=== PATIENT | male | born 1945 | race Caucasian/White ===

== ENCOUNTER → 2017-08-15 | Outpatient (CLI) | payer MEDICARE ==
[~2017-08-15] MED LIST: ASPIR 8181 MG PO; ASPIRIN EC81 MG PO; ATORVASTATIN CA80 MG PO; BACTROBAN15 G1 TOP; CO Q-10100 MG PO; COUMADIN5 MG PO; CRESTOR20 MG PO; DIGOXIN125 MCG PO; FERROUS SULFAT325 MG PO; FUROSEMIDE20 MG PO; GEMFIBROZIL600 MG PO; GLYBURIDE-METF1 EAC1 PO; KEFLEX500 MG PO; LASIX40 MG PO; LEVEMIR100 UNIT/1 SC; LEXAPRO10 MG PO; LISINOPRIL40 MG PO; METFORMIN HCL500 M2 PO; METFORMIN HCL500 MG PO; METOPROLOL SUCC50 MG PO; METOPROLOL TAR100 MG PO; METOPROLOL TART25 MG PO; MIDODRINE HCL2.5 MG PO; ONGLYZA5 MG PO; POTASSIUM CHLO10 ME1 PO; TRILIPIX135 MG PO; VICODIN 5-5001 EACH PO; VITAMIN D1000 UNI1 PO; WARFARIN SODIU2.5 MG PO; WARFARIN SODIU7.5 MG PO; XARELTO20 MG PO
--- NOTE | 2017-08-15 15:26 | Diagnostic Imaging Report ---
ELBOW LEFT COMPLETE - 3 views HISTORY: Pain COMPARISON: None available. FINDINGS: See impression. IMPRESSION: Minimally displaced intra-articular fracture of the base of the olecranon with associated soft tissue swelling. Signed by: Dr. Westley Chapman MD on 08/15/2017 3:23 PM
--- NOTE | 2017-08-15 15:36 | Diagnostic Imaging Report ---
EXAMINATION: [facility]BS UNILAT W/CXR INDICATION: \[id number] \S\[id number] \S\LEFT RIB PAIN COMPARISON: Chest x-ray dated 10/11/2016 FINDINGS: Very limited study due to generalized demineralization and body habitus. Left chest wall cardiac device is again seen. Median sternotomy wires. Enlarged cardiac silhouette. Calcified and tortuous aorta. Small left pleural effusion. IMPRESSION: No definite evidence of displaced left-sided rib fracture, considering limitations of the study. Signed by: Dr. Westley Chapman MD on 08/15/2017 3:32 PM
== END ==
LOC: RAD 14:41
PROVIDERS: ATTEND Family Medicine
DX: M25.522 Pain in left elbow (principal); R07.81 Pleurodynia
CPT/HCPCS: 71101

== ENCOUNTER → 2017-08-29 | Outpatient (CLI) | payer MEDICARE ==
[~2017-08-29] MED LIST changes: -ASPIR 8181 MG PO; -FUROSEMIDE20 MG PO; -KEFLEX500 MG PO; -METFORMIN HCL500 M2 PO; -WARFARIN SODIU7.5 MG PO
--- NOTE | 2017-09-01 13:39 | Diagnostic Imaging Report ---
Examination: CT head without contrast Clinical Indication: Syncope. Dizziness. Technique: Transaxial noncontrast images from the skull base through the vertex were obtained. Sagittal and coronal reformatted images were done. Comparison: None. CTA of the neck performed June 13, 2015. Findings: Scalp: No abnormalities. Bones: Intact. No fractures. No blastic or lytic lesions. Brain sulci: Mild volume loss for patient's age. Ventricles: No hydrocephalus. . Extra-axial space: No abnormalities. Parenchyma: There are scattered subtle areas of low-attenuation within subcortical and periventricular white matter, nonspecific, but could represent microvascular ischemic disease. There is a cortical-based area of encephalomalacia involving the right paracentral lobule and pre and post central gyri. No masses, hemorrhage, or acute cortical based vascular insults. Suprasellar region: No abnormalities. Craniocervical junction: The foramen magnum is patent. No Chiari one malformation. Incidental findings: Atherosclerotic calcification of the cavernous and supraclinoid internal carotid arteries. Impression: 1. No acute intracranial abnormalities. 2. 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 Signed by: Dr. Peggy Briggs M.D. on 09/01/2017 1:36 PM
--- NOTE | 2017-09-02 17:11 | Diagnostic Imaging Report ---
Exam: Thoracic spine CT without IV contrast History: Back pain, Evaluate wedge compression fracture Comparison studies: Included spine from chest CT of 08/28/2016. Technique: Axial were obtained without IV contrast through the thoracic region. Coronal and sagittal images reconstructed from the axial data. Intravenous contrast: None Findings: Alignment: Mild thoracic curvature convex to the right. Soft tissues: No abnormalities.. Paraspinal muscles: Unremarkable Spinal cord: Can not be evaluated. Vertebrae: No fractures, infection or neoplasm. Degenerative changes: Mildly degenerated thoracic discs. Multilevel anterior marginal osteophytosis. No significant canal stenosis. Mild foraminal stenosis bilaterally at C6-C7, T7-T8 and on the left at T8-T9. Incidental findings: Cholelithiasis with partially imaged median sternotomy wires, moderate scattered calcified atherosclerosis (within the included coronary arteries, aorta and its branching vessels), cardiac valvular calcifications, small left pleural effusion with overlying atelectasis or consolidation and leads from a left-sided in place at intracardiac device. Mildly prominent mediastinal lymph nodes recommend identified and are nonspecific. IMPRESSION: 1. No thoracic spine fracture. 2. Mild degenerative changes as described. 3. Incidental findings as described. 4. Cannot adequately evaluate ligament, spinal cord or vascular abnormalities on the basis of this examination. Signed by: Dr. Zion Davis M.D. on 09/02/2017 5:07 PM
--- NOTE | 2017-09-05 18:00 | Operative Report ---
DATE OF PROCEDURE: September 04, 2017 PREOPERATIVE DIAGNOSIS: Displaced left olecranon fracture. POSTOPERATIVE DIAGNOSIS: Displaced left olecranon fracture. PROCEDURES PERFORMED: 1. Open reduction and internal fixation of a left olecranon fracture. 2. Allograft bone grafting of the left olecranon fracture. 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 ANESTHESIA: General endotracheal intubation anesthesia. IV FLUIDS: Per the anesthesia record. BRIEF DESCRIPTION OF THE PATIENT'S OPERATIVE PROCEDURE: Mr. Moore was taken to the operating room and placed in supine position on the operating table. Following induction of general anesthesia as well as endotracheal intubation, patient's left upper extremity was examined under anesthesia. He was found to have some mild swelling and bruising about his left elbow joint. Fluoroscopic evaluation of the elbow demonstrated a displaced olecranon fracture. The patient's upper extremity was prepped and draped in standard surgical fashion. Case was begun by creating a curvilinear incision around the olecranon process and along the shaft of the proximal ulna. This incision was carried through skin only. Blunt dissection was used to deepen the incision to the level of the ulna and the soft tissues from the proximal ulna were elevated both medially and laterally using a [place]. The patient's fracture site was easily identified. The fracture was cleaned and reduced and a proximal ulnar locking plate was contoured to the proximal aspect of the ulna. The patient was found to have a large area of calcification at the insertion of the triceps. This was somewhat debrided at the time of surgery. The plate was affixed to the ulna with combinations of both cortical and locking screws providing compression across the patient's fracture site. X-rays were obtained that demonstrated the span of the fracture site with reduction of the patient's articular surface. This wound was copiously irrigated. There was some comminution at the level of the fracture site and allograft bone graft was placed along the fractured ulna both medially and laterally. The soft tissues were then closed in a multilayer fashion. Dressings were applied. The patient was placed in a well-padded splint, awakened and taken to post anesthesia care unit in stable condition. Job#: [id number]
== END ==
LOC: CARD 11:20
PROVIDERS: ATTEND Specialist
DX: R55 Syncope and collapse (principal); S22.000A Wedge compression fracture of unspecified thoracic vertebra, initial encounter for closed fracture
CPT/HCPCS: 70450; 72128; 93880

== ENCOUNTER → 2017-09-04 | Day surgery (SDC) | payer MEDICARE ==
[2017-09-01 11:47] LABS: BASOPHILS % 0.7 % (0.0-1.0); EOSINOPHILS # (AUTO) 0.2 (0.0-0.4); EOSINOPHILS % 3.5 % (0.0-6.0); HEMATOCRIT 39.4 % (38.2-49.6); HEMOGLOBIN 12.4 g/dL (14.0-18.0); LYMPHOCYTES # (AUTO) 1.4 (1.0-3.2); LYMPHOCYTES % 22.7 % (18.0-39.1); MEAN CORPUSCULAR HEMOGLOBIN 28.3 pg (28-32); MEAN CORPUSCULAR HGB CONC 31.5 g/dL (31-35); MONOCYTES # (AUTO) 0.8 (0.2-0.8); MONOCYTES % 12.8 % (4.4-11.3); NEUTROPHILS # (AUTO) 3.6 (2.1-6.9); NEUTROPHILS % 60.1 % (38.7-80.0); PLATELET COUNT 204 x10e3/uL (140-360); RED BLOOD COUNT 4.38 x10e6/uL (4.3-5.7); RED CELL DISTRIBUTION WIDTH 15.8 % (11.7-14.4)
[2017-09-01 11:59] LABS: INR 2.06; PROTHROMBIN TIME 21.8 seconds (11.9-14.5)
[2017-09-01 12:00] LABS: PARTIAL THROMBOPLASTIN TIME 46.8 seconds (23.8-35.5)
[2017-09-01 12:05] LABS: ANION GAP 13.7 mmol/L (8-16); BLOOD UREA NITROGEN 17 mg/dL (7-26); BUN/CREATININE RATIO 18 (6-25); CALCIUM 9.4 mg/dL (8.4-10.2); CARBON DIOXIDE 23 mmol/L (22-29); CHLORIDE 109 mmol/L (98-107); CREATININE, SERUM 0.97 mg/dL (0.72-1.25); EST GLOMERULAR FILTRATION RATE > 60 ML/MIN (60-); GLUCOSE 94 mg/dL (74-118); POTASSIUM 4.7 mmol/L (3.5-5.1); SODIUM 141 mmol/L (136-145)
[2017-09-03 15:08] LABS: INR 1.52; PROTHROMBIN TIME 17.2 seconds (11.9-14.5)
[2017-09-03 15:09] LABS: PARTIAL THROMBOPLASTIN TIME 45.6 seconds (23.8-35.5)
[~2017-09-04] MED LIST changes: +BACITRACIN 50,000 UNIT VIAL ONE; +BUPIVACAINE HCL 0.5% INJ 30 ML VIAL INJ ONE; +CEFAZOLIN SOD 2 GM/D5W 50ML 50 ML IV ONE; +DEXAMETHASONE SOD PHOS INJ 4 MG/ML VIAL ONE; +FENTANYL CITRATE/PF 100MCG/2 ML INJ ONE; +KEFLEX500 MG PO; +LIDOCAINE HCL 2% LOCAL INJ 5 ML SDV VIAL INJ ONE; +MIDAZOLAM HCL 2 MG/2 ML VIAL ONE; +ONDANSETRON HCL INJ 2 MG/ML VIAL ONE; +PHENYLEPHRINE HCL 1% 10 MG/ML VIAL ONE; +PROPOFOL IV EMULSION 10 MG/ML 20 ML VIAL ONE; +ROCURONIUM BROMIDE 10 MG/ML 5ML VIAL ONE; +ROPIVACAINE 0.5% 5 MG/ML 30 ML SDV ONE; +SEVOFLURANE INHAL SOLN 250 ML PEN BTL ONE; +VASOPRESSIN INJ 20 UNIT/ML VIAL ONE
[2017-09-04 10:17] LABS: INR 1.31; PROTHROMBIN TIME 15.3 seconds (11.9-14.5)
[2017-09-04 10:18] LABS: PARTIAL THROMBOPLASTIN TIME 36.8 seconds (23.8-35.5)
--- OUTSIDE RECORDS SUMMARY | 2017-09-04 11:30 | XMS REPORT | Clinical Summary ---
Author Author [facility] Organization [facility] Address Unknown Phone Unavailable Care Team Providers Care Heading Matcher And Assembler Name Role Phone Ronda Sofia MD PCP Allergies No Known Allergies Current Medications Prescription Sig. Disp. Refills Start End Date Status Date aspirin (ECOTRIN) 81 MG Take 81 mg by mouth Active enteric coated tablet daily. cholecalciferol, vitamin Take 50,000 Units by Active D3, 50,000 unit capsule mouth once a week. furosemide (LASIX) 40 mg Take 40 mg by mouth Active tablet daily. metFORMIN (GLUCOPHAGE) Take 1,000 mg by mouth 2 Active 1,000 mg tablet (two) times a day with meals. rosuvastatin (CRESTOR) 20 Take 20 mg by mouth Active MG tablet daily. digOXIN (LANOXIN) 125 mcg Take 125 mcg by mouth 10/05/19 Discontin tablet daily. 17 ued gemfibrozil (LOPID) 600 Take 600 mg by mouth 10/05/19 Discontin MG tablet daily. 17 ued insulin detemir (LEVEMIR) Inject 34 Units under the 10/05/19 Discontin 100 unit/mL injection skin every morning. 17 ued lisinopril Take 20 mg by mouth 10/05/19 Discontin (PRINIVIL,ZESTRIL) 20 mg daily. 17 ued tablet potassium chloride Take 10 mEq by mouth 10/05/19 Discontin (K-DUR,KLOR-CON) 10 MEQ daily. 17 ued CR tablet rivaroxaban (XARELTO) 20 Take 20 mg by mouth 10/05/19 Discontin mg tablet daily. 17 ued metoprolol tartrate Take 100 mg by mouth 2 10/05/19 Discontin (LOPRESSOR) 100 mg tablet (two) times a day. 17 ued metoprolol tartrate Take 25 mg by mouth 2 10/05/19 Discontin (LOPRESSOR) 25 mg tablet (two) times a day. 17 ued ondansetron ODT Take 1 tablet (4 mg 10/04/19 11/03/19 (ZOFRAN-ODT) 4 MG total) by mouth every 8 17 17 disintegrating tablet (eight) hours as needed for nausea or vomiting for up to 30 days. losartan (COZAAR) 25 MG Take 1 tablet (25 mg 30 tablet 0 10/04/19 tablet total) by mouth daily for 17 17 30 days. metoprolol tartrate Take 1 tablet (25 mg 60 tablet 0 10/04/19 (LOPRESSOR) 25 mg tablet total) by mouth 2 (two) 17 17 times a day for 30 days. digOXIN (LANOXIN) 125 mcg Take 1 tablet (125 mcg 30 tablet 0 10/04/19 11/03/19 tablet total) by mouth daily for 17 17 30 days. insulin GLARGINE (LANTUS) Inject 16 Units under the 10 mL 10/04/19 100 unit/mL injection skin nightly for 30 days. 17 17 (vial) insulin lispro (HumaLOG) Inject 0-7 Units under 10 mL 12 10/04/19 100 unit/mL injection the skin every 4 (four) 17 17 hours for 30 days. docusate sodium (COLACE) Take 1 capsule (100 mg 60 capsule 0 10/04/19 11/03/19 100 MG capsule total) by mouth 2 (two) 17 17 times a day for 30 days. polyethylene glycol Take 17 g by mouth daily 30 packet 0 10/04/19 (MIRALAX) 17 gram packet for 30 days. 17 17 bisacodyl (DULCOLAX) 10 Insert 1 suppository (10 10/04/19 11/03/19 mg suppository mg total) into the rectum 17 17 daily as needed for constipation for up to 30 days. gemfibrozil (LOPID) 600 Take 1 tablet (600 mg 60 tablet 0 10/04/19 11/03/19 MG tablet total) by mouth 2 (two) 17 17 times a day before meals for 30 days. potassium chloride Take 2 capsules (20 mEq 120 capsule 0 10/04/19 (MICRO-K) 10 MEQ CR total) by mouth 2 (two) 17 17 capsule times a day for 30 days. doxycycline (VIBRAMYCIN) Take 1 capsule (100 mg 10/04/19 10/13/19 100 MG capsule total) by mouth 2 (two) 17 17 times a day with meals for 9 days. Active Problems Problem Noted Date Cardiac insufficiency 09/26/2016 Respiratory insufficiency 09/26/2016 Aortic stenosis 09/24/2016 CAD (coronary artery disease) 09/24/2016 DM type 2 (diabetes mellitus, type 2) 09/24/2016 Essential hypertension 09/24/2016 Carotid artery disease 09/24/2016 Thrombus of left atrial appendage 09/24/2016 Encounters Date Type Specialty Care Team Description 09/26/2016 Procedure Pass Cardiothoracic Surgery 09/26/2016 Surgery Cardiothoracic Surgery Olga Silver MD AORTIC VALVE REPLACEMENT 09/25/2016 Anesthesia Cardiothoracic Surgery Madan Ag MD 09/24/2016 [facility] Cardiology Rick Haro MD Aortic valve stenosis, - Encounter David Grey MD unspecified etiology 10/04/2016 (Primary Dx); Nonrheumatic aortic valve stenosis; Coronary artery disease involving ak chin coronary artery of ak chin heart without angina pectoris after 09/03/2016 Social History Tobacco Use Types Packs/Day Years Used Date Never Assessed Sex Assigned at Date Recorded Not on file Last Filed Vital Signs Vital Sign Reading Time Taken Blood Pressure 144/60 10/04/2016 4:21 PM CDT Pulse 74 10/04/2016 4:21 PM CDT Temperature 36.6 C (97.9 F) 10/04/2016 4:21 PM CDT Respiratory Rate 18 10/04/2016 4:21 PM CDT Oxygen Saturation 96% 10/04/2016 4:21 PM CDT Inhaled Oxygen - - Concentration Weight 88 kg (194 lb 1.6 oz) 10/04/2016 6:35 AM CDT Height 177.8 cm (5' 10") 09/26/2016 7:30 AM CDT Body Mass Index 27.85 10/04/2016 6:35 AM CDT Plan of Treatment Health Maintenance Due Date Last Done Comments FOOT EXAM 1956 OPHTHALMOLOGY EXAM 1956 URINE MICROALBUMIN 1956 COLONOSCOPY 1996 ZOSTER VACCINE 2006 PNEUMOCOCCAL 2011 POLYSACCHARIDE VACCINE AGE 65 AND OVER PNEUMOCOCCAL-13 2011 INFLUENZA VACCINE 01/21/2017 Implants Implanted Type Area Nnp Device Expiration Model / Identifier Date Serial / Lot Valve Aortc Stntd Tiss Annls W/ Cardiovasc N/A: N/A ST ASTRID 2018 E100 25A Linx Ac Tech 25mm Epic - ular STRUCTURAL 00 / [id number] - [id number] Implants HEART [id number]^ Implanted: Qty: 1 on 09/26/2016 by [id number] Olga Silver MD 9 / [id number] Lead Pace Jono Mycrdl Unipol Tmpry Cardiovasc [facility] - [id number] / Streamline - [id number] ular CARDIAC SRGRY / Implanted: Qty: 2 on 09/26/2016 by Implants Olga Silver MD Chamber Sgl Thais Dry Suct 1wy Vlv Surgical N/A: N/A TELEFLEX S 1100 Adlt Pedi - [id number] Implants; MEDICAL [id number] / Implanted: 09/26/2016 (Quantity not Expanders; / on file) Extenders; Surgical Wires Chamber Sgl Thais Dry Suct 1wy Vlv Surgical N/A: N/A TELEFLEX S 1100 Adlt Pedi - [id number] Implants; MEDICAL [id number] / Implanted: 09/26/2016 (Quantity not Expanders; / on file) Extenders; Surgical Wires Chamber Sgl Thais Dry Suct 1wy Vlv Surgical N/A: N/A TELEFLEX S 1100 Adlt Pedi - [id number] Implants; MEDICAL [id number] / Implanted: 09/26/2016 (Quantity not Expanders; / on file) Extenders; Surgical Wires Marion Perph Vasclr Ptfe 1.2x10cm Vascular N/A: N/A BARD PERIPHERAL [id number] / 1.65mm - [id number] Graft VASCULAR / Implanted: Qty: 1 on 09/26/2016 by [id number] Olga Silver MD Marion Perph Vasclr Ptfe 1.2x10cm Vascular N/A: N/A BARD PERIPHERAL [id number] / 1.65mm - [id number] Graft VASCULAR / Implanted: Qty: 1 on 09/26/2016 by [id number] Olga Silver MD Marion Perph Vasclr Ptfe [id number] Vascular BARD PERIPHERAL [id number] / 1.65mm - [id number] Graft VASCULAR / Implanted: Qty: 1 on 09/26/2016 by Olga Silver MD Procedures Procedure Name Priority Date/Time Associated Diagnosis Comments CONSULT CARDIAC REHAB Routine 09/30/2016 PHASE 1 3:30 PM CDT ECHOCARDIOGRAM 2D Routine 09/30/2016 Results for this COMPLETE W MMODE SPECTRAL 2:43 PM CDT procedure are in the COLOR DOPPLER (52243) results section. LINE/DRAIN REMOVAL Routine 09/28/2016 Nonrheumatic aortic valve Results for this 5:06 PM CDT stenosis procedure are in the Coronary artery disease results section. involving ak chin coronary artery of ak chin heart without angina pectoris ANESTHESIA MIGDALIA Routine 09/26/2016 Results for this 3:29 PM CDT procedure are in the results section. PA CATHETER Routine 09/26/2016 Results for this 10:38 AM CDT procedure are in the results section. CENTRAL LINE Routine 09/26/2016 Results for this 10:38 AM CDT procedure are in the results section. CENTRAL LINE Routine 09/26/2016 Results for this 10:38 AM CDT procedure are in the results section. ARTERIAL LINE Routine 09/26/2016 Results for this 10:38 AM CDT procedure are in the results section. ANESTHESIA INTUBATION Routine 09/26/2016 Results for this 10:38 AM CDT procedure are in the results section. ECHOCARDIOGRAM 2D Routine 09/25/2016 Results for this COMPLETE W MMODE SPECTRAL 8:39 AM CDT procedure are in the COLOR DOPPLER (41765) results section. after 09/03/2016 Results * POC glucose (10/04/2016 5:07 PM) Only the most recent of 72 results within the time period is included. Component Value Ref Range POC glucose 140 (H) 65 - 99 mg/dL Comment: [facility] Notified RN Meter ID: [id number] Hydraulic Elevator Constructor: Javier Damon Specimen Performing Laboratory [facility] DEPARTMENT OF PATHOLOGY AND GENOMIC MEDICINE [address] [place] [address] * CBC with platelet and differential (10/04/2016 6:15 AM) Only the most recent of 6 results within the time period is included. Component Value Ref Range WBC 9.22 4.50 - 11.00 k/uL RBC 3.34 (L) 4.40 - 6.00 m/uL HGB 9.9 (L) 14.0 - 18.0 g/dL HCT 31.0 (L) 41.0 - 51.0 % MCV 92.8 82.0 - 100.0 fL MCH 29.6 27.0 - 34.0 pg MCHC 31.9 31.0 - 37.0 g/dL RDW - SD 52.9 37.0 - 55.0 fL MPV 11.3 8.8 - 13.2 fL Platelet count 191 150 - 400 k/uL Nucleated RBC 0.00 /100 WBC Neutrophils 59.1 39.0 - 69.0 % Lymphocytes 21.7 (L) 25.0 - 45.0 % Monocytes 11.7 (H) 0.0 - 10.0 % Eosinophils 6.0 (H) 0.0 - 5.0 % Basophils 0.5 0.0 - 1.0 % Immature granulocytes 1.0Comment: "Immature granulocytes" 0.0 - 1.0 % (promyelocytes, myelocytes, metamyelocytes) Specimen Performing Laboratory Blood [facility] DEPARTMENT OF PATHOLOGY AND [facility]OMIC [facility]ICINE [address] [place] [address] * Estimated GFR (10/04/2016 4:00 AM) Only the most recent of 10 results within the time period is included. Component Value Ref Range GFR Non Af Amer 83 mL/min/1.73 m2 GFR Af Amer >90 mL/min/1.73 m2 Comment: Chronic kidney disease: <60 mL/min/1.73m2 Kidney failure: <15 mL/min/1.73m2 The estimated GFR is calculated from the IDMS-traceable Modification of Diet in Renal Disease Equation. The accuracy of the calculation is poor when the creatinine is normal. Calculated values >90 mL/min/1.73m2 are not reported. This equation has not been validated in children (<18 years), women, the elderly (>70 years), or ethnic groups other than Caucasians and Americans. Specimen Performing Laboratory Plasma specimen [facility] DEPARTMENT OF PATHOLOGY AND GENOMIC MEDICINE [address] [place] [address] * Magnesium level (10/04/2016 4:00 AM) Only the most recent of 12 results within the time period is included. Component Value Ref Range Magnesium 1.8 1.6 - 2.4 mg/dL Specimen Performing Laboratory Plasma specimen [facility] DEPARTMENT OF PATHOLOGY AND [place] [id number] * Basic metabolic panel (10/04/2016 4:00 AM) Only the most recent of 8 results within the time period is included. Component Value Ref Range Sodium 134 (L) 135 - 148 mEq/L Potassium 4.7 3.5 - 5.0 mEq/L Chloride 100 98 - 112 mEq/L CO2 22 (L) 24 - 31 mEq/L Anion gap 12 7 - 15 mEq/L Comment: Starting from September , anion gap calculation no longer incorporates potassium. Please note the change. BUN 22 8 - 23 mg/dL Creatinine 0.9 0.7 - 1.2 mg/dL Glucose 129 (H) 65 - 99 mg/dL Calcium 9.3 8.8 - 10.2 mg/dL Specimen Performing Laboratory Plasma specimen [facility] DEPARTMENT OF PATHOLOGY AND [address] [address] * Comprehensive metabolic panel (10/02/2016 4:00 AM) Only the most recent of 2 results within the time period is included. Component Value Ref Range Sodium 137 135 - 148 mEq/L Potassium 3.4 (L) 3.5 - 5.0 mEq/L Chloride 101 98 - 112 mEq/L CO2 23 (L) 24 - 31 mEq/L Anion gap 13 7 - 15 mEq/L Comment: Starting from September , anion gap calculation no longer incorporates potassium. Please note the change. BUN 22 8 - 23 mg/dL Creatinine 0.8 0.7 - 1.2 mg/dL Glucose 146 (H) 65 - 99 mg/dL Calcium 9.0 8.8 - 10.2 mg/dL Protein 6.5 6.3 - 8.3 g/dL Comment: [place] 4.6-7.0 g/dL 1 week 4.4-7.6 g/dL 7 months-1year 5.1-7.3 g/dL 1-2 years 5.6-7.5 g/dL >3 years 6.0-8.0 g/dL 18-150 6.3-8.3 g/dL Albumin 2.6 (L) 3.5 - 5.0 g/dL A/G ratio 0.7 0.7 - 3.8 Alkaline phosphatase 135 (H) 40 - 129 U/L AST 54 (H) 10 - 50 U/L ALT 35 5 - 50 U/L Total bilirubin 1.3 (H) 0.0 - 1.2 mg/dL Specimen Performing Laboratory Plasma specimen [facility] DEPARTMENT OF PATHOLOGY AND GENOMIC MEDICINE [address] [place] [address] * Phosphorus level (10/01/2016 6:16 AM) Only the most recent of 10 results within the time period is included. Component Value Ref Range Phosphorus 2.2 (L) 2.4 - 4.5 mg/dL Specimen Performing Laboratory Plasma specimen [facility] [place] [address] * B natriuretic peptide (10/01/2016 6:16 AM) Component Value Ref Range BNP 743 (H) 0 - 100 pg/mL Specimen Performing Laboratory Blood [facility] [place] [address] * Ionized calcium (10/01/2016 6:16 AM) Only the most recent of 8 results within the time period is included. Component Value Ref Range pH 7.72 Ionized calcium 0.99 (L) 1.11 - 1.32 mmol/L Specimen Performing Laboratory Plasma specimen [facility] DEPARTMENT OF PATHOLOGY AND [facility] [address] [place] [address] * XR Chest 1 Vw Portable (09/30/2016 10:43 PM) Only the most recent of 7 results within the time period is included. Specimen Performing Laboratory [facility] [address] [place] [address] Narrative Examination: XR CHEST 1 VW PORTABLE Clinical history: SHORTNESS OF BREATH Comparison: 449 Impression: 1. IJ line has been removed. There is no visible pneumothorax. 2. Pulmonary volumes mildly improved. Appearance of the chest is otherwise stable. [facility]-[id number] Procedure Note Interface, Radiology Results Incoming - 09/30/2016 10:49 PM CDT Examination: XR CHEST 1 VW PORTABLE Clinical history: SHORTNESS OF BREATH Comparison: 449 Impression: 1. IJ line has been removed. There is no visible pneumothorax. 2. Pulmonary volumes mildly improved. Appearance of the chest is otherwise stable. [facility]-[id number] * Echocardiogram complete w contrast and 3D if needed (09/30/2016 2:43 PM) Specimen Performing Laboratory [facility] [address] [place] [address] Narrative Echocardiography Report [address] [place] [address] Pat.Name:Son MOORE.ID:[id number] .Date: 09/30/2016 Refer.MD:KIT ROWELL MD Exam Time: 1:46:00 PMStudy Type:Routine Echo Height:70inWeight:177lb BSA: 1.98 m2 DOBAge:1944,71Y Sex: MALEBP: 120/61 HR:69 bpm Sonogrphr: Alba Torres RDCS, RVT Pat. Stat.:Inpatient Room:[facility] Study Status:Final Echo Event ID:[id number] Order ID:[id number] Reason for Study:AVR History / Clinical:Coronary Artery Disease, Diabetes, Hypertension, Valvular Heart Disease; Aortic Stenosis Procedures:2D Echo, Colorflow Doppler, Portable, Intravenous Optison Contrast Race:C SUMMARY: Bioprosthetic aortic valve. Suboptimal Doppler evaluation of prosthetic valve precludes hemodynamic assessment of valvular function. FINDINGS: LV: LV size is upper limits of normal. There is mild concentric LVhypertrophy. LV function is moderately depressed. EstimatedEF is 35-39%. RV: RV size is normal. RV function is normal. RV wall motion is normal. LA: LA volume is difficult to assess. RA: RA volume is difficult to assess. AO: Aortic root diameter is normal. KOREY: No pericardial effusion. AV: Bioprosthetic aortic valve. Suboptimal Doppler evaluation of prostheticvalve precludes hemodynamic assessment of valvularfunction. MV: Mild mitral annular calcification. Thickened and/or calcifiedchordae. PV: No structural PV abnormalities noted. TV: No structural TV abnormalities noted. A trace of tricuspid regurgitation James: LV relaxation is impaired. LV filling pressure is elevated. Other:Insufficient TR jet to estimate PA systolic pressure. MEASUREMENTS: 2D Parasternal [place] Ao An2.3 cmIVSd 1.1 cm LVOT 2.2 cmLVPWd 1.5 cm LVIDd5.2 cmIndex 2.6 cm/m LA Ds5.1 cm LVIDs4.7 cmAo Rtd 3.3 cm Index1.7 cm/m LV%fs9.7 % WALL MOTION: RESTING WALL MOTION: Mid Anterolateral, Apical Anterior, Apical Septal, Apical Inferior, Apical Lateral, Apical carrington are akinetic.Basal Anterior, Basal Inferolateral, Basal Anterolateral, Mid Anterior, Mid Inferolateral carrington are hypokinetic. Normal in all other carrington. Wall Index=2 Signed 09/30/2016 06:51 PM Qi Howell M.D. Procedure Note Interface, Radiology Results In - 09/30/2016 6:51 PM CDT Echocardiography Report [address]Name: IMER MOORE.ID: [id number] .Date: 09/30/2016 Refer.MD: KIT ROWELL MD Exam Time: 1:46:00 PM Study Type:Routine Echo Height: 70in Weight: 177lb BSA: 1.98 m2 Age: 10 1945,71Y Sex: MALE BP: 120/61 HR: 69 bpm Sonogrphr: Alba Pettifor, RDCS, RVT Pat. Stat.:Inpatient Room: [facility] Study Status:Final Echo Event ID:[id number] Order ID: [id number] Reason for Study:AVR History / Clinical:Coronary Artery Disease, Diabetes, Hypertension, Valvular Heart Disease; Aortic Stenosis Procedures:2D Echo, Colorflow Doppler, Portable, Intravenous Optison Contrast Race: C SUMMARY: Bioprosthetic aortic valve. Suboptimal Doppler evaluation of prosthetic valve precludes hemodynamic assessment of valvular function. FINDINGS: LV: LV size is upper limits of normal. There is mild concentric LV hypertrophy. LV function is moderately depressed. Estimated EF is 35-39%. RV: RV size is normal. RV function is normal. RV wall motion is normal. LA: LA volume is difficult to assess. RA: RA volume is difficult to assess. AO: Aortic root diameter is normal. KOREY: No pericardial effusion. AV: Bioprosthetic aortic valve. Suboptimal Doppler evaluation of prosthetic valve precludes hemodynamic assessment of valvular function. MV: Mild mitral annular calcification. Thickened and/or calcified chordae. PV: No structural PV abnormalities noted. TV: No structural TV abnormalities noted. A trace of tricuspid regurgitation James: LV relaxation is impaired. LV filling pressure is elevated. Other: Insufficient TR jet to estimate PA systolic pressure. MEASUREMENTS: 2D Parasternal Long [place] Ao An 2.3 cm IVSd 1.1 cm LVOT 2.2 cm LVPWd 1.5 cm LVIDd 5.2 cm Index 2.6 cm/m LA Ds 5.1 cm LVIDs 4.7 cm Ao Rtd 3.3 cm Index 1.7 cm/m LV%fs 9.7 % WALL MOTION: RESTING WALL MOTION: Mid Anterolateral, Apical Anterior, Apical Septal, Apical Inferior, Apical Lateral, Apical carrington are akinetic. Basal Anterior, Basal Inferolateral, Basal Anterolateral, Mid Anterior, Mid Inferolateral carrington are hypokinetic. Normal in all other carrington. Wall Index=2 Signed 09/30/2016 06:51 PM Qi Howell M.D. * CBC hemogram (09/30/2016 4:30 AM) Only the most recent of 4 results within the time period is included. Component Value Ref Range WBC 13.64 (H) 4.50 - 11.00 k/uL RBC 3.55 (L) 4.40 - 6.00 m/uL HGB 10.4 (L) 14.0 - 18.0 g/dL HCT 32.4 (L) 41.0 - 51.0 % MCV 91.3 82.0 - 100.0 fL MCH 29.3 27.0 - 34.0 pg MCHC 32.1 31.0 - 37.0 g/dL RDW - SD 50.6 37.0 - 55.0 fL MPV 12.2 8.8 - 13.2 fL Platelet count 95 (L) 150 - 400 k/uL Nucleated RBC 0.00 /100 WBC Specimen Performing Laboratory Blood [facility] DEPARTMENT OF PATHOLOGY AND [facility] [address] [place] [address] * Potassium level (09/29/2016 11:10 PM) Only the most recent of 5 results within the time period is included. Component Value Ref Range Potassium 4.2 3.5 - 5.0 mEq/L Specimen Performing Laboratory Plasma specimen [facility] DEPARTMENT OF PATHOLOGY AND GENOMIC MEDICINE [address] [place] [address] * ECG 12 lead (09/29/2016 8:21 AM) Only the most recent of 4 results within the time period is included. Component Value Ref Range Ventricular rate 70 Atrial rate 68 QRSD interval 140 QT interval 456 QTC interval 492 QRS axis 1 -68 T wave axis 62 EKG impression Ventricular-paced rhythm-Abnormal ECG-In automated comparison with ECG of 28-SEP-2016 12:19,-No significant change was found- Specimen Performing Laboratory [facility] [address] [place] [address] * Type and screen (09/29/2016 2:00 AM) Only the most recent of 2 results within the time period is included. Component Value Ref Range ABO grouping A Rh type POS Antibody screen (gel) NEG Specimen Performing Laboratory Blood [facility] DEPARTMENT OF PATHOLOGY AND GENOMIC MEDICINE [address] [place] [address] * Line/Drain Removal (09/28/2016 5:06 PM) Ana Cronin Jr., PA-C 09/28/20165:06 PM Line/Drain Removal Date/Time: 09/28/2016 5:05 PM Performed by: KIT CRONIN JR Authorized by: KIT CRONIN JR Pre-procedure details: Line or drain removed:Chest tube Chest Tube Removal: Chest tube removed from suction: Yes Sutures retied: Yes Removal procedure: Number of people performing procedure:1 Breath held: Yes Dressing applied::4x4 sterile gauze and occlusive * Partial thromboplastin time, activated (09/28/2016 1:15 AM) Only the most recent of 10 results within the time period is included. Component Value Ref Range PTT 31.1 23.0 - 36.0 sec Comment: PTT therapeutic range for unfractionated heparin is 61.0-112.0 seconds which corresponds to Anti-Xa 0.3-0.7 U/ml. Specimen Performing Laboratory Blood [facility] DEPARTMENT OF PATHOLOGY AND [facility] [address] [place] [address] * Prothrombin time with INR (09/28/2016 1:15 AM) Only the most recent of 11 results within the time period is included. Component Value Ref Range Prothrombin time 17.1 (H) 12.0 - 15.0 sec INR 1.4 Comment: The International Normalized Ratio (INR) is a therapeutic monitoring tool for patients who are stable on oral anticoagulant therapy. An INR of 2.0-3.0 is suggested for deep vein thrombosis/pulmonary embolism. Specimen Performing Laboratory Blood [facility] DEPARTMENT OF PATHOLOGY [facility] [address] [place] [address] * O2 saturation, venous (09/26/2016 9:00 PM) Component Value Ref Range Hemoglobin, venous, 11.7 (L) 14.0 - 18.0 g/dL syringe O2 saturation, venous 74 (H) 40 - 70 % Specimen Performing Laboratory [facility] DEPARTMENT OF PATHOLOGY AND [facility] [address] [place] [address] * Ionized calcium, arterial (09/26/2016 3:50 PM) Only the most recent of 12 results within the time period is included. Component Value Ref Range Ionized calcium, arterial 1.23 1.11 - 1.32 mmol/L Specimen Performing Laboratory Blood [facility] [place] [address] * Fibrinogen (09/26/2016 3:50 PM) Only the most recent of 4 results within the time period is included. Component Value Ref Range Fibrinogen 227 200 - 450 mg/dL Specimen Performing Laboratory Blood [facility] DEPARTMENT OF PATHOLOGY [facility] [address] [place] [address] * Arterial blood gas (09/26/2016 3:50 PM) Only the most recent of 7 results within the time period is included. Component Value Ref Range pH, arterial 7.41 7.35 - 7.45 pCO2, arterial 35 35 - 45 mmHg pO2, arterial 245 (H) 80 - 90 mmHg Bicarbonate, arterial 21.6 21.0 - 28.0 mmol/L Base excess, arterial -2 -2 - 2 mEq/L O2 saturation, arterial 99 95 - 100 % Specimen Performing Laboratory Blood [facility] DEPARTMENT OF PATHOLOGY AND [facility] [address] [place] [address] * Surgical pathology request (09/26/2016 3:40 PM) Component Value Ref Range Surgical pathology report See link below for PDF Lab Report Specimen Performing Laboratory [facility] DEPARTMENT OF PATHOLOGY [facility] [address] [place] [address] * ANESTHESIA MIGDALIA (09/26/2016 3:29 PM) Ana Porras MD 09/26/20163:29 PM Procedure Performed: MIGDALIA Start Time: End Time: Preanesthesia Checklist: Patient identified, IV assessed, risks and benefits discussed, monitors and equipment assessed, procedure being performed at surgeon's request, anesthesia consent obtained. General Procedure Information Diagnostic Indications for Echo:assessment of ascending aorta, assessment of surgical repair, defect repair evaluation and hemodynamic monitoring Physician Requesting Echo: OLGA SILVER Location performed:OR Intubated Bite block placed Heart visualized Probe Insertion:Easy Probe Type:Multiplane Modalities:2D only, color flow mapping, continuous wave Doppler, contrast and pulse wave Doppler Echocardiographic and Doppler Measurements Ventricles Right Ventricle: Cavity size normal.Hypertrophy not present.Thrombus not present. Global function moderately impaired. Left Ventricle: Cavity size dilated.Hypertrophy not present.Thrombus not present. Global Function severely impaired. Valves Aortic Valve: Annulus calcified.Stenosis severe.Regurgitation +1.Leaflets calcified.Leaflet motions restricted. Mitral Valve: Annulus normal.Stenosis not present.Regurgitation absent.Leaflets normal.Leaflet motions normal. Tricuspid Valve: Annulus dilated.Stenosis not present.Regurgitation +2.Leaflets normal.Leaflet motions normal. Pulmonic Valve: Annulus normal.Stenosis not present.Regurgitation absent. Aorta Ascending Aorta: Size normal.Dissection not present.Plaque thickness less than 3 mm. Mobile plaque not present. Aortic Arch: Size normal.Dissection not present.Plaque thickness less than 3 mm. Mobile plaque not present. Descending Aorta: Size normal.Dissection not present.Plaque thickness less than 3 mm. Mobile plaque not present. Atria Right Atrium: Size normal.Spontaneous echo contrast not present.Thrombus not present.Tumor not present.Device not present. Left Atrium: Size dilated.Spontaneous echo contrast present.Thrombus not present. Tumor not present.Device not present. Left atrial appendage thrombus. Septa Atrial Septum: Intra-atrial septal morphology normal. Ventricular Septum: Intra-ventricular septum morphology normal. Other Findings Pericardium:normal Pleural Effusion:none Pulmonary Arteries:normal Pulmonary Venous Flow:normal Anesthesia Information Performed with residents and CRNAs Anesthesiologist:TONY PORRAS Residents/CRNAs:KIRK GASCA Echocardiogram Comments: S/p cab and avreplacement MIGDALIA: IMPROVED LV anterior, Anteriolateral and inferiolateral wall motion. No new rwma. LVEF: 40% RV: Moderately decreased fxn. Good sitting of new AV, NO PVL/MP-10 mmHg Other valves: no change Procedure Note Athanassiou, Tony, MD - 09/26/2016 8:59 AM CDT Procedure Performed: MIGDALIA Start Time: End Time: Preanesthesia Checklist: Patient identified, IV assessed, risks and benefits discussed, monitors and equipment assessed, procedure being performed at surgeon's request, anesthesia consent obtained. General Procedure Information Diagnostic Indications for Echo: assessment of ascending aorta, assessment of surgical repair, defect repair evaluation and hemodynamic monitoring Physician Requesting Echo: OLGA SILVER Location performed: OR Intubated Bite block placed Heart visualized Probe Insertion: Easy Probe Type: Multiplane Modalities: 2D only, color flow mapping, continuous wave Doppler, contrast and pulse wave Doppler Echocardiographic and Doppler Measurements Ventricles Right Ventricle: Cavity size normal. Hypertrophy not present. Thrombus not present. Global function moderately impaired. Left Ventricle: Cavity size dilated. Hypertrophy not present. Thrombus not present. Global Function severely impaired. Valves Aortic Valve: Annulus calcified. Stenosis severe. Regurgitation +1. Leaflets calcified. Leaflet motions restricted. Mitral Valve: Annulus normal. Stenosis not present. Regurgitation absent. Leaflets normal. Leaflet motions normal. Tricuspid Valve: Annulus dilated. Stenosis not present. Regurgitation +2. Leaflets normal. Leaflet motions normal. Pulmonic Valve: Annulus normal. Stenosis not present. Regurgitation absent. Aorta Ascending Aorta: Size normal. Dissection not present. Plaque thickness less than 3 mm. Mobile plaque not present. Aortic Arch: Size normal. Dissection not present. Plaque thickness less than 3 mm. Mobile plaque not present. Descending Aorta: Size normal. Dissection not present. Plaque thickness less than 3 mm. Mobile plaque not present. Atria Right Atrium: Size normal. Spontaneous echo contrast not present. Thrombus not present. Tumor not present. Device not present. Left Atrium: Size dilated. Spontaneous echo contrast present. Thrombus not present. Tumor not present. Device not present. Left atrial appendage thrombus. Septa Atrial Septum: Intra-atrial septal morphology normal. Ventricular Septum: Intra-ventricular septum morphology normal. Other Findings Pericardium: normal Pleural Effusion: none Pulmonary Arteries: normal Pulmonary Venous Flow: normal Anesthesia Information Performed with residents and CRNAs Anesthesiologist: TONY PORRAS Residents/CRNAs: KIRK GASCA Echocardiogram Comments: S/p cab and avreplacement MIGDALIA: IMPROVED LV anterior, Anteriolateral and inferiolateral wall motion. No new rwma. LVEF: 40% RV: Moderately decreased fxn. Good sitting of new AV, NO PVL/MP-10 mmHg Other valves: no change * Sodium level, syringe (09/26/2016 3:25 PM) Only the most recent of 11 results within the time period is included. Component Value Ref Range Sodium, syringe 140 135 - 148 mEq/L Specimen Performing Laboratory Blood [facility] [place] [address] * Potassium, syringe (09/26/2016 3:25 PM) Only the most recent of 11 results within the time period is included. Component Value Ref Range Potassium, syringe 3.8 3.5 - 5.0 mEq/L Specimen Performing Laboratory Blood [facility] [place] [address] * Hemoglobin, syringe (09/26/2016 3:25 PM) Only the most recent of 13 results within the time period is included. Component Value Ref Range Hemoglobin, syringe 13.0 (L) 14.0 - 18.0 g/dL Specimen Performing Laboratory Blood [facility] [place] [address] * Glucose level, syringe (09/26/2016 3:25 PM) Only the most recent of 10 results within the time period is included. Component Value Ref Range Glucose, syringe 142 (H) 65 - 99 mg/dL Specimen Performing Laboratory Blood [facility] [place] [id number] * Arterial blood gas, corrected (09/26/2016 3:25 PM) Only the most recent of 6 results within the time period is included. Component Value Ref Range pH, arterial 7.37 7.35 - 7.45 pCO2, arterial 41 35 - 45 mmHg pO2, arterial 277 (H) 80 - 90 mmHg Temperature, Celsius 37.4 Degrees C O2 saturation, arterial 100 95 - 100 % pH, arterial corrected 7.36 pCO2, arterial corrected 42 mmHg pO2, arterial corrected 279 mmHg Base excess, arterial -2 -2 - 2 mEq/L Specimen Performing Laboratory Blood [facility] [place] [id number] * Rapid TEG (09/26/2016 2:40 PM) Component Value Ref Range TEG R time 1.3 (H) 0.0 - 1.0 min TEG K time 1.6 0.8 - 2.0 min TEG angle 70.6 64.0 - 80.0 deg TEG max amplitude 65.3 52.0 - 74.0 mm TEG G 9,391.7 5k-14k d/sc TEG fibrinolysis/30 0.0 0.0 - 6.0 % Specimen Performing Laboratory Plasma specimen [facility] [place] [place] [address] * Hemoglobin & hematocrit (09/26/2016 2:40 PM) Only the most recent of 2 results within the time period is included. Component Value Ref Range HGB 12.1 (L) 14.0 - 18.0 g/dL HCT 35.5 (L) 41.0 - 51.0 % Specimen Performing Laboratory [facility] [place] [address] * Platelet count (09/26/2016 2:40 PM) Only the most recent of 3 results within the time period is included. Component Value Ref Range Platelet count 156 150 - 400 k/uL Specimen Performing Laboratory [facility] [place] [address] * Venous blood gas (09/26/2016 1:50 PM) Component Value Ref Range pH, venous 7.28 (L) 7.32 - 7.42 pCO2, venous 51 45 - 51 mmHg pO2, venous 49 (H) 25 - 40 mmHg Base excess, venous -3 (L) -2 - 2 meq/L O2 saturation, venous 77 (H) 40 - 70 % Bicarbonate, venous 23.4 21.0 - 28.0 mmol/L Specimen Performing Laboratory [facility] [place] [id number] * Rotational thromboelastometry (09/26/2016 1:46 PM) Only the most recent of 5 results within the time period is included. Component Value Ref Range Test type HEPTEM Specimen description Post Pump Clot time 198 sec Clot formation time 80 sec Alpha angle 74 deg Amplitude, 20 min 61 mm Maximum clot firmness 62Comment: Test stopped early; this is an mm estimated value. Maximum lysis 0 % Lysis index, 30 min see belowComment: Test stopped early; unable to % report. Reference see below Comment: Test Type CT (sec) CFT (sec) a angle(deg) A20 (mm) MCF (mm) INTEM 122-208 45-110 70-81 51-72 51-72 EXTEM 43-82 48-127 65-80 50-70 52-70 FIBTEM n/a n/a n/a 7-24 7-24 HEPTEM HEPTEM should be compared to INTEM. INTEM-HEPTEM results allow assessment of hemostasis without the overlaying heparin effect. APTEM APTEM should be compared to EXTEM in order to obtain evidence of fibrinolytic activity. Specimen Performing Laboratory Plasma specimen [facility] [address] [place] [address] * Hemoglobin (09/26/2016 1:19 PM) Component Value Ref Range HGB 9.1 (L) 14.0 - 18.0 g/dL Specimen Performing Laboratory [facility] [address] [place] [address] * Hematocrit (09/26/2016 1:19 PM) Component Value Ref Range HCT 27.1 (L) 41.0 - 51.0 % Specimen Performing Laboratory [facility] [address] [place], [place] [id number] * PA catheter (09/26/2016 10:38 AM) Ana Franks MD 09/26/20168:10 AM PA catheter Performed by: AMANDA FRANKS Authorized by: TONY PORRAS Patient Location:OR Staff: Performed by:Resident/TAPPER BIT Preprocedure: patient identified, IV checked, site and side verified, risks and benefits discussed, procedure verified, surgical consent complete, patient position confirmed, monitors and equipment checked and pre-op evaluation complete MSBT: antiseptic used, all elements of maximal sterile barrier technique followed, hand hygiene performed, cap/gown used by other personnel and solutions labeled Procedure details: PA Catheter Type:CASTING MACHINE SET UP OPERATOR PA Catheter Size:9 PA Catheter Side:Right PA Catheter Site:Internal jugular PA Catheter secured at:49 cm PA Catheter placed: PA Catheter placed without difficulty Waveform: PA Catheter wave confirmed Ports flushed: All ports flushed pre-procedure Balloon checked: Balloon checked prior to insertion Post-procedure: No arrhythmia: No arrhythmias noted Patient tolerance:Patient tolerated the procedure well with no immediate complications * Central line (09/26/2016 10:38 AM) Ana Franks MD 09/26/20168:06 AM Central line Performed by: AMANDA FRANKS Authorized by: TONY PORRAS Patient Location:OR Staff: Performed by:Anesthesiologist and resident/TAPPER BIT Preprocedure:patient identified, IV checked, site and side verified, risks and benefits discussed, procedure verified, surgical consent complete, patient position confirmed, monitors and equipment checked and pre-op evaluation complete MSBT: antiseptic used during central venous catheter insertion, all elements of maximal sterile barrier technique followed, hand hygiene performed prior to central venous catheter insertion, cap/gown used by other personnel during central venous catheter insertion, solutions labeled and all ports not used during insertion clamped Indications: Indications:Central pressure monitoring and vascular access Anesthesia: Anesthesia:General Procedure details: Patient position:Trendelenburg Catheter Type:Double lumen Catheter Size:8 Fr Catheter Site: internal jugular vein Catheter site laterality:Right Ultrasound guidance used: Yes Ultrasound image saved: Yes Number of attempts:1 Successful placement: Yes Guidewire removal: Guidewire removal is confirmed Guidewire removal witnessed by:AMANDA FRANKS Post-procedure: Post-procedure: line sutured and ports flushed with saline Assessment:Blood return through all ports and free fluid flow Patient tolerance:Patient tolerated the procedure well with no immediate complications * Central line (09/26/2016 10:38 AM) Narrative Amanda Franks MD 09/26/20168:07 AM Central line Performed by: AMANDA FRANKS Authorized by: TONY PORRAS Patient Location:OR Staff: Performed by:Resident/TAPPER BIT and anesthesiologist Preprocedure:patient identified, IV checked, site and side verified, risks and benefits discussed, procedure verified, surgical consent complete, patient position confirmed, monitors and equipment checked and pre-op evaluation complete MSBT: antiseptic used during central venous catheter insertion, all elements of maximal sterile barrier technique followed, hand hygiene performed prior to central venous catheter insertion, cap/gown used by other personnel during central venous catheter insertion, solutions labeled and all ports not used during insertion clamped Indications: Indications:Central pressure monitoring and vascular access Anesthesia: Anesthesia:General Procedure details: Patient position:Trendelenburg Catheter Type:Single lumen Catheter Size:9 Fr Catheter Site: internal jugular vein Catheter site laterality:Right Ultrasound guidance used: Yes Ultrasound image saved: Yes Number of attempts:1 Successful placement: Yes Guidewire removal: Guidewire removal is confirmed Guidewire removal witnessed by:AMANDA FRANKS Post-procedure: Post-procedure: line sutured and ports flushed with saline Post-procedure:Sterile caps on all hubs Assessment:Blood return through all ports and free fluid flow Patient tolerance:Patient tolerated the procedure well with no immediate complications * Arterial line (09/26/2016 10:38 AM) Narrative Amanda Franks MD 09/26/20167:57 AM Arterial line Performed by: AMANDA FRANKS Authorized by: TONY PORRAS Patient Location:Pre-op Start Time:09/26/2016 7:00 AM End Time:09/26/2016 7:10 AM Staff: Performed by:Anesthesiologist Pre-procedure: patient identified, IV checked, site and side verified, risks and benefits discussed, procedure verified, surgical consent complete, patient position confirmed, monitors and equipment checked and pre-op evaluation complete MSBT: antiseptic used, all elements of maximal sterile barrier technique followed, hand hygiene performed, cap/gown used by other personnel and solutions labeled Indications: Indications: multiple ABGs and hemodynamic monitoring Anesthesia: Anesthesia:Local infiltration Procedure Details: Arterial Line placement:Placed pre-induction Line placement site:Radial Line placement side:Right Arterial line gauge:20 G Number of attempts:2 Ultrasound guidance used: No Post-procedure: Post-procedure:Sterile dressing applied Post procedure circulation, sensation, movement:Normal Patient tolerance:Patient tolerated the procedure well with no immediate complications * ANESTHESIA INTUBATION (09/26/2016 10:38 AM) Narrative Amanda Franks MD 09/26/20167:53 AM Airway Date/Time: 09/26/2016 7:52 AM Performed by: AMANDA FRANKS Authorized by: TONY PORRAS Location:OR Difficult Airway: No Anesthesiologist:TONY PORRAS Resident/TAPPER BIT:AMANDA FRANKS Performed by: resident/TAPPER BIT Preoxygenated with 100% O2: Yes C-spine Precautions Maintained Throughout: Yes Mask Ventilation:Assisted mask Final Airway Type:Endotracheal airway Final Endotracheal Airway:ETT Technique Used:Direct laryngoscopy Devices/Methods Used in Placement:Intubating stylet Insertion Site:Oral Blade Type:Hogan Laryngoscope Blade/Videolaryngoscope Blade Size:2 ETT Size (mm):8.0 Measured from:Lips ETT to Lips (cm):24 Placement Verified by: CO2 detection, direct visualization and equal breath sounds Laryngoscopic view:Grade I - full view of glottis Rapid Sequence Induction (RSI): No Modified RSI: No Number of Attempts at Approach:1 * Antithrombin III level (09/26/2016 7:20 AM) Component Value Ref Range Antithrombin III 70 (L) 80 - 130 % Specimen Performing Laboratory Blood [facility] [address] [place] [address] * XR Chest 2 Vw (09/25/2016 6:17 PM) Specimen Performing Laboratory [facility] [address] [place] [address] Narrative EXAMINATION:XR CHEST 2 VW CLINICAL HISTORY:pre-op IMPRESSION: There is a transvenous pacemaker in good position. Heart and mediastinum are normal. Lungs are clear. Regional skeleton is intact. [facility]-[id number] Procedure Note Interface, Radiology Results Incoming - 09/25/2016 6:35 PM CDT EXAMINATION: XR CHEST 2 VW CLINICAL HISTORY: pre-op IMPRESSION: There is a transvenous pacemaker in good position. Heart and mediastinum are normal. Lungs are clear. Regional skeleton is intact. [facility]-[id number] * Prepare platelet pheresis, 6 Units (09/25/2016 5:25 PM) Component Value Ref Range Product name Apheresis Platelet ACDA LRIRR #1 Unit number [id number] Product code [id number] Dispense status Transfused Blood expiration date 20160926 Blood type code 6200 Blood type A POSITIVE Product name Apheresis PLT, Leukored IRR #2 Unit number [id number] Product code [id number] Dispense status Transfused Blood expiration date 20160926 Blood type code 5100 Blood type O POSITIVE Product name Apheresis Platelet ACDA LRIRR #1 Unit number [id number] Product code [id number] Dispense status Transfused Blood expiration date 20160926 Blood type code 0600 Blood type A NEGATIVE Product name Apheresis PLT Leukored IRR #3 Unit number [id number] Product code [id number] Dispense status Returned to BB not transfused Blood expiration date 20160926 Blood type code 9500 Blood type O NEGATIVE Specimen Performing Laboratory [facility] [address] [place] [address] * Prepare fresh frozen plasma, 4 Units (09/25/2016 5:25 PM) Component Value Ref Range Product name Thawed Plasma Unit number [id number] Product code H8592N40 Dispense status Returned to BB not transfused Blood expiration date 20160928 Blood type code 6200 Blood type A POSITIVE Product name Thawed Plasma CP2D Unit number [id number] Product code G2212C56 Dispense status Returned to BB not transfused Blood expiration date 20160928 Blood type code 0600 Blood type A NEGATIVE Specimen Performing Laboratory Blood [facility] [address] [place] [address] * Prepare RBC, 6 Units (09/25/2016 5:25 PM) Component Value Ref Range Product name Red Blood Cells -1, Leukored Unit number [id number] Product code L6783X56 Dispense status Returned to BB not transfused Blood expiration date 20161009 Blood type code 6200 Blood type A POSITIVE Product name Red Blood Cells -1, Leukored Unit number [id number] Product code X3982F36 Dispense status Returned to BB not transfused Blood expiration date 20161009 Blood type code 6200 Blood type A POSITIVE Specimen Performing Laboratory [facility] [address] [place] [address] * Anti Xa, unfractionated (09/25/2016 12:30 PM) Component Value Ref Range Anti Xa, unfractionated <0.10 (L)Comment: Therapeutic Range: 0.30 - 0.70 0.30 - 0.70 U/mL U/mL Specimen Performing Laboratory Blood [facility] [address] [place] [address] * Echocardiogram complete w contrast and 3D if needed (09/25/2016 8:39 AM) Specimen Performing Laboratory [facility] [id number] [place] [address] Narrative Echocardiography Report [id number], [place] [address] Pat.Name:Son MOORE.ID:[id number] .Date: 09/25/2016Refer.MD:RICK HARO MD Exam Time: 7:45:00 AMStudy Type:Routine Echo Height:70inWeight:179lb BSA: 1.99 m2 DOBAge:1944,71Y Sex: MALEBP: 124/74 HR:71 bpmSonogrphr: ILIA Butler Pat. Stat.:Inpatient Room:A745B Study Status:Final Echo Event ID:[id number] Order ID:[id number] Reason for Study:Aortic Stenosis Procedures:2D Echo, Colorflow Doppler, Intravenous Definity Contrast Race:C SUMMARY: LV function is moderately to severely depressed. Low flow, low gradient, severe aortic valve stenosis. FINDINGS: LV: LV size is upper limits of normal. There is mild concentric LVhypertrophy. LV function is moderately to severely depressed.Estimated EF is 30-34%. RV: RV size is normal. A catheter or pacemaker wire is seen in theRV. RV function is normal. LA: LA volume is severely enlarged. RA: RA volume is enlarged. A catheter or pacemaker wire is seen. AO: Aortic root diameter is normal. KOREY: No pericardial effusion. AV: Moderate thickening and calcification of AV leaflets. A traceof aortic regurgitation. Low flow, low gradient, severeaortic valve stenosis. Estimated mean aortic valve htvilyjk19.7 mmHg with a valve area of 0.7 cm2. TranscatheterAV Doppler velocity index is 0.2 (normal >0.50). MV: Mild thickening of mitral leaflets. PV: No structural PV abnormalities noted. TV: No structural TV abnormalities noted. Mild tricuspid regurgitation James: LV relaxation is impaired. LV filling pressure is elevated. Other:Insufficient TR jet to estimate PA systolic pressure. MEASUREMENTS: 2D Parasternal Long [place] LVOT 2.2 cmLVPWd 1.3 cm LVIDd5.4 cmIndex 2.7 cm/m LA Ds5.4 cm LVIDs4.6 cmAo An 2.2 cm LV%fs 14.2 % Ao Rtd 2.9 cm Index1.5 cm/m IVSd 1.5 cm LA Sng Plane LA Area 32.7 cm2(8.8-23.4) LA Vol 126.6 ml Index63.6 ml/m LA LngAx 6.7 cm DOPPLER AV For Flow/PAUL AV pkVel 318.6 cm/s (100-170) AV AC/ET 0.4 AV mnVel 211.9 cm/Rubén TVI 58 cm AV pkPG 40.6 mmHgAVpkAcRt 95318 cm/s2 AV Mean G 21.7 mmHgAV DeRt 1164.1 cm/s2 AV AC 99 msec (83-118) AV Area0.7 cm2(3-5) AV ET274 msec LVOT For Flow LVOT Area3.8 cm2 LVOT TVI 10.3 cm LVOTpkVel 61.4 cm/sLVOT SV 39.3 ml LVOTpkPG 1.5 mmHgHR 69.4 bpm LVOTmnPG 0.7 mmHgLVOT CO 2.7 l/min WALL MOTION: RESTING WALL MOTION: Apical Anterior, Apical Inferior, Apical Lateral, Apical carrington are akinetic.Basal Anterior, Basal Inferoseptal, Basal Inferior, Basal Inferolateral, Basal Anterolateral, Mid Anterior, Mid Inferoseptal, Mid Inferior, Mid Inferolateral, Mid Anterolateral, Apical Septal carrington are hypokinetic. Normal in all other carrington. Wall Index=2.1 Signed 09/25/2016 09:24 AM Nathalia Majano M.D. Procedure Note Interface, Radiology Results In - 09/25/2016 9:32 AM CDT Echocardiography Report [address] [place] [address] Pat.Name: IMER MOORE Pat.ID: [id number] .Date: 09/25/2016 Refer.MD: RICK HARO MD Exam Time: 7:45:00 AM Study Type:Routine Echo Height: 70in Weight: 179lb BSA: 1.99 m2 Age: 10 1945,71Y Sex: MALE BP: 124/74 HR: 71 bpm Sonogrphr: ILIA Butler Pat. Stat.:Inpatient Room: A7[facility] Study Status:Final Echo Event ID:[id number] Order ID: [id number] Reason for Study:Aortic Stenosis Procedures:2D Echo, Colorflow Doppler, Intravenous Definity Contrast Race: C SUMMARY: LV function is moderately to severely depressed. Low flow, low gradient, severe aortic valve stenosis. FINDINGS: LV: LV size is upper limits of normal. There is mild concentric LV hypertrophy. LV function is moderately to severely depressed. Estimated EF is 30-34%. RV: RV size is normal. A catheter or pacemaker wire is seen in the RV. RV function is normal. LA: LA volume is severely enlarged. RA: RA volume is enlarged. A catheter or pacemaker wire is seen. AO: Aortic root diameter is normal. KOREY: No pericardial effusion. AV: Moderate thickening and calcification of AV leaflets. A trace of aortic regurgitation. Low flow, low gradient, severe aortic valve stenosis. Estimated mean aortic valve gradient 21.7 mmHg with a valve area of 0.7 cm2. Transcatheter AV Doppler velocity index is 0.2 (normal >0.50). MV: Mild thickening of mitral leaflets. PV: No structural PV abnormalities noted. TV: No structural TV abnormalities noted. Mild tricuspid regurgitation James: LV relaxation is impaired. LV filling pressure is elevated. Other: Insufficient TR jet to estimate PA systolic pressure. MEASUREMENTS: 2D Parasternal Long [place] LVOT 2.2 cm LVPWd 1.3 cm LVIDd 5.4 cm Index 2.7 cm/m LA Ds 5.4 cm LVIDs 4.6 cm Ao An 2.2 cm LV%fs 14.2 % Ao Rtd 2.9 cm Index 1.5 cm/m IVSd 1.5 cm LA Sng Plane LA Area 32.7 cm2 (8.8-23.4) LA Vol 126.6 ml Index 63.6 ml/m LA LngAx 6.7 cm DOPPLER AV For Flow/PAUL AV pkVel 318.6 cm/s (100-170) AV AC/ET 0.4 AV mnVel 211.9 cm/s AV TVI 58 cm AV pkPG 40.6 mmHg AVpkAcRt 55445 cm/s2 AV Mean G 21.7 mmHg AV DeRt 1164.1 cm/s2 AV AC 99 msec (83-118) AV Area 0.7 cm2 (3-5) AV ET 274 msec LVOT For Flow LVOT Area 3.8 cm2 LVOT TVI 10.3 cm LVOTpkVel 61.4 cm/s LVOT SV 39.3 ml LVOTpkPG 1.5 mmHg HR 69.4 bpm LVOTmnPG 0.7 mmHg LVOT CO 2.7 l/min WALL MOTION: RESTING WALL MOTION: Apical Anterior, Apical Inferior, Apical Lateral, Apical carrington are akinetic. Basal Anterior, Basal Inferoseptal, Basal Inferior, Basal Inferolateral, Basal Anterolateral, Mid Anterior, Mid Inferoseptal, Mid Inferior, Mid Inferolateral, Mid Anterolateral, Apical Septal carrington are hypokinetic. Normal in all other carrington. Wall Index=2.1 Signed 09/25/2016 09:24 AM Nathalia Majano M.D. * PV carotid duplex (09/24/2016 6:00 PM) Specimen Performing Laboratory [facility] [address] Vascular Ultrasound Laboratory Carotid Artery Duplex Report [id number] [place] [address] For vice president quality improvement purposes, the categorization of the degree of the stenosis of this exam is based on criteria described in the IAC carotid stenosis grading white paper( www.intersocietal.org/Vascular) and Modesto Adrian., Isaias Da Silva, et al. Carotid artery stenosis: fair-scale and Doppler US diagnosis--Society of Radiologists in Ultrasound Consensus Conference. Radiology. 2003 Nov; 229(2):340-6. Pat.Name:Son MOORE.ID:[id number] .Date: 09/24/2016Refer.MD:DAVID GREY MD Exam Time: 5:10:00 PMStudy Type:Carotid DOBAge:1945,71Y Sex: MALE Sonogrphr: Tomás Lentz RDMS, RVTPat. Stat.:Inpatient Room:S853-DUudkSlv: , [facility] - 4: 26558 Echo Event ID:[id number] Order ID:[id number] Reason for Study:History of carotid arterial disease s/p endarterectomy, diabetes, hypertension, hyperlipidemia, previous episodes of TIA, CABG. Race:C SUMMARY: PHYSICAL ASSESSMENT BloodPulsesCarotid Pressure Carotid TemporalBruit Right 156/101 ++0 Left 151/98 ++0 CAROTID ARTERY SCAN RIGHT:Intimal thickening noted in the common carotid artery and bulb. A carotid endarterectomy site is notedand appears to be small in diameter; colorflow and Doppler signals demonstrate focally elevated velocities with a ICA/CCA ratio of 3.79. Intimal thickening is present with mixed plaque noted at the proximal segment. The external carotid artery is suboptimally visualized; however, high resistant flow is noted.A slow upstroke and high resistant flow is noted within the right vertebral artery. Elevated velocities with disturbed Doppler waveforms noted in the right proximal subclavian artery. LEFT: Focal, concentric soft plaque is noted filling most of the left mid common carotid artery; the residual lumen demonstrates focally elevated velocities with a color bruit (velocities increase from 41 to 258 cm/s, which is a 6:1). Distal turbulence is noted within the distal common carotid artery. Mixed plaque is noted within the bulb and internal carotid artery; colorflow and Doppler signals demonstrate absence of flow. Suboptimal visualization of the ostium of the left external carotid artery due to shadowing; colorflow and Doppler signals demonstrate high resistant flow noted within the external carotid artery. Antegrade low resistant flow noted within the vertebral artery. Biphasic waveforms noted in the subclavian artery. 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 2.> 50% stenosis noted in the left common carotid artery; soft plaque is noted with a 6:1 increase in velocities. (41 to 258 cm/s) 3.50-69% stenosis noted in the right carotid endarterectomy site. 4.Suboptimal visualization of the right external carotid artery; high resistant flow is noted. 5.Antegrade flow noted in the vertebral arteries, bilaterally. Slow upstroke noted in the right vertebral artery with reduced end diastolic velocities. 6.Elevated velocities noted in the right subclavian artery with disturbed waveforms. 7.Higher volume flows noted in the right common carotid artery. PHYSICIAN INTERPRETATION 1.Right carotid artery examination demonstrates plaque in the carotid endarterectomy,bulb and internal carotid artery with moderate stenosis.(50 - 69%) 2.There is occlusion of the left internal carotid artery and stenosis of the common carotid.. Carotid Findings:RightLeft Verteb.Flw Antegrade Antegrade Subclavian DisturbedBiphasic MEASUREMENTS: DOPPLER CCA Mid CCA Mid PSV 44 cm/sCCA Mid EDV 17 cm/s CCA Prox CCA Prox PSV42 cm/sCCA Prox EDV15 cm/s Right ECA ECA PSV 44.4 cm/sECA EDV 0 cm/s ICA Dist ICA Dist PSV74 cm/Nader Dist EDV27 cm/s ICA Mid ICA Mid PSV 95 cm/Nader Mid EDV 32 cm/s Vertebral Vertebral PSV 34 cm/sVertebral PSV 31 cm/s Vertebral EDV7 cm/sVertebral EDV 13 cm/ s Left CCA Prox CCA Prox PSV29 cm/sCCA Prox EDV 0 cm/s Left ECA ECA [id number] cm/sECA EDV 5.11 cm/s Left ICA Mid ICA Mid PSV0 cm/Nader Mid EDV 0 cm/s Right CCA Dist CCA Dist PSV53 cm/sCCA Dist EDV19 cm/s Right Bulb Bulb PSV 167 cm/sBulb EDV 58 cm/s Right ICA Prox ICA Prox PSV 128 cm/Nader Prox EDV36 cm/ s Right ECA Prox ECA Prox PSV44 cm/sECA Prox EDV 0 cm/s Right SCA Prox SCA Prox PSV 225 cm/sSCA Prox EDV 0 cm/ s ICA/CCA Ratio ICA/CCA PSV 3.79 Left CCA Mid CCA Mid [id number] cm/sCCA Mid EDV 28 cm/s Left CCA Dist CCA Dist PSV 224 cm/sCCA Dist EDV 0 cm/ s Left Bulb Bulb PSV 0 cm/sBulb EDV 0 cm/s Left ICA Prox ICA Prox PSV 0 cm/Nader Prox EDV 0 cm/s Left ECA Prox ECA Prox PSV 121 cm/sECA Prox EDV 5 cm/ s Left SCA Prox SCA Prox PSV68 cm/sSCA Prox EDV 0 cm/s Signed 09/25/2016 09:11 AM Yemi Mike MD Procedure Note Interface, Radiology Results In - 09/25/2016 9:12 AM CDT Vascular Ultrasound Laboratory Carotid Artery Duplex Report [id number] [place] [address] For vice president quality improvement purposes, the categorization of the degree of the stenosis of this exam is based on criteria described in the IAC carotid stenosis grading white paper( www.intersocietal.org/Vascular) and Mercedes Adrian, Isaias Da Silva, et al. Carotid artery stenosis: fair-scale and Doppler US diagnosis--Society of Radiologists in Ultrasound Consensus Conference. Radiology. 2003 Apr; 229(2):340-6. Pat.Name: IMER MOORE Pat.ID: [id number] .Date: 09/24/2016 Refer.MD: DAVID GREY MD Exam Time: 5:10:00 PM Study Type:Carotid Age: 11 1945,71Y Sex: MALE Sonogrphr: Tomás Lentz RDMS, T Pat. Stat.:Inpatient Room: [facility] Tape Vol: , [facility] - 4: 25869 Echo Event ID:[id number] Order ID: [id number] Reason for Study:History of carotid arterial disease s/p endarterectomy, diabetes, hypertension, hyperlipidemia, previous episodes of TIA, CABG. Race: C SUMMARY: PHYSICAL ASSESSMENT Blood Pulses Carotid Pressure Carotid Temporal Bruit Right 156/101 + + 0 Left 151/98 + + 0 CAROTID ARTERY SCAN RIGHT: Intimal thickening noted in the common carotid artery and bulb. A carotid endarterectomy site is noted and appears to be small in diameter; colorflow and Doppler signals demonstrate focally elevated velocities with a ICA/CCA ratio of 3.79. Intimal thickening is present with mixed plaque noted at the proximal segment. The external carotid artery is suboptimally visualized; however, high resistant flow is noted. A slow upstroke and high resistant flow is noted within the right vertebral artery. Elevated velocities with disturbed Doppler waveforms noted in the right proximal subclavian artery. LEFT: Focal, concentric soft plaque is noted filling most of the left mid common carotid artery; the residual lumen demonstrates focally elevated velocities with a color bruit (velocities increase from 41 to 258 cm/s, which is a 6:1). Distal turbulence is noted within the distal common carotid artery. Mixed plaque is noted within the bulb and internal carotid artery; colorflow and Doppler signals demonstrate absence of flow. Suboptimal visualization of the ostium of the left external carotid artery due to shadowing; colorflow and Doppler signals demonstrate high resistant flow noted within the external carotid artery. Antegrade low resistant flow noted within the vertebral artery. Biphasic waveforms noted in the subclavian artery. PRELIMINARY FINDINGS 1. 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 2. > 50% stenosis noted in the left common carotid artery; soft plaque is noted with a 6:1 increase in velocities. (41 to 258 cm/s) 3. 50-69% stenosis noted in the right carotid endarterectomy site. 4. Suboptimal visualization of the right external carotid artery; high resistant flow is noted. 5. Antegrade flow noted in the vertebral arteries, bilaterally. Slow upstroke noted in the right vertebral artery with reduced end diastolic velocities. 6. Elevated velocities noted in the right subclavian artery with disturbed waveforms. 7. Higher volume flows noted in the right common carotid artery. PHYSICIAN INTERPRETATION 1. Right carotid artery examination demonstrates plaque in the carotid endarterectomy, bulb and internal carotid artery with moderate stenosis.(50 - 69%) 2. There is occlusion of the left internal carotid artery and stenosis of the common carotid.. Carotid Findings: Right Left Verteb.Flw Antegrade Antegrade Subclavian Disturbed Biphasic MEASUREMENTS: DOPPLER CCA Mid CCA Mid PSV 44 cm/s CCA Mid EDV 17 cm/s CCA Prox CCA Prox PSV 42 cm/s CCA Prox EDV 15 cm/s Right ECA ECA PSV 44.4 cm/s ECA EDV 0 cm/s ICA Dist ICA Dist PSV 74 cm/s ICA Dist EDV 27 cm/s ICA Mid ICA Mid PSV 95 cm/s ICA Mid EDV 32 cm/s Vertebral Vertebral PSV 34 cm/s Vertebral PSV 31 cm/s Vertebral EDV 7 cm/s Vertebral EDV 13 cm/s Left CCA Prox CCA Prox PSV 29 cm/s CCA Prox EDV 0 cm/s Left ECA ECA PSV 121 cm/s ECA EDV 5.11 cm/s Left ICA Mid ICA Mid PSV 0 cm/s ICA Mid EDV 0 cm/s Right CCA Dist CCA Dist PSV 53 cm/s CCA Dist EDV 19 cm/s Right Bulb Bulb PSV 167 cm/s Bulb EDV 58 cm/s Right ICA Prox ICA Prox PSV 128 cm/s ICA Prox EDV 36 cm/s Right ECA Prox ECA Prox PSV 44 cm/s ECA Prox EDV 0 cm/s Right SCA Prox SCA Prox PSV 225 cm/s SCA Prox EDV 0 cm/s ICA/CCA Ratio ICA/CCA PSV 3.79 Left CCA Mid CCA Mid PSV 258 cm/s CCA Mid EDV 28 cm/s Left CCA Dist CCA Dist PSV 224 cm/s CCA Dist EDV 0 cm/s Left Bulb Bulb PSV 0 cm/s Bulb EDV 0 cm/s Left ICA Prox ICA Prox PSV 0 cm/s ICA Prox EDV 0 cm/s Left ECA Prox ECA Prox PSV 121 cm/s ECA Prox EDV 5 cm/s Left SCA Prox SCA Prox PSV 68 cm/s SCA Prox EDV 0 cm/s Signed 09/25/2016 09:11 AM Yemi Mike MD after 09/03/2016 Insurance Payer Benefit Subscriber ID Type Phone Address Plan / Group MEDICARE MEDICARE xxxxxxxxxx Medicare [place], [place] PART A AND B AARP AARP xxxxxxxxxxx Commercial SUPPLEMENT
--- OUTSIDE RECORDS SUMMARY | 2017-09-04 11:30 | XMS REPORT ---
Author Author [facility] Address Unknown Phone Unavailable Care Team Providers Care Site Supervisor Name Role Phone RONAN CÁRDENAS Unavailable Unavailable VINES, MALCOLM Unavailable Unavailable CAYENNE, ORLY Unavailable Unavailable Problems This patient has no known problems. Allergies, Adverse Reactions, Alerts This patient has no known allergies or adverse reactions. Medications This patient has no known medications. Results Test Description Test Time Test Comments Text Results Atomic Results Result Comments CT BRAIN WO [place] [address] Patient Name: VERONIQUE ALANIZ MR #: [id number] : 1945 Age/Sex: 72/M Req #: [id number] Adm Physician: Ordered by: RONAN CÁRDENAS MD Report #: [id number] Location: CARD Room/Bed: Procedure: [id number] [id number] CT/CT BRAIN WO Exam Date: 08/29/17 Exam Time: 1230 REPORT STATUS: Signed Examination: CT head without contrast Clinical Indication: Syncope. Dizziness. Technique: Transaxial noncontrast images from the skull base through the vertex were obtained. Sagittal and coronal reformatted images were done. Comparison: None. CTA of the neck performed June 13, 2015. Findings: Scalp: No abnormalities. Bones: Intact. No fractures. No blastic or lytic lesions. Brain sulci: Mild volume loss for patient's age. Ventricles: No hydrocephalus. . Extra-axial space: No abnormalities. Parenchyma: There are scattered subtle areas of low-attenuation within subcortical and periventricular white matter, nonspecific, but could represent microvascular ischemic disease. There is a cortical-based area of encephalomalacia involving the right paracentral lobule and pre and post central gyri. No masses, hemorrhage, or acute cortical based vascular insults. Suprasellar region: No abnormalities. Craniocervical junction: The foramen magnum is patent. No Chiari one malformation. Incidental findings: Atherosclerotic calcification of the cavernous and supraclinoid internal carotid arteries. Impression: 1. No acute intracranial abnormalities. 2. 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 Signed by: Dr. Peggy Briggs M.D. on 09/01/2017 1:36 PM Dictated By: PEGGY BUCIO MD 1336 Transcribed By: DARION on 09/01/17 1336 COPY TO: RONAN CÁRDENAS MD CT THORACIC SPINE WO [place] [address] Patient Name: VERONIQUE ALANIZ MR #: [id number] : 1945 Age/Sex: 72/M Req # : [id number] Adm Physician: Ordered by: RONAN CÁRDENAS MD Report #: [id number] Location: CARD Room/Bed: Procedure: [id number] CT/CT THORACIC SPINE WO Exam Date: 08/29/17 Exam Time: 1230 REPORT STATUS: Signed Exam: Thoracic spine CT without IV contrast History: Back pain, Evaluate wedge compression fracture Comparison studies: Included spine from chest CT of 08/28/2016. Technique: Axial were obtained without IV contrast through the thoracic region. Coronal and sagittal images reconstructed from the axial data. Intravenous contrast: None Findings: Alignment: Mild thoracic curvature convex to the right. Soft tissues: No abnormalities.. Paraspinal muscles: Unremarkable Spinal cord: Can not be evaluated. Vertebrae: No fractures, infection or neoplasm. Degenerative changes: Mildly degenerated thoracic discs. Multilevel anterior marginal osteophytosis. No significant canal stenosis. Mild foraminal stenosis bilaterally at C6-C7, T7-T8 and on the left at T8-T9. Incidental findings: Cholelithiasis with partially imaged median sternotomy wires, moderate scattered calcified atherosclerosis (within the included coronary arteries, aorta and its branching vessels), cardiac valvular calcifications, small left pleural effusion with overlying atelectasis or consolidation and leads from a left-sided in place at intracardiac device. Mildly prominent mediastinal lymph nodes recommend identified and are nonspecific. IMPRESSION: 1. No thoracic spine fracture. 2. Mild degenerative changes as described. 3. Incidental findings as described. 4. Cannot adequately evaluate ligament, spinal cord or vascular abnormalities on the basis of this examination. Signed by : Dr. Kit Davis M.D. on 09/02/2017 5:07 PM Dictated By: KIT DAVIS MD 06 Transcribed By: DARION on 09/02/171706 COPY TO: RONAN CÁRDENAS MD [place] [address] Patient Name: VERONIQUE ALANIZ MR #: [id number] : 1945 Age/Sex: 72/M Req # : [id number] Adm Physician: Ordered by: JASMYN MCMILLAN, MALCOLM Zaman MD Report #: [id number] Location: [facility] Room/Bed: Procedure: [id number] DX/ELBOW LEFT COMPLETE Exam Date: 08/15/17 Exam Time: 1441 REPORT STATUS: Signed ELBOW LEFT COMPLETE - 3 views HISTORY: Pain COMPARISON: None available. FINDINGS: See impression. IMPRESSION: Minimally displaced intra-articular fracture of the base of the olecranon with associated soft tissue swelling. Signed by : Dr. Westley Yao MD on 08/15/2017 3:23 PM Dictated By: WESTLEY YAO MD 1523 Transcribed By : DARION on 08/15/17 1523 COPY TO: MALCOLM VINES UNILAT W/CXR [place] [address] Patient Name: VERONIQUE ALANIZ MR #: [id number] : 1945 Age/Sex: 72/M Req #: [id number] Adm Physician: Ordered by: JASMYN MCMILLAN, MALCOLM Zaman MD Report #: [id number] Location: [facility] Room/Bed: Procedure: [id number] DX/RIBS UNILAT W/CXR Exam Date: 08/15/17 Exam Time: 1441 REPORT STATUS: Signed EXAMINATION: RIBS UNILAT W/CXR INDICATION: COMPARISON: Chest x-ray dated 10/11/2016 FINDINGS: Very limited study due to generalized demineralization and body habitus. Left chest wall cardiac device is again seen. Median sternotomy wires. Enlarged cardiac silhouette. Calcified and tortuous aorta. Small left pleural effusion. IMPRESSION: No definite evidence of displaced left- sided rib fracture, considering limitations of the study. Signed by: Dr. Westley Yao MD on 08/15/2017 3:32 PM Dictated By: WESTLEY YAO MD 153 Transcribed By: DARION on 08/15/17 153 COPY TO: MALCOLM VINES CHEST 2 VIEWS [place] [id number] [place] [address] Patient Name: VERONIQUE ALANIZ MR #: [id number] : 1945 Age/Sex: 71/M Req #: [id number] Adm Physician: Ordered by: ORLY CASILLAS MD Report #: [id number] Location: [facility] Room/Bed: Procedure: [id number] DX/CHEST 2 VIEWS Exam Date: Exam Time: REPORT STATUS: Signed PROCEDURE: Frontal and lateral views of the chest. COMPARISON: Chest x-ray 10/22/2016. INDICATIONS: SHORTNESS OF BREATH FINDINGS: Lines/tubes: Left-sided AICD with 2 leads. Median sternotomy wires are present. Lungs: The lungs are well inflated and clear. There is no evidence of pneumonia or pulmonary edema. Pleura: Tiny left pleural effusion. Heart and mediastinum: Mild cardiomegaly. Atherosclerotic calcifications in the aorta. Bones: No acute bony abnormality. IMPRESSION: Unchanged mild cardiomegaly. Tiny left pleural effusion. Dictated by: Ellen Sierra M.D. on 02/27/2017 at 14:41 Electronically approved by: Ellen Sierra M.D. on 02/27/2017 at 14:41 Dictated By: ELLEN SIERRA MD 1441 Transcribed By: CALEB on 02/27/17 1441 COPY TO: ORLY CASILLAS MD
--- NOTE | 2017-09-24 16:46 | Operative Report ---
DATE OF PROCEDURE: September 04, 2017 PREOPERATIVE DIAGNOSIS: Displaced left olecranon fracture. POSTOPERATIVE DIAGNOSIS: Displaced left olecranon fracture. PROCEDURES PERFORMED: 1. Open reduction and internal fixation of displaced left olecranon fracture. 2. Allograft bone grafting, left displaced olecranon fracture. CAST SHELL GRINDER: None. ANESTHESIA: General endotracheal intubation anesthesia. IV FLUIDS: Per the anesthesia record. BRIEF DESCRIPTION OF THE PATIENT'S OPERATIVE PROCEDURE: Mr. Moore was taken to the operating room and placed in supine position on the operating table. Following induction of general anesthesia as well as endotracheal intubation, the patient was turned into a lateral position with the left side up. He was held in place with well-padded abbott bag. His bilateral lower extremities were also well padded. An axillary roll was placed in the right chest wall. The patient's left upper extremity was then examined under anesthesia. He was found to have bruising and ecchymosis about his elbow joint. Fluoroscopic evaluation of the of the elbow joint demonstrated displaced olecranon fracture . The patients' upper extremity was prepped and draped in standard surgical fashion. Case was begun by creating a curvilinear incision around the olecranon process extending down the shaft of the ulna. This incision was carried through the skin only. Blunt dissection was used to deepen the incision to the level of the patient's proximal ulna. A combination of sharp and blunt dissection were used to elevate the muscles and soft tissue from the medial and lateral aspect of the ulnar exposing the patient's ulnar fracture. The fracture site was cleaned thoroughly. The fracture site was reduced and a Synthes proximal ulnar locking plate was contoured to the shaft of the ulna. It was then affixed to the shaft of the ulna providing compression across patient's fracture site using both combinations of cortical as well as locking screws. Fluoroscopic reevaluation of the elbow demonstrated a reduction of the patient's fracture and compression across patient's fracture site. The wound was then copiously irrigated. The fracture site was bone grafted with allograft bone graft. The soft tissues were closed in a multilayer fashion. Sterile dressings were applied as well as a well-padded posterior splint. The patient was then awakened and taken to the post anesthesia care unit in stable condition. Job#: [id number]
== END | disposition home or self-care (01) ==
LOC: OR 11:27
PROVIDERS: ATTEND Specialist
DX: S52.032A Displaced fracture of olecranon process with intraarticular extension of left ulna, initial encounter for closed fracture (principal); E11.9 Type 2 diabetes mellitus without complications; G47.33 Obstructive sleep apnea (adult) (pediatric); I25.810 Atherosclerosis of coronary artery bypass graft(s) without angina pectoris; I11.0 Hypertensive heart disease with heart failure; I50.9 Heart failure, unspecified; I25.2 Old myocardial infarction; F32.9 Major depressive disorder, single episode, unspecified; W18.39XA Other fall on same level, initial encounter; Y93.01 Activity, walking, marching and hiking; Y92.008 Other place in unspecified non-institutional (private) residence as the place of occurrence of the external cause; Z01.810 Encounter for preprocedural cardiovascular examination; Z01.812 Encounter for preprocedural laboratory examination; Z79.4 Long term (current) use of insulin; Z79.01 Long term (current) use of anticoagulants; Z95.1 Presence of aortocoronary bypass graft
CPT/HCPCS: 24685; 36415 ×3; 80048; 82948; 85025; 85610 ×3; 85730 ×3; 93005; C1713 ×12; J1100; J2001; J2250; J2370; J2405; J2795; 76001

== ENCOUNTER 2017-09-18 14:48 | Inpatient (IN) | payer MEDICARE ==
[~2017-09-18] VITALS: Ht 175.3 cm; Wt 77.1 kg
[~2017-09-18 14:48] MED LIST changes: -BACITRACIN 50,000 UNIT VIAL ONE; -BUPIVACAINE HCL 0.5% INJ 30 ML VIAL INJ ONE; -CEFAZOLIN SOD 2 GM/D5W 50ML 50 ML IV ONE; -DEXAMETHASONE SOD PHOS INJ 4 MG/ML VIAL ONE; -FENTANYL CITRATE/PF 100MCG/2 ML INJ ONE; -KEFLEX500 MG PO; -LIDOCAINE HCL 2% LOCAL INJ 5 ML SDV VIAL INJ ONE; -MIDAZOLAM HCL 2 MG/2 ML VIAL ONE; -ONDANSETRON HCL INJ 2 MG/ML VIAL ONE; -PHENYLEPHRINE HCL 1% 10 MG/ML VIAL ONE; -PROPOFOL IV EMULSION 10 MG/ML 20 ML VIAL ONE; -ROCURONIUM BROMIDE 10 MG/ML 5ML VIAL ONE; -ROPIVACAINE 0.5% 5 MG/ML 30 ML SDV ONE; -SEVOFLURANE INHAL SOLN 250 ML PEN BTL ONE; -VASOPRESSIN INJ 20 UNIT/ML VIAL ONE
--- OUTSIDE RECORDS SUMMARY | 2017-09-18 14:52 | XMS REPORT | Clinical Summary ---
Author Author [facility] Organization [facility] Address Unknown Phone Unavailable Care Team Providers Care Laborer Carpentry Dock Name Role Phone Ronda Sofia MD PCP [...] Anesthesia Cardiothoracic Surgery Madan Ag MD 09/24/2016 Hospital Cardiology Rick Haro MD Aortic valve stenosis, - Encounter David Grey MD unspecified etiology 10/04/2016 (Primary Dx); Nonrheumatic aortic valve stenosis; Coronary artery disease involving bishop paiute coronary artery of bishop [place] heart without angina pectoris after 09/17/2016 Social History Tobacco Use Types Packs/Day Years [...] INFLUENZA VACCINE 01/21/2017 Implants Implanted Type Area Roofing Technician Device Expiration Model / Identifier Date Serial / Lot Valve Aortc Stntd Tiss Annls W/ Cardiovasc N/A: N/A ST ASTRID 2018 E100 25A Linx Ac Tech 25mm Epic - ular STRUCTURAL 00 / [id number] - [id number] Implants HEART [id number]^ Implanted: Qty: 1 on 09/26/2016 by [id number] Olga Silver MD 9 / [id number]^ [id number] Lead Pace Jono Mycrdl Unipol Tmpry Cardiovasc [facility] - 6500F / Streamline - [id number] ular CARDIAC SRGRY / Implanted: Qty: 2 on 09/26/2016 by Implants Olga Silver MD Chamber Sgl Thais Dry Suct 1wy Vlv Surgical N/A: N/A TELEFLEX S 1100 Adlt Pedi - [id number] Implants; MEDICAL 08LF / Implanted: 09/26/2016 (Quantity not Expanders; / on file) Extenders; Surgical Wires Chamber Sgl Thais Dry Suct 1wy Vlv Surgical N/A: N/A TELEFLEX S 1100 Adlt Pedi - [id number] Implants; MEDICAL 08LF / Implanted: 09/26/2016 (Quantity not Expanders; / on file) Extenders; Surgical Wires Chamber Sgl Thais Dry Suct 1wy Vlv Surgical N/A: N/A TELEFLEX S 1100 Adlt Pedi - [id number] Implants; MEDICAL 08LF / Implanted: 09/26/2016 (Quantity not Expanders; / on file) Extenders; Surgical Wires Lamont Perph Vasclr Ptfe 1.2x10cm Vascular N/A: N/A BARD PERIPHERAL [id number] / 1.65mm - [id number] Graft VASCULAR / Implanted: Qty: 1 on 09/26/2016 by [id number] Olga Silver MD Lamont Perph Vasclr Ptfe 1.2x10cm Vascular N/A: N/A BARD PERIPHERAL [id number] / 1.65mm - [id number] Graft VASCULAR / Implanted: Qty: 1 on 09/26/2016 by [id number] Olga Silver MD Lamont Perph Vasclr Ptfe 28v08cc Vascular BARD PERIPHERAL [id number] / 1.65mm - [id number] Graft VASCULAR / Implanted: Qty: 1 on 09/26/2016 by Olga Silver MD Procedures Procedure Name Priority Date/Time Associated Diagnosis Comments CONSULT CARDIAC REHAB Routine 09/30/2016 PHASE 1 3:30 PM CDT ECHOCARDIOGRAM 2D Routine 09/30/2016 Results for this COMPLETE W MMODE SPECTRAL 2:43 PM CDT procedure are in the COLOR DOPPLER (57729) results section. LINE/DRAIN REMOVAL Routine 09/28/2016 Nonrheumatic aortic valve Results for this 5:06 PM CDT stenosis procedure are in the Coronary artery disease results section. involving bishop paiute coronary artery of bishop [place] heart without angina pectoris ANESTHESIA MIGDALIA Routine [...] CDT procedure are in the COLOR DOPPLER (86218) results section. after 09/17/2016 Results * POC glucose (10/04/2016 5:07 PM) Only the most recent of 72 results within the time period is included. Component Value Ref Range POC glucose 140 (H) 65 - 99 mg/dL Comment: [facility] Notified RN Meter ID: [id number] Process Designer: Javier Damon Specimen Performing Laboratory [facility] DEPARTMENT OF PATHOLOGY AND GENOMIC MEDICINE [address] [place] [address] * CBC with platelet and differential (10/04/2016 [...] (promyelocytes, myelocytes, metamyelocytes) Specimen Performing Laboratory Blood [facility] DEPARTMENT OF PATHOLOGY AND GENOMIC MEDICINE [address] [place] [address] * Estimated GFR (10/04/2016 4:00 AM) Only [...] and Americans. Specimen Performing Laboratory Plasma specimen [facility] DEPARTMENT OF PATHOLOGY AND GENOMIC MEDICINE [address] [place] [address] * Magnesium level (10/04/2016 4:00 AM) Only the most recent of 12 results within the time period is included. Component Value Ref Range Magnesium 1.8 1.6 - 2.4 mg/dL Specimen Performing Laboratory Plasma specimen [facility] DEPARTMENT OF PATHOLOGY AND [place] [id number] * Basic metabolic panel (10/04/2016 4:00 AM) [...] 10.2 mg/dL Specimen Performing Laboratory Plasma specimen [facility] DEPARTMENT OF PATHOLOGY AND [address] [address] * Comprehensive metabolic panel (10/02/2016 4:00 AM) [...] Protein 6.5 6.3 - 8.3 g/dL Comment: [place] 4.6-7.0 g/dL 1 week 4.4-7.6 g/dL 7 [...] 1.2 mg/dL Specimen Performing Laboratory Plasma specimen [facility] DEPARTMENT OF PATHOLOGY AND GENOMIC MEDICINE [address] [place] [address] * Phosphorus level (10/01/2016 6:16 AM) Only the most recent of 10 results within the time period is included. Component Value Ref Range Phosphorus 2.2 (L) 2.4 - 4.5 mg/dL Specimen Performing Laboratory Plasma specimen [facility] [place] [address] * B natriuretic peptide (10/01/2016 6:16 AM) Component Value Ref Range BNP 743 (H) 0 - 100 pg/mL Specimen Performing Laboratory Blood [facility] [place] [address] * Ionized calcium (10/01/2016 6:16 AM) Only the most recent of 8 results within the time period is included. Component Value Ref Range pH 7.72 Ionized calcium 0.99 (L) 1.11 - 1.32 mmol/L Specimen Performing Laboratory Plasma specimen [facility] DEPARTMENT OF PATHOLOGY AND [facility] MEDICINE [address] [place] [address] * XR Chest 1 Vw Portable (09/30/2016 10:43 PM) Only the most recent of 7 results within the time period is included. Specimen Performing Laboratory [facility] [address] [place] [address] Narrative Examination: XR CHEST 1 VW PORTABLE Clinical history: SHORTNESS OF BREATH Comparison: 449 Impression: 1. IJ line has been removed. There is no visible pneumothorax. 2. Pulmonary volumes mildly improved. Appearance of the chest is otherwise stable. [facility]-[id number] Procedure Note Interface, Radiology Results Incoming - 09/30/2016 10:49 PM CDT Examination: XR CHEST 1 VW PORTABLE Clinical history: SHORTNESS OF BREATH Comparison: 449 Impression: 1. IJ line has been removed. There is no visible pneumothorax. 2. Pulmonary volumes mildly improved. Appearance of the chest is otherwise stable. [facility]-[id number] * Echocardiogram complete w contrast and 3D if needed (09/30/2016 2:43 PM) Specimen Performing Laboratory [facility] [address] [place] [address] Narrative Echocardiography Report [address] [place] [address] Pat.Name:Son MOORE.ID:[id number] .Date: 09/30/2016 Refer.MD:KIT ROWELL MD Exam Time: 1:46:00 PMStudy Type:Routine Echo Height:70inWeight:177lb BSA: 1.98 m2 DOBAge:1944,71Y Sex: MALEBP: 120/61 HR:69 bpm Sonogrphr: Alba Torres RDCS, RVT Pat. Stat.:Inpatient Room:[facility] Study Status:Final Echo Event ID:[id number] Order ID:[id number] Reason for Study:AVR History / Clinical:Coronary Artery [...] PA systolic pressure. MEASUREMENTS: 2D Parasternal [place] Ao An2.3 cmIVSd 1.1 cm LVOT 2.2 [...] - 09/30/2016 6:51 PM CDT Echocardiography Report [address]Name: IMER MOORE.ID: [id number] .Date: 09/30/2016 Refer.MD: KIT ROWELL MD Exam Time: 1:46:00 PM Study Type:Routine Echo Height: 70in Weight: 177lb BSA: 1.98 m2 Age: 11 1945,71Y Sex: MALE BP: 120/61 HR: 69 bpm Sonogrphr: Alba Pettifor, RDCS, RVT Pat. Stat.:Inpatient Room: [facility] Study Status:Final Echo Event ID:[id number] Order ID: [id number] Reason for Study:AVR History / Clinical:Coronary Artery [...] PA systolic pressure. MEASUREMENTS: 2D Parasternal [place] Ao An 2.3 cm IVSd 1.1 cm [...] 0.00 /100 WBC Specimen Performing Laboratory Blood [facility] DEPARTMENT OF PATHOLOGY AND [employer] MEDICINE [address] [place] [address] * Potassium level (09/29/2016 11:10 PM) Only the most recent of 5 results within the time period is included. Component Value Ref Range Potassium 4.2 3.5 - 5.0 mEq/L Specimen Performing Laboratory Plasma specimen [facility] DEPARTMENT OF PATHOLOGY AND GENOMIC MEDICINE [address] [place] [address] * ECG 12 lead (09/29/2016 8:21 AM) [...] significant change was found- Specimen Performing Laboratory [facility] MUSE [address] [place] [address] * Type and screen (09/29/2016 2:00 AM) Only the most recent of 2 results within the time period is included. Component Value Ref Range ABO grouping A Rh type POS Antibody screen (gel) NEG Specimen Performing Laboratory Blood [facility] DEPARTMENT OF PATHOLOGY AND GENOMIC MEDICINE [address] [place] [address] * Line/Drain Removal (09/28/2016 5:06 PM) Ana [...] Anti-Xa 0.3-0.7 U/ml. Specimen Performing Laboratory Blood [facility] DEPARTMENT OF PATHOLOGY AND [facility] MEDICINE [address] [place] [address] * Prothrombin time with INR (09/28/2016 1:15 [...] vein thrombosis/pulmonary embolism. Specimen Performing Laboratory Blood [facility] DEPARTMENT OF PATHOLOGY [facility] MEDICINE [address] [place] [address] * O2 saturation, venous (09/26/2016 9:00 PM) Component Value Ref Range Hemoglobin, venous, 11.7 (L) 14.0 - 18.0 g/dL syringe O2 saturation, venous 74 (H) 40 - 70 % Specimen Performing Laboratory [facility] DEPARTMENT OF PATHOLOGY AND [facility] MEDICINE [address] [place] [address] * Ionized calcium, arterial (09/26/2016 3:50 PM) Only the most recent of 12 results within the time period is included. Component Value Ref Range Ionized calcium, arterial 1.23 1.11 - 1.32 mmol/L Specimen Performing Laboratory Blood [facility] [place] [address] * Fibrinogen (09/26/2016 3:50 PM) Only the most recent of 4 results within the time period is included. Component Value Ref Range Fibrinogen 227 200 - 450 mg/dL Specimen Performing Laboratory Blood [facility] DEPARTMENT OF PATHOLOGY [facility] MEDICINE [address] [place] [address] * Arterial blood gas (09/26/2016 3:50 PM) [...] - 100 % Specimen Performing Laboratory Blood [facility] DEPARTMENT OF PATHOLOGY AND [facility] MEDICINE [address] [place] [address] * Surgical pathology request (09/26/2016 3:40 PM) Component Value Ref Range Surgical pathology report See link below for PDF Lab Report Specimen Performing Laboratory [facility] DEPARTMENT OF PATHOLOGY [facility] MEDICINE [address] [place] [address] * ANESTHESIA MIGDALIA (09/26/2016 3:29 PM) Ana [...] - 148 mEq/L Specimen Performing Laboratory Blood [facility] [place] [address] * Potassium, syringe (09/26/2016 3:25 PM) Only the most recent of 11 results within the time period is included. Component Value Ref Range Potassium, syringe 3.8 3.5 - 5.0 mEq/L Specimen Performing Laboratory Blood [facility] [place] [address] * Hemoglobin, syringe (09/26/2016 3:25 PM) Only the most recent of 13 results within the time period is included. Component Value Ref Range Hemoglobin, syringe 13.0 (L) 14.0 - 18.0 g/dL Specimen Performing Laboratory Blood [facility] [place] [address] * Glucose level, syringe (09/26/2016 3:25 PM) Only the most recent of 10 results within the time period is included. Component Value Ref Range Glucose, syringe 142 (H) 65 - 99 mg/dL Specimen Performing Laboratory Blood [facility] DEPARTMENT OF PATHOLOGY [place] [id number] * Arterial blood gas, corrected (09/26/2016 3:25 [...] - 2 mEq/L Specimen Performing Laboratory Blood [facility] DEPARTMENT OF PATHOLOGY [place] [id number] * Rapid TEG (09/26/2016 2:40 PM) Component Value Ref Range TEG R time 1.3 (H) 0.0 - 1.0 min TEG K time 1.6 0.8 - 2.0 min TEG angle 70.6 64.0 - 80.0 deg TEG max amplitude 65.3 52.0 - 74.0 mm TEG G 9,391.7 5k-14k d/sc TEG fibrinolysis/30 0.0 0.0 - 6.0 % Specimen Performing Laboratory Plasma specimen [facility] [place] [address] * Hemoglobin & hematocrit (09/26/2016 2:40 PM) Only the most recent of 2 results within the time period is included. Component Value Ref Range HGB 12.1 (L) 14.0 - 18.0 g/dL HCT 35.5 (L) 41.0 - 51.0 % Specimen Performing Laboratory [facility] [place] [address] * Platelet count (09/26/2016 2:40 PM) Only the most recent of 3 results within the time period is included. Component Value Ref Range Platelet count 156 150 - 400 k/uL Specimen Performing Laboratory [facility] [place] [address] * Venous blood gas (09/26/2016 1:50 PM) Component Value Ref Range pH, venous 7.28 (L) 7.32 - 7.42 pCO2, venous 51 45 - 51 mmHg pO2, venous 49 (H) 25 - 40 mmHg Base excess, venous -3 (L) -2 - 2 meq/L O2 saturation, venous 77 (H) 40 - 70 % Bicarbonate, venous 23.4 21.0 - 28.0 mmol/L Specimen Performing Laboratory [facility] DEPARTMENT OF PATHOLOGY [place] [id number] * Rotational thromboelastometry (09/26/2016 1:46 PM) Only [...] fibrinolytic activity. Specimen Performing Laboratory Plasma specimen [facility] DEPARTMENT OF PATHOLOGY AND GENOMIC MEDICINE [address] [place] [address] * Hemoglobin (09/26/2016 1:19 PM) Component Value Ref Range HGB 9.1 (L) 14.0 - 18.0 g/dL Specimen Performing Laboratory [facility] DEPARTMENT OF PATHOLOGY AND [facility] MEDICINE [address] [place] [address] * Hematocrit (09/26/2016 1:19 PM) Component Value Ref Range HCT 27.1 (L) 41.0 - 51.0 % Specimen Performing Laboratory [facility] DEPARTMENT OF PATHOLOGY AND [facility] MEDICINE [address] [place], [place] [id number] * PA catheter (09/26/2016 10:38 AM) Ana Franks MD 09/26/20168:10 AM PA catheter Performed by: AMANDA FRANKS Authorized by: TONY PORRAS Patient Location:OR Staff: Performed by:Resident/MEDICAL CHIEF TECHNICIAN Preprocedure: patient identified, IV checked, site and side verified, risks and benefits discussed, procedure verified, surgical consent complete, patient position confirmed, monitors and equipment checked and pre-op evaluation complete MSBT: antiseptic used, all elements of maximal sterile barrier technique followed, hand hygiene performed, cap/gown used by other personnel and solutions labeled Procedure details: PA Catheter Type:STRUCTURAL ENGINEERING TECHNICIAN PA Catheter Size:9 PA Catheter Side:Right PA [...] PORRAS Patient Location:OR Staff: Performed by:Anesthesiologist and resident/MEDICAL CHIEF TECHNICIAN Preprocedure:patient identified, IV checked, site and side [...] by: TONY PORRAS Patient Location:OR Staff: Performed by:Resident/MEDICAL CHIEF TECHNICIAN and anesthesiologist Preprocedure:patient identified, IV checked, site [...] PORRAS Location:OR Difficult Airway: No Anesthesiologist:TONY PORRAS Resident/MEDICAL CHIEF TECHNICIAN:AMANDA FRANKS Performed by: resident/MEDICAL CHIEF TECHNICIAN Preoxygenated with 100% O2: Yes C-spine Precautions [...] - 130 % Specimen Performing Laboratory Blood [facility] DEPARTMENT OF PATHOLOGY AND GENOMIC MEDICINE [address] [place] [address] * XR Chest 2 Vw (09/25/2016 6:17 PM) Specimen Performing Laboratory [facility] [address] [place] [address] Narrative EXAMINATION:XR CHEST 2 VW CLINICAL HISTORY:pre-op IMPRESSION: There is a transvenous pacemaker in good position. Heart and mediastinum are normal. Lungs are clear. Regional skeleton is intact. [facility]-[id number] Procedure Note Interface, Radiology Results Incoming - 09/25/2016 6:35 PM CDT EXAMINATION: XR CHEST 2 VW CLINICAL HISTORY: pre-op IMPRESSION: There is a transvenous pacemaker in good position. Heart and mediastinum are normal. Lungs are clear. Regional skeleton is intact. [facility]-[id number] * Prepare platelet pheresis, 6 Units (09/25/2016 5:25 PM) Component Value Ref Range Product name Apheresis Platelet ACDA LRIRR #1 Unit number [id number] Product code [id number] Dispense status Transfused Blood expiration date 20160926 Blood type code 6200 Blood type A POSITIVE Product name Apheresis PLT, Leukored IRR #2 Unit number [id number] Product code A0336K70 Dispense status Transfused Blood expiration date 20160926 Blood type code 5100 Blood type O POSITIVE Product name Apheresis Platelet ACDA LRIRR #1 Unit number [id number] Product code [id number] Dispense status Transfused Blood expiration date 20160926 Blood type code 0600 Blood type A NEGATIVE Product name Apheresis PLT Leukored IRR #3 Unit number [id number] Product code W7919Y63 Dispense status Returned to BB not transfused Blood expiration date 20160926 Blood type code 9500 Blood type O NEGATIVE Specimen Performing Laboratory [facility] DEPARTMENT OF PATHOLOGY AND GENOMIC MEDICINE [address] [place] [address] * Prepare fresh frozen plasma, 4 Units (09/25/2016 5:25 PM) Component Value Ref Range Product name Thawed Plasma Unit number [id number] Product code P0514K86 Dispense status Returned to BB not transfused Blood expiration date 20160928 Blood type code 6200 Blood type A POSITIVE Product name Thawed Plasma CP2D Unit number [id number] Product code R7580I32 Dispense status Returned to BB not transfused Blood expiration date 20160928 Blood type code 0600 Blood type A NEGATIVE Specimen Performing Laboratory Blood [facility] DEPARTMENT OF PATHOLOGY AND GENOMIC MEDICINE [address] [place] [address] * Prepare RBC, 6 Units (09/25/2016 5:25 PM) Component Value Ref Range Product name Red Blood Cells -1, Leukored Unit number [id number] Product code L1971H40 Dispense status Returned to BB not transfused Blood expiration date 20161009 Blood type code 6200 Blood type A POSITIVE Product name Red Blood Cells -1, Leukored Unit number [id number] Product code T3715I41 Dispense status Returned to BB not transfused Blood expiration date 20161009 Blood type code 6200 Blood type A POSITIVE Specimen Performing Laboratory [facility] DEPARTMENT OF PATHOLOGY AND GENOMIC MEDICINE [address] [place] [address] * Anti Xa, unfractionated (09/25/2016 12:30 PM) Component Value Ref Range Anti Xa, unfractionated <0.10 (L)Comment: Therapeutic Range: 0.30 - 0.70 0.30 - 0.70 U/mL U/mL Specimen Performing Laboratory Blood [facility] DEPARTMENT OF PATHOLOGY AND GENOMIC MEDICINE [address] [place] [address] * Echocardiogram complete w contrast and 3D if needed (09/25/2016 8:39 AM) Specimen Performing Laboratory [facility] [address] [place] [address] Narrative Echocardiography Report [address] [place], [address], [place] [address] Pat.Name:Son MOORE.ID:[id number] .Date: 09/25/2016Refer.MD:RICK HARO MD Exam Time: 7:45:00 AMStudy Type:Routine Echo Height:70inWeight:179lb BSA: 1.99 m2 DOBAge:1944,71Y Sex: MALEBP: 124/74 HR:71 bpmSonogrphr: ILIA Butler Pat. Stat.:Inpatient Room:A745B Study Status:Final Echo Event ID:[id number] Order ID:[id number] Reason for Study:Aortic Stenosis Procedures:2D Echo, Colorflow [...] severeaortic valve stenosis. Estimated mean aortic valve wenzkzpo93.7 mmHg with a valve area of 0.7 cm2. TranscatheterAV Doppler velocity index is 0.2 (normal >0.50). MV: Mild thickening of mitral leaflets. PV: No structural PV abnormalities noted. TV: No structural TV abnormalities noted. Mild tricuspid regurgitation James: LV relaxation is impaired. LV filling pressure is elevated. Other:Insufficient TR jet to estimate PA systolic pressure. MEASUREMENTS: 2D Parasternal [place] LVOT 2.2 cmLVPWd 1.3 cm LVIDd5.4 cmIndex [...] TVI 58 cm AV pkPG 40.6 mmHgAVpkAcRt 60746 cm/s2 AV Mean G 21.7 mmHgAV DeRt [...] 09/25/2016 9:32 AM CDT Echocardiography Report [address] [place] [address] Pat.Name: IMER MOORE Pat.ID: [id number] .Date: 09/25/2016 Refer.MD: RICK HARO MD Exam Time: 7:45:00 AM Study Type:Routine Echo Height: 70in Weight: 179lb BSA: 1.99 m2 Age: 10 1945,71Y Sex: MALE BP: 124/74 HR: 71 bpm Sonogrphr: ILIA Butler Pat. Stat.:Inpatient Room: A[facility] Study Status:Final Echo Event ID:[id number] Order ID: [id number] Reason for Study:Aortic Stenosis Procedures:2D Echo, Colorflow [...] PA systolic pressure. MEASUREMENTS: 2D Parasternal [place] LVOT 2.2 cm LVPWd 1.3 cm LVIDd [...] 58 cm AV pkPG 40.6 mmHg AVpkAcRt 66840 cm/s2 AV Mean G 21.7 mmHg AV [...] PM) Specimen Performing Laboratory [facility] [address] Vascular Ultrasound Laboratory Carotid Artery Duplex Report [address] [place] [address] For quality assurance analyst purposes, the categorization of the degree of the stenosis of this exam is based on criteria described in the IAC carotid stenosis grading white paper( www.intersocietal.org/Vascular) and [place] Adrian., Isaias Da Silva, et al. Carotid artery stenosis: fair-scale and Doppler US diagnosis--Society of Radiologists in Ultrasound Consensus Conference. Radiology. 2003 Nov; 229(2):340-6. Pat.Name:Son MOORE.ID:[id number] .Date: 09/24/2016Refer.MD:DAVID GREY MD Exam Time: 5:10:00 PMStudy Type:Carotid DOBAge:1945,71Y Sex: MALE Sonogrphr: Tomás Lentz RDMS, RVTPat. Stat.:Inpatient Room:K204-LBqsnJyo: , [facility] - 4: [address] Echo Event ID:[id number] Order ID:[id number] Reason for Study:History of carotid arterial disease [...] Prox EDV 0 cm/s Left ECA ECA IHE126 cm/sECA EDV 5.11 cm/s Left ICA Mid [...] PSV 3.79 Left CCA Mid CCA Mid QNZ454 cm/sCCA Mid EDV 28 cm/s Left CCA [...] Vascular Ultrasound Laboratory Carotid Artery Duplex Report [address] [place] [address] For quality assurance analyst purposes, the categorization of the degree of the stenosis of this exam is based on criteria described in the IAC carotid stenosis grading white paper( www.intersocietal.org/Vascular) and Mercedes Adrian, Isaias Da Silva, et al. Carotid artery stenosis: fair-scale and Doppler US diagnosis--Society of Radiologists in Ultrasound Consensus Conference. Radiology. 2003 Apr; 229(2):340-6. Pat.Name: IMER MOORE Pat.ID: [id number] .Date: 09/24/2016 Refer.MD: DAVID GREY MD Exam Time: 5:10:00 PM Study Type:Carotid Age: 10 1945,71Y Sex: MALE Sonogrphr: Tomás Lentz RDMS, T Pat. Stat.:Inpatient Room: [facility] Tape Vol: , [facility] - 4: [id number] Echo Event ID:[id number] Order ID: [id number] Reason for Study:History of carotid arterial disease [...] 09/25/2016 09:11 AM Yemi Mike MD after 09/17/2016 Insurance Payer Benefit Subscriber ID Type Phone Address Plan / Group MEDICARE MEDICARE xxxxxxxxxx Medicare [place], [place] PART A AND B AARP AARP xxxxxxxxxxx Commercial SUPPLEMENT
[2017-09-18 15:45] LABS: BASOPHILS % 0.3 % (0.0-1.0); BILIRUBIN,URINE NEGATIVE (NEGATIVE); CLARITY,URINE CLOUDY (CLEAR); COLOR,URINE YELLOW (YELLOW); EOSINOPHILS # (AUTO) 0.1 (0.0-0.4); EOSINOPHILS % 1.1 % (0.0-6.0); HEMATOCRIT 32.1 % (38.2-49.6); HEMOGLOBIN 10.6 g/dL (14.0-18.0); KETONES,URINE NEGATIVE (NEGATIVE); LEUKOCYTE ESTERASE ,URINE NEGATIVE (NEGATIVE); LYMPHOCYTES % 10.6 % (18.0-39.1); MEAN CORPUSCULAR HEMOGLOBIN 28.5 pg (28-32); MEAN CORPUSCULAR VOLUME 86.3 fL (81-99); MONOCYTES # (AUTO) 0.9 (0.2-0.8); MONOCYTES % 9.7 % (4.4-11.3); NEUTROPHILS # (AUTO) 7.3 (2.1-6.9); NITRITE,URINE NEGATIVE (NEGATIVE); PLATELET COUNT 304 x10e3/uL (140-360); PROTEIN,URINE DIPSTICK NEGATIVE (NEGATIVE); RED BLOOD COUNT 3.72 x10e6/uL (4.3-5.7); RED CELL DISTRIBUTION WIDTH 16.3 % (11.7-14.4); URINE UROBILINOGEN 1 mg/dL (0.2 - 1)
[2017-09-18 15:54] LABS: INR 4.94
[2017-09-18 16:02] LABS: PROTHROMBIN TIME 43.2 seconds (11.9-14.5)
[2017-09-18 16:04] LABS: ALANINE AMINOTRANSFERASE 16 IU/L (0-55); ALBUMIN 2.9 g/dL (3.5-5.0); ALBUMIN/GLOBULIN RATIO 0.6 (0.8-2.0); ALKALINE PHOSPHATASE 130 IU/L (40-150); ANION GAP 14.4 mmol/L (8-16); BLOOD UREA NITROGEN 26 mg/dL (7-26); BUN/CREATININE RATIO 31 (6-25); CALCIUM 9.2 mg/dL (8.4-10.2); CARBON DIOXIDE 22 mmol/L (22-29); CHLORIDE 103 mmol/L (98-107); CREATINE KINASE 418 IU/L (30-200); CREATININE, SERUM 0.84 mg/dL (0.72-1.25); EST GLOMERULAR FILTRATION RATE > 60 ML/MIN (60-); GLUCOSE 111 mg/dL (74-118); POTASSIUM 4.4 mmol/L (3.5-5.1); SODIUM 135 mmol/L (136-145)
--- NOTE | 2017-09-18 16:43 | Diagnostic Imaging Report ---
PROCEDURE: A single AP view of the chest. COMPARISON: Chest x-ray 02/27/2017. INDICATIONS: WEAKNESS FINDINGS: Lines/tubes: Left-sided AICD with 2 leads. Lungs: Lungs are moderately inflated. Central pulmonary venous congestion. Enlargement pulmonary vessels. Pleura: There is no pleural effusion or pneumothorax. Heart and mediastinum: Moderate cardiomegaly. Bones: No acute bony abnormality. IMPRESSION: Moderate cardiomegaly with central pulmonary venous congestion consistent with early fluid overload. Dictated by: Holden Odonnell M.D. on 09/18/2017 at 16:43 Electronically approved by: Hodlen Odonnell M.D. on 09/18/2017 at 16:43
--- NOTE | 2017-09-18 20:15 | Diagnostic Imaging Report ---
EXAMINATION: Head CT without contrast. HISTORY:History of fall, weakness. COMPARISON:CT brain from 08/29/2017. TECHNIQUE: Multidetector axial images were obtained from the foramen magnum to the vertex without contrast. The images were reconstructed using brain and bone algorithms. Thin section brain images were reformatted into coronal and sagittal planes. Intravenous contrast: None IMAGE QUALITY: Acceptable. FINDINGS: Skull/scalp: No lytic or blastic. lesions. No surgical changes. Parenchyma: Unchanged cortical-based hypodensity in the right pre-/post central gyri and paracentral lobule represents chronic encephalomalacia from prior vascular insult. Unchanged nonspecific few, scattered supratentorial white matter hypodensity are likely related to small vessel ischemic changes. No acute hemorrhage, mass or acute major vascular territorial infarct. Arteries: No density suggestive of thrombosis. Dural sinuses: No abnormal density suggestive of thrombosis. Ventricles: Mild compensated dilatation due to volume loss. No hydrocephalus. Extra-axial spaces: No abnormal density. Brain volume: Generalized age-related cerebral volume loss. Craniocervical junction: No mass, Chiari malformation, or basilar invagination. Sella: No mass. Paranasal/mastoid sinuses: Imaged portions unremarkable. IMPRESSION: No acute intracranial abnormality. No change since CT brain from 08/29/2017. Chronic findings: 1. 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 2. Mild supratentorial white matter microvascular ischemic changes. 3. Generalized age-related cerebral volume loss. Signed by: Dr. Debo Regalado M.D. on 09/18/2017 8:12 PM
[2017-09-18] MEDS ORDERED: FUROSEMIDE INJ 10 MG/ML 4 ML VIAL IV ONE (21:45)
[2017-09-18] MEDS ORDERED: TRAMADOL HCL 50 MG TAB PO ONE (21:45)
[2017-09-18] MEDS ORDERED: KEFLEX500 MG PO (22:08)
[2017-09-18] MEDS ORDERED: DEXTROSE 50% SYRINGE 50 ML IV PRN (22:45)
--- OUTSIDE RECORDS SUMMARY | 2017-09-18 22:47 | XMS REPORT | Clinical Summary ---
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 Device Expiration Model / Identifier Date Serial / Lot Valve Aortc Stntd Tiss Annls W/ Cardiovasc N/A: N/A ST ASTRID 2018 E100 25A Linx Ac Tech 25mm Epic - ular STRUCTURAL 00 / [id number] - [id number] Implants HEART [id number]^ Implanted: Qty: 1 on 09/26/2016 by [id number] Olga Silver MD 9 / [id number]^ [id number] Lead Pace Jono Mycrdl Unipol Tmpry Cardiovasc [facility] - [id number] / Streamline - [id number] ular CARDIAC SRGRY / Implanted: Qty: 2 on 09/26/2016 by Implants Olga Silver MD Chamber Sgl Thais Dry Suct 1wy Vlv Surgical N/A: N/A TELEFLEX S 1100 Adlt Pedi - [id number] Implants; MEDICAL [id number] / Implanted: 09/26/2016 (Quantity not Expanders; / on file) Extenders; Surgical Wires Chamber Sgl Thais Dry Suct 1wy Vlv Surgical N/A: N/A TELEFLEX S 1100 Adlt Pedi - [id number] Implants; MEDICAL 08LF / Implanted: 09/26/2016 (Quantity not Expanders; / on file) Extenders; Surgical Wires Chamber Sgl Thais Dry Suct 1wy Vlv Surgical N/A: N/A TELEFLEX S 1100 Adlt Pedi - [id number] Implants; MEDICAL 08LF / Implanted: 09/26/2016 (Quantity not Expanders; / on file) Extenders; Surgical Wires [place] Perph Vasclr Ptfe 1.2x10cm Vascular N/A: N/A BARD PERIPHERAL [id number] / 1.65mm - [id number] Graft VASCULAR / Implanted: Qty: 1 on 09/26/2016 by [id number] Olga Silver MD [place] Perph Vasclr Ptfe 1.2x10cm Vascular N/A: N/A BARD PERIPHERAL [id number] / 1.65mm - [id number] Graft VASCULAR / Implanted: Qty: 1 on 09/26/2016 by [id number] Olga Silver MD [place] Perph Vasclr Ptfe [id number] Vascular BARD PERIPHERAL [id number] / 1.65mm - [id number] Graft VASCULAR / Implanted: Qty: 1 on 09/26/2016 by Olga Silver MD Procedures Procedure Name Priority Date/Time Associated Diagnosis Comments CONSULT CARDIAC REHAB Routine 09/30/2016 PHASE 1 3:30 PM CDT ECHOCARDIOGRAM 2D Routine 09/30/2016 Results for this COMPLETE W MMODE SPECTRAL 2:43 PM CDT procedure are in the COLOR DOPPLER (19676) results section. LINE/DRAIN REMOVAL Routine 09/28/2016 Nonrheumatic aortic valve Results for this 5:06 PM CDT stenosis procedure are in the Coronary artery disease results section. involving [place] coronary artery of [place] heart without angina pectoris ANESTHESIA MIGDALIA Routine [...] CDT procedure are in the COLOR DOPPLER (14255) results section. after 09/17/2016 Results * POC glucose (10/04/2016 5:07 PM) Only the most recent of 72 results within the time period is included. Component Value Ref Range POC glucose 140 (H) 65 - 99 mg/dL Comment: [facility] Notified RN Meter ID: [id number] Air Brush Operator: Javier Damon Specimen Performing Laboratory [facility] DEPARTMENT OF PATHOLOGY AND GENOMIC MEDICINE [address] [place] [address] * CBC with platelet and differential (10/04/2016 [...] (promyelocytes, myelocytes, metamyelocytes) Specimen Performing Laboratory Blood [facility] DEPARTMENT OF PATHOLOGY AND GENOMIC MEDICINE [address] [place] [address] * Estimated GFR (10/04/2016 4:00 AM) Only [...] and Americans. Specimen Performing Laboratory Plasma specimen [facility] DEPARTMENT OF PATHOLOGY AND GENOMIC MEDICINE [address] [place] [address] * Magnesium level (10/04/2016 4:00 AM) Only the most recent of 12 results within the time period is included. Component Value Ref Range Magnesium 1.8 1.6 - 2.4 mg/dL Specimen Performing Laboratory Plasma specimen [facility] DEPARTMENT OF PATHOLOGY AND [place] [id number] * Basic metabolic panel (10/04/2016 4:00 AM) [...] 10.2 mg/dL Specimen Performing Laboratory Plasma specimen [facility] DEPARTMENT OF PATHOLOGY AND [address] [address] * Comprehensive metabolic panel (10/02/2016 4:00 AM) [...] Protein 6.5 6.3 - 8.3 g/dL Comment: [place] 4.6-7.0 g/dL 1 week 4.4-7.6 g/dL 7 [...] 1.2 mg/dL Specimen Performing Laboratory Plasma specimen [facility] DEPARTMENT OF PATHOLOGY AND GENOMIC MEDICINE [address] [place] [address] * Phosphorus level (10/01/2016 6:16 AM) Only the most recent of 10 results within the time period is included. Component Value Ref Range Phosphorus 2.2 (L) 2.4 - 4.5 mg/dL Specimen Performing Laboratory Plasma specimen [facility] [place]MENT [place] [address] * B natriuretic peptide (10/01/2016 6:16 AM) Component Value Ref Range BNP 743 (H) 0 - 100 pg/mL Specimen Performing Laboratory Blood [facility] DE[place]MENT [place] [address] * Ionized calcium (10/01/2016 6:16 AM) Only the most recent of 8 results within the time period is included. Component Value Ref Range pH 7.72 Ionized calcium 0.99 (L) 1.11 - 1.32 mmol/L Specimen Performing Laboratory Plasma specimen [facility] DEPARTMENT OF PATHOLOGY AND [facility] MEDICINE [address] [place] [address] * XR Chest 1 Vw Portable (09/30/2016 10:43 PM) Only the most recent of 7 results within the time period is included. Specimen Performing Laboratory [facility] [address] [place] [address] Narrative Examination: XR CHEST 1 VW PORTABLE Clinical history: SHORTNESS OF BREATH Comparison: 449 Impression: 1. IJ line has been removed. There is no visible pneumothorax. 2. Pulmonary volumes mildly improved. Appearance of the chest is otherwise stable. [facility]-[id number] Procedure Note Interface, Radiology Results Incoming - 09/30/2016 10:49 PM CDT Examination: XR CHEST 1 VW PORTABLE Clinical history: SHORTNESS OF BREATH Comparison: 449 Impression: 1. IJ line has been removed. There is no visible pneumothorax. 2. Pulmonary volumes mildly improved. Appearance of the chest is otherwise stable. [facility]-[id number] * Echocardiogram complete w contrast and 3D if needed (09/30/2016 2:43 PM) Specimen Performing Laboratory [facility] [address] [place] [address] Narrative Echocardiography Report [address] [place] [address] Pat.Name:Son MOORE.ID:[id number] .Date: 09/30/2016 Refer.MD:KIT ROWELL MD Exam Time: 1:46:00 PMStudy Type:Routine Echo Height:70inWeight:177lb BSA: 1.98 m2 DOBAge:1944,71Y Sex: MALEBP: 120/61 HR:69 bpm Sonogrphr: Alba Torres RDCS, RVT Pat. Stat.:Inpatient Room:[facility] Study Status:Final Echo Event ID:[id number] Order ID:[id number] Reason for Study:AVR History / Clinical:Coronary Artery [...] PA systolic pressure. MEASUREMENTS: 2D Parasternal [place] Ao An2.3 cmIVSd 1.1 cm LVOT 2.2 [...] - 09/30/2016 6:51 PM CDT Echocardiography Report [address]Name: IMER MOORE.ID: [id number] .Date: 09/30/2016 Refer.MD: KIT ROWELL MD Exam Time: 1:46:00 PM Study Type:Routine Echo Height: 70in Weight: 177lb BSA: 1.98 m2 Age: 11 1945,71Y Sex: MALE BP: 120/61 HR: 69 bpm Sonogrphr: Alba Pettifor, RDCS, RVT Pat. Stat.:Inpatient Room: [facility] Study Status:Final Echo Event ID:[id number] Order ID: [id number] Reason for Study:AVR History / Clinical:Coronary Artery [...] PA systolic pressure. MEASUREMENTS: 2D Parasternal [place] Ao An 2.3 cm IVSd 1.1 cm [...] 0.00 /100 WBC Specimen Performing Laboratory Blood [facility] DEPARTMENT OF PATHOLOGY AND [facility]ICINE [address] [place] [address] * Potassium level (09/29/2016 11:10 PM) Only the most recent of 5 results within the time period is included. Component Value Ref Range Potassium 4.2 3.5 - 5.0 mEq/L Specimen Performing Laboratory Plasma specimen [facility] DEPARTMENT OF PATHOLOGY AND GENOMIC MEDICINE [address] [place] [address] * ECG 12 lead (09/29/2016 8:21 AM) [...] significant change was found- Specimen Performing Laboratory [facility] MUSE [address] [place] [address] * Type and screen (09/29/2016 2:00 AM) Only the most recent of 2 results within the time period is included. Component Value Ref Range ABO grouping A Rh type POS Antibody screen (gel) NEG Specimen Performing Laboratory Blood [facility] DEPARTMENT OF PATHOLOGY AND GENOMIC MEDICINE [address] [place] [address] * Line/Drain Removal (09/28/2016 5:06 PM) Ana [...] Anti-Xa 0.3-0.7 U/ml. Specimen Performing Laboratory Blood [facility] DEPARTMENT OF PATHOLOGY AND [facility] MEDICINE [address] [place] [address] * Prothrombin time with INR (09/28/2016 1:15 [...] vein thrombosis/pulmonary embolism. Specimen Performing Laboratory Blood [facility] DEPARTMENT OF PATHOLOGY [facility] MEDICINE [address] [place] [address] * O2 saturation, venous (09/26/2016 9:00 PM) Component Value Ref Range Hemoglobin, venous, 11.7 (L) 14.0 - 18.0 g/dL syringe O2 saturation, venous 74 (H) 40 - 70 % Specimen Performing Laboratory [facility] DEPARTMENT OF PATHOLOGY AND [facility] MEDICINE [address] [place] [address] * Ionized calcium, arterial (09/26/2016 3:50 PM) Only the most recent of 12 results within the time period is included. Component Value Ref Range Ionized calcium, arterial 1.23 1.11 - 1.32 mmol/L Specimen Performing Laboratory Blood [facility] [place] [address] * Fibrinogen (09/26/2016 3:50 PM) Only the most recent of 4 results within the time period is included. Component Value Ref Range Fibrinogen 227 200 - 450 mg/dL Specimen Performing Laboratory Blood [facility] DEPARTMENT OF PATHOLOGY [facility] MEDICINE [address] [place] [address] * Arterial blood gas (09/26/2016 3:50 PM) [...] - 100 % Specimen Performing Laboratory Blood [facility] DEPARTMENT OF PATHOLOGY AND [facility] MEDICINE [address] [place] [address] * Surgical pathology request (09/26/2016 3:40 PM) Component Value Ref Range Surgical pathology report See link below for PDF Lab Report Specimen Performing Laboratory [facility] DEPARTMENT OF PATHOLOGY [facility] MEDICINE [address] [place] [address] * ANESTHESIA MIGDALIA (09/26/2016 3:29 PM) Ana [...] - 148 mEq/L Specimen Performing Laboratory Blood [facility] DEPARTMENT [place] [address] * Potassium, syringe (09/26/2016 3:25 PM) Only the most recent of 11 results within the time period is included. Component Value Ref Range Potassium, syringe 3.8 3.5 - 5.0 mEq/L Specimen Performing Laboratory Blood [facility] DE[place]MENT [place] [address] * Hemoglobin, syringe (09/26/2016 3:25 PM) Only the most recent of 13 results within the time period is included. Component Value Ref Range Hemoglobin, syringe 13.0 (L) 14.0 - 18.0 g/dL Specimen Performing Laboratory Blood [facility] DE[place]MENT [place] [address] * Glucose level, syringe (09/26/2016 3:25 PM) Only the most recent of 10 results within the time period is included. Component Value Ref Range Glucose, syringe 142 (H) 65 - 99 mg/dL Specimen Performing Laboratory Blood [facility] DEPARTMENT OF PATHOLOGY [place] [id number] * Arterial blood gas, corrected (09/26/2016 3:25 [...] - 2 mEq/L Specimen Performing Laboratory Blood [facility] DEPARTMENT OF PATHOLOGY [place] [id number] * Rapid TEG (09/26/2016 2:40 PM) Component Value Ref Range TEG R time 1.3 (H) 0.0 - 1.0 min TEG K time 1.6 0.8 - 2.0 min TEG angle 70.6 64.0 - 80.0 deg TEG max amplitude 65.3 52.0 - 74.0 mm TEG G 9,391.7 5k-14k d/sc TEG fibrinolysis/30 0.0 0.0 - 6.0 % Specimen Performing Laboratory Plasma specimen [facility] DEPARTMENT [place] [address] * Hemoglobin & hematocrit (09/26/2016 2:40 PM) Only the most recent of 2 results within the time period is included. Component Value Ref Range HGB 12.1 (L) 14.0 - 18.0 g/dL HCT 35.5 (L) 41.0 - 51.0 % Specimen Performing Laboratory [facility] DE[place]MENT [place] [address] * Platelet count (09/26/2016 2:40 PM) Only the most recent of 3 results within the time period is included. Component Value Ref Range Platelet count 156 150 - 400 k/uL Specimen Performing Laboratory [facility] DE[place]MENT [place] [address] * Venous blood gas (09/26/2016 1:50 PM) Component Value Ref Range pH, venous 7.28 (L) 7.32 - 7.42 pCO2, venous 51 45 - 51 mmHg pO2, venous 49 (H) 25 - 40 mmHg Base excess, venous -3 (L) -2 - 2 meq/L O2 saturation, venous 77 (H) 40 - 70 % Bicarbonate, venous 23.4 21.0 - 28.0 mmol/L Specimen Performing Laboratory [facility] DEPARTMENT OF PATHOLOGY [place] [id number] * Rotational thromboelastometry (09/26/2016 1:46 PM) Only [...] fibrinolytic activity. Specimen Performing Laboratory Plasma specimen [facility] DEPARTMENT OF PATHOLOGY AND GENOMIC MEDICINE [address] [place] [address] * Hemoglobin (09/26/2016 1:19 PM) Component Value Ref Range HGB 9.1 (L) 14.0 - 18.0 g/dL Specimen Performing Laboratory [facility] DEPARTMENT OF PATHOLOGY AND [facility] MEDICINE [address] [place] [address] * Hematocrit (09/26/2016 1:19 PM) Component Value Ref Range HCT 27.1 (L) 41.0 - 51.0 % Specimen Performing Laboratory [facility] DEPARTMENT OF PATHOLOGY AND [facility] MEDICINE [address] [place], [place] [address] * PA catheter (09/26/2016 10:38 AM) Ana Franks MD 09/26/20168:10 AM PA catheter Performed by: AMANDA FRANKS Authorized by: TONY PORRAS Patient Location:OR Staff: Performed by:Resident/GROUND EQUIPMENT MECHANIC Preprocedure: patient identified, IV checked, site and side verified, risks and benefits discussed, procedure verified, surgical consent complete, patient position confirmed, monitors and equipment checked and pre-op evaluation complete MSBT: antiseptic used, all elements of maximal sterile barrier technique followed, hand hygiene performed, cap/gown used by other personnel and solutions labeled Procedure details: PA Catheter Type:EXERCISE PLANNER PA Catheter Size:9 PA Catheter Side:Right PA [...] PORRAS Patient Location:OR Staff: Performed by:Anesthesiologist and resident/GROUND EQUIPMENT MECHANIC Preprocedure:patient identified, IV checked, site and side [...] by: TONY PORRAS Patient Location:OR Staff: Performed by:Resident/GROUND EQUIPMENT MECHANIC and anesthesiologist Preprocedure:patient identified, IV checked, site [...] removal is confirmed Guidewire removal witnessed by:AMANDA FRNAKS Post-procedure: Post-procedure: line sutured and ports flushed [...] PORRAS Location:OR Difficult Airway: No Anesthesiologist:TONY PORRAS Resident/GROUND EQUIPMENT MECHANIC:AMANDA FRANKS Performed by: resident/GROUND EQUIPMENT MECHANIC Preoxygenated with 100% O2: Yes C-spine Precautions [...] - 130 % Specimen Performing Laboratory Blood [facility] DEPARTMENT OF PATHOLOGY AND GENOMIC MEDICINE [address] [place] [address] * XR Chest 2 Vw (09/25/2016 6:17 PM) Specimen Performing Laboratory [facility] [address] [place] [address] Narrative EXAMINATION:XR CHEST 2 VW CLINICAL HISTORY:pre-op IMPRESSION: There is a transvenous pacemaker in good position. Heart and mediastinum are normal. Lungs are clear. Regional skeleton is intact. [facility]-[id number] Procedure Note Interface, Radiology Results Incoming - 09/25/2016 6:35 PM CDT EXAMINATION: XR CHEST 2 VW CLINICAL HISTORY: pre-op IMPRESSION: There is a transvenous pacemaker in good position. Heart and mediastinum are normal. Lungs are clear. Regional skeleton is intact. [facility]-[id number] * Prepare platelet pheresis, 6 Units (09/25/2016 5:25 PM) Component Value Ref Range Product name Apheresis Platelet ACDA LRIRR #1 Unit number [id number] Product code [id number] Dispense status Transfused Blood expiration date 20160926 Blood type code 6200 Blood type A POSITIVE Product name Apheresis PLT, Leukored IRR #2 Unit number [id number] Product code [id number] Dispense status Transfused Blood expiration date 20160926 Blood type code 5100 Blood type O POSITIVE Product name Apheresis Platelet ACDA LRIRR #1 Unit number [id number] Product code [id number] Dispense status Transfused Blood expiration date 20160926 Blood type code 0600 Blood type A NEGATIVE Product name Apheresis PLT Leukored IRR #3 Unit number [id number] Product code [id number] Dispense status Returned to BB not transfused Blood expiration date 20160926 Blood type code 9500 Blood type O NEGATIVE Specimen Performing Laboratory [facility] DEPARTMENT OF PATHOLOGY AND GENOMIC MEDICINE [address] [place] [address] * Prepare fresh frozen plasma, 4 Units (09/25/2016 5:25 PM) Component Value Ref Range Product name Thawed Plasma Unit number [id number] Product code O8747T06 Dispense status Returned to BB not transfused Blood expiration date 20160928 Blood type code 6200 Blood type A POSITIVE Product name Thawed Plasma CP2D Unit number [id number] Product code S8516Y69 Dispense status Returned to BB not transfused Blood expiration date 20160928 Blood type code 0600 Blood type A NEGATIVE Specimen Performing Laboratory Blood [facility] DEPARTMENT OF PATHOLOGY AND GENOMIC MEDICINE [address] [place] [address] * Prepare RBC, 6 Units (09/25/2016 5:25 PM) Component Value Ref Range Product name Red Blood Cells -1, Leukored Unit number [id number] Product code U7483M93 Dispense status Returned to BB not transfused Blood expiration date 20161009 Blood type code 6200 Blood type A POSITIVE Product name Red Blood Cells -1, Leukored Unit number [id number] Product code I9916I49 Dispense status Returned to BB not transfused Blood expiration date 20161009 Blood type code 6200 Blood type A POSITIVE Specimen Performing Laboratory [facility] DEPARTMENT OF PATHOLOGY AND GENOMIC MEDICINE [address] [place] [address] * Anti Xa, unfractionated (09/25/2016 12:30 PM) Component Value Ref Range Anti Xa, unfractionated <0.10 (L)Comment: Therapeutic Range: 0.30 - 0.70 0.30 - 0.70 U/mL U/mL Specimen Performing Laboratory Blood [facility] DEPARTMENT OF PATHOLOGY AND GENOMIC MEDICINE [address] [place] [address] * Echocardiogram complete w contrast and 3D if needed (09/25/2016 8:39 AM) Specimen Performing Laboratory [facility] [address] [place] [address] Narrative Echocardiography Report [address] [place], [address], [place] [address] Pat.Name:Son MOORE.ID:[id number] .Date: 09/25/2016Refer.MD:RICK HARO MD Exam Time: 7:45:00 AMStudy Type:Routine Echo Height:70inWeight:179lb BSA: 1.99 m2 DOBAge:1944,71Y Sex: MALEBP: 124/74 HR:71 bpmSonogrphr: ILIA Butler Pat. Stat.:Inpatient Room:A745B Study Status:Final Echo Event ID:[id number] Order ID:[id number] Reason for Study:Aortic Stenosis Procedures:2D Echo, Colorflow [...] severeaortic valve stenosis. Estimated mean aortic valve .7 mmHg with a valve area of 0.7 cm2. TranscatheterAV Doppler velocity index is 0.2 (normal >0.50). MV: Mild thickening of mitral leaflets. PV: No structural PV abnormalities noted. TV: No structural TV abnormalities noted. Mild tricuspid regurgitation James: LV relaxation is impaired. LV filling pressure is elevated. Other:Insufficient TR jet to estimate PA systolic pressure. MEASUREMENTS: 2D Parasternal [place] LVOT 2.2 cmLVPWd 1.3 cm LVIDd5.4 cmIndex [...] TVI 58 cm AV pkPG 40.6 mmHgAVpkAcRt 31990 cm/s2 AV Mean G 21.7 mmHgAV DeRt [...] 09/25/2016 9:32 AM CDT Echocardiography Report [address] [place] [address] Pat.Name: IMER MOORE Pat.ID: [id number] .Date: 09/25/2016 Refer.MD: RICK HARO MD Exam Time: 7:45:00 AM Study Type:Routine Echo Height: 70in Weight: 179lb BSA: 1.99 m2 Age: 10 1945,71Y Sex: MALE BP: 124/74 HR: 71 bpm Sonogrphr: ILIA Butler Pat. Stat.:Inpatient Room: [facility] Study Status:Final Echo Event ID:[id number] Order ID: [id number] Reason for Study:Aortic Stenosis Procedures:2D Echo, Colorflow [...] PA systolic pressure. MEASUREMENTS: 2D Parasternal [place] LVOT 2.2 cm LVPWd 1.3 cm LVIDd [...] 58 cm AV pkPG 40.6 mmHg AVpkAcRt 15131 cm/s2 AV Mean G 21.7 mmHg AV [...] PM) Specimen Performing Laboratory [facility] [address] Vascular Ultrasound Laboratory Carotid Artery Duplex Report [address] [place] [address] For quality engineer purposes, the categorization of the degree of the stenosis of this exam is based on criteria described in the IAC carotid stenosis grading white paper( www.intersocietal.org/Vascular) and [place] Adrian., Isaias Da Silva, et al. Carotid artery stenosis: fair-scale and Doppler US diagnosis--Society of Radiologists in Ultrasound Consensus Conference. Radiology. 2003 Nov; 229(2):340-6. Pat.Name:Son MOORE.ID:[id number] .Date: 09/24/2016Refer.MD:DAVID GREY MD Exam Time: 5:10:00 PMStudy Type:Carotid DOBAge:1945,71Y Sex: MALE Sonogrphr: Tomás Lentz RDMS, RVTPat. Stat.:Inpatient Room:C414-XYxtkYbz: , [facility] - 4: 73781 Echo Event ID:[id number] Order ID:[id number] Reason for Study:History of carotid arterial disease [...] Prox EDV 0 cm/s Left ECA ECA [place]316 cm/sECA EDV 5.11 cm/s Left ICA Mid [...] PSV 3.79 Left CCA Mid CCA Mid WXT088 cm/sCCA Mid EDV 28 cm/s Left CCA [...] Vascular Ultrasound Laboratory Carotid Artery Duplex Report [address] [place] [address] For quality engineer purposes, the categorization of the degree of the stenosis of this exam is based on criteria described in the IAC carotid stenosis grading white paper( www.intersocietal.org/Vascular) and Mercedes Adrian, Isaias Da Silva, et al. Carotid artery stenosis: fair-scale and Doppler US diagnosis--Society of Radiologists in Ultrasound Consensus Conference. Radiology. 2003 Apr; 229(2):340-6. Pat.Name: IMER MOORE Pat.ID: [id number] .Date: 09/24/2016 Refer.MD: DAVID GREY MD Exam Time: 5:10:00 PM Study Type:Carotid Age: 11 1945,71Y Sex: MALE Sonogrphr: Tomás Lentz RDMS, T Pat. Stat.:Inpatient Room: [facility] Tape Vol: , [facility] - 4: 18157 Echo Event ID:[id number] Order ID: [id number] Reason for Study:History of carotid arterial disease [...] Plan / Group MEDICARE MEDICARE xxxxxxxxxx Medicare [place], [place] PART A AND B AARP AARP xxxxxxxxxxx Commercial SUPPLEMENT
[2017-09-19 02:33] LABS: BASOPHILS % 0.5 % (0.0-1.0); EOSINOPHILS # (AUTO) 0.1 (0.0-0.4); HEMATOCRIT 34.2 % (38.2-49.6); HEMOGLOBIN 11.1 g/dL (14.0-18.0); LYMPHOCYTES # (AUTO) 1.3 (1.0-3.2); LYMPHOCYTES % 14.3 % (18.0-39.1); MEAN CORPUSCULAR HEMOGLOBIN 28.1 pg (28-32); MEAN CORPUSCULAR HGB CONC 32.5 g/dL (31-35); MEAN CORPUSCULAR VOLUME 86.6 fL (81-99); MONOCYTES # (AUTO) 0.8 (0.2-0.8); MONOCYTES % 8.6 % (4.4-11.3); NEUTROPHILS # (AUTO) 6.6 (2.1-6.9); NEUTROPHILS % 75.4 % (38.7-80.0); PLATELET COUNT 280 x10e3/uL (140-360); RED BLOOD COUNT 3.95 x10e6/uL (4.3-5.7); RED CELL DISTRIBUTION WIDTH 16.2 % (11.7-14.4)
[2017-09-19 02:50] LABS: ALANINE AMINOTRANSFERASE 16 IU/L (0-55); ALBUMIN 2.9 g/dL (3.5-5.0); ALBUMIN/GLOBULIN RATIO 0.6 (0.8-2.0); ALKALINE PHOSPHATASE 121 IU/L (40-150); ANION GAP 12.7 mmol/L (8-16); BLOOD UREA NITROGEN 24 mg/dL (7-26); BUN/CREATININE RATIO 29 (6-25); CALCIUM 9.3 mg/dL (8.4-10.2); CARBON DIOXIDE 25 mmol/L (22-29); CHLORIDE 102 mmol/L (98-107); CREATININE, SERUM 0.83 mg/dL (0.72-1.25); EST GLOMERULAR FILTRATION RATE > 60 ML/MIN (60-); GLUCOSE 106 mg/dL (74-118); POTASSIUM 3.7 mmol/L (3.5-5.1); SODIUM 136 mmol/L (136-145)
[2017-09-19 03:09] LABS: CREATINE KINASE MB 2.8 ng/mL (0-5.0)
[2017-09-19] MEDS: INSULIN REGULAR, HUMAN 100 UNIT/1 ML 3ML VIAL SQ SCH ×4 (08:11→21:00)
[2017-09-19 09:14] LABS: INR 3.54; PROTHROMBIN TIME 33.3 seconds (11.9-14.5)
[2017-09-19 09:16] LABS: PARTIAL THROMBOPLASTIN TIME 68.3 seconds (23.8-35.5)
[2017-09-19] MEDS: FUROSEMIDE INJ 10 MG/ML 4 ML VIAL IV SCH ×3 (09:19→17:00)
[2017-09-19 09:23] LABS: CREATINE KINASE MB 2.4 ng/mL (0-5.0)
[2017-09-19 12:20] VITALS: BP 127/62
[2017-09-19 13:21] VITALS: BP 127/62
[2017-09-19 14:53] VITALS: BP 127/62
[2017-09-19] MEDS: TRAMADOL HCL 50 MG TAB PO PRN (15:50)
[2017-09-19] MEDS: CEPHALEXIN 500 MG CAP PO SCH ×3 (16:20→21:43)
--- NOTE | 2017-09-19 16:20 | Consultation ---
DATE OF CONSULTATION: September 19, 2017 REASONS FOR CONSULTATION 1. History of stroke found incidentally. 2. Left elbow fracture. 3. Congestive heart failure. 4. Patient with left leg weakness. HISTORY: Mr. Moore is a pleasant, but unfortunate, 72-year-old male who came into the hospital because of difficulty with walking and weakness. He has had some loss of balance for about the past 6 months. He fell and broke his left elbow and underwent ORIF. He is not sure what happened with his gait. Unfortunately, during the course of workup, it showed the patient had a stroke. They do not know when it happened. He says he has had weakness of left lower extremity for a couple of weeks but has "sciatica." He had a brain CT which showed chronic encephalomalacia in right perirolandic area from previous vascular insult in the MCA territory, mild supratentorial white matter vascular ischemic changes, and generalized age-related cerebral volume loss. The patient did not know when he had the stroke. In addition to that, the patient has cardiac issues as well as CHF and Coumadin toxicity. I am being asked to evaluate for rehab needs. PAST MEDICAL HISTORY: Includes hypertension and diabetes. SURGERIES: Include carotid surgeries. ALLERGIES: PLEASE REFER TO CHART AND MEDICAL RECORDS. FAMILY HISTORY: Diabetes and hypertension run in the family. He is adopted. CONSTITUTIONAL REVIEW OF SYSTEMS: An 11-point review of systems was asked of the patient and was negative except for the fact that he has weakness to the left proximal leg that has been going on for a couple of weeks without any injury. He had the recent left elbow fracture. Sensory-moore, no new changes. The rest of the review of systems is essentially negative. He had a brain CT, again, as above. He had white cell count of 8.2, hemoglobin 11.1, hematocrit 34.2, platelets 280. Sodium 136, potassium 3.7, BUN 24, creatinine 0.83. Therapy-moore, no therapy has been initiated. PHYSICAL EXAMINATION GENERAL: The patient is awake, alert and oriented times 3. Follows commands without any difficulty. is at the bedside. EYES: The extraocular muscles are intact. No visual field deficits. ORAL: Tongue is midline. No dysarthria. NECK: No JVD. HEART: Regular rate and rhythm. LUNGS: Fair air entry. ABDOMEN: Nontender and nondistended. EXTREMITIES: Left arm is in an elbow splint at 90 degrees. Sensory-moore, he is not complaining of any numbness or tingling at this time. BACK: Palpation along the lower lumbar area did not cause any pain. MANUAL MUSCLE TESTING: Pretty much 5/5 strength of right upper extremity throughout. The left arm showed flexion and extension were not rigorously tested. He has limited active movement to his shoulder. He could not raise his arm above his head. Elbow was not tested because it is in a 90-degree splint following the surgery. His lay ups assembler with his left hand is with 3/5 strength at least. No clubbing, cyanosis or edema to the fingers. The right lower extremity has 5/5 strength throughout. Left lower extremity: Hip flexion was 3+/5 to 4-/5 strength. Hip extension was 4/5 strength. Knee extension was 4/5 strength. Knee flexion was 4/5 strength. Ankle dorsiflexion and plantar flexion are 1+/5 strength. IMPRESSION 1. History of cerebrovascular accident. He did not say if he had any lateralizing weakness before this, and I am not sure what happened, but he seems to have had a decline in function over the past 6 months. 2. Patient with left elbow fracture, status post open reduction and internal fixation. 3. Congestive heart failure. 4. Coumadin toxicity. PLAN: The patient is doing a little better; but given the medial and functional issues, he could benefit from inpatient rehab. We will see about trying to get him to [facility] for continuation of care once his workup is completed. Continue therapy. Continue to work on improving functional level. Thank you, once again, for allowing me to participate in the care of this very interesting patient. We will go ahead and x-ray his lumbar spine, given the fact that he has some weakness of the left leg. Job#: [id number]
--- NOTE | 2017-09-19 17:02 | Diagnostic Imaging Report ---
PROCEDURE:L-SPINE COMPLETE COMPARISON:None. INDICATIONS:LOWER BACK PAIN FINDINGS: Stool and bowel gas overlie some of the osseous structures. There are five lumbar-type vertebral bodies. Grade 1 anterolisthesis of L5 on S1 with questionable L5 pars defects. There are no acute displaced fractures, compression deformities, lytic or blastic lesions. Mild disc space narrowing at T12-L1 and L5-S1. The sacroiliac joints are unremarkable. Vascular calcifications in the pelvis. CONCLUSION: Grade 1 anterolisthesis of L5 on S1 with questionable L5 pars defects. Dictated by: Sanjeev Dobson M.D. on 09/19/2017 at 17:02 Electronically approved by: Sanjeev Dobson M.D. on 09/19/2017 at 17:02
[2017-09-19] MEDS: GEMFIBROZIL 600 MG TAB PO SCH (17:25)
[2017-09-19] MEDS: METFORMIN HCL 500 MG TAB PO SCH (17:30)
[2017-09-19 20:00] VITALS: BP 103/68
[2017-09-19] MEDS: ATORVASTATIN 40 MG TAB PO SCH (21:43)
[2017-09-20] VITALS: BP 107/79
[2017-09-20 00:57] VITALS: BP 107/79
[2017-09-20 04:00] VITALS: BP 118/75
--- NOTE | 2017-09-20 06:07 | Diagnostic Imaging Report ---
CHEST SINGLE (PORTABLE), 09/20/2017 5:53 AM Technique: CHEST SINGLE (PORTABLE) Comparison: 09/18/2017 Clinical history: Congestive heart failure Findings: See Impression Impression: 1. Stable cardiomegaly status post sternotomy with left chest wall ICD. 2. Central vascular congestion without overt edema or consolidation. Trace left pleural effusion or thickening. Signed by: Dr Kim Castillo MD on 09/20/2017 6:04 AM
[2017-09-20 07:28] LABS: BASOPHILS # (AUTO) 0.1 (0.0-0.1); BASOPHILS % 0.8 % (0.0-1.0); EOSINOPHILS # (AUTO) 0.2 (0.0-0.4); EOSINOPHILS % 2.7 % (0.0-6.0); HEMATOCRIT 33.9 % (38.2-49.6); HEMOGLOBIN 11.1 g/dL (14.0-18.0); LYMPHOCYTES # (AUTO) 1.5 (1.0-3.2); LYMPHOCYTES % 18.9 % (18.0-39.1); MEAN CORPUSCULAR HEMOGLOBIN 28.3 pg (28-32); MEAN CORPUSCULAR HGB CONC 32.7 g/dL (31-35); MEAN CORPUSCULAR VOLUME 86.5 fL (81-99); MONOCYTES # (AUTO) 0.8 (0.2-0.8); MONOCYTES % 10.4 % (4.4-11.3); NEUTROPHILS # (AUTO) 5.2 (2.1-6.9); NEUTROPHILS % 66.8 % (38.7-80.0); PLATELET COUNT 283 x10e3/uL (140-360); RED BLOOD COUNT 3.92 x10e6/uL (4.3-5.7); RED CELL DISTRIBUTION WIDTH 16.3 % (11.7-14.4)
[2017-09-20] MEDS: INSULIN REGULAR, HUMAN 100 UNIT/1 ML 3ML VIAL SQ SCH ×4 (07:30→21:00)
[2017-09-20 07:48] LABS: ANION GAP 13.4 mmol/L (8-16); BLOOD UREA NITROGEN 23 mg/dL (7-26); BUN/CREATININE RATIO 29 (6-25); CALCIUM 9.4 mg/dL (8.4-10.2); CARBON DIOXIDE 28 mmol/L (22-29); CHLORIDE 100 mmol/L (98-107); CREATININE, SERUM 0.79 mg/dL (0.72-1.25); EST GLOMERULAR FILTRATION RATE > 60 ML/MIN (60-); GLUCOSE 83 mg/dL (74-118); POTASSIUM 3.4 mmol/L (3.5-5.1); SODIUM 138 mmol/L (136-145)
[2017-09-20 07:49] LABS: INR 2.18; PROTHROMBIN TIME 22.8 seconds (11.9-14.5)
[2017-09-20 08:01] LABS: MAGNESIUM 1.1 MG/DL (1.3-2.1)
[2017-09-20 08:34] VITALS: BP 96/70
[2017-09-20] MEDS: ESCITALOPRAM OXALATE 10 MG TAB PO SCH (09:21)
[2017-09-20] MEDS: METOPROLOL SUCCINATE 25 MG TAB XL PO SCH (09:21)
[2017-09-20] MEDS: GEMFIBROZIL 600 MG TAB PO SCH ×2 (09:21→17:42)
[2017-09-20] MEDS: CEPHALEXIN 500 MG CAP PO SCH ×4 (09:21→21:25)
[2017-09-20] MEDS: METFORMIN HCL 500 MG TAB PO SCH ×2 (09:21→17:41)
[2017-09-20] MEDS: ASPIRIN 81 MG CHEW TAB PO SCH (09:21)
[2017-09-20] MEDS ORDERED: POTASSIUM CHLORIDE 20 MEQ TAB CR PO ONE (11:00)
[2017-09-20] MEDS ORDERED: MAGNESIUM SULFATE 2GM/50ML 50 ML IV ONE (11:00)
--- NOTE | 2017-09-20 11:10 | Progress Note ---
DATE: September 20, 2017 Mr. Moore was seen on rounds today. He is sleeping comfortably. I did not want to awake him at this time. No new issues at this point. VITAL SIGNS: Temperature 96.6, respirations 21, heart rate 105, blood pressure 96/73. The patient is being diuresed. Working on improvement of his CHF symptoms so he can further participate in therapy. White cell count 7.7, hematocrit ___, hemoglobin ___, platelets 283,000, sodium 138, potassium 3.4, BUN 23, creatinine 0.79. Physical therapy notes from yesterday showed that the patient was assessed and needed to monitor to use linda-walker during his gait. Worked on his transfers and ADls. IMPRESSION 1. Status post cerebrovascular accident. 2. Congestive heart failure requiring medical management to optimize congestive heart failure findings. 3. Left elbow fracture. 4. Debilitation. PLAN: Discussed with Dr. Greenwood. Plan is for transfer to rehab on Friday. Continue to optimize his clinical condition currently so that he can do more with therapy. Job#: [id number]
[2017-09-20] MEDS: TRAMADOL HCL 50 MG TAB PO PRN (13:14)
[2017-09-20] MEDS ORDERED: SODIUM CHLORIDE 0.9% 50ML 50 ML ONE (13:28)
[2017-09-20] MEDS ORDERED: TRAMADOL HCL 50 MG TAB PO ONE (14:00)
[2017-09-20 16:00] VITALS: BP 94/65
[2017-09-20] MEDS: FUROSEMIDE INJ 10 MG/ML 4 ML VIAL IV SCH (17:41)
[2017-09-20] MEDS: WARFARIN SOD 5 MG TAB PO SCH (17:41)
[2017-09-20] MEDS: LACTOBACILLUS ACIDOPHILUS CAPSULE PO SCH (17:42)
[2017-09-20 20:00] VITALS: BP 110/68
[2017-09-20] MEDS: ATORVASTATIN 40 MG TAB PO SCH (21:25)
[2017-09-21] VITALS: BP 108/70
[2017-09-21 04:00] VITALS: BP 104/65
[2017-09-21] MEDS: INSULIN REGULAR, HUMAN 100 UNIT/1 ML 3ML VIAL SQ SCH ×4 (07:30→21:00)
--- NOTE | 2017-09-21 08:00 | Diagnostic Imaging Report ---
EXAMINATION: CHEST SINGLE (PORTABLE) INDICATION: \S\CHF \[id number] \S\[id number] COMPARISON: 09/20/2017 FINDINGS: AP view TUBES and LINES: Stable dual-lead left chest wall cardiac device. LUNGS: Lungs are well inflated. Unchanged pulmonary vascular congestion on mild interstitial edema. PLEURA: No significant pleural effusion or pneumothorax. HEART AND MEDIASTINUM: Enlarged cardiac silhouette. Aorta is calcified. BONES AND SOFT TISSUES: No acute osseous lesion. Soft tissues are unremarkable. UPPER ABDOMEN: No free air under the diaphragm. IMPRESSION: No significant interval change from prior exam. Pulmonary vascular congestion and mild interstitial edema. Signed by: Dr. Westley Chapman MD on 09/21/2017 7:56 AM
[2017-09-21 08:02] VITALS: BP 99/65
[2017-09-21 08:23] LABS: INR 1.88; PROTHROMBIN TIME 20.3 seconds (11.9-14.5)
[2017-09-21 08:34] LABS: ANION GAP 12.7 mmol/L (8-16); BLOOD UREA NITROGEN 22 mg/dL (7-26); BUN/CREATININE RATIO 29 (6-25); CALCIUM 9.3 mg/dL (8.4-10.2); CARBON DIOXIDE 28 mmol/L (22-29); CHLORIDE 101 mmol/L (98-107); CREATININE, SERUM 0.76 mg/dL (0.72-1.25); EST GLOMERULAR FILTRATION RATE > 60 ML/MIN (60-); GLUCOSE 93 mg/dL (74-118); MAGNESIUM 1.5 MG/DL (1.3-2.1); POTASSIUM 3.7 mmol/L (3.5-5.1); SODIUM 138 mmol/L (136-145)
[2017-09-21] MEDS: METFORMIN HCL 500 MG TAB PO SCH ×2 (09:03→17:37)
[2017-09-21] MEDS: ESCITALOPRAM OXALATE 10 MG TAB PO SCH (09:04)
[2017-09-21] MEDS: FUROSEMIDE INJ 10 MG/ML 4 ML VIAL IV SCH ×2 (09:04→17:37)
[2017-09-21] MEDS: LACTOBACILLUS ACIDOPHILUS CAPSULE PO SCH ×2 (09:04→17:37)
[2017-09-21] MEDS: CEPHALEXIN 500 MG CAP PO SCH ×4 (09:04→21:21)
[2017-09-21] MEDS: METOPROLOL SUCCINATE 25 MG TAB XL PO SCH (09:04)
[2017-09-21] MEDS: ASPIRIN 81 MG CHEW TAB PO SCH (09:04)
[2017-09-21] MEDS: GEMFIBROZIL 600 MG TAB PO SCH ×2 (09:04→17:37)
[2017-09-21 12:59] VITALS: BP 86/60
[2017-09-21 16:27] VITALS: BP 125/70
[2017-09-21] MEDS: WARFARIN SOD 5 MG TAB PO SCH (17:37)
[2017-09-21 20:00] VITALS: BP 107/72
[2017-09-21] MEDS ORDERED: POTASSIUM CHLORIDE 20 MEQ TAB CR PO ONE (20:00)
--- NOTE | 2017-09-21 21:04 | Progress Note ---
DATE: September 21, 2017 INTERNAL MEDICINE PROGRESS NOTE This is coverage for Dr. Greenwood. SUBJECTIVE: Mr. Moore was seen and examined at bedside. He is on room air FiO2. He is eating well. He walks down the stewart to the nursing station, but he had some pain. He feels the strength is at about 45%. He claims that if he mobilizes fast enough, he still has some dizziness. REVIEW OF SYSTEMS: No bleeding, no rash. OBJECTIVE VITAL SIGNS: Afebrile. Vital signs noted per electronic record. GENERAL: No acute distress. Alert, calm, positive. HEENT: Normocephalic, atraumatic. NECK: Supple. Throat midline. LUNGS: Bilateral air entry, few rhonchi. CARDIOVASCULAR: S1/S2. No murmurs, rubs or gallops. ABDOMEN: Soft, nontender. EXTREMITIES: No clubbing, no cyanosis. There is trace edema. INTEGUMENT: No rash, no purpura. LABS: 3.7 potassium, 22 BUN, creatinine 0.8. White count 8, hematocrit 34, platelets 283,000. INR is 1.88. IMPRESSIONS AND PLAN 1. Warfarin toxicity. 2. Unsteady gait and repetitive falls. 3. Advanced systolic congestive heart failure, 15%-20% left ventricular ejection fraction. 4. History of prosthetic valve placement. 5. Hypertension, diabetes, atrial fibrillation, coronary artery disease, and myocardial infarction, hyperlipidemia. 6. Back pain. Continue working with PT and OT. Inpatient rehab transfer and he is cleared to go there. Patient will get a little bit of potassium supplement. Will continue to watch the coagulation time. Of course, decision for anticoagulation retirement will be based on his functionality in the state where he is, but more likely we are going to continue anticoagulation. Chest x-ray shows minimal increase pulmonary vasculature consistent with very early edema and will just work to keep the patient slightly negative in fluid balance and he still remains on the Lasix at this time. Will follow along closely. Job#: [id number] CQ
[2017-09-21] MEDS: ATORVASTATIN 40 MG TAB PO SCH (21:21)
[2017-09-22] VITALS (10 sets, daily range): BP systolic 97–130; BP diastolic 64–80
--- NOTE | 2017-09-22 06:29 | Diagnostic Imaging Report ---
CHEST SINGLE (PORTABLE), 09/22/2017 5:00 AM Technique: CHEST SINGLE (PORTABLE) Comparison: Previous day Clinical history: CHF Findings: See Impression Impression: 1. Stable cardiomegaly status post sternotomy with left chest wall ICD. 2. Central vascular congestion and/or mild edema. Question tiny effusions. Signed by: Dr Kim Castillo MD on 09/22/2017 6:26 AM
[2017-09-22 07:27] LABS: BASOPHILS % 0.6 % (0.0-1.0); EOSINOPHILS # (AUTO) 0.2 (0.0-0.4); EOSINOPHILS % 3.1 % (0.0-6.0); HEMOGLOBIN 11.2 g/dL (14.0-18.0); LYMPHOCYTES # (AUTO) 1.6 (1.0-3.2); LYMPHOCYTES % 22.5 % (18.0-39.1); MEAN CORPUSCULAR HEMOGLOBIN 28.4 pg (28-32); MEAN CORPUSCULAR HGB CONC 32.9 g/dL (31-35); MEAN CORPUSCULAR VOLUME 86.3 fL (81-99); MONOCYTES # (AUTO) 0.8 (0.2-0.8); NEUTROPHILS # (AUTO) 4.5 (2.1-6.9); NEUTROPHILS % 62.4 % (38.7-80.0); PLATELET COUNT 290 x10e3/uL (140-360); RED BLOOD COUNT 3.94 x10e6/uL (4.3-5.7); RED CELL DISTRIBUTION WIDTH 16.4 % (11.7-14.4)
[2017-09-22] MEDS: INSULIN REGULAR, HUMAN 100 UNIT/1 ML 3ML VIAL SQ SCH ×4 (07:30→20:44)
[2017-09-22 07:55] LABS: ANION GAP 14.8 mmol/L (8-16); BLOOD UREA NITROGEN 23 mg/dL (7-26); BUN/CREATININE RATIO 29 (6-25); CALCIUM 9.6 mg/dL (8.4-10.2); CARBON DIOXIDE 28 mmol/L (22-29); CHLORIDE 100 mmol/L (98-107); EST GLOMERULAR FILTRATION RATE > 60 ML/MIN (60-); GLUCOSE 94 mg/dL (74-118); MAGNESIUM 1.4 MG/DL (1.3-2.1); POTASSIUM 3.8 mmol/L (3.5-5.1); SODIUM 139 mmol/L (136-145)
[2017-09-22] MEDS: TRAMADOL HCL 50 MG TAB PO PRN ×3 (08:35→18:36)
[2017-09-22] MEDS: LACTOBACILLUS ACIDOPHILUS CAPSULE PO SCH ×2 (08:35→17:40)
[2017-09-22] MEDS: ASPIRIN 81 MG CHEW TAB PO SCH (08:35)
[2017-09-22] MEDS: FUROSEMIDE INJ 10 MG/ML 4 ML VIAL IV SCH ×2 (08:35→17:45)
[2017-09-22] MEDS: POTASSIUM CHLORIDE 10 MEQ TABCR PO SCH (08:35)
[2017-09-22] MEDS: ESCITALOPRAM OXALATE 10 MG TAB PO SCH (08:35)
[2017-09-22] MEDS: GEMFIBROZIL 600 MG TAB PO SCH ×2 (08:35→17:40)
[2017-09-22] MEDS: CEPHALEXIN 500 MG CAP PO SCH ×4 (08:35→21:10)
[2017-09-22] MEDS: METFORMIN HCL 500 MG TAB PO SCH ×2 (08:35→17:40)
[2017-09-22] MEDS: METOPROLOL SUCCINATE 25 MG TAB XL PO SCH (11:00)
[2017-09-22] MEDS ORDERED: WARFARIN SOD 3 MG TAB PO SCH (17:00)
[2017-09-22] MEDS: BALSAM PERU/CASTOR OIL 60 GM OINT...G. TP SCH (17:40)
[2017-09-22] MEDS: ATORVASTATIN 40 MG TAB PO SCH (21:10)
[2017-09-23] VITALS: BP 102/70
--- NOTE | 2017-09-23 02:32 | Discharge Summary ---
PRIMARY CARE DOCTOR: Dr. Mark Hilario PRIMARY DIAGNOSES: 1. Weakness, poor balance. 2. Warfarin toxicity with INR 4.94. SECONDARY DIAGNOSES: Includes: 1. Cardiomyopathy, 15% to 20% left ventricular ejection fraction. 2. History of mechanical valve replacement of the heart. 3. Hypertension. 4. Diabetes. 5. Atrial fibrillation. 6. History of myocardial infarction and coronary artery disease. 7. Hyperlipidemia. 8. Recent arm fracture. HOSPITAL COURSE: Mr. Moore was noted to have worsening of his weakness. He has had multiple falls including at least 4 over last couple of months. Recent fall resulted in left arm fracture. However, family became more concerned as the condition was noted to be worsening. At this point, he was brought into emergency room and his INR was found to be elevated. Due to lack of safety, rehabilitation consult was brought on. We allowed his warfarin to improve. Patient was given a brain CT that showed no acute abnormality although there is a chronic encephalomalacia from prior MCA right-sided infarct, and some mild microvascular ischemic white matter disease and some cerebral volume loss noted. Lumbar spine x-ray with grade 1 anterolisthesis of L5 on S1 with questionable pars defect. Chest x-ray with minimal venous congestion without emerson edema. Patient was allowed to improve. However, he still at discharge had about 45% of his baseline strength he feels and retained some dizziness. Therefore, he was discharged to rehabilitation facility. DISPOSITION: Inpatient [facility]. DIET: Cardiac diet. ACTIVITY: With assist devices and assistance for safety. MEDICATIONS: Medication list was created at discharge and please see MAR for these details. Greater than 30 minutes in care and coordination for discharge planning. Patient will follow up with Dr. Mark Hilario after discharge from rehab. DANAY PORTILLO MD Job#: [id number]
[2017-09-23 04:00] VITALS: BP 96/55
[2017-09-23] MEDS: INSULIN REGULAR, HUMAN 100 UNIT/1 ML 3ML VIAL SQ SCH ×2 (07:30→11:30)
[2017-09-23 08:25] VITALS: BP 96/58
[2017-09-23] MEDS: METOPROLOL SUCCINATE 25 MG TAB XL PO SCH (08:28)
[2017-09-23] MEDS: FUROSEMIDE INJ 10 MG/ML 4 ML VIAL IV SCH (09:10)
[2017-09-23] MEDS: POTASSIUM CHLORIDE 10 MEQ TABCR PO SCH (09:10)
[2017-09-23] MEDS: ESCITALOPRAM OXALATE 10 MG TAB PO SCH (09:10)
[2017-09-23] MEDS: GEMFIBROZIL 600 MG TAB PO SCH (09:10)
[2017-09-23] MEDS: CEPHALEXIN 500 MG CAP PO SCH ×2 (09:10→12:46)
[2017-09-23] MEDS: METFORMIN HCL 500 MG TAB PO SCH (09:10)
[2017-09-23] MEDS: LACTOBACILLUS ACIDOPHILUS CAPSULE PO SCH (09:10)
[2017-09-23] MEDS: ASPIRIN 81 MG CHEW TAB PO SCH (09:10)
[2017-09-23] MEDS: BALSAM PERU/CASTOR OIL 60 GM OINT...G. TP SCH (09:11)
[2017-09-23 12:01] VITALS: BP 83/50
== END 2017-09-23 13:15 | DRG 293 ==
LOC: ER 14:48 → ERHOLD 22:34 → MED/SURG 09-19 11:39
PROVIDERS: ADMIT Internal Medicine; ATTEND Internal Medicine
DX: I11.0 Hypertensive heart disease with heart failure (principal); E11.51 Type 2 diabetes mellitus with diabetic peripheral angiopathy without gangrene; I42.9 Cardiomyopathy, unspecified; T45.515A Adverse effect of anticoagulants, initial encounter; I50.21 Acute systolic (congestive) heart failure; R79.1 Abnormal coagulation profile; I48.2 Chronic atrial fibrillation; Z95.2 Presence of prosthetic heart valve; I25.10 Atherosclerotic heart disease of native coronary artery without angina pectoris; G93.89 Other specified disorders of brain; R90.82 White matter disease, unspecified; S42.402D Unspecified fracture of lower end of left humerus, subsequent encounter for fracture with routine healing; Z91.81 History of falling; I25.2 Old myocardial infarction; M54.9 Dorsalgia, unspecified; R26.81 Unsteadiness on feet; Z95.1 Presence of aortocoronary bypass graft; Z95.810 Presence of automatic (implantable) cardiac defibrillator; Z87.891 Personal history of nicotine dependence; I69.398 Other sequelae of cerebral infarction; Z79.4 Long term (current) use of insulin; Z79.01 Long term (current) use of anticoagulants; E87.6 Hypokalemia
CPT/HCPCS: 36415; 70450; 71045; 72110; 80048; 80053; 81001; 82550; 82553; 82948; 83735; 83880; 84443; 84484; 85025; 85610; 85730; 93005; 93306; 99285; J1940

== ENCOUNTER → 2017-11-04 | Outpatient (CLI) | payer MEDICARE ==
[~2017-11-04] MED LIST changes: +ASPIR 8181 MG PO; +FUROSEMIDE20 MG PO; +KEFLEX500 MG PO; +METFORMIN HCL500 M2 PO; +WARFARIN SODIU7.5 MG PO
--- NOTE | 2017-11-04 18:08 | Diagnostic Imaging Report ---
PROCEDURE: Frontal and lateral views of the chest. COMPARISON: Patients [facility], DX, CHEST SINGLE (PORTABLE), 09/22/2017, 6:49. INDICATIONS: DYSPNEA FINDINGS: Lines/tubes: Stable left upper chest dual-lead cardiac device Lungs: Lungs are well-inflated. Diffuse bilateral reticular interstitial opacities. 4-5 mm nodular density projecting between the posterior aspect of the right seventh and eighth ribs on the frontal view. No consolidation. Pleura: There is no pleural effusion or pneumothorax. Heart and mediastinum: Enlarged cardiac silhouette, stable since prior exam. Mild central pulmonary venous congestion. Bones: No acute bony abnormality. Degenerative changes in the thoracic spine. IMPRESSION: 1. Diffuse bilateral reticular interstitial opacities. This may reflect diffuse interstitial edema or atypical infection. Interstitial lung disease is less likely, given the absence of findings on prior chest x-ray 09/22/2017. 2. No consolidation or effusion. 3. Stable enlargement of the cardiac silhouette. 4. Findings discussed with Dr. Hilario November 04, 2017 1807 hrs. Charlie Anguiano M.D. Dictated by: Charlie Anguiano M.D. on 11/04/2017 at 18:09 Electronically approved by: Charlie Anguiano M.D. on 11/04/2017 at 18:09
== END ==
LOC: RAD 16:30
PROVIDERS: ATTEND Family Medicine
DX: R06.00 Dyspnea, unspecified (principal)
CPT/HCPCS: 71046

== ENCOUNTER 2017-11-05 15:49 | Inpatient (IN) | payer MEDICARE ==
[~2017-11-05] VITALS: Ht 177.8 cm; Wt 66.7 kg
[2017-11-05] VITALS (7 sets, daily range): BP systolic 84–103; BP diastolic 55–77
[~2017-11-05 15:49] MED LIST changes: -ASPIR 8181 MG PO; +ETOMIDATE 2 MG/ML 10 ML INJ IV ONE; -FUROSEMIDE20 MG PO; -METFORMIN HCL500 M2 PO; +SUCCINYLCHOLINE CHLORIDE 20 MG/ML 10ML VIAL ONE; -WARFARIN SODIU7.5 MG PO
--- OUTSIDE RECORDS SUMMARY | 2017-11-05 15:52 | XMS REPORT | Clinical Summary ---
Author Author [facility] Organization [facility] Address Unknown Phone Unavailable Care Team Providers Care Senior Project Controls Specialist Name Role Phone Ronda Sofia MD PCP [...] mg by mouth Active MG tablet daily. Active Problems Problem Noted Date Cardiac insufficiency 09/26/2016 Respiratory insufficiency 09/26/2016 Aortic stenosis 09/24/2016 CAD (coronary artery disease) 09/24/2016 DM type 2 (diabetes mellitus, type 2) 09/24/2016 Essential hypertension 09/24/2016 Carotid artery disease 09/24/2016 Thrombus of left atrial appendage 09/24/2016 Social History Tobacco Use Types Packs/Day Years Used Date Never Assessed Sex Assigned at Date Recorded Not on file Last Filed Vital Signs Not on file Plan of Treatment Health Maintenance Due Date Last Done Comments DIABETIC FOOT EXAM 1956 DIABETIC RETINAL EYE EXAM 1956 URINE MICROALBUMIN 1956 COLON CANCER SCREENING 1996 SHINGRIX VACCINE (#1) 1996 ZOSTER VACCINE 2006 PNEUMOCOCCAL 2011 POLYSACCHARIDE VACCINE AGE 65 AND OVER PNEUMOCOCCAL-13 2011 INFLUENZA VACCINE 01/21/2018 Implants Implanted Type Area Body Trimmer Upholsterer Device Expiration Model / Identifier Date Serial / Lot Valve Aortc Stntd Tiss Annls W/ Cardiovasc N/A: N/A ST ASTRID 2018 E100 25A Linx Ac Tech 25mm Epic - ular STRUCTURAL 00 / [id number] - [id number] Implants HEART [id number]^ Implanted: Qty: 1 on 09/26/2016 by [id number] Venkat Silver MD 9 / [id number] Lead Pace Jono Mycrdl Unipol Tmpry Cardiovasc [facility] - [id number] / Streamline - [id number] ular CARDIAC SRGRY / Implanted: Qty: 2 on 09/26/2016 by Implants Venkat Silver MD Chamber Sgl Thais Dry Suct 1wy Vlv Surgical N/A: N/A TELEFLEX S 1100 Adlt Pedi - [id number] Implants; MEDICAL [id number] / Implanted: 09/26/2016 (Quantity not Expanders; / on file) Extenders; Surgical Wires Chamber Sgl Thais Dry Suct 1wy Vlv Surgical N/A: N/A TELEFLEX S 1100 Adlt Pedi - [id number] Implants; MEDICAL 08LF / Implanted: 09/26/2016 (Quantity not Expanders; / on file) Extenders; Surgical Wires Chamber Sgl Thais Dry Suct 1wy Vlv Surgical N/A: N/A TELEFLEX S 1100 Adlt Pedi - [id number] Implants; MEDICAL 08LF / Implanted: 09/26/2016 (Quantity not Expanders; / on file) Extenders; Surgical Wires [place] Perph Vasclr Ptfe 1.2x10cm Vascular N/A: N/A BARD PERIPHERAL [id number] / 1.65mm - [id number] Graft VASCULAR / Implanted: Qty: 1 on 09/26/2016 by [id number] Venkat Silver MD [place] Perph Vasclr Ptfe 1.2x10cm Vascular N/A: N/A BARD PERIPHERAL [id number] / 1.65mm - [id number] Graft VASCULAR / Implanted: Qty: 1 on 09/26/2016 by [id number] Bonilla MD [place] Perph Vasclr Ptfe [id number] Vascular [place] PERIPHERAL [id number] / 1.65mm - [id number] Graft VASCULAR / Implanted: Qty: 1 on 09/26/2016 by Venkat Silver MD Results Not on fileafter 11/04/2016 Insurance Payer Benefit Subscriber ID Type Phone Address Plan / Group MEDICARE MEDICARE xxxxxxxxxx Medicare [place], [place] PART A AND B AARP AARP xxxxxxxxxxx Commercial SUPPLEMENT
--- OUTSIDE RECORDS SUMMARY | 2017-11-05 15:52 | XMS REPORT | Continuity of Care Document ---
Author Author [facility] Organization [facility] Address [address] [place] [address] Phone Unavailable Care Team Providers Care Form Grader Operator Name Role Phone MALCOLM VINES PCP Insurance Providers Guarantor Veronique Moore Address [address] [place] [address] Email NONE Payer [facility] Policy Number [id number] Subscriber's Name Veronique Moore Relationship 18 Self / Same As Patient Group Number [id number] Group Name RETIRED Effective Date 17 Payer Medicare A & B Policy Number [id number] Subscriber's Name Veronique Moore Relationship 18 Self / Same As Patient Group Name RETIRED Effective Date 11 Advance Directives Directive Response Recorded Date/Time Does the patient have an advance directive? Yes 09/19/17 1:08pm If yes, is advance directive on file with [facility]? Yes 09/19/17 1:08pm If not on file with [facility] will patient provide a copy? Yes 08/15/17 2:45pm Do you have a Directive to Physician? No 09/18/17 9:20pm Do you have a Medical Power of Tilesetter? No 09/18/17 9:20pm Do you have an out of hospital Do Not Resuscitate Order? No 09/18/17 9:20pm Do you have any special needs we should be aware of? No 09/18/17 9:20pm Do you have a support person here with you today? Yes 09/18/17 9:20pm Did patient receive Notice of Privacy Practices? Yes 09/18/17 9:20pm Did patient receive patient rights and responsibilities? Yes 09/18/17 9:20pm Problems Medical Problem Onset Date Status CHF (congestive heart failure) Unknown Coumadin toxicity Unknown Medications Current Home Medications Medication Dose Units Route Directions Days Qty Instructions Start Date Atorvastatin Calcium 80 Mg Tablet 80 Mg Oral Bedtime 30 Tab Cephalexin Monohydrate (Keflex) 500 Mg Capsule 500 Mg Oral Four Times Daily Escitalopram Oxalate (Lexapro) 10 Mg Tablet 10 Mg Oral Daily 30 Tab Furosemide (Lasix) 40 Mg Tablet 40 Mg Oral As Needed Gemfibrozil 600 Mg Tablet 600 Mg Oral Twice A Day Insulin Detemir (Levemir) 100 Unit/1 Ml Vial 7 Units Subcutaneously Every Morning Metformin Hcl 500 Mg Tablet 1,000 Mg Oral Twice A Day 60 Tab Metoprolol Tartrate 25 Mg Tablet 25 Mg Oral Twice A Day Midodrine Hcl 2.5 Mg Tablet 2.5 Mg Oral Twice A Day Potassium Chloride 10 Meq Tab.er.prt 10 Meq Oral Daily Ubidecarenone (Co Q-10) 100 Mg Capsule 100 Mg Oral Daily Warfarin Sodium 2.5 Mg Tablet 2.5 Mg Oral Every Other Day 30 Tab Warfarin Sodium (Coumadin) 5 Mg Tablet 5 Mg Oral Every Other Day 7 Tab Past Home Medications Medication Directions Ordered Status Aspirin (Aspirin Ec) 81 Mg Tablet.dr, 81 Mg Oral Daily Discontinued Cholecalciferol (Vitamin D3) (Vitamin D) 1,000 Unit Tablet, 00356 Unit Oral Weekly Discontinued Digoxin 125 Mcg Tablet, 0.125 Mg Oral Daily Discontinued Fenofibric Acid (Choline) (Trilipix) 135 Mg Capsule.dr, 135 Mg Oral Daily Discontinued Ferrous Sulfate 325 Mg Tablet, 325 Mg Oral Daily Discontinued Glyburide/Metformin Hcl (Glyburide-Metformin 5-500 Mg) 1 Each Tablet, 5 Mg Oral Four Times Daily Discontinued Hydrocodone Bit/Acetaminophen* (Vicodin 5-500 Tablet*) 1 Each Tablet, 1 - 2 Tab Oral Q 3 Hrs Prn Discontinued Lisinopril 40 Mg Tablet, 20 Mg Oral Daily Discontinued Metoprolol Succinate 50 Mg Tab.er.24h, 150 Mg Oral Twice A Day Discontinued Metoprolol Tartrate 100 Mg Tablet, 100 Mg Oral Three Times A Day Discontinued Mupirocin Calcium (Bactroban) 15 Gm Cream..g., 1 Topically Twice A Day Discontinued Rivaroxaban (Xarelto) 20 Mg Tablet, 20 Mg Oral Daily Discontinued Rosuvastatin Calcium (Crestor) 20 Mg Tablet, 20 Mg Oral Daily Discontinued Saxagliptin Hcl (Onglyza) 5 Mg Tablet, 5 Mg Oral Daily Discontinued Social History Social History Problem Response Recorded Date/Time Onset Date Status Hx Psychiatric Problems No 09/19/2017 1:08pm Not Applicable Not Applicable Hx Eating Disorder No 09/19/2017 1:08pm Not Applicable Not Applicable Hx Substance Use Disorder No 09/19/2017 1:08pm Not Applicable Not Applicable Hx Depression No 09/19/2017 1:08pm Not Applicable Not Applicable Hx Alcohol Use No 09/19/2017 1:08pm Not Applicable Not Applicable Hx Substance Use Treatment No 09/19/2017 1:08pm Not Applicable Not Applicable Hx Physical Abuse No 09/19/2017 1:08pm Not Applicable Not Applicable Smoking Status Start Date Stop Date Former smoker Hospital Discharge Instructions No hospital discharge instruction information available. Plan of Care Discharge Date 09/23/17 1:15pm Disposition [facility]TERM [facility]UTE CARE ([facility]) Prescriptions See Medication Section Functional Status Query Response Date Recorded FUNCTIONAL STATUS ` September 19, 2017 3:22pm Assistive Devices Straight Cane September 19, 2017 1:21pm Ambulation Ability Moderate Assistance September 19, 2017 1:21pm Toileting Ability Minimum Assistance September 23, 2017 1:03pm Allergies, Adverse Reactions, Alerts No known allergies. Immunizations No immunization information available. Vital Signs Acute Vital Signs Vital Response Date/Time Temperature (Fahrenheit) 97.2 degrees F (97.6 - 99.5) 09/23/2017 12:01pm Pulse Pulse Rate (adult) 94 bpm (60 - 90) 09/23/2017 12:01pm Respiratory Rate 16 bpm (12 - 24) 09/23/2017 12:01pm Blood Pressure 83/50 mm Hg 09/23/2017 12:01pm Height 5 ft 9 in 09/19/2017 1:08pm Weight 170 lb 09/19/2017 1:08pm Body Mass Index 25.1 kg/m^2 09/19/2017 1:08pm Results Laboratory Results Test Name Result Units Flags Reference Collection Date/Time Result Date/ Time Comments White Blood Count 7.16 x10e3/uL 4.8-10.8 09/22/2017 6:45am 09/22/2017 7 :32am Red Blood Count 3.94 x10e6/uL L 4.3-5.7 09/22/2017 6:45am 09/22/2017 7: 32am Hemoglobin 11.2 g/dL L 14.0-18.0 09/22/2017 6:45am 09/22/2017 7:32am Hematocrit 34.0 % L 38.2-49.6 09/22/2017 6:45am 09/22/2017 7:32am Mean Corpuscular Volume 86.3 fL 81-99 09/22/2017 6:45am 09/22/2017 7: 32am Mean Corpuscular Hemoglobin 28.4 pg 28-32 09/22/2017 6:45am 09/22/2017 7:32am Mean Corpuscular Hemoglobin Concent 32.9 g/dL 31-35 09/22/2017 6:45am 09/22/2017 7:32am Red Cell Distribution Width 16.4 % H 11.7-14.4 09/22/2017 6:45am 2017 7:32am Platelet Count 290 x10e3/uL 140-360 09/22/2017 6:45am 09/22/2017 7: 32am Neutrophils (%) (Auto) 62.4 % 38.7-80.0 09/22/2017 6:45am 09/22/2017 7: 32am Lymphocytes (%) (Auto) 22.5 % 18.0-39.1 09/22/2017 6:45am 09/22/2017 7: 32am Monocytes (%) (Auto) 11.0 % 4.4-11.3 09/22/2017 6:45am 09/22/2017 7: 32am Eosinophils (%) (Auto) 3.1 % 0.0-6.0 09/22/2017 6:45am 09/22/2017 7: 32am Basophils (%) (Auto) 0.6 % 0.0-1.0 09/22/2017 6:45am 09/22/2017 7:32am IM GRANULOCYTES % 0.4 % 0.0-1.0 09/22/2017 6:45am 09/22/2017 7:32am Neutrophils # (Auto) 4.5 2.1-6.9 09/22/2017 6:45am 09/22/2017 7:32am Lymphocytes # (Auto) 1.6 1.0-3.2 09/22/2017 6:45am 09/22/2017 7:32am Monocytes # (Auto) 0.8 0.2-0.8 09/22/2017 6:45am 09/22/2017 7:32am Eosinophils # (Auto) 0.2 0.0-0.4 09/22/2017 6:45am 09/22/2017 7:32am Basophils # (Auto) 0.0 0.0-0.1 09/22/2017 6:45am 09/22/2017 7:32am Absolute Immature Granulocyte (auto 0.03 x10e3/uL 0-0.1 09/22/2017 6: 45am 09/22/2017 7:32am Prothrombin Time 20.3 seconds H 11.9-14.5 09/21/2017 7:10am 09/21/2017 8 :30am Prothromb Time International Ratio 1.88 09/21/2017 7:10am 2017 8:30am Oral Anticoagulant Therapy INR Values: 1. Low Intensity Therapy 1.5 - 2.0 2. Moderate Intensity Therapy 2.0 - 3.0 3. High Intensity Therapy(1) 2.5 - 3.5 4. High Intensity Therapy(2) 3.0 - 4.0 5. Panic Value INR > 5.0 Activated Partial Thromboplast Time 68.3 seconds H 23.8-35.5 09/19/2017 9 :00am 09/19/2017 9:22am Urine Color YELLOW YELLOW 09/18/2017 3:21pm 09/18/2017 3:46pm Urine Clarity CLOUDY H CLEAR 09/18/2017 3:21pm 09/18/2017 3:46pm Urine Specific [place] 1.015 1.010-1.025 09/18/2017 3:21pm 2017 3:46pm Urine pH 5 5 - 7 09/18/2017 3:21pm 09/18/2017 3:46pm Urine Leukocyte Esterase NEGATIVE NEGATIVE 09/18/2017 3:21pm 2017 3:46pm Urine Nitrite NEGATIVE NEGATIVE 09/18/2017 3:pm 09/18/2017 3:46pm Urine Protein NEGATIVE NEGATIVE 09/18/2017 3:21pm 09/18/2017 3:46pm Urine Glucose (UA) NEGATIVE NEGATIVE 09/18/2017 3:21pm 09/18/2017 3: 46pm Urine Ketones NEGATIVE NEGATIVE 09/18/2017 3:pm 09/18/2017 3:46pm Urine Urobilinogen 1 mg/dL 0.2 - 1 09/18/2017 3:21pm 09/18/2017 3:46pm Urine Bilirubin NEGATIVE NEGATIVE 09/18/2017 3:pm 09/18/2017 3: 46pm Urine Blood NEGATIVE NEGATIVE 09/18/2017 3:pm 09/18/2017 3:46pm Urine WBC NONE /HPF 0-5 09/18/2017 3:21pm 09/18/2017 4:01pm Urine RBC NONE /HPF 0-5 09/18/2017 3:pm 09/18/2017 4:01pm Urine Bacteria NONE /HPF NONE 09/18/2017 3:21pm 09/18/2017 4:01pm Urine Epithelial Cells NONE /LPF NONE 09/18/2017 3:21pm 09/18/2017 4: 01pm Sodium Level 139 mmol/L 136-145 09/22/2017 6:45am 09/22/2017 8:11am Potassium Level 3.8 mmol/L 3.5-5.1 09/22/2017 6:45am 09/22/2017 8:11am Chloride Level 100 mmol/L 98-107 09/22/2017 6:45am 09/22/2017 8:11am Carbon Dioxide Level 28 mmol/L 09/22/2017 6:45am 09/22/2017 8: 11am Anion Gap 14.8 mmol/L 8-16 09/22/2017 6:45am 09/22/2017 8:11am Blood Urea Nitrogen 23 mg/dL 7-09/22/2017 6:45am 09/22/2017 8:11am Creatinine 0.80 mg/dL 0.72-1.25 09/22/2017 6:45am 09/22/2017 8:11am BUN/Creatinine Ratio 29 H 6-25 09/22/2017 6:45am 09/22/2017 8:11am Estimat Glomerular Filtration Rate > 60 ML/MIN 60- 09/22/2017 6:45am 8:11am Ranges were taken from the National Kidney Disease Education Program and the National Kidney Foundation literature. Reference ranges: 60 or greater: Normal 16-59 (for 3 consecutive months): Chronic kidney disease 15 or less: Kidney failure Glucose Level 94 mg/dL 74-118 09/22/2017 6:45am 09/22/2017 8:11am Calcium Level 9.6 mg/dL 8.4-10.2 09/22/2017 6:45am 09/22/2017 8:11am Bedside Glucose 86 mg/dL 70-120 09/23/2017 11:36am 09/23/2017 11:55am Meter ID: [id number] Magnesium Level 1.4 MG/DL 1.3-2.1 09/22/2017 6:45am 09/22/2017 8:11am Total Bilirubin 1.1 mg/dL 0.2-1.2 09/19/2017 2:1509/19/2017 2:54am Aspartate Amino Transf (AST/SGOT) 39 IU/L H 5-34 09/19/2017 2:1509/19 2:54am Alanine Aminotransferase (ALT/SGPT) 16 IU/L 0-55 09/19/2017 2:15 2:54am Total Protein 7.4 g/dL 6.5-8.1 09/19/2017 2:1509/19/2017 2:54am Albumin 2.9 g/dL L 3.5-5.0 09/19/2017 2:1509/19/2017 2:54am Globulin 4.5 g/dL H 2.3-3.5 09/19/2017 2:1509/19/2017 2:54am Albumin/Globulin Ratio 0.6 L 0.8-2.0 09/19/2017 2:15am 09/19/2017 2: 54am Alkaline Phosphatase 121 IU/L 40-150 09/19/2017 2:15am 09/19/2017 2: 54am B-Type Natriuretic Peptide 2009.9 pg/mL H 0-100 09/21/2017 7:10am 2017 10:52am Creatine Kinase 300 IU/L H 30-200 09/19/2017 8:30am 09/19/2017 9:07am Creatine Kinase MB 2.40 ng/mL 0-5.0 09/19/2017 8:30am 09/19/2017 9: 23am Troponin I 0.013 ng/mL 0-0.300 09/19/2017 8:30am 09/19/2017 9:23am Thyroid Stimulating Hormone (TSH) 1.933 uIU/mL 0.350-4.940 09/21/2017 7: 10am 09/21/2017 9:30am Procedures Procedure Status Date Provider(s) Open reduction and internal fixation (ORIF) of left elbow Completed 09/04/17 RONAN CÁRDENAS MD X-ray of chest, two views Active 02/27/17 ORLY CASILLAS MD Computed tomography of brain without radiopaque contrast Active 08/29/17 RONAN CÁRDENAS MD Computed tomography of thoracic spine without contrast Active 08/29/17 RONAN CÁRDENAS MD X-ray of chest, single view Active 09/18/17 AARON GARDINER MD Computed tomography of brain without radiopaque contrast Active 09/18/17 OLGA VEGA MD Encounters Encounter Location Arrival/Admit Date Discharge/Depart Date Attending Provider Discharged Inpatient [facility] 09/18/17 10:34pm 1:15pm EARNEST FOREMAN MD Registered Surgical Day Care [facility] 09/04/17 11:27am RNOAN CÁRDENAS MD Registered Clinic [facility] 08/29/17 11:20am RONAN CÁRDENAS MD Registered Clinic [facility] 08/15/17 2:41pm MALCOLM VINES Registered Clinic [facility] 02/27/17 1:35pm ORLY CASILLAS MD
[2017-11-05] MEDS ORDERED: FUROSEMIDE20 MG PO (16:41)
[2017-11-05] MEDS ORDERED: METFORMIN HCL500 M2 PO (16:41)
[2017-11-05] MEDS ORDERED: ASPIR 8181 MG PO (16:41)
[2017-11-05] MEDS ORDERED: WARFARIN SODIU7.5 MG PO (16:41)
[2017-11-05 16:55] LABS: BASOPHILS # (AUTO) 0.1 (0.0-0.1); BASOPHILS % 0.8 % (0.0-1.0); EOSINOPHILS # (AUTO) 0.5 (0.0-0.4); EOSINOPHILS % 7.9 % (0.0-6.0); HEMOGLOBIN 11.1 g/dL (14.0-18.0); LYMPHOCYTES # (AUTO) 1.2 (1.0-3.2); LYMPHOCYTES % 18.8 % (18.0-39.1); MEAN CORPUSCULAR HEMOGLOBIN 28.5 pg (28-32); MEAN CORPUSCULAR HGB CONC 32.6 g/dL (31-35); MEAN CORPUSCULAR VOLUME 87.4 fL (81-99); MONOCYTES # (AUTO) 0.9 (0.2-0.8); MONOCYTES % 14.1 % (4.4-11.3); NEUTROPHILS # (AUTO) 3.6 (2.1-6.9); NEUTROPHILS % 57.9 % (38.7-80.0); PLATELET COUNT 293 x10e3/uL (140-360); RED BLOOD COUNT 3.89 x10e6/uL (4.3-5.7); RED CELL DISTRIBUTION WIDTH 17.9 % (11.7-14.4)
[2017-11-05 17:02] LABS: CLARITY,URINE CLEAR (CLEAR); COLOR,URINE YELLOW (YELLOW); LEUKOCYTE ESTERASE ,URINE NEGATIVE (NEGATIVE); NITRITE,URINE NEGATIVE (NEGATIVE); PROTEIN,URINE DIPSTICK NEGATIVE (NEGATIVE)
[2017-11-05 17:03] LABS: BILIRUBIN,URINE NEGATIVE (NEGATIVE); KETONES,URINE NEGATIVE (NEGATIVE); URINE UROBILINOGEN 1 mg/dL (0.2 - 1)
[2017-11-05 17:09] LABS: EPITHELIAL CELLS,URINE FEW /LPF
[2017-11-05 17:11] LABS: TRANSITIONAL EPI CELLS,URINE FEW
[2017-11-05 17:14] LABS: ALANINE AMINOTRANSFERASE 44 IU/L (0-55); ALBUMIN 2.8 g/dL (3.5-5.0); ALBUMIN/GLOBULIN RATIO 0.6 (0.8-2.0); ALKALINE PHOSPHATASE 304 IU/L (40-150); ANION GAP 14.1 mmol/L (8-16); BLOOD UREA NITROGEN 27 mg/dL (7-26); BUN/CREATININE RATIO 30 (6-25); CALCIUM 9.1 mg/dL (8.4-10.2); CARBON DIOXIDE 20 mmol/L (22-29); CHLORIDE 104 mmol/L (98-107); EST GLOMERULAR FILTRATION RATE > 60 ML/MIN (60-); GLUCOSE 129 mg/dL (74-118); POTASSIUM 4.1 mmol/L (3.5-5.1); SODIUM 134 mmol/L (136-145)
--- NOTE | 2017-11-05 18:24 | Diagnostic Imaging Report ---
PROCEDURE: CT scan of the chest WITH intravenous contrast, using pulmonary angiogram protocol. TECHNIQUE: The chest was scanned utilizing a multidetector helical scanner from the lung apex through the level of the adrenal glands after the IV administration of 91 cc of Isovue 370. Coronal and sagittal multiplanar reformations were obtained. Pulmonary angiogram protocol was performed. Total DLP: 569.11 mGy-cm COMPARISON: None. INDICATIONS: SHORTNESS OF BREATH, TAHCYCARDIA, FINDINGS: Lines/tubes: Left-sided AICD with 2 intact leads. Median sternotomy wires and postoperative changes of CABG. Lungs and Airways: Mild diffuse interlobular septal thickening. Central vasculature is not prominent. Diffuse groundglass nodules throughout bilateral lungs. Good contrast bolus. Fibrinous filling defects in the left pulmonary artery with extension into the left upper lobe and minimally into the left lower lobe. Pleura: The pleural spaces are clear. Heart and mediastinum: The thyroid gland is normal. Extensive mediastinal and hilar adenopathy. * 1.3 cm prevascular lymph node (series 2 image 42). * 1.3 cm precarinal lymph node (series 2 image 45) * 1.7 cm subcarinal lymph node (series 2 image 48) * Lymph nodes extends up to the left supraclavicular region. Smaller bilateral hilar lymph nodes. Moderate to severely enlarged cardiomegaly. Severe tri-vessel coronary artery ossifications and aorta calcifications. Reflux of contrast into the hepatic veins. Enlarged right atrium. Mild straightening of the interventricular septum. Main pulmonary artery measures 3.3 cm. Ascending aorta measures 4.1 cm. Soft tissues: Normal. Abdomen: Liver is nodular with enlarged left hepatic lobe and caudate lobe. Trace free fluid around the liver and spleen. Mild gallbladder sludge and stones. 0.2 cm and 0.18 cm stone in the interpolar region of the right kidney. Parenchymal defect likely from previous scarring in the posterior superior pole of the left kidney with a 0.3 cm parenchymal calcification. 0.3 cm stone in the superior pole, 0.46 cm stone in the interpolar region. Significant vascular calcifications especially in the smaller vessels. Spleen measures 11.9 cm. Bones: The visualized bony thorax is within normal limits. Subacute/partially healed chronic appearing left posterior first through ninth rib fractures. IMPRESSION: 1. Pulmonary emboli involving the left main pulmonary artery with minimal extension into the left upper and left lower lobes. The fibrin like appearance suggests subacute to chronic pulmonary emboli. 2. Diffuse groundglass opacities, likely atypical infection. This includes mycobacterial (such as miliary TB), and fungal. 3. Moderate to severe cardiomegaly with elevated right heart pressure. 4. Cirrhotic morphology with mild ascites. 5. Small bilateral nonobstructing renal stones. 6. Cholelithiasis without evidence of acute cholecystitis. Results were discussed with Dr. Ernst by Dr. Odonnell on 11/05/2017 at 6:25 PM. Dictated by: Holden Odonnell M.D. on 11/05/2017 at 18:26 Electronically approved by: Holden Odonnell M.D. on 11/05/2017 at 18:26
[2017-11-05] MEDS ORDERED: AZITHROMYCIN 500MG/NS 250 ML 250 ML IV ONE (18:30)
[2017-11-05] MEDS ORDERED: SODIUM CHLORIDE 0.9% 50ML 50 ML ONE (18:32)
[2017-11-05] MEDS ORDERED: IOPAMIDOL 370 MG/ML 200 ML INFUS..BTL INJ ONE (18:32)
[2017-11-05] MEDS ORDERED: METOCLOPRAMIDE HCL 10 MG/2ML VIAL IV PRN (18:45)
[2017-11-05] MEDS ORDERED: ASPIRIN 81 MG CHEW TAB PO ONE (18:45)
[2017-11-05] MEDS ORDERED: SODIUM CHLORIDE FLUSH 10 ML SYR INJ PRN (18:45)
[2017-11-05 18:49] LABS: INR 4.8
[2017-11-05 18:52] LABS: PROTHROMBIN TIME 42.2 seconds (11.9-14.5)
--- OUTSIDE RECORDS SUMMARY | 2017-11-05 18:54 | XMS REPORT | Clinical Summary ---
Author Author [facility] Organization [facility] Address Unknown Phone Unavailable Care Team Providers Care Center Rep Name Role Phone Ronda Sofia MD PCP [...] INFLUENZA VACCINE 01/21/2018 Implants Implanted Type Area Continuous Improvement Coordinator Device Expiration Model / Identifier Date Serial / Lot Valve Aortc Stntd Tiss Annls W/ Cardiovasc N/A: N/A ST ASTRID 2018 E100 25A Linx Ac Tech 25mm Epic - ular STRUCTURAL 00 / [id number] - [id number] Implants HEART [id number]^ Implanted: Qty: 1 on 09/26/2016 by [id number] Venkat Silver MD 9 / [id number] Lead Pace Ojno Mycrdl Unipol Tmpry Cardiovasc [facility] - [id number] / Streamline - [id number] ular CARDIAC SRGRY / Implanted: Qty: 2 on 09/26/2016 by Implants Venkat Silver MD Chamber Sgl Thais Dry Suct 1wy Vlv Surgical N/A: N/A TELEFLEX S 1100 Adlt Pedi - [id number] Implants; MEDICAL [id number] / Implanted: 09/26/2016 (Quantity not Expanders; / on file) Extenders; Surgical Wires Chamber Sgl Thais Dry Suct 1wy Vlv Surgical N/A: N/A TELEFLEX S 1100 Adlt Pedi - [id number] Implants; MEDICAL 08LF / Implanted: 09/26/2016 (Quantity not Expanders; / on file) Extenders; Surgical Wires Chamber Sgl Thais Dry Suct 1wy Vlv Surgical N/A: N/A TELEFLEX S 1100 Adlt Pedi - [id number] Implants; MEDICAL 08LF / Implanted: 09/26/2016 (Quantity not Expanders; / on file) Extenders; Surgical Wires [place] Perph Vasclr Ptfe 1.2x10cm Vascular N/A: N/A BARD PERIPHERAL [id number] / 1.65mm - [id number] Graft VASCULAR / Implanted: Qty: 1 on 09/26/2016 by [id number] Venkat Silver MD [place] Perph Vasclr Ptfe 1.2x10cm Vascular N/A: N/A BARD PERIPHERAL [id number] / 1.65mm - [id number] Graft VASCULAR / Implanted: Qty: 1 on 09/26/2016 by [id number] Bonilla MD [place] Perph Vasclr Ptfe [id number] Vascular JOPPA PERIPHERAL [id number] / 1.65mm - [id number] Graft VASCULAR / Implanted: Qty: 1 on 09/26/2016 by Venkat Silver MD Results Not on fileafter 11/04/2016 Insurance Payer Benefit Subscriber ID Type Phone Address Plan / Group MEDICARE MEDICARE xxxxxxxxxx Medicare [place], [place] PART A AND B AARP AARP xxxxxxxxxxx Commercial SUPPLEMENT
[2017-11-05 19:17] LABS: CREATINE KINASE MB 2.3 ng/mL (0-5.0)
[2017-11-05] MEDS ORDERED: SODIUM CHLORIDE 0.9% 250ML 250 ML ONE ×2 (20:19→22:12)
[2017-11-05] MEDS ORDERED: SODIUM CHLORIDE 0.9% 1000ML 1,000 ML ONE (21:52)
[2017-11-05] MEDS ORDERED: ONDANSETRON HCL 4 MG ORAL DISINTEGRATING TAB ONE (21:56)
[2017-11-05] MEDS ORDERED: SODIUM CHLORIDE 0.9% 250ML 250 ML IV NR (22:15)
--- NOTE | 2017-11-05 22:23 | Consultation ---
DATE OF CONSULTATION: November 05, 2017 REASON FOR CONSULTATION: CHF. CLINICAL HISTORY: Mr. Moore is a 72-year-old gentleman with past medical history as listed below. He was a little short of breath earlier today. He went and saw his PCP, Dr. Hilario. The chest x-ray showed interstitial old changes suggestive of pulmonary edema and so was sent to the ER. The patient was seen recently in the office. The patient has a history of atrial fibrillation. He had rapid ventricular rate. He has an ICD. The patient was recommended to have AV ablation and upgrading his ICD. He was being referred to police liaison. The patient also has a history of aortic valve replacement. He states he feels a little bit better now. He denies any chest pain, but does get a little short of breath. No abdominal pain, vomiting or diarrhea. REVIEW OF SYSTEMS: CONSTITUTIONAL: Has some fatigue and weakness. HEENT: No headache, blurring of vision, seizures or syncope. CARDIOVASCULAR: No chest pain. Has dyspnea and some orthopnea and some leg edema. RESPIRATORY: No cough, fever or expectoration. GI: No abdominal pain, vomiting or diarrhea. : No dysuria, frequency or incontinence. ALLERGIES: NO KNOWN DRUG ALLERGIES. . MEDICATIONS: See list. PAST MEDICAL HISTORY: 1. History of hypertension. 2. History of CAD. 3. History of aortic stenosis, status post aortic valve replacement. 4. History of CHF. 5. History of atrial fibrillation. 6. History of hyperlipidemia. 7. History of pancreatitis. 8. History of TIA. 9. History of hyperlipidemia. 10. History of diabetes. FAMILY HISTORY: Noncontributory. SOCIAL HISTORY: Does not smoke or drink. PAST SURGICAL HISTORY: History of ICD placement by Dr. Sosa in 2007, Replaced by Dr. Almeida. History of aortic valve replacement. Tissue valve. History of carotid endarterectomy in 2012. PHYSICAL EXAMINATION: GENERAL: A moderately built and nourished gentleman, alert, oriented and not in any obvious distress. HEENT: Atraumatic. NECK: No JVD, bruit, thyromegaly or lymphadenopathy. CARDIOVASCULAR: First and second heart sounds heard. A 2/6 systolic murmur heard at the base. CHEST: Decreased air entry at the bases. A few crackles appreciated. ABDOMEN: Soft, nontender. EXTREMITIES: 1+ edema. LABORATORY DATA: WBC 6.1, hemoglobin 11.1, hematocrit 34, platelets 293,000. Electrolytes are pending. IMPRESSION 1. Congestive heart failure. 2. Atrial fibrillation. 3. History of coronary artery disease. 4. History of hypertension with hypotensive episodes. 5. History of carotid endarterectomy. 6. History of pancreatitis. 7. History of transient ischemic attack. 8. History of diabetes. 9. History of hyperlipidemia. PLAN: 1. Start IV diuresis. 2. The patient has had echocardiograms. Will review his previous echo. 3. His B-natriuretic peptide and electrolytes are pending. 4. Will follow chest x-ray. 5. Get EKG. The patient had hypotensive episode and is in Midodrine. 6. Further cardiac workup depending on clinical course. 7. I discussed my impression and plan of management with the patient, and he understands. As always I appreciate and thank you very much for your referrals. Job#: [id number] GH MTDD
[2017-11-05] MEDS ORDERED: AMIODARONE HCL 100 ML IV ONE (22:37)
[2017-11-05] MEDS ORDERED: AMIODARONE 900MG 500 ML IV ONE (22:38)
[2017-11-05] MEDS ORDERED: AMIODARONE HCL 150MG 100 ML IV ONE (22:45)
[2017-11-05] MEDS ORDERED: AMIODARONE 900MG 500 ML IV SCH (23:00)
[2017-11-06] VITALS (61 sets, daily range): BP systolic 60–134; BP diastolic 49–98
[2017-11-06] MEDS ORDERED: VASOPRESSIN 100 UNIT in DEXTROSE 5% 100ML 95 ML IV PRN ×2
[2017-11-06] MEDS: ATORVASTATIN 20 MG TAB PO SCH ×2 (00:59→22:32)
[2017-11-06] MEDS ORDERED: AMIODARONE 900MG 500 ML IV SCH (05:00)
[2017-11-06 05:56] LABS: BASOPHILS # (AUTO) 0.1 (0.0-0.1); EOSINOPHILS # (AUTO) 0.3 (0.0-0.4); EOSINOPHILS % 3.2 % (0.0-6.0); HEMATOCRIT 36.9 % (38.2-49.6); HEMOGLOBIN 11.8 g/dL (14.0-18.0); LYMPHOCYTES # (AUTO) 1.5 (1.0-3.2); LYMPHOCYTES % 16.4 % (18.0-39.1); MEAN CORPUSCULAR VOLUME 87.4 fL (81-99); MONOCYTES # (AUTO) 1.1 (0.2-0.8); MONOCYTES % 11.3 % (4.4-11.3); NEUTROPHILS # (AUTO) 6.3 (2.1-6.9); NEUTROPHILS % 67.6 % (38.7-80.0); PLATELET COUNT 325 x10e3/uL (140-360); RED BLOOD COUNT 4.22 x10e6/uL (4.3-5.7); RED CELL DISTRIBUTION WIDTH 18.1 % (11.7-14.4)
[2017-11-06 06:13] LABS: INR 4.36; PROTHROMBIN TIME 39.2 seconds (11.9-14.5)
--- NOTE | 2017-11-06 06:18 | Diagnostic Imaging Report ---
EXAMINATION: CHEST SINGLE (PORTABLE) INDICATION: CHF COMPARISON: 11/04/2017 FINDINGS: TUBES and LINES: The pacemaker is intact. LUNGS: Lungs are well inflated. There are bibasilar atelectasis. There is perihilar interstitial opacities, consistent with interstitial edema. PLEURA: No pleural effusion or pneumothorax. HEART AND MEDIASTINUM: Cardiac size is mildly enlarged. There are atherosclerotic calcifications within the aorta. BONES AND SOFT TISSUES: No acute osseous lesion. Soft tissues are unremarkable. UPPER ABDOMEN: No free air under the diaphragm. IMPRESSION: Persistent central vascular congestion and mild interstitial edema, most likely cardiogenic Signed by: Dr. Bryant Becerra M.D. on 11/06/2017 6:15 AM
[2017-11-06 06:28] LABS: ALANINE AMINOTRANSFERASE 43 IU/L (0-55); ALBUMIN 2.9 g/dL (3.5-5.0); ALBUMIN/GLOBULIN RATIO 0.6 (0.8-2.0); ALKALINE PHOSPHATASE 305 IU/L (40-150); ANION GAP 15.5 mmol/L (8-16); BLOOD UREA NITROGEN 30 mg/dL (7-26); BUN/CREATININE RATIO 27 (6-25); CALCIUM 9.3 mg/dL (8.4-10.2); CARBON DIOXIDE 20 mmol/L (22-29); CHLORIDE 102 mmol/L (98-107); CREATINE KINASE 72 IU/L (30-200); CREATININE, SERUM 1.12 mg/dL (0.72-1.25); EST GLOMERULAR FILTRATION RATE > 60 ML/MIN (60-); GLUCOSE 162 mg/dL (74-118); MAGNESIUM 1.8 MG/DL (1.3-2.1); PHOSPHORUS 3.9 MG/DL (2.3-4.7); POTASSIUM 4.5 mmol/L (3.5-5.1); SODIUM 133 mmol/L (136-145)
[2017-11-06] MEDS ORDERED: AMIODARONE HCL 200 MG TAB PO SCH ×3 (08:15→09:30)
[2017-11-06] MEDS ORDERED: FAMOTIDINE 20 MG/2 ML VIAL IV SCH (09:00)
[2017-11-06] MEDS: LISINOPRIL 2.5 MG TAB PO SCH (09:00)
[2017-11-06] MEDS: FUROSEMIDE INJ 10 MG/ML 4 ML VIAL IV SCH ×2 (09:25→18:27)
[2017-11-06] MEDS: POTASSIUM CHLORIDE 10 MEQ TABCR PO SCH ×2 (09:25→17:00)
[2017-11-06] MEDS: METOPROLOL TARTRATE 25 MG TAB PO SCH ×2 (09:26→17:00)
[2017-11-06] MEDS ORDERED: SODIUM CHLORIDE 0.9% 250ML 250 ML ONE (10:38)
[2017-11-06] MEDS ORDERED: VASOPRESSIN 100 UNIT in DEXTROSE 5% 100ML 100 ML IV SCH (10:38)
[2017-11-06] MEDS: IPRATROPIUM BROMIDE 0.02% 2.5 ML NEB NEB SCH ×3 (11:00→18:57)
[2017-11-06] MEDS ORDERED: ROCURONIUM BROMIDE 1 ML ONE (11:10)
[2017-11-06] MEDS: NOREPINEPHRINE 8 MG/D5W 250 ML 250 ML IV SCH (11:30)
[2017-11-06] MEDS: MIDAZOLAM HCL 25 MG in SODIUM CHLORIDE 0.9% 45 ML IV PRN ×4 (11:30→22:00)
[2017-11-06] MEDS: INSULIN LISPRO 100 UNIT/1 ML 3ML VIAL SQ SCH ×3 (11:30→23:52)
[2017-11-06] MEDS ORDERED: NOREPINEPHRINE 8 MG/D5W 250 ML 250 ML IV SCH (11:30)
--- NOTE | 2017-11-06 12:14 | Diagnostic Imaging Report ---
PROCEDURE: A single AP view of the chest. COMPARISON: The prior radiograph from 11/06/2017 at 0532. INDICATIONS: S/P INTUBATION, CENTRAL LINE PLACEMENT FINDINGS: Lines/tubes: Endotracheal tube has its tip 5-6 cm above the catrina. Left internal jugular central venous catheter tip is difficult to see due to the overlying cardiac pacemaker leads. The tip appears to be in the low SVC. Left chest wall biventricular pacemaker/AICD with leads in the expected positions. Lungs: Bibasilar atelectasis. Low lung volumes. Pulmonary vascular congestion. No focal consolidation. Pleura: There is no pleural effusion or pneumothorax. Heart and mediastinum: Cardiomegaly, unchanged. Bones: No acute bony abnormality. IMPRESSION: Endotracheal tube has its tip 5-6 cm above the catrina. Left internal jugular central venous catheter tip is difficult to see due to the overlying cardiac pacemaker leads. It appears to be in the low SVC. Cardiomegaly with pulmonary vascular congestion. Dictated by: Renard Khan M.D. on 11/06/2017 at 12:16 Electronically approved by: Renard Khan M.D. on 11/06/2017 at 12:16
[2017-11-06 12:58] LABS: ABG HCO3 16 mmol/L (23-28); ABG PCO2 45 mmHg (41-51); ABG PH 7.15 (7.31-7.41); ABG PO2 431 mmHg (80-105)
[2017-11-06] MEDS ORDERED: CEFTRIAXONE SOD 1 GM VIAL IV SCH (13:00)
[2017-11-06] MEDS ORDERED: SODIUM BICARBONATE 8.4% 50 ML VIAL IV STA (13:25)
[2017-11-06] MEDS ORDERED: SODIUM BICARBONATE 8.4% SYRING 100 ML ONE (13:28)
[2017-11-06] MEDS ORDERED: SODIUM BICARBONATE 8.4% INJ 50 ML SYR IV NR (13:45)
--- NOTE | 2017-11-06 13:52 | Consultation ---
DATE OF CONSULTATION: November 06, 2017 INFECTIOUS DISEASE CONSULT ATTENDING PHYSICIAN: Dr. Greenwood REASON FOR CONSULTATION: Atypical lung infection. Thank you Dr. Greenwood for asking me to see this patient. HISTORY: The patient is a 72-year-old man referred for atypical lung infection. He is unable to give history because he is sedated and intubated. The information was obtained from the over the phone and supplemented by chart review. The patient was admitted from emergency department with chronic pulmonary embolism and atypical pneumonia. Presented to the emergency department yesterday with progressive shortness of breath for one week. Patient has had cough productive of clear sputum as well, and a temperature of 99.9 degrees Fahrenheit and sweating at home prior to arrival. There was no chest pain or hemoptysis. The patient's does not recall exposure to active TB case. The patient is [employer] and has not traveled outside the [place] since his service years. He has no history of incarceration. In the emergency department, the patient was noted to have temperature of 97.7 degrees Fahrenheit, pulse 102, respiratory rate 18, blood pressure 111/79 and oxygen 100% (FiO2 unknown). Initial laboratory studies show blood leukocyte count of 6,180 with 57.9% neutrophils, BUN 27, creatinine 0.9, troponin 0.012 and BNP 3,043. A chest CT scan with PE protocol showed chronic pulmonary embolism and severe ground glass opacities likely atypical in fashion. Patient deteriorated moments ago and was intubated. PAST MEDICAL HISTORY: Diabetes mellitus type 2, hypertension, hyperlipidemia, coronary artery disease, aortic stenosis, atrial fibrillation, pancreatitis and TIA. PAST SURGICAL HISTORY: Carotid endarterectomy, aortic valve replacement (tissue valve), and AICD implant. ALLERGY: NO KNOWN DRUG ALLERGIES. MEDICATIONS: See MAR. IMMUNIZATIONS: Unable to obtain. FAMILY HISTORY: Noncontributory. SOCIAL HISTORY: No alcohol or tobacco use. REVIEW OF SYSTEMS: Unable to obtain. PHYSICAL EXAMINATION GENERAL: Acutely ill. VITAL SIGNS: T max 98.1, pulse 118, respiratory rate 32, blood pressure 98/85, weight 158 pounds. HEENT: Normocephalic. There is no icterus or injection of conjunctivae. There is no ear or nasal discharge. Orally intubated. NECK: Supple. No lymphadenopathy. LUNGS: Decreased breath sounds bilaterally. Rales bilaterally. HEART: Normal S1 and S2. Irregularly irregular. ABDOMEN: Soft. EXTREMITIES: There is no edema, clubbing or cyanosis. SKIN: There is chronic hyperpigmentation on the legs bilaterally. JAVA CONSULTANT: Sedated. LABORATORY: WBC 9,270, hemoglobin 11.8, platelets 325,000, neutrophils 67.6, lymphs 16.4, mono 11.3, eosinophil 3.2, basophil 1. BUN 30, creatinine 1.12, AST 67, ALT 43, alkaline phos 305, total bilirubin 1.5. Blood culture is pending. IMPRESSION 1. Acute respiratory failure. 2. Diffuse pulmonary opacities. 3. Pulmonary edema. 4. Atrial fibrillation with rapid ventricular rate. 5. Diabetes mellitus type 2. 6. Coronary artery disease. PLAN 1. Check QuantiFERON and tracheal aspirate AFB, culture and sensitivity. 2. Start ceftriaxone 1 gram piggyback q.24 hours and doxycycline 100 mg IV piggyback q.12 hours. 3. Cardiology input has been noted. Job#: [id number] SHANT
[2017-11-06] MEDS: DOXYCYCLINE 100MG/NS 100ML 100 ML IV SCH (14:57)
[2017-11-06] MEDS: MILRINONE LACTATE IV PRN ×2 (15:27→22:47)
[2017-11-06] MEDS: SODIUM CHLORIDE 0.9% IV PRN ×2 (15:27→22:47)
[2017-11-06] MEDS ORDERED: VANCOMYCIN 1GM/NS 250 ML 250 ML IV ONE (20:15)
--- NOTE | 2017-11-06 22:06 | Consultation ---
DATE OF CONSULTATION: November 06, 2017 PULMONARY MEDICINE, CRITICAL CARE MEDICINE CONSULT REFERRING PHYSICIAN: Dr. Greenwood PRIMARY CARE DOCTOR: Dr. Mark Hilario REASON FOR CONSULTATION: Respiratory failure. HISTORY: Mr. Moore is a pleasant 72-year-old gentleman with acute respiratory failure. Patient with history of chronic cardiac condition. Patient with known CHF, previous LVEF 15% to 20% ejection fraction. Patient also with aortic stenosis and history of aortic valve replacement which was reportedly a mechanical valve although the echo preliminary report suggested bioprosthetic. History of atrial fibrillation, coronary artery disease. Patient has been having 7 days of worsening dyspnea. This dyspnea did not get better and had a pattern of worsening. Therefore, his primary care doctor sent him to hospital for evaluation. Chest x-ray showing interstitial edema changes. When he came in, he was found in atrial fibrillation and rapid ventricular rate. BNP was 3043. As he went in and out of atrial fibrillation, he gradually worsened and was in respiratory distress. 7.15/45/43 after intubation. He was sent to the ICU. Furthermore, he was on Levophed 5 mcg per minute. I am consulted. Additional history includes recent admit for falls. During that hospitalization, it was noted that a thoracic CT showed large amount of the lung parenchyma which were noted to have no acute findings as noted on the August 29, [address] There was a small left pleural effusion, but for the most part, the lungs were clean at that time. PAST MEDICAL HISTORY: Hypertension, coronary artery disease, aortic stenosis status post aortic valve replacement, CHF, atrial fibrillation, hyperlipidemia, pancreatitis, history of TIA, diabetes. MEDICATIONS: Medication list reviewed per electronic record. Currently milrinone, Levophed among medicines that he is on. He is on total cumulative fluid intake of 60 mL per hour on drips. Other medicines per record. ALLERGIES: NO KNOWN DRUG ALLERGIES. SOCIAL HISTORY: Patient smoked from age 19 to 55, 1.5 packs per day. No alcohol. No drugs. He is for 41 years. 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 FAMILY HISTORY: Noncontributory. OBJECTIVE: VITAL SIGNS: Unstable as per record, but semi-stable now on pressors. GENERAL: Intubated, sedated heavily, not awakening. HEENT: Normocephalic, atraumatic. NECK: Supple. Throat midline. LUNGS: Bilateral air entry, bilateral rhonchi, bilateral rales. CARDIOVASCULAR: S1, S2. No murmurs, rubs, or gallops. ABDOMEN: Soft, nontender. EXTREMITIES: No clubbing, no cyanosis, there is only trace edema. There are stasis changes in his legs. INTEGUMENT: No purpura, no tears noted. LABS: 4.5 potassium, 30 BUN, 1.1 creatinine. 9 white count, 37 hematocrit, 325,000 platelets. INR 4.36. Alkaline phosphatase 305, AST 67, ALT 43. Chest radiography includes CT chest done with IV contrast demonstrating left-sided AICD with 2 intact leads, mild diffuse interlobular septal thickening, diffuse ground-glass nodules throughout the lungs, 33-mm pulmonary artery. Extensive mediastinal and hilar lymphadenopathy, 1.3-cm prevascular lymph node, 1.2-cm precarinal lymph node, 1.7-cm subcarinal lymph node, and additional supraclavicular lymph node, left side. IMPRESSION AND PLAN: 1. Acute respiratory failure, intubated. 2. Abnormal chest radiography, bilateral ground-glass opacities. Treat for possible acute pneumonia. 3. Abnormal chest radiography, diffuse ground-glass opacities. Treat for concomitant fluid overload. 4. Atrial fibrillation, remained in rapid rate. 5. Nonspecific filling defects, left pulmonary vasculature. Possible pulmonary emboli. 6. Coronary artery disease. 7. Aortic stenosis history, history of aortic valve replacement which he reported was mechanical in the past. Echocardiogram preliminary suggested possible bioprosthetic. 8. Cirrhotic morphology with mild ascites. 9. Multiple lymphadenopathy. 10. Cardiomyopathy, 15% to 20% left ventricular ejection fraction previous. 11. Warfarin anticoagulation. 12. Hypertension, diabetes, hyperlipidemia. Will leave the old rapid ventricular rate and for infectious disease expert to investigate. For now, keep him intubated. Ventilator support. Antibiotics aggressively for possible acute pneumonia. As the CAT scan 2 months ago was predominantly showing clear parenchyma, it is much less likely this is a chronic interstitial lung disease unless he receives high doses of certain medications. Will have to review his outpatient medication list. Continue pressors for now. Control the fibrillation. Will follow along closely. Thank you very much, Dr. Grenewood for this consult. Please call for questions. Job#: [id number]
[2017-11-06] MEDS: CEFEPIME HCL 1 GM VIAL IV SCH (22:07)
[2017-11-07] VITALS (90 sets, daily range): BP systolic 94–126; BP diastolic 55–101
[2017-11-07] MEDS: DOXYCYCLINE 100MG/NS 100ML 100 ML IV SCH ×2 (01:00→11:47)
[2017-11-07] MEDS: MIDAZOLAM HCL 25 MG in SODIUM CHLORIDE 0.9% 45 ML IV PRN ×2 (01:04→19:17)
[2017-11-07] MEDS: INSULIN LISPRO 100 UNIT/1 ML 3ML VIAL SQ SCH ×5 (05:49→23:12)
[2017-11-07 06:06] LABS: BASOPHILS # (AUTO) 0.1 (0.0-0.1); BASOPHILS % 0.8 % (0.0-1.0); EOSINOPHILS # (AUTO) 0.4 (0.0-0.4); EOSINOPHILS % 3.4 % (0.0-6.0); HEMATOCRIT 34.5 % (38.2-49.6); HEMOGLOBIN 11.3 g/dL (14.0-18.0); LYMPHOCYTES # (AUTO) 1.3 (1.0-3.2); LYMPHOCYTES % 10.1 % (18.0-39.1); MEAN CORPUSCULAR HEMOGLOBIN 28.1 pg (28-32); MEAN CORPUSCULAR HGB CONC 32.8 g/dL (31-35); MEAN CORPUSCULAR VOLUME 85.8 fL (81-99); MONOCYTES # (AUTO) 1.3 (0.2-0.8); MONOCYTES % 10.2 % (4.4-11.3); NEUTROPHILS # (AUTO) 9.6 (2.1-6.9); PLATELET COUNT 356 x10e3/uL (140-360); RED BLOOD COUNT 4.02 x10e6/uL (4.3-5.7); RED CELL DISTRIBUTION WIDTH 17.7 % (11.7-14.4)
--- NOTE | 2017-11-07 06:19 | Diagnostic Imaging Report ---
EXAMINATION: CHEST SINGLE (PORTABLE) INDICATION: Shortness of breath. COMPARISON: 11/06/2017 FINDINGS: TUBES and LINES: Interval placement of endotracheal, NG tube and left IJ central line catheter. The NG tube is visualized with its distal tip just below the diaphragm with sidehole within the distal esophageal space. Left-sided ICD in good position with distal lead overlying the right ventricle LUNGS: Lungs are not well inflated. There is perihilar interstitial opacities, consistent with interstitial edema. PLEURA: Trace of left pleural effusion. HEART AND MEDIASTINUM: Cardiac size is mildly enlarged. There are atherosclerotic calcifications within the aorta. BONES AND SOFT TISSUES: No acute osseous lesion. Soft tissues are unremarkable. UPPER ABDOMEN: No free air under the diaphragm. IMPRESSION: 1. Findings are compatible with cardiogenic pulmonary edema and a small left pleural effusion, slightly worsened. 2. Endotracheal tube and left IJ central line catheters are in good position. 3. NG tube should be slightly advanced Signed by: Dr. Bryant Becerra M.D. on 11/07/2017 6:15 AM
[2017-11-07 06:23] LABS: INR 3.11; PROTHROMBIN TIME 30.1 seconds (11.9-14.5)
[2017-11-07 06:38] LABS: ALANINE AMINOTRANSFERASE 86 IU/L (0-55); ALBUMIN 2.5 g/dL (3.5-5.0); ALKALINE PHOSPHATASE 240 IU/L (40-150); ANION GAP 15.8 mmol/L (8-16); BILIRUBIN,DIRECT 0.8 mg/dL (0.0-0.5); BLOOD UREA NITROGEN 31 mg/dL (7-26); BUN/CREATININE RATIO 29 (6-25); CALCIUM 8.6 mg/dL (8.4-10.2); CARBON DIOXIDE 22 mmol/L (22-29); CHLORIDE 104 mmol/L (98-107); CHOL/HDL RATIO 6.2 (3.9-4.7); CHOLESTEROL 131 MD/DL (0-199); CREATININE, SERUM 1.07 mg/dL (0.72-1.25); EST GLOMERULAR FILTRATION RATE > 60 ML/MIN (60-); GLUCOSE 139 mg/dL (74-118); HDL CHOLESTEROL 21 MG/DL (40-60); LDL CHOLESTEROL 87 MG/DL (60-130); LIPASE 23 U/L (8-78); MAGNESIUM 1.4 MG/DL (1.3-2.1); POTASSIUM 3.8 mmol/L (3.5-5.1); SODIUM 138 mmol/L (136-145); TRIGLYCERIDES 116 MG/DL (0-149)
[2017-11-07 07:00] LABS: THYROID STIMULATING HORMONE 1.047 uIU/mL (0.350-4.940)
[2017-11-07] MEDS: IPRATROPIUM BROMIDE 0.02% 2.5 ML NEB NEB SCH ×4 (07:09→19:20)
[2017-11-07] MEDS: CEFEPIME HCL 1 GM VIAL IV SCH ×2 (08:01→19:58)
[2017-11-07] MEDS ORDERED: AMIODARONE HCL 200 MG TAB PO SCH (09:00)
[2017-11-07] MEDS: LISINOPRIL 2.5 MG TAB PO SCH (09:00)
[2017-11-07] MEDS: FUROSEMIDE INJ 10 MG/ML 4 ML VIAL IV SCH ×2 (09:00→13:41)
[2017-11-07] MEDS: METOPROLOL TARTRATE 25 MG TAB PO SCH ×2 (09:00→13:41)
[2017-11-07] MEDS ORDERED: DIGOXIN INJ 0.25 MG/ML 2 ML AMP IV ONE (09:15)
--- NOTE | 2017-11-07 12:00 | Diagnostic Imaging Report ---
PROCEDURE: Limited single AP view of the chest. COMPARISON: Patients [facility], DX, CHEST SINGLE (PORTABLE), 11/06/2017, 11:56. INDICATIONS: OGT PLACEMENT FINDINGS: See impression. IMPRESSION: 1. Limited exam for purpose of location of enteric tube. Interval placement of enteric tube, noted below the left hemidiaphragm, with distal tip projecting in the region of the stomach body. 2. Visualized bowel pattern is nonobstructive. Charlie Anguiano M.D. Dictated by: Charlie Anguiano M.D. on 11/07/2017 at 12:02 Electronically approved by: Charlie Anguiano M.D. on 11/07/2017 at 12:02
[2017-11-07] MEDS: POTASSIUM CHLORIDE 10 MEQ TABCR PO SCH ×2 (12:10→18:07)
[2017-11-07] MEDS: NOREPINEPHRINE 8 MG/D5W 250 ML 250 ML IV SCH (18:54)
[2017-11-07] MEDS: ATORVASTATIN 20 MG TAB PO SCH (20:09)
[2017-11-07] MEDS: SODIUM CHLORIDE 0.9% IV PRN (21:10)
[2017-11-07] MEDS: MILRINONE LACTATE IV PRN (21:10)
[2017-11-08] VITALS (49 sets, daily range): BP systolic 91–135; BP diastolic 39–100
[2017-11-08] MEDS: DOXYCYCLINE 100MG/NS 100ML 100 ML IV SCH ×2 (00:53→13:41)
[2017-11-08 05:40] LABS: BASOPHILS # (AUTO) 0.1 (0.0-0.1); BASOPHILS % 0.8 % (0.0-1.0); EOSINOPHILS # (AUTO) 0.6 (0.0-0.4); EOSINOPHILS % 6.7 % (0.0-6.0); HEMATOCRIT 36.1 % (38.2-49.6); HEMOGLOBIN 11.7 g/dL (14.0-18.0); LYMPHOCYTES # (AUTO) 0.9 (1.0-3.2); LYMPHOCYTES % 9.1 % (18.0-39.1); MEAN CORPUSCULAR HEMOGLOBIN 28.7 pg (28-32); MEAN CORPUSCULAR HGB CONC 32.4 g/dL (31-35); MEAN CORPUSCULAR VOLUME 88.5 fL (81-99); MONOCYTES # (AUTO) 1.1 (0.2-0.8); NEUTROPHILS # (AUTO) 6.8 (2.1-6.9); PLATELET COUNT 306 x10e3/uL (140-360); RED BLOOD COUNT 4.08 x10e6/uL (4.3-5.7); RED CELL DISTRIBUTION WIDTH 17.7 % (11.7-14.4)
[2017-11-08 05:54] LABS: INR 2.69; PROTHROMBIN TIME 26.9 seconds (11.9-14.5)
[2017-11-08] MEDS: INSULIN LISPRO 100 UNIT/1 ML 3ML VIAL SQ SCH ×4 (06:00→23:41)
[2017-11-08 06:04] LABS: ALANINE AMINOTRANSFERASE 74 IU/L (0-55); ALBUMIN 2.4 g/dL (3.5-5.0); ALKALINE PHOSPHATASE 216 IU/L (40-150); ANION GAP 13.8 mmol/L (8-16); BILIRUBIN,DIRECT 0.6 mg/dL (0.0-0.5); BLOOD UREA NITROGEN 23 mg/dL (7-26); BUN/CREATININE RATIO 30 (6-25); CARBON DIOXIDE 25 mmol/L (22-29); CHLORIDE 106 mmol/L (98-107); CREATININE, SERUM 0.77 mg/dL (0.72-1.25); EST GLOMERULAR FILTRATION RATE > 60 ML/MIN (60-); GLUCOSE 105 mg/dL (74-118); MAGNESIUM 1.4 MG/DL (1.3-2.1); POTASSIUM 3.8 mmol/L (3.5-5.1); SODIUM 141 mmol/L (136-145)
[2017-11-08] MEDS: IPRATROPIUM BROMIDE 0.02% 2.5 ML NEB NEB SCH ×4 (07:00→19:15)
[2017-11-08] MEDS ORDERED: AMIODARONE HCL 150 MG/100 ML BAG IV ONE (08:30)
[2017-11-08] MEDS: AMIODARONE HCL 900 MG in DEXTROSE 5% 500ML 500 ML IV SCH ×2 (08:39→23:57)
[2017-11-08] MEDS: FUROSEMIDE INJ 10 MG/ML 4 ML VIAL IV SCH ×2 (08:50→19:23)
[2017-11-08] MEDS: CEFEPIME HCL 1 GM VIAL IV SCH ×2 (08:50→19:29)
[2017-11-08] MEDS: METOPROLOL TARTRATE 25 MG TAB PO SCH ×2 (08:51→17:00)
[2017-11-08] MEDS: POTASSIUM CHLORIDE 10 MEQ TABCR PO SCH ×2 (08:51→19:20)
[2017-11-08] MEDS: LISINOPRIL 2.5 MG TAB PO SCH (08:51)
--- NOTE | 2017-11-08 16:01 | Progress Note ---
DATE: November 08, 2017 PULMONARY MEDICINE PROGRESS NOTE SUBJECTIVE: Mr. Moore was seen and examined at bedside. He continues to have ventilator dependence. Some was given to him during the night. The patient was able to wake up 3 hours later. However, he was breathing very fast, possibly due to anxiety, but either way his heart rate was very fast. We left him intubated. His heart rates remain often in 130-140 range, and amiodarone drip was restarted today. Versed at 5 mg per hour once again. In 1 L and 2.6 L out. REVIEW OF SYSTEMS: Cannot get as he is intubated. OBJECTIVE VITALS: Afebrile. Vital signs noted per electronic record. GENERAL: No acute distress. Alert, calm, sedated well. HEENT: Normocephalic and atraumatic. NECK: Supple. Throat midline. LUNGS: Bilateral air entry. Rare rhonchi. CARDIOVASCULAR: S1 and S2. No murmurs, rubs or gallops. ABDOMEN: Soft and nontender. EXTREMITIES: No clubbing. No cyanosis. There is no edema. INTEGUMENT: No rash. No purpura. LABS: BUN 23, creatinine 0.8. White count 7, hematocrit 36 and platelets 365,000. INR 2.6. IMPRESSION AND PLAN 1. Septic shock, resolved. 2. Uncontrolled atrial fibrillation. 3. Acute respiratory failure. 4. Treat for pneumonia. 5. Pulmonary edema. Continue amiodarone drip and control heart rate. Will try weaning him again tomorrow. Continue ventilator trials to see if we can get him off tomorrow. Daily spontaneous awakening trials. At this time, continue sedation for comfort. Start tube feeds for short-term. Job#: [id number] CT
--- NOTE | 2017-11-08 16:21 | Progress Note ---
DATE: November 07, 2017 PULMONARY MEDICINE PROGRESS NOTE SUBJECTIVE: Mr. Moore was seen and examined at bedside. He continues to have intubated state. He remains on pressors. 5 mcg per minute of Levophed earlier today, but it has been decreased to 2 mcg per minute. Patient continues with additional milrinone. Urine output is satisfactory. REVIEW OF SYSTEMS: Cannot get as he is intubated. OBJECTIVE: VITAL SIGNS: Afebrile, vital signs noted per electronic record. GENERAL: In no acute distress, alert and calm. HEENT: Normocephalic, atraumatic. NECK: Supple. Throat midline. LUNGS: Bilateral air entry, few rhonchi. CARDIOVASCULAR: S1, S2. No murmurs, rubs, or gallops. ABDOMEN: Soft, nontender. EXTREMITIES: No clubbing, no cyanosis, there is no edema. INTEGUMENT: No rash, no purpura. IMPRESSION AND PLAN: 1. Acute respiratory failure, intubated. 2. Pulmonary edema. 3. Treat for possible pneumonia. 4. Shock, mixed, possible . At this time, will continue in the intubated state. Continue ventilator support. Pressors will continue to be weaned. Will consider extubating tomorrow if the pressures remain stable. Levophed is slowly coming down. Will follow along closely. Continue antibiotics for possible pneumonia. Sedation is needed for comfort. Patient needs a sedation awakening for now. Job#: [id number]
[2017-11-08] MEDS: NOREPINEPHRINE 8 MG/D5W 250 ML 250 ML IV SCH (19:24)
[2017-11-08] MEDS: MIDAZOLAM HCL 25 MG in SODIUM CHLORIDE 0.9% 45 ML IV PRN ×3 (19:27→23:50)
[2017-11-08] MEDS: ATORVASTATIN 20 MG TAB PO SCH (20:36)
[2017-11-08] MEDS ORDERED: SODIUM CHLORIDE 0.9% 250ML 250 ML ONE (23:48)
[2017-11-09] VITALS (89 sets, daily range): BP systolic 85–147; BP diastolic 50–85
[2017-11-09] MEDS: DOXYCYCLINE 100MG/NS 100ML 100 ML IV SCH ×2 (01:21→13:30)
[2017-11-09 05:39] LABS: BASOPHILS # (AUTO) 0.1 (0.0-0.1); BASOPHILS % 0.6 % (0.0-1.0); EOSINOPHILS # (AUTO) 0.2 (0.0-0.4); HEMATOCRIT 33.7 % (38.2-49.6); LYMPHOCYTES % 12.6 % (18.0-39.1); MEAN CORPUSCULAR HEMOGLOBIN 28.8 pg (28-32); MEAN CORPUSCULAR HGB CONC 32.6 g/dL (31-35); MEAN CORPUSCULAR VOLUME 88.2 fL (81-99); MONOCYTES % 12.9 % (4.4-11.3); NEUTROPHILS # (AUTO) 5.6 (2.1-6.9); NEUTROPHILS % 70.5 % (38.7-80.0); PLATELET COUNT 295 x10e3/uL (140-360); RED BLOOD COUNT 3.82 x10e6/uL (4.3-5.7); RED CELL DISTRIBUTION WIDTH 17.8 % (11.7-14.4)
[2017-11-09 05:51] LABS: INR 2.63; PROTHROMBIN TIME 26.4 seconds (11.9-14.5)
[2017-11-09 05:58] LABS: ANION GAP 12.5 mmol/L (8-16); BLOOD UREA NITROGEN 31 mg/dL (7-26); BUN/CREATININE RATIO 41 (6-25); CALCIUM 8.9 mg/dL (8.4-10.2); CARBON DIOXIDE 24 mmol/L (22-29); CHLORIDE 108 mmol/L (98-107); CREATININE, SERUM 0.76 mg/dL (0.72-1.25); EST GLOMERULAR FILTRATION RATE > 60 ML/MIN (60-); GLUCOSE 174 mg/dL (74-118); POTASSIUM 3.5 mmol/L (3.5-5.1); SODIUM 141 mmol/L (136-145)
[2017-11-09] MEDS: INSULIN LISPRO 100 UNIT/1 ML 3ML VIAL SQ SCH ×4 (06:27→23:43)
--- NOTE | 2017-11-09 07:05 | Diagnostic Imaging Report ---
EXAMINATION: CHEST SINGLE (PORTABLE) INDICATION: CHF COMPARISON: 11/07/2017 FINDINGS: TUBES and LINES: AICD is intact. Endotracheal, NG tube and left IJ central line catheter are stable LUNGS: Lungs are not well inflated. There are bibasilar atelectasis. There is mild prominence of the central pulmonary vasculature, consistent with pulmonary venous congestion. PLEURA: Trace of left pleural effusion. HEART AND MEDIASTINUM: Cardiac size is mildly enlarged. There are atherosclerotic calcifications within the aorta. BONES AND SOFT TISSUES: No acute osseous lesion. Soft tissues are unremarkable. UPPER ABDOMEN: No free air under the diaphragm. IMPRESSION: 1. Findings are compatible with stable cardiogenic pulmonary edema and a small left pleural effusion. 2. Tubes and lines are in good position. Signed by: Dr. Bryant Becerra M.D. on 11/09/2017 7:01 AM
[2017-11-09] MEDS: IPRATROPIUM BROMIDE 0.02% 2.5 ML NEB NEB SCH ×4 (07:15→19:00)
[2017-11-09] MEDS: FUROSEMIDE INJ 10 MG/ML 4 ML VIAL IV SCH ×2 (10:03→17:45)
[2017-11-09] MEDS: CEFEPIME HCL 1 GM VIAL IV SCH ×2 (10:03→20:48)
[2017-11-09] MEDS: POTASSIUM CHLORIDE 10 MEQ TABCR PO SCH ×2 (10:04→17:45)
[2017-11-09] MEDS: METOPROLOL TARTRATE 25 MG TAB PO SCH ×2 (10:04→17:00)
[2017-11-09] MEDS: LISINOPRIL 2.5 MG TAB PO SCH (10:04)
[2017-11-09] MEDS: AMIODARONE HCL 200 MG TAB PO SCH (11:46)
[2017-11-09] MEDS ORDERED: POTASSIUM CHLORIDE 20MEQ/15ML UDC NG NR (14:00)
--- NOTE | 2017-11-09 14:33 | Progress Note ---
DATE: November 09, 2017 PULMONARY MEDICINE PROGRESS NOTE SUBJECTIVE: Mr. Moore was seen and examined at bedside. He continues to have ventilator dependence. He was on Versed of 6 mg per hour during the night for atrial fibrillation. Rate became more controlled after 1 a.m. Feeds are being tolerated at 30 mL per hour. Water at 35 mL every 3 hours. Urine output is actually about 84 mL per hour. REVIEW OF SYSTEMS: Cannot get as he is intubated. OBJECTIVE VITALS: Afebrile. Vital signs noted per electronic record. GENERAL: In no acute distress. Alert and calm. HEENT: Normocephalic and atraumatic. NECK: Supple. Throat midline. LUNGS: Bilateral air entry. Few rhonchi. CARDIOVASCULAR: S1 and S2. No murmurs, rubs or gallops. ABDOMEN: Soft and nontender. EXTREMITIES: No clubbing. No cyanosis. There is no edema. INTEGUMENT: No rash. No purpura. LABS: Include potassium 3.5, BUN 31, creatinine 0.8. White count 8, hematocrit 33 and platelets 295,000. Chest x-ray with stable mild edema pattern. IMPRESSION AND PLAN 1. Acute respiratory failure, intubated. 2. Treat for pneumonitis. 3. Treat for fluid overload. 4. Encephalopathy, multifactorial. 5. Atrial fibrillation, rapid ventricular rate, now finally controlled. Follow up closely. Weaning sedation now. Await awakening and will give him a spontaneous breathing trial to see if he can tolerate. Will continue feeds if he stays intubated. Follow up closely. Job#: [id number] MA
[2017-11-09] MEDS: AMIODARONE HCL 900 MG in DEXTROSE 5% 500ML 500 ML IV SCH (16:15)
[2017-11-09] MEDS ORDERED: SODIUM CHLORIDE 0.9% 250ML 250 ML ONE (17:16)
[2017-11-09 17:51] LABS: ABG HCO3 28 mmol/L (23-28); ABG PCO2 40 mmHg (41-51); ABG PH 7.45 (7.31-7.41); ABG PO2 93 mmHg (80-105)
[2017-11-09] MEDS ORDERED: BALSAM PERU/CASTOR OIL 60 GM OINT...G. TP PRN (18:15)
[2017-11-09] MEDS: ATORVASTATIN 20 MG TAB PO SCH (20:49)
--- NOTE | 2017-11-09 21:23 | Progress Note ---
Audio cutting in and out on some portions of the report DATE: November 09, 2017 PULMONARY MEDICINE PROGRESS NOTE SUBJECTIVE: Mr. Moore was seen and examined at bedside. He continues to be on the weaning trial for most of the day. However, spontaneous breathing without . He was able to wake up on light stimulus. Patient, however, is breathing parameters are good. Will give him trial of extubation. At this point, we were able to extubate successfully. Patient remains in ICU at this time. EXAM: Upper airway with no evidence of any stridor. Patient furthermore with rare lower airways. IMPRESSION AND PLAN: Acute respiratory failure, now extubated. At this time, will continue current treatment. Follow up closely. Patient on diet started slowly as tolerated as he awakens. Will follow closely. Greater than 30 minutes direct care on this day. Job#: [id number] CQ
[2017-11-10] VITALS (75 sets, daily range): BP systolic 78–120; BP diastolic 52–90
[2017-11-10] MEDS: DOXYCYCLINE 100MG/NS 100ML 100 ML IV SCH ×2 (00:19→12:28)
[2017-11-10] MEDS ORDERED: HALOPERIDOL LACTATE 5 MG/ML VIAL IM PRN (00:45)
[2017-11-10] MEDS ORDERED: DEXMEDETOMIDINE HCL 200 MCG in SODIUM CHLORIDE 0.9% 50ML 48 ML IV PRN (00:45)
[2017-11-10] MEDS: INSULIN LISPRO 100 UNIT/1 ML 3ML VIAL SQ SCH ×3 (06:00→18:00)
[2017-11-10 06:14] LABS: BASOPHILS # (AUTO) 0.1 (0.0-0.1); BASOPHILS % 0.7 % (0.0-1.0); EOSINOPHILS # (AUTO) 0.6 (0.0-0.4); EOSINOPHILS % 7.2 % (0.0-6.0); HEMATOCRIT 35.4 % (38.2-49.6); HEMOGLOBIN 11.3 g/dL (14.0-18.0); LYMPHOCYTES # (AUTO) 1.3 (1.0-3.2); LYMPHOCYTES % 14.1 % (18.0-39.1); MEAN CORPUSCULAR HEMOGLOBIN 28.5 pg (28-32); MEAN CORPUSCULAR HGB CONC 31.9 g/dL (31-35); MEAN CORPUSCULAR VOLUME 89.2 fL (81-99); MONOCYTES # (AUTO) 1.2 (0.2-0.8); MONOCYTES % 12.9 % (4.4-11.3); NEUTROPHILS # (AUTO) 5.8 (2.1-6.9); NEUTROPHILS % 64.7 % (38.7-80.0); PLATELET COUNT 285 x10e3/uL (140-360); RED BLOOD COUNT 3.97 x10e6/uL (4.3-5.7); RED CELL DISTRIBUTION WIDTH 17.7 % (11.7-14.4)
[2017-11-10 06:25] LABS: INR 1.92; PROTHROMBIN TIME 20.6 seconds (11.9-14.5)
[2017-11-10 06:47] LABS: ALANINE AMINOTRANSFERASE 52 IU/L (0-55); ALBUMIN 2.3 g/dL (3.5-5.0); ALBUMIN/GLOBULIN RATIO 0.5 (0.8-2.0); ALKALINE PHOSPHATASE 212 IU/L (40-150); ANION GAP 12.4 mmol/L (8-16); BLOOD UREA NITROGEN 24 mg/dL (7-26); BUN/CREATININE RATIO 34 (6-25); CALCIUM 9.1 mg/dL (8.4-10.2); CARBON DIOXIDE 26 mmol/L (22-29); CHLORIDE 109 mmol/L (98-107); EST GLOMERULAR FILTRATION RATE > 60 ML/MIN (60-); GLUCOSE 106 mg/dL (74-118); MAGNESIUM 1.4 MG/DL (1.3-2.1); POTASSIUM 3.4 mmol/L (3.5-5.1); SODIUM 144 mmol/L (136-145)
--- NOTE | 2017-11-10 07:03 | Diagnostic Imaging Report ---
EXAMINATION: CHEST SINGLE (PORTABLE) INDICATION: CHF COMPARISON: 11/09/2017 FINDINGS: TUBES and LINES: AICD is intact. Endotracheal, NG tube and left IJ central line catheter are stable LUNGS: Lungs are not well inflated. There are bibasilar atelectasis. There is perihilar interstital opacities, consistent with interstitial edema. PLEURA: Trace of left pleural effusion. HEART AND MEDIASTINUM: Cardiac size is mildly enlarged. There are atherosclerotic calcifications within the aorta. BONES AND SOFT TISSUES: No acute osseous lesion. Soft tissues are unremarkable. UPPER ABDOMEN: No free air under the diaphragm. IMPRESSION: 1. Findings are compatible with mild worsening cardiogenic pulmonary edema and a small left pleural effusion. 2. Tubes and lines are in good position. Signed by: Dr. Bryant Becerra M.D. on 11/10/2017 6:59 AM
[2017-11-10] MEDS: IPRATROPIUM BROMIDE 0.02% 2.5 ML NEB NEB SCH ×4 (07:29→19:00)
[2017-11-10] MEDS ORDERED: POTASSIUM CHLORIDE 20MEQ/100ML 100 ML IV ONE (08:15)
[2017-11-10] MEDS: POTASSIUM CHLORIDE 10 MEQ TABCR PO SCH ×2 (09:00→17:00)
[2017-11-10] MEDS: LISINOPRIL 2.5 MG TAB PO SCH (09:00)
[2017-11-10] MEDS: FUROSEMIDE INJ 10 MG/ML 4 ML VIAL IV SCH ×2 (09:39→18:34)
[2017-11-10] MEDS: CEFEPIME HCL 1 GM VIAL IV SCH ×2 (09:39→19:56)
[2017-11-10] MEDS ORDERED: POTASSIUM CHLORIDE 20 MEQ TAB CR PO NR (12:00)
[2017-11-10] MEDS: METOPROLOL TARTRATE 25 MG TAB PO SCH ×2 (12:10→18:37)
[2017-11-10] MEDS: AMIODARONE HCL 200 MG TAB PO SCH (12:18)
[2017-11-10] MEDS: ENOXAPARIN INJ 80 MG/0.8 ML SYR SC SCH ×2 (12:27→21:07)
--- NOTE | 2017-11-10 12:38 | Progress Note ---
DATE: November 10, 2017 PULMONARY MEDICINE PROGRESS NOTE SUBJECTIVE: Mr. Moore was seen and examined at bedside. He remains in bed. He knows he is in the ICU. He originally said it was 2017, but he can be redirected to say it is 2018. Banerjee is in place. Potassium is a little bit low. REVIEW OF SYSTEMS: No headache. No rash. OBJECTIVE VITALS: Afebrile. Vital signs noted per electronic record. GENERAL: No acute distress. Alert and calm. HEENT: Normocephalic and atraumatic. NECK: Supple. Throat is midline. LUNGS: Bilateral air entry, a few rhonchi. CARDIOVASCULAR: S1 and S2. No murmurs, rubs or gallops. ABDOMEN: Soft and nontender. EXTREMITIES: No clubbing. No cyanosis. There is no edema. INTEGUMENT: No rash. No purpura. LABS: Potassium 3.4, 24 BUN, creatinine 0.70, 9 white count, 35 hematocrit, 285 platelets. INR is 1.92. IMPRESSION AND PLAN 1. Acute respiratory failure, intubated and now extubated. 2. Weakness. 3. Treat for fluid overload. 4. CT chest suggestive of pneumonitis pattern. 5. History of aortic valve replacement. 6. History of cardiomyopathy, 15% to 20% left ventricular ejection fraction. At this time, will encourage mobilization. PT and OT consults. Replete some potassium. I will discuss if we need to escalate anticoagulation for a new valve as today the INR is 1.92. Continue antibiotics for pneumonia. Steady negative fluid balance as tolerated. Job#: [id number]
[2017-11-10] MEDS ORDERED: POTASSIUM CHLORIDE 20MEQ/100ML 200 ML IV ONE (15:30)
[2017-11-10] MEDS ORDERED: MAGNESIUM SULFATE 2GM/50ML 50 ML IV ONE (15:30)
[2017-11-10] MEDS: WARFARIN SOD 5 MG TAB PO SCH (18:34)
[2017-11-10] MEDS: ATORVASTATIN 20 MG TAB PO SCH (21:07)
[2017-11-11] VITALS (44 sets, daily range): BP systolic 69–114; BP diastolic 49–79
[2017-11-11] MEDS: DOXYCYCLINE 100MG/NS 100ML 100 ML IV SCH ×2 (00:38→13:16)
[2017-11-11 06:04] LABS: BASOPHILS # (AUTO) 0.1 (0.0-0.1); BASOPHILS % 1.3 % (0.0-1.0); EOSINOPHILS # (AUTO) 0.6 (0.0-0.4); EOSINOPHILS % 8.6 % (0.0-6.0); HEMATOCRIT 38.9 % (38.2-49.6); HEMOGLOBIN 12.4 g/dL (14.0-18.0); LYMPHOCYTES # (AUTO) 1.4 (1.0-3.2); LYMPHOCYTES % 19.8 % (18.0-39.1); MEAN CORPUSCULAR HEMOGLOBIN 28.5 pg (28-32); MEAN CORPUSCULAR HGB CONC 31.9 g/dL (31-35); MEAN CORPUSCULAR VOLUME 89.4 fL (81-99); MONOCYTES # (AUTO) 0.9 (0.2-0.8); MONOCYTES % 12.8 % (4.4-11.3); NEUTROPHILS % 57.2 % (38.7-80.0); PLATELET COUNT 292 x10e3/uL (140-360); RED BLOOD COUNT 4.35 x10e6/uL (4.3-5.7); RED CELL DISTRIBUTION WIDTH 17.4 % (11.7-14.4)
[2017-11-11 06:27] LABS: INR 1.92; PROTHROMBIN TIME 20.6 seconds (11.9-14.5)
[2017-11-11 06:33] LABS: ANION GAP 15.7 mmol/L (8-16); BLOOD UREA NITROGEN 22 mg/dL (7-26); BUN/CREATININE RATIO 33 (6-25); CALCIUM 9.2 mg/dL (8.4-10.2); CARBON DIOXIDE 24 mmol/L (22-29); CHLORIDE 109 mmol/L (98-107); CREATININE, SERUM 0.66 mg/dL (0.72-1.25); EST GLOMERULAR FILTRATION RATE > 60 ML/MIN (60-); GLUCOSE 82 mg/dL (74-118); MAGNESIUM 1.7 MG/DL (1.3-2.1); POTASSIUM 3.7 mmol/L (3.5-5.1); SODIUM 145 mmol/L (136-145)
--- NOTE | 2017-11-11 06:50 | Diagnostic Imaging Report ---
EXAM: CHEST SINGLE (PORTABLE), AP 1 view INDICATION: Congestive heart failure COMPARISON: AP view of the chest November 10, 2017 FINDINGS: LINES/TUBES: Stable position of left internal jugular vein central line and left approach cardiac device. LUNGS: Stable edema. PLEURA: No effusions or pneumothorax. HEART AND MEDIASTINUM: Stable cardiomegaly. BONES AND SOFT TISSUES: No acute findings. IMPRESSION: Stable appearance of the chest. Signed by: Dr. Nataly Lucero M.D. on 11/11/2017 6:46 AM
[2017-11-11] MEDS: IPRATROPIUM BROMIDE 0.02% 2.5 ML NEB NEB SCH ×4 (07:10→20:05)
[2017-11-11] MEDS: LISINOPRIL 2.5 MG TAB PO SCH (09:00)
[2017-11-11] MEDS: FUROSEMIDE INJ 10 MG/ML 4 ML VIAL IV SCH ×2 (09:00→09:45)
[2017-11-11] MEDS: CEFEPIME HCL 1 GM VIAL IV SCH ×2 (09:45→21:14)
[2017-11-11] MEDS: AMIODARONE HCL 200 MG TAB PO SCH (09:46)
[2017-11-11] MEDS: ENOXAPARIN INJ 80 MG/0.8 ML SYR SC SCH ×2 (09:46→21:14)
[2017-11-11] MEDS: METOPROLOL TARTRATE 25 MG TAB PO SCH ×2 (09:46→17:11)
[2017-11-11] MEDS: BALSAM PERU/CASTOR OIL 60 GM OINT...G. TP SCH (09:46)
[2017-11-11] MEDS: POTASSIUM CHLORIDE 10 MEQ TABCR PO SCH ×2 (09:46→17:11)
[2017-11-11] MEDS: INSULIN LISPRO 100 UNIT/1 ML 3ML VIAL SQ SCH ×4 (12:30→23:28)
--- NOTE | 2017-11-11 12:57 | Progress Note ---
DATE: November 11, 2017 PULMONARY MEDICINE PROGRESS NOTE SUBJECTIVE: Mr. Moore was seen and examined at bedside. He continues to have steady progress. He is more energetic today. He passed his bedside swallow evaluation and feels ready to eat. Has 96% oxygen saturation on room air, FiO2 intermittently. Had 0.8 L in and 2.2 L out. Patient with Banerjee just removed at this time. REVIEW OF SYSTEMS: No headache. No bleeding. OBJECTIVE VITALS: Afebrile. Vital signs noted per electronic record. GENERAL: No acute distress. Alert and calm, more energetic. HEENT: Normocephalic and atraumatic. NECK: Supple. Throat is midline. LUNGS: Bilateral air entry, a few rhonchi. CARDIOVASCULAR: S1 and S2. No murmurs, rubs or gallops. ABDOMEN: Soft and nontender. EXTREMITIES: No clubbing. No cyanosis. There is no significant edema. INTEGUMENT: No rash. No purpura. LABS: INR 1.92, 7 white count, 39 hematocrit 292 platelets, 3.7 potassium, 22 BUN, 0.7 creatinine, magnesium 1.7. IMPRESSION AND PLAN 1. Fluid overload. 2. Pneumonia. 3. Weakness. 4. Debility/weakness. 5. Systolic cardiomyopathy. 6. Atrial fibrillation, now controlled. Continue diuretics, but these can be decreased. The blood pressure is not as low normal, and we will consider cutting back on cardiac medicines as well. He needs to have some medicines for the arrhythmia control, however. He remains on amiodarone, and they did give him metoprolol today. Patient will continue antibiotics. Mobilize with PT and OT. They are expected to come back this afternoon to see him. Will repeat chest x-ray and labs tomorrow. Banerjee discontinued. Job#: [id number]
[2017-11-11] MEDS ORDERED: SODIUM CHLORIDE 0.9% 250ML 200 ML IV ONE (14:30)
[2017-11-11] MEDS: WARFARIN SOD 5 MG TAB PO SCH (17:11)
[2017-11-11] MEDS: ATORVASTATIN 20 MG TAB PO SCH (21:14)
[2017-11-12] VITALS (7 sets, daily range): BP systolic 98–114; BP diastolic 62–71
[2017-11-12] MEDS ORDERED: SODIUM CHLORIDE 0.9% 250ML 250 ML ONE (01:02)
[2017-11-12] MEDS: DOXYCYCLINE 100MG/NS 100ML 100 ML IV SCH ×2 (02:06→12:25)
[2017-11-12] MEDS: INSULIN LISPRO 100 UNIT/1 ML 3ML VIAL SQ SCH ×2 (06:00→11:43)
[2017-11-12 06:46] LABS: INR 1.99; PROTHROMBIN TIME 21.2 seconds (11.9-14.5)
[2017-11-12] MEDS: IPRATROPIUM BROMIDE 0.02% 2.5 ML NEB NEB SCH ×4 (07:00→22:25)
[2017-11-12 07:04] LABS: BLOOD UREA NITROGEN 25 mg/dL (7-26); BUN/CREATININE RATIO 32 (6-25); CALCIUM 10.1 mg/dL (8.4-10.2); CARBON DIOXIDE 23 mmol/L (22-29); CHLORIDE 106 mmol/L (98-107); CREATININE, SERUM 0.77 mg/dL (0.72-1.25); EST GLOMERULAR FILTRATION RATE > 60 ML/MIN (60-); GLUCOSE 107 mg/dL (74-118); MAGNESIUM 1.7 MG/DL (1.3-2.1); SODIUM 143 mmol/L (136-145)
[2017-11-12] MEDS: AMIODARONE HCL 200 MG TAB PO SCH (08:30)
[2017-11-12] MEDS: METOPROLOL TARTRATE 25 MG TAB PO SCH ×2 (08:30→17:20)
[2017-11-12] MEDS: POTASSIUM CHLORIDE 10 MEQ TABCR PO SCH (08:30)
[2017-11-12] MEDS: BALSAM PERU/CASTOR OIL 60 GM OINT...G. TP SCH (08:30)
[2017-11-12] MEDS: LISINOPRIL 2.5 MG TAB PO SCH (08:30)
[2017-11-12] MEDS: ENOXAPARIN INJ 80 MG/0.8 ML SYR SC SCH (08:30)
[2017-11-12] MEDS: CEFEPIME HCL 1 GM VIAL IV SCH ×2 (08:30→20:36)
[2017-11-12] MEDS ORDERED: FUROSEMIDE 40 MG TAB PO SCH (09:00)
--- NOTE | 2017-11-12 11:42 | Progress Note ---
DATE: November 12, 2017 PULMONARY MEDICINE PROGRESS NOTE SUBJECTIVE: Mr. Moore was seen and examined at bedside. He continues to have steady progress. He is getting stronger. He is able to walk with physical therapy down the [place] today. Patient with less and less shortness of breath. Room air FiO2 98% oxygen saturation. Banerjee is out, and he is voiding spontaneously. Bowel movements are recorded as well. The patient continues to have more and more confidence that he is improving. REVIEW OF SYSTEMS: No headache. No rash. OBJECTIVE VITALS: Afebrile. Vital signs noted per electronic record. GENERAL: No acute distress. Alert and calm, talking. HEENT: Normocephalic and atraumatic. NECK: Supple. Throat is midline. LUNGS: Bilateral air entry, a few rhonchi. CARDIOVASCULAR: S1 and S2. No murmurs, rubs or gallops. ABDOMEN: Soft and nontender. EXTREMITIES: No clubbing. No cyanosis. There is no edema. INTEGUMENT: No rash. No purpura. LABS: INR 1.99, 4.0 potassium, 25 BUN, 0.8 creatinine, magnesium 1.7, calcium 10.1. IMPRESSION AND PLAN 1. Acute respiratory failure, resolving. 2. Fluid overload. 3. Pneumonia. 4. Weakness. Continue IV antibiotics for pneumonia. Continue to diurese the patient. Follow up electrolytes. Continue ambulating him. Continue most of the current care. Job#: [id number]
[2017-11-12] MEDS: WARFARIN SOD 5 MG TAB PO SCH (17:20)
[2017-11-12] MEDS: ATORVASTATIN 20 MG TAB PO SCH (20:36)
[2017-11-13] MEDS: DOXYCYCLINE 100MG/NS 100ML 100 ML IV SCH (00:54)
[2017-11-13 01:17] VITALS: BP 114/81
[2017-11-13 05:49] VITALS: BP 103/70
[2017-11-13] MEDS: IPRATROPIUM BROMIDE 0.02% 2.5 ML NEB NEB SCH ×3 (07:00→16:30)
[2017-11-13 07:42] LABS: INR 1.84
[2017-11-13] MEDS: METOPROLOL TARTRATE 25 MG TAB PO SCH ×2 (07:50→16:50)
[2017-11-13] MEDS: LISINOPRIL 2.5 MG TAB PO SCH (07:50)
[2017-11-13] MEDS: AMIODARONE HCL 200 MG TAB PO SCH (07:50)
[2017-11-13] MEDS: CEFEPIME HCL 1 GM VIAL IV SCH (07:50)
[2017-11-13] MEDS: BALSAM PERU/CASTOR OIL 60 GM OINT...G. TP SCH (09:20)
--- NOTE | 2017-11-13 13:16 | Progress Note ---
DATE: November 13, 2017 PULMONARY MEDICINE PROGRESS NOTE SUBJECTIVE: Mr. Moore was seen and examined at the bedside. He is on room air oxygen right now, 98% oxygen saturation. He had 2 bowel movements yesterday. He continues to have continued improvement. Rehab evaluation was recommended. Patient remains with some weakness at baseline and mild gait instability but walks with a walker with only contact guard assist mainly. REVIEW OF SYSTEMS: No headaches, no rash. OBJECTIVE VITAL SIGNS: Afebrile. Vital signs noted per the chart record. GENERAL: No acute distress. Alert and calm. HEENT: Normocephalic, atraumatic. LUNGS: Bilateral air entry, rare rhonchi. CARDIOVASCULAR: S1, S2. No murmurs, rubs, or gallops. ABDOMEN: Soft, nontender. EXTREMITIES: No clubbing, no cyanosis, there is no edema. INTEGUMENT: No rash, no purpura. LABS: Reviewed per the chart record. IMPRESSION AND PLAN 1. Fluid overload. 2. Pneumonitis. 3. Weakness. 4. Previous rapid plasma reagin positive. 5. Atrial fibrillation now with controlled rate. 6. History of cardiomyopathy 15% to 20% left ventricle function in the past. Continue diuretics. Continue antibiotics. Continue to mobilize the patient and strengthen him. Ensure appropriate nutrition. Warfarin is being given back to him again. Job#: [id number] SHANT
[2017-11-13] MEDS: WARFARIN SOD 5 MG TAB PO SCH (16:50)
--- NOTE | 2017-11-14 10:15 | Discharge Summary ---
PRIMARY CARE DOCTOR: Dr. Eduardo Hilario. FINAL DIAGNOSIS: Acute respiratory failure due to acute systolic congestive heart failure with an ejection fraction of 20% and atrial fibrillation with rapid ventricular response. SECONDARY DIAGNOSIS 1. Subacute pulmonary embolism despite therapeutic international normalized ratio. 2. Atypical lung infection. 3. Treated syphilis. CONSULTANTS 1. Dr. Vasquez, infectious disease. 2. Dr. Andrews, inspector tool. 3. Dr. Bright, cardiology. PROCEDURES/STUDIES PERFORMED 1. Intubation and extubation. 2. Right internal jugular central line placement, which was removed prior to discharge. 3. Chest computed tomography. HISTORY: Per H\T\P. HOSPITAL COURSE: Patient was admitted. Subsequently he was intubated for 3 days until we were able to get his AFib with rapid ventricular response under control with an amiodarone drip. Finally patient was able to be extubated. IV Lasix was discontinued. His chest x-ray was much better. Initially his Coumadin was held. Once his INR dropped below 2, full-dose Lovenox was started. Currently his INR is therapeutic again. Therefore, Lovenox was discontinued. Patient underwent a course of antibiotics per ID's recommendation. Given his critical illness and myopathy, patient was discharged to [facility]. CONDITION ON DISCHARGE: Improved. DISCHARGE MEDICATIONS: Please see medication reconciliation form. EARNEST FOREMAN M.D. Job#: [id number] EV cc:MALCOLM HILARIO MD
[2017-11-20] MEDS ORDERED: FUROSEMIDE INJ 10 MG/ML 4 ML VIAL IV SCH (09:00)
== END 2017-11-13 17:13 | DRG 207 ==
LOC: ER 15:49 → ERHOLD 18:51 → MED/SURG2 20:23 → ICU 22:06 → MED/SURG2 11-11 16:49
PROVIDERS: ADMIT Internal Medicine; ATTEND Internal Medicine
PROC: 0BH17EZ Insertion of Endotracheal Airway into Trachea, Via Natural or Artificial Opening (ICD-10-PCS; principal; 2017-11-05)
PROC: 5A1955Z Respiratory Ventilation, Greater than 96 Consecutive Hours (ICD-10-PCS; 2017-11-05)
PROC: 5A1945Z Respiratory Ventilation, 24-96 Consecutive Hours (ICD-10-PCS; 2017-11-05)
PROC: 02HV33Z Insertion of Infusion Device into Superior Vena Cava, Percutaneous Approach (ICD-10-PCS; 2017-11-05)
DX: J18.8 Other pneumonia, unspecified organism (principal); J96.00 Acute respiratory failure, unspecified whether with hypoxia or hypercapnia; R57.0 Cardiogenic shock; G93.40 Encephalopathy, unspecified; I26.99 Other pulmonary embolism without acute cor pulmonale; I50.21 Acute systolic (congestive) heart failure; R18.8 Other ascites; J81.1 Chronic pulmonary edema; E87.1 Hypo-osmolality and hyponatremia; E87.2 Acidosis; I42.8 Other cardiomyopathies; I11.0 Hypertensive heart disease with heart failure; I48.91 Unspecified atrial fibrillation; G72.9 Myopathy, unspecified; A53.9 Syphilis, unspecified; Z79.01 Long term (current) use of anticoagulants; E78.5 Hyperlipidemia, unspecified; E11.9 Type 2 diabetes mellitus without complications; I25.10 Atherosclerotic heart disease of native coronary artery without angina pectoris; R26.2 Difficulty in walking, not elsewhere classified; R53.81 Other malaise; E87.6 Hypokalemia; Z86.73 Personal history of transient ischemic attack (TIA), and cerebral infarction without residual deficits; Z79.4 Long term (current) use of insulin; Z95.2 Presence of prosthetic heart valve; Z95.810 Presence of automatic (implantable) cardiac defibrillator; Z91.81 History of falling; Z87.891 Personal history of nicotine dependence; K74.60 Unspecified cirrhosis of liver; J84.89 Other specified interstitial pulmonary diseases; Z95.1 Presence of aortocoronary bypass graft; R79.1 Abnormal coagulation profile
CPT/HCPCS: 36415; 36600; 71045; 71260; 80048; 80053; 80061; 80076; 81001; 82550; 82553; 82805; 82948; 83690; 83735; 83880; 84100; 84145; 84443; 84484; 85025; 85610; 85730; 86592; 87040; 87070; 87086; 87116; 87205; 87206; 87449; 93005; 93306; 93970; 94002; 94003; 94640; 96367; 96375; 96376; 99284; J0330; J0456; J0692; J0696; J1160; J1650; J1940; J2250; J2260; J3370; J3480; J7030; J7050; J7060; Q9967

== ENCOUNTER → 2017-11-24 | Outpatient (CLI) | payer MEDICARE ==
[~2017-11-24] MED LIST changes: +ASPIR 8181 MG PO; -ETOMIDATE 2 MG/ML 10 ML INJ IV ONE; +FUROSEMIDE20 MG PO; +METFORMIN HCL500 M2 PO; -SUCCINYLCHOLINE CHLORIDE 20 MG/ML 10ML VIAL ONE; +WARFARIN SODIU7.5 MG PO
--- NOTE | 2017-11-25 07:30 | Diagnostic Imaging Report ---
PROCEDURE: Frontal and lateral views of the chest. COMPARISON: Chest x-ray of 11/11/2017. INDICATIONS: DYSPNEA FINDINGS: Lines/tubes: Left-sided AICD with 2 leads and single defibrillator component. Median sternotomy wires. Lungs: The lungs are well inflate. Mild chronic interstitial opacities in the bilateral lung base. There is no evidence of pneumonia or pulmonary edema. Pleura: Small left pleural effusion. Heart and mediastinum: Unchanged moderate cardiomegaly. Unchanged enlargement pulmonary arteries. Unchanged atherosclerotic calcifications of the aorta. Bones: No acute bony abnormality. IMPRESSION: 1. Unchanged moderate cardiomegaly. No pulmonary venous congestion or interstitial edema. 2. Small left pleural effusion. Dictated by: Holden Odonnell M.D. on 11/24/2017 at 17:05 Electronically approved by: Holden Odonnell M.D. on 11/24/2017 at 17:05
== END ==
LOC: RAD 15:32
PROVIDERS: ATTEND Family Medicine
DX: R06.00 Dyspnea, unspecified (principal)
CPT/HCPCS: 71046

== ENCOUNTER 2018-06-05 16:43 | Inpatient (IN) | payer MEDICARE ==
[~2018-06-05] VITALS: Ht 330.2 cm; Wt 67.4 kg
--- OUTSIDE RECORDS SUMMARY | 2018-06-05 16:48 | XMS REPORT | Clinical Summary ---
Author Author [facility] Organization [facility] Address Unknown Phone Unavailable Care Team Providers Care Plant Assigner Name Role Phone Ronda Sofia MD PCP Allergies No Known Allergies Medications End Date Status Medication Sig Dispensed Refills Start Date Active aspirin (ECOTRIN) 81 MG Take 81 mg by 0 enteric coated tablet mouth daily. Active cholecalciferol, vitamin Take 50,000 0 D3, 50,000 unit capsule Units by mouth once a week. Active furosemide (LASIX) 40 mg Take 40 mg by 0 tablet mouth daily. Active metFORMIN (GLUCOPHAGE) Take 1,000 mg 0 1,000 mg tablet by mouth 2 (two) times a day with meals. Active rosuvastatin (CRESTOR) 20 Take 20 mg by 0 MG tablet mouth daily. Active Problems Problem Noted Date Cardiac insufficiency 09/26/2016 Respiratory insufficiency 09/26/2016 Aortic stenosis 09/24/2016 CAD (coronary artery disease) 09/24/2016 DM type 2 (diabetes mellitus, type 2) 09/24/2016 Essential hypertension 09/24/2016 Carotid artery disease 09/24/2016 Thrombus of left atrial appendage 09/24/2016 Social History Date Tobacco Use Types Packs/Day Years Used Never Assessed Sex Assigned at Date Recorded Not on file Industry Job Start Date Occupation Not on file Not on file Not on file Travel End Travel History Travel Start No recent travel history available. Last Filed Vital Signs Not on file Plan of Treatment Health Maintenance Due Date Last Done Comments DIABETIC RETINAL EYE EXAM 1946 DIABETIC FOOT EXAM 1956 URINE MICROALBUMIN 1956 COLON CANCER SCREENING 1996 SHINGLES VACCINES (1 of 1996 2) PNEUMOCOCCAL 2011 POLYSACCHARIDE VACCINE AGE 65 AND OVER PNEUMOCOCCAL-13 2011 INFLUENZA VACCINE 01/21/2018 Implants Device Identifier Shelf Expiration Date Model / Serial / Lot Implanted Type Area Manufactur er 02/07/2019 E100 25A 00 / [id number] / [id number] Valve Aortc Stntd Tiss Annls W/ Cardiovasc N/A: N/A ST ASTRID Linx Ac Tech 25mm Epic - ular STRUCTURAL [id number] - [id number] Implants HEART Implanted: Qty: 1 on 09/26/2016 by Venkat Silver MD [id number] / / Lead Pace Jono Mycrdl Unipol Tmpry Cardiovasc [employer] Streamline - [id number] ular [place] - Implanted: Qty: 2 on 09/26/2016 by Implants CARDIAC Venkat Silver MD SRGRY S 1100 08LF / / Chamber Sgl Thais Dry Suct 1wy Vlv Surgical N/A: N/A TELEFLEX Adlt Pedi - [id number] Implants; MEDICAL Implanted: 09/26/2016 (Quantity not Expanders; on file) Extenders; Surgical Wires S 1100 08LF / / Chamber Sgl Thais Dry Suct 1wy Vlv Surgical N/A: N/A TELEFLEX Adlt Pedi - [id number] Implants; MEDICAL Implanted: 09/26/2016 (Quantity not Expanders; on file) Extenders; Surgical Wires S 1100 08LF / / Chamber Sgl Thais Dry Suct 1wy Vlv Surgical N/A: N/A TELEFLEX Adlt Pedi - [id number] Implants; MEDICAL Implanted: 09/26/2016 (Quantity not Expanders; on file) Extenders; Surgical Wires 05/20/2021 [id number] / / [id number] Viviana Perph Vasclr Ptfe 1.2x10cm Vascular N/A: N/A BARD 1.65mm - [id number] Graft PERIPHERAL Implanted: Qty: 1 on 09/26/2016 by VASCULAR Venkat Silver MD 05/20/2021 [id number] / / [id number] Viviana Perph Vasclr Ptfe 1.2x10cm Vascular N/A: N/A BARD 1.65mm - [id number] Graft PERIPHERAL Implanted: Qty: 1 on 09/26/2016 by VASCULAR Venkat Silver MD [id number] / / [place] Perph Vasclr Ptfe [id number] Vascular BARD 1.65mm - [id number] Graft PERIPHERAL Implanted: Qty: 1 on 09/26/2016 by VASCULAR Venkat Silver MD Results Not on fileafter 06/04/2017 Insurance Payer Benefit Subscriber ID Type Phone Address Plan / Group MEDICARE MEDICARE xxxxxxxxxx Medicare [place], [place] PART A [place] B AARP AARP xxxxxxxxxxx Commercial SUPPLEMENT Advance Directives Patient has advance care planning documents on file. For more information, yessenia canchola contact: Pop Capellan [address] [place] [address]
--- OUTSIDE RECORDS SUMMARY | 2018-06-05 16:48 | XMS REPORT | Continuity of Care Document ---
Author Author [facility] [place] Interface Address Unknown Phone Unavailable Problems Problem Status Onset Date Classification Date Reported Comments Source CHRONIC ATRIAL FIBRILLATION Active 05/13/2016 [facility] Final: Chronic atrial fibrillation 05/31/2016 [facility] Atrial fibrillation Active Problem 05/31/2016 [facility] Pacemaker Active Problem 05/31/2016 [facility] Carotid stenosis Resolved Problem 05/31/2016 [facility] Congestive heart failure Active Problem 05/31/2016 [facility] Coronary atherosclerosis Active Problem 05/31/2016 [facility] Diabetes mellitus Active Problem 05/31/2016 [facility] Hypercholesteremia Active Problem 05/31/2016 [facility] Hypertension Active Problem 05/31/2016 [facility] CHRONIC ATRIAL FIBRILLATION Active [facility] Medications Medication Details Route Status Patient Instructions Ordering Provider Order Date Source minocycline topical 1 mg, Route: TOP, Dosing Weight 87.273, kg, Daily, Start date: 05/29/16 9:00:00 HISTORICAL ARCHEOLOGIST, Duration: 30 day, Stop date: 06/27/16 9:00:00 HISTORICAL ARCHEOLOGIST No Longer Active 05/29/2016 [facility] tramadol hydrochloride 50 MG Oral Tablet 50 mg=1 tab, PO, Q6H, PRN Pain, X 5 day, # 20 tab, 0 Refill(s) Active 05/28/2016 [facility] minocycline 100 mg oral capsule 100 mg=1 cap, PO, BID, # 14 cap, 0 Refill(s) Active 05/28/2016 [facility] Minocin 100 mg, 1 cap, Route: PO, Drug form: CAP, BID, Start date: 05/28/16 11:30:00 HISTORICAL ARCHEOLOGIST, Duration: 30 day, Stop date: 06/27/16 9:00:00 CSTNotes: (Same as:Minocin) No milk/antacids/iron. Inactive 05/28/2016 [facility] minocycline topical 1 mg=, TOP, Daily, 0 Refill(s) Inactive 05/28/2016 [facility] tramadol hydrochloride 50 MG Oral Tablet 50 mg=1 tab, PO, Q6H, PRN Pain, X 5 day, # 20 tab, 0 Refill(s), given to patient Inactive 05/28/2016 [facility] Acetaminophen 325 MG Oral Tablet [Tylenol] 325 mg=1 tab, PO, Q4H, PRN Pain, X 10 day, # 60 tab, 0 Refill(s), given to patient Active 05/28/2016 [facility] rivaroxaban 20 MG Oral Tablet [Xarelto] 20 mg=1 tab, PO, QPM, # 90 tab, 0 Refill(s), given to patient Inactive 05/28/2016 [facility] Linagliptin 5 mg, Route: PO, Daily, Dosing Weight 87.273, kg, Start date: 05/28/16 9:00:00 HISTORICAL ARCHEOLOGIST Inactive 05/28/2016 [facility] potassium chloride 10 mEq oral tablet, extended release 10 mEq, 1 tab, Route: PO, Drug form: ERTAB, Daily, Dosing Weight 87.273, kg, Start date: 05/28/16 9:00:00 HISTORICAL ARCHEOLOGIST, Duration: 30 day, Stop date: 06/26/16 9:00:00 CSTNotes: (Same as: K-Dur 10) "Do Not Crush" With food and full glass of water Inactive 05/28/2016 [facility] 24 HR Metoprolol Tartrate 200 MG Extended Release Tablet [Toprol] 200 mg, 2 tab, Route: PO, Drug form: ERTAB, Daily, Start date: 05/28/16 9:00:00 HISTORICAL ARCHEOLOGIST, Duration: 30 day, Stop date: 06/26/16 9:00:00 CSTNotes: (Same as: Toprol XL) May split tab, but do not crush. Inactive 05/28/2016 [facility] Lisinopril 20 mg, 1 tab, Route: PO, Drug form: TAB, Daily, Dosing Weight 87.273, kg, Start date: 05/28/16 9:00:00 HISTORICAL ARCHEOLOGIST, Duration: 30 day, Stop date: 06/26/16 9:00:00 CSTNotes: (Same as: Prinivil, Zestril) Inactive 05/28/2016 [facility] Levemir FlexPen 34 unit, 0.34 mL, Route: SUB-Q, Drug form: SOLN, Daily, Dosing Weight 87.273, kg, Start date: 05/28/16 9:00:00 HISTORICAL ARCHEOLOGIST, Duration: 30 day, Stop date: 06/26/16 9:00:00 CSTNotes: Same as Levemir Do not hold insulin without contacting prescriber WASTE: F/P - Black; E - Municipal Trash [employer] "single patient use only" Inactive 05/28/2016 [facility] Furosemide 40 MG Oral Tablet 40 mg, 1 tab, Route: PO, Drug form: TAB, Daily, Dosing Weight 87.273, kg, Start date: 05/28/16 9:00:00 HISTORICAL ARCHEOLOGIST, Duration: 30 day, Stop date: 06/26/16 9:00:00 CSTNotes: (Same as: Lasix) May cause GI upset. Give with food or milk. Inactive 05/28/2016 [facility] Fenofibrate 135 mg, Route: PO, Drug form: CAP, Daily, Dosing Weight 87.273, kg, Start date: 05/28/16 9:00:00 HISTORICAL ARCHEOLOGIST, Duration: 30 day, Stop date: 06/26/16 9:00:00 HISTORICAL ARCHEOLOGIST No Longer Active 05/28/2016 [facility] digoxin 125 mcg (0.125 mg) oral tablet 125 microgram, 1 tab, Route: PO, Drug form: TAB, Daily, Dosing Weight 87.273, kg, Start date: 05/28/16 9:00:00 HISTORICAL ARCHEOLOGIST, Duration: 30 day, Stop date: 06/26/16 9:00:00 CSTNotes: Take on an Empty Stomach (Same as: Lanoxin) Inactive 05/28/2016 [facility] aspirin 81 mg tablet, enteric coated 81 mg, 1 tab, Route: PO, Drug form: ECTAB, Daily, Dosing Weight 87.273, kg, Start date: 05/28/16 9:00:00 HISTORICAL ARCHEOLOGIST, Duration: 30 day, Stop date: 06/26/16 9:00:00 CSTNotes: Do not crush or chew. (Same As: Ecotrin) Inactive 05/28/2016 [facility] TriCor 145 mg, 1 tab, Route: PO, Drug form: TAB, Daily, Start date: 05/28/16 9:00:00 HISTORICAL ARCHEOLOGIST, Duration: 30 day, Stop date: 06/26/16 9:00:00 CSTNotes: (Same as: Tricor) Inactive 05/28/2016 [facility] ubiquinone 300 mg, 3 cap, Route: PO, Drug form: CAP, Daily, Dosing Weight 87.273, kg, Start date: 05/28/16 9:00:00 HISTORICAL ARCHEOLOGIST, Duration: 30 day, Stop date: 06/26/16 9:00:00 CSTNotes: Same as Co-Enzyme Q10 Inactive 05/28/2016 [facility] ceFAZolin 1 gm, Route: IVPB, Drug form: PDR/INJ, ABXQ8H, Start date: 05/27/16 23:30:00 HISTORICAL ARCHEOLOGIST, Duration: 3 doses or times, Stop date: 05/28/16 15:30:00 CSTNotes: (Same As: AncThom famfzol) MEDICATION WASTE Product Size: 1000 mg Product Wasted: ___ mg No Longer Active 05/28/2016 [facility] Hydralazine 10 mg, 0.5 mL, Route: IV, Drug form: INJ, ONCE, Dosing Weight 87.273, kg, Start date: 05/27/16 21:14:00 HISTORICAL ARCHEOLOGIST, Stop date: 05/27/16 21:14:00 CSTNotes: (Same as: Apresoline) Push over 5 minutes Inactive 05/28/2016 [facility] Benzocaine 15 MG / Menthol 3.6 MG Lozenge [Cepacol Sore Throat Pain Relief 15/3.6] 1 lozenge, Route: MUCOUS MEM, Drug Form: HOSEA, Dosing Weight 87.273, kg, Q2H, PRN Sore Throat, Start date: 05/27/16 21:13:00 HISTORICAL ARCHEOLOGIST, Duration: 30 day, Stop date: 06/26/16 21:12:00 CSTNotes: Cepacol lozenges Dispense 1 box=16 lozenges (Same As: Cepacol Lozenges) No Longer Active 05/28/2016 [facility] Lipitor 40 mg, 1 tab, Route: PO, Drug form: TAB, Bedtime, Start date: 05/27/16 21:00:00 HISTORICAL ARCHEOLOGIST, Duration: 30 day, Stop date: 06/25/16 21:00:00 CSTNotes: (Same as: Lipitor) No Longer Active 05/28/2016 [facility] Crestor 20 mg, Route: PO, Drug form: TAB, Bedtime, Dosing Weight 87.273, kg, Start date: 05/27/16 21:00:00 HISTORICAL ARCHEOLOGIST, Duration: 30 day, Stop date: 06/25/16 21:00:00 HISTORICAL ARCHEOLOGIST Inactive 05/28/2016 [facility] Glucotrol 5 mg, 1 tab, Route: PO, Drug form: TAB, BID-Meals, Start date: 05/27/16 19:05:00 HISTORICAL ARCHEOLOGIST, Duration: 30 day, Stop date: 06/26/16 17:00:00 CSTNotes: (Same as: Glucotrol) 30 min before meals. No Longer Active 05/28/2016 [facility] Glucophage 500 mg, 1 tab, Route: PO, Drug form: TAB, BID- Meals, Start date: 05/27/16 19:04:00 HISTORICAL ARCHEOLOGIST, Duration: 30 day, Stop date: 06/26/16 17:00:00 CSTNotes: (Same as: Glucophage) Take with meal No Longer Active 05/28/2016 [facility] Xarelto 20 mg, 1 tab, Route: PO, Drug form: TAB, QPM, Dosing Weight 87.273, kg, Start date: 05/27/16 17:00:00 HISTORICAL ARCHEOLOGIST, Duration: 30 day, Stop date: 06/25/16 17:00:00 CSTNotes: (Same as: Xarelto) Administer with food No Longer Active 05/27/2016 [facility] Cefazolin 1 gm, Route: IVPB, Drug form: INJ, ABXQ8H, Dosing Weight 87.273, kg, Start date: 05/27/16 17:00:00 HISTORICAL ARCHEOLOGIST, Duration: 3 doses or times, Stop date: 05/28/16 9:00:00 HISTORICAL ARCHEOLOGIST Inactive 05/27/2016 [facility] Glipizide 5 MG / Metformin hydrochloride 500 MG Oral Tablet 1 tab, Route: PO, Drug Form: TAB, Dosing Weight 87.273, kg, BID-Meals, Start date: 05/27/16 17:00:00 HISTORICAL ARCHEOLOGIST, Duration: 30 day, Stop date: 06/26/16 8:00:00 HISTORICAL ARCHEOLOGIST Inactive 05/27/2016 [facility] neostigmine (ANES) Route: IV, Drug form: INJ, ONCE, Stop date: 05/27/16 16:53:00 HISTORICAL ARCHEOLOGIST Inactive 05/27/2016 [facility] glycopyrrolate (ANES) Route: IV, Drug form: INJ, ONCE, Stop date: 05/27/16 16:53:00 HISTORICAL ARCHEOLOGIST Inactive 05/27/2016 [facility] Ondansetron 4 mg, 2 mL, Route: IVP, Drug form: INJ, Q8H, Dosing Weight 87.273, kg, PRN Nausea & Vomiting, Start date: 05/27/16 16:40:00 HISTORICAL ARCHEOLOGIST, Duration: 30 day, Stop date: 06/26/16 16:39:00 CSTNotes: (Same as: Zofran) MEDICATION WASTE Product Size: 4 mg Product Wasted: ___ mg No Longer Active 05/27/2016 [facility] acetaminophen-codeine #3 1 tab, Route: PO, Drug Form: TAB, Dosing Weight 87.273, kg, Q4H, PRN Pain Score 4-6, Start date: 05/27/16 16:40:00 HISTORICAL ARCHEOLOGIST, Duration: 30 day, Stop date: 06/26/16 16:39:00 CSTNotes: Do not exceed 4gm/day of acetaminophen. (Same as: Tylenol with Codeine # 3) No Longer Active 05/27/2016 [facility] ondansetron (ANES) Route: IV, Drug form: INJ, ONCE, Stop date: 05/27/16 16:22:00 HISTORICAL ARCHEOLOGIST Inactive 05/27/2016 [facility] Promethazine 6.25 mg, 0.25 mL, Route: IVPB, Drug form: INJ, ONCE, Dosing Weight 87.273, kg, PRN Nausea & Vomiting, Start date: 05/27/16 16:06:00 CSTNotes: Do not give IV push. (Same as: Phenergan) No Longer Active 05/27/2016 [facility] Ondansetron 4 mg, 2 mL, Route: IVP, Drug form: INJ, ONCE, Dosing Weight 87.273, kg, PRN Nausea & Vomiting, Start date: 05/27/16 16:06:00 CSTNotes: (Same as: Zofran) MEDICATION WASTE Product Size: 4 mg Product Wasted: ___ mg No Longer Active 05/27/2016 [facility] Flumazenil 0.2 mg, 2 mL, Route: IVP, Drug form: INJ, PRN, Dosing Weight 87.273, kg, PRN Benzodiazepine Reversal, Initial dose, Start date: 05/27/16 16:06:00 HISTORICAL ARCHEOLOGIST, Duration: 1 day, Stop date: 05/28/16 16:05:00 CS TNotes: (Same as: Romazicon) No Longer Active 05/27/2016 [facility] Naloxone 0.4 mg, 1 mL, Route: IVP, Drug form: INJ, Q2MIN, Dosing Weight 87.273, kg, PRN Narcotic Reversal, Start date: 05/27/16 16:06:00 HISTORICAL ARCHEOLOGIST, Duration: 8 doses or times, Stop date: Limited # of timesNotes: Same as Narcan No Longer Active 05/27/2016 [facility] Oxycodone 5 mg, 1 tab, Route: PO, Drug form: TAB, Q4H, Dosing Weight 87.273, kg, PRN Pain Score 4-6, Start date: 05/27/16 16:06:00 HISTORICAL ARCHEOLOGIST, Duration: 30 day, Stop date: 06/26/16 16:05:00 CSTNotes: (Same as: Roxicodone) No Longer Active 05/27/2016 [facility] Hydralazine 10 mg, 0.5 mL, Route: IVP, Drug form: INJ, Q20Min, Dosing Weight 87.273, kg, PRN Elevated BP, Start date: 05/27/16 16:06:00 HISTORICAL ARCHEOLOGIST, Duration: 2 doses or times, Stop date: Limited # of timesNotes: (Same as: Apresoline) Push over 5 minutes No Longer Active 05/27/2016 [facility] Metoprolol 1 mg, 1 mL, Route: IVP, Drug form: INJ, Q5Min, Dosing Weight 87.273, kg, PRN Other -See Comment, Start date: 05/27/16 16:06:00 HISTORICAL ARCHEOLOGIST, Duration: 5 doses or times, Stop date: Limited # of timesNotes: (Same as: Lopressor) Push over 2 minutes No Longer Active 05/27/2016 [facility] Fentanyl 25 microgram, 0.5 mL, Route: IV, Drug form: INJ, PRN, Dosing Weight 87.273, kg, PRN Pain Score 1-5, Start date: 05/27/16 16:06:00 HISTORICAL ARCHEOLOGIST, Duration: 30 day, Stop date: 06/26/16 16:05:00 CSTNotes: (Same as: Sublimaze) Preservative free. No Longer Active 05/27/2016 [facility] vasopressin (ANES) Route: IV, Drug form: INJ, ONCE, Stop date: 05/27/16 16:02:00 HISTORICAL ARCHEOLOGIST Inactive 05/27/2016 [facility] EPINEPHrine (ANES) Route: IV, Drug form: INJ, ONCE, Stop date: 05/27/16 16:02:00 HISTORICAL ARCHEOLOGIST Inactive 05/27/2016 [facility] norepinephrine (ANES) Route: IV, Drug form: INJ, ONCE, Stop date: 05/27/16 15:57:00 HISTORICAL ARCHEOLOGIST Inactive 05/27/2016 [facility] EPINEPHrine (ANES) Route: IV, Drug form: INJ, ONCE, Stop date: 05/27/16 15:47:00 HISTORICAL ARCHEOLOGIST Inactive 05/27/2016 [facility] glycopyrrolate (ANES) Route: IV, Drug form: INJ, ONCE, Stop date: 05/27/16 15:47:00 HISTORICAL ARCHEOLOGIST Inactive 05/27/2016 [facility] norepinephrine (ANES) Route: IV, Drug form: INJ, ONCE, Stop date: 05/27/16 15:47:00 HISTORICAL ARCHEOLOGIST Inactive 05/27/2016 [facility] Plasma-Lyte A PH-7.4 1000 ml INJ (ANES) Route: IV, Total Volume: 1,000, Start date: 05/27/16 15:35:00 HISTORICAL ARCHEOLOGIST, Stop date: 05/27/16 16:35:00 HISTORICAL ARCHEOLOGIST Inactive 05/27/2016 [facility] midazolam (ANES) Route: IV, Drug form: SOLN, ONCE, Stop date: 05/27/16 15:12:00 HISTORICAL ARCHEOLOGIST Inactive 05/27/2016 [facility] ceFAZolin (ANES) Route: IV, Drug form: INJ, ONCE, Stop date: 05/27/16 15:12:00 HISTORICAL ARCHEOLOGIST Inactive 05/27/2016 [facility] propofol (ANES) Route: IV, Drug form: INJ, ONCE, Stop date: 05/27/16 15:12:00 HISTORICAL ARCHEOLOGIST Inactive 05/27/2016 [facility] fentaNYL (ANES) Route: IV, Drug form: INJ, ONCE, Stop date: 05/27/16 15:12:00 HISTORICAL ARCHEOLOGIST Inactive 05/27/2016 [facility] cisatracurium (ANES) Route: IV, Drug form: INJ, ONCE, Stop date: 05/27/16 15:12:00 HISTORICAL ARCHEOLOGIST Inactive 05/27/2016 [facility] sodium chloride 0.9% 1000 ml INJ (ANES) Route: IV, Total Volume: 1,000, Start date: 05/27/16 14:02:00 HISTORICAL ARCHEOLOGIST, Stop date: 05/27/16 15:02:00 HISTORICAL ARCHEOLOGIST Inactive 05/27/2016 [facility] fenofibric acid 135 mg oral delayed release capsule 135 mg=1 cap, PO, Daily, # 30 cap, 0 Refill(s) Active 05/27/2016 [facility] Rosuvastatin calcium 20 MG Oral Tablet [Crestor] 20 mg=1 tab, PO, Bedtime, # 30 tab, 0 Refill(s) No Longer Active 05/27/2016 [facility] Levemir FlexPen 34 units, SUB-Q, Daily, 0 Refill(s) Active 05/27/2016 [facility] Glipizide 5 MG / Metformin hydrochloride 500 MG Oral Tablet 1 tab, PO, BID-Meals, # 60 tab, 0 Refill(s) Active 05/27/2016 [facility] saxagliptin 5 MG Oral Tablet [Onglyza] 5 mg=1 tab, PO, Daily, # 30 tab, 3 Refill(s) Active 05/27/2016 [facility] potassium chloride 10 mEq oral tablet, extended release =1 cap, PO, Daily, # 30 cap, 1 Refill(s) Active 05/27/2016 [facility] Furosemide 40 MG Oral Tablet 40 mg=1 tab, PO, Daily, # 30 tab, 0 Refill(s) Active 05/27/2016 [facility] CoQ10 300 mg, PO, Daily, 0 Refill(s) Active 05/27/2016 [facility] aspirin 81 mg tablet, enteric coated 81 mg=1 tab, PO, Daily, # 90 tab, 3 Refill(s) Active 05/27/2016 [facility] digoxin 125 mcg (0.125 mg) oral tablet 125 microgram=1 tab, PO, Daily, # 30 tab, 0 Refill(s) Active 05/27/2016 [facility] rivaroxaban 20 MG Oral Tablet [Xarelto] 20 mg=1 tab, PO, QPM, # 30 tab, 3 Refill(s) No Longer Active 05/27/2016 [facility] lisinopril 20 mg oral tablet 20 mg=1 tab, PO, Daily, # 30 tab, 0 Refill(s) Active 05/27/2016 [facility] metoprolol tartrate 100 mg oral tablet 100 mg=1 tab, PO, BID, # 60 tab, 0 Refill(s) Active 05/27/2016 [facility] sodium chloride 0.9% 1000 ml INJ 1,000 mL 1,000 mL, Rate: 50 ml/hr, Infuse over: 20 hr, Route: IV, Total Volume: 1,000, Start date: 05/27/16 6:00:00 HISTORICAL ARCHEOLOGIST, Duration: 30 day, Stop date: 06/26/16 5:59:00 HISTORICAL ARCHEOLOGIST No Longer Active 05/27/2016 [facility] Allergies, Adverse Reactions, Alerts Substance Category Reaction Severity Reaction type Status Date Reported Comments Source Immunizations Immunization Date Given Site Status Last Updated Comments Source Results Order Name Results Value Reference Range Date Interpretation Comments Source CHEM PANEL Magnesium Lvl 1.6 mg/dL 1.8 - 2.4 05/28/2016 [facility] CHEM PANEL Phosphorus 3.1 mg/dL 2.5 - 4.5 05/28/2016 [facility] CHEM PANEL eGFR 75 mL/min/1.73m2 05/28/2016 Result Comment: The eGFR is calculated using the CKD-EPI formula. In most young, healthy individuals the eGFR will be >90 mL/min/1.73m2. The eGFR declines with age. An eGFR of 60-89 may be normal in some populations, particularly the elderly, for whom the CKD-EPI formula has not been extensively validated. Use of the eGFR is not recommended in the following populations: Individuals with unstable creatinine concentrations, including patients and those with serious co-morbid conditions. Patients with extremes in muscle mass or diet. The data above are obtained from the National Kidney Disease Education Program (NKDEP) which additionally recommends that when the eGFR is used in patients with extremes of body mass index for purposes of drug dosing, the eGFR should be multiplied by the estimated BMI. [facility] CHEM PANEL Calcium Lvl 8.3 mg/dL 8.5 - 10.5 05/28/2016 [facility] CHEM PANEL AGAP 11.8 meq/L 10.0 - 20.0 05/28/2016 [facility] CHEM PANEL CO2 24 meq/L 24 - 32 05/28/2016 [facility] CHEM PANEL Potassium Lvl 3.8 meq/L 3.5 - 5.1 05/28/2016 [facility] CHEM PANEL Chloride Lvl 105 meq/L 95 - 109 05/28/2016 [facility] CHEM PANEL Creatinine Lvl 1.01 mg/dL 0.50 - 1.40 05/28/2016 [facility] CHEM PANEL Sodium Lvl 137 meq/L 135 - 145 05/28/2016 [facility] CHEM PANEL BUN 12 mg/dL 7 - 22 05/28/2016 [facility] CHEM PANEL Glucose Lvl 178 mg/dL 70 - 99 05/28/2016 [facility] HEMATOLOGY Basophils # 0.1 K/CMM 0.0 - 0.2 05/28/2016 [facility] HEMATOLOGY Eosinophils # 0.1 K/CMM 0.0 - 0.5 05/28/2016 [facility] HEMATOLOGY Monocytes # 1.2 K/CMM 0.0 - 0.8 05/28/2016 [facility] HEMATOLOGY Lymphocytes # 2.8 K/CMM 1.0 - 5.5 05/28/2016 [facility] HEMATOLOGY Segs-Bands # 8.3 K/CMM 1.5 - 8.1 05/28/2016 [facility] HEMATOLOGY Lymphocytes 22.6 % 20.0 - 40.0 05/28/2016 [facility] HEMATOLOGY Monocytes 9.3 % 2.0 - 12.0 05/28/2016 [facility] HEMATOLOGY Segs 67.2 % 45.0 - 75.0 05/28/2016 [facility] HEMATOLOGY Eosinophils 0.5 % 0.0 - 4.0 05/28/2016 [facility] HEMATOLOGY Basophils 0.4 % 0.0 - 1.0 05/28/2016 [facility] HEMATOLOGY MPV 9.4 fL 7.4 - 10.4 05/28/2016 [facility] HEMATOLOGY RDW 15.0 % 11.5 - 14.5 05/28/2016 [facility] HEMATOLOGY MCV 88.0 fL 80.0 - 94.0 05/28/2016 [facility] HEMATOLOGY Hct 37.3 % 42.0 - 54.0 05/28/2016 [facility] HEMATOLOGY MCHC 33.5 g/dL 32.0 - 36.0 05/28/2016 [facility] HEMATOLOGY MCH 29.5 pg 27.0 - 31.0 05/28/2016 [facility] HEMATOLOGY Platelet 156 K/CMM 133 - 450 05/28/2016 [facility] HEMATOLOGY Hgb 12.5 g/dL 14.0 - 18.0 05/28/2016 [facility] HEMATOLOGY WBC 12.4 K/CMM 3.7 - 10.4 05/28/2016 [facility] [facility] HEMATOLOGY RBC 4.23 M/CMM 4.70 - 6.10 05/28/2016 [facility] HEMATOLOGY PT 25.3 s 12.0 - 14.7 05/28/2016 [facility] HEMATOLOGY INR 2.26 0.85 - 1.17 05/28/2016 [facility] HEMATOLOGY PTT 46.5 s 22.9 - 35.8 05/28/2016 [facility] Chest 2 views DX Chest 2 views DX EXAM: XR CHEST 2 VIEWS DATE: 05/28/2016 3:00 AM HISTORICAL ARCHEOLOGIST INDICATION: Line Placement FINDINGS: PA and lateral views of the chest are compared to May 27. Cardiomediastinal silhouette is stable. A bipolar left subclavian ICD is stable with tips over the right ventricle and coronary sinus. The lungs are clear and well-expanded. No pleural effusion or pneumothorax is identified. IMPRESSION: No change from last night. 05/28/2016 - - Read by: Ana Lamas MD Dictated Date/time: 05/28/16 09:37 Electronically Signed by: Ana Lamas MD 05/28/16 09:37 FINAL REPORT [facility] CHEM PANEL Creatinine Lvl 0.95 mg/dL 0.50 - 1.40 05/27/2016 [facility] CHEM PANEL Glucose Lvl 107 mg/dL 70 - 99 05/27/2016 [facility] CHEM PANEL BUN 13 mg/dL 7 - 22 05/27/2016 [facility] CHEM PANEL AGAP 12.9 meq/L 10.0 - 20.0 05/27/2016 [facility] CHEM PANEL eGFR 81 mL/min/1.73m2 05/27/2016 Result Comment: The eGFR is calculated using the CKD-EPI formula. In most young, healthy individuals the eGFR will be >90 mL/min/1.73m2. The eGFR declines with age. An eGFR of 60-89 may be normal in some populations, particularly the elderly, for whom the CKD-EPI formula has not been extensively validated. Use of the eGFR is not recommended in the following populations: Individuals with unstable creatinine concentrations, including patients and those with serious co-morbid conditions. Patients with extremes in muscle mass or diet. The data above are obtained from the National Kidney Disease Education Program (NKDEP) which additionally recommends that when the eGFR is used in patients with extremes of body mass index for purposes of drug dosing, the eGFR should be multiplied by the estimated BMI. [facility] CHEM PANEL CO2 24 meq/L 24 - 32 05/27/2016 [facility] CHEM PANEL Calcium Lvl 8.1 mg/dL 8.5 - 10.5 05/27/2016 [facility] CHEM PANEL Potassium Lvl 3.9 meq/L 3.5 - 5.1 05/27/2016 [facility] CHEM PANEL Chloride Lvl 109 meq/L 95 - 109 05/27/2016 [facility] CHEM PANEL Sodium Lvl 142 meq/L 135 - 145 05/27/2016 [facility] HEMATOLOGY PTT 33.2 s 22.9 - 35.8 05/27/2016 [facility] HEMATOLOGY INR 1.26 0.85 - 1.17 05/27/2016 [facility] HEMATOLOGY PT 16.1 s 12.0 - 14.7 05/27/2016 [facility] HEMATOLOGY MPV 9.1 fL 7.4 - 10.4 05/27/2016 [facility] HEMATOLOGY Platelet 169 K/CMM 133 - 450 05/27/2016 [facility] HEMATOLOGY RDW 14.9 % 11.5 - 14.5 05/27/2016 [facility] HEMATOLOGY WBC 10.5 K/CMM 3.7 - 10.4 05/27/2016 [facility] HEMATOLOGY MCH 30.1 pg 27.0 - 31.0 05/27/2016 [facility] HEMATOLOGY RBC 4.48 M/CMM 4.70 - 6.10 05/27/2016 [facility] HEMATOLOGY MCV 89.5 fL 80.0 - 94.0 05/27/2016 [facility] HEMATOLOGY Hct 40.1 % 42.0 - 54.0 05/27/2016 [facility] HEMATOLOGY Hgb 13.5 g/dL 14.0 - 18.0 05/27/2016 [facility] HEMATOLOGY MCHC 33.7 g/dL 32.0 - 36.0 05/27/2016 [facility] HEMATOLOGY Lymphocytes # 2.4 K/CMM 1.0 - 5.5 05/27/2016 [facility] HEMATOLOGY Eosinophils # 0.4 K/CMM 0.0 - 0.5 05/27/2016 [facility] HEMATOLOGY Monocytes # 1.0 K/CMM 0.0 - 0.8 05/27/2016 [facility] HEMATOLOGY Basophils # 0.1 K/CMM 0.0 - 0.2 05/27/2016 [facility] HEMATOLOGY Segs 63.2 % 45.0 - 75.0 05/27/2016 [facility] HEMATOLOGY Lymphocytes 23.3 % 20.0 - 40.0 05/27/2016 [facility] HEMATOLOGY Monocytes 9.1 % 2.0 - 12.0 05/27/2016 [facility] HEMATOLOGY Eosinophils 3.6 % 0.0 - 4.0 05/27/2016 [facility] HEMATOLOGY Basophils 0.8 % 0.0 - 1.0 05/27/2016 [facility] HEMATOLOGY Segs-Bands # 6.6 K/CMM 1.5 - 8.1 05/27/2016 [facility] Chest 1view DX Chest 1view DX EXAM: XR CHEST 1 VIEW DATE: 05/27/2016 4:40 PM HISTORICAL ARCHEOLOGIST INDICATION: Line Placement COMPARISON: Chest radiograph 02/17/2008 TECHNIQUE: AP chest FINDINGS: Left subclavian implantable cardiac defibrillator is present. No pulmonary or pleural-based abnormality is identified. No pneumothorax identified. Pulmonary vascularity is normal. Unchanged cardiomegaly. No acute bony abnormality is identified. IMPRESSION: No pneumothorax identified post implantable cardiac defibrillator placement. 05/27/2016 - - Read by: Teo Cunningham MD Dictated Date/time: 05/27/16 19:06 Electronically Signed by: Teo Cunningham MD 05/27/16 19:07 FINAL REPORT [facility] BLOOD BANK RESULTS Antibody Scrn Negative (05/27/16 11:35 AM) 05/27/2016 [facility] BLOOD BANK RESULTS ABO/Rh A POS 05/27/2016 [facility] CHEM PANEL Magnesium Lvl 1.5 mg/dL 1.8 - 2.4 05/27/2016 [facility] ELECTROLYTES AGAP 15.4 meq/L 10.0 - 20.0 05/27/2016 [facility] ELECTROLYTES B/C Ratio 13 6 - 25 05/27/2016 [facility] ELECTROLYTES Globulin 4.5 g/dL 2.7 - 4.2 05/27/2016 [facility] ELECTROLYTES A/G Ratio 0.8 0.7 - 1.6 05/27/2016 [facility] ELECTROLYTES eGFR 76 mL/min/1.73m2 05/27/2016 Result Comment: The eGFR is calculated using the CKD-EPI formula. In most young, healthy individuals the eGFR will be >90 mL/min/1.73m2. The eGFR declines with age. An eGFR of 60-89 may be normal in some populations, particularly the elderly, for whom the CKD-EPI formula has not been extensively validated. Use of the eGFR is not recommended in the following populations: Individuals with unstable creatinine concentrations, including patients and those with serious co-morbid conditions. Patients with extremes in muscle mass or diet. The data above are obtained from the National Kidney Disease Education Program (NKDEP) which additionally recommends that when the eGFR is used in patients with extremes of body mass index for purposes of drug dosing, the eGFR should be multiplied by the estimated BMI. [facility] ELECTROLYTES Calcium Lvl 9.3 mg/dL 8.5 - 10.5 05/27/2016 [facility] ELECTROLYTES Chloride Lvl 106 meq/L 95 - 109 05/27/2016 [facility] ELECTROLYTES Potassium Lvl 4.4 meq/L 3.5 - 5.1 05/27/2016 [facility] ELECTROLYTES CO2 24 meq/L 24 - 32 05/27/2016 [facility] ELECTROLYTES Sodium Lvl 141 meq/L 135 - 145 05/27/2016 [facility] ELECTROLYTES Glucose Lvl 130 mg/dL 70 - 99 05/27/2016 [facility] ELECTROLYTES BUN 13 mg/dL 7 - 22 05/27/2016 [facility] ELECTROLYTES Creatinine Lvl 1.00 mg/dL 0.50 - 1.40 05/27/2016 [facility] ELECTROLYTES AST 39 unit/L 0 - 37 05/27/2016 [facility] ELECTROLYTES Total Protein 8.1 g/dL 6.4 - 8.4 05/27/2016 [facility] ELECTROLYTES Bili Total 0.6 mg/dL 0.2 - 1.3 05/27/2016 [facility] ELECTROLYTES Alk Phos 44 unit/L 39 - 136 05/27/2016 [facility] ELECTROLYTES ALT 38 unit/L 0 - 65 05/27/2016 [facility] ELECTROLYTES Albumin Lvl 3.6 g/dL 3.5 - 5.0 05/27/2016 [facility] HEMATOLOGY MCHC 34.3 g/dL 32.0 - 36.0 05/27/2016 [facility] HEMATOLOGY MPV 9.5 fL 7.4 - 10.4 05/27/2016 [facility] HEMATOLOGY RDW 15.0 % 11.5 - 14.5 05/27/2016 [facility] HEMATOLOGY Platelet 193 K/CMM 133 - 450 05/27/2016 [facility] HEMATOLOGY Hgb 15.0 g/dL 14.0 - 18.0 05/27/2016 [facility] HEMATOLOGY RBC 4.93 M/CMM 4.70 - 6.10 05/27/2016 [facility] HEMATOLOGY MCV 88.7 fL 80.0 - 94.0 05/27/2016 [facility] HEMATOLOGY MCH 30.4 pg 27.0 - 31.0 05/27/2016 [facility] HEMATOLOGY Hct 43.7 % 42.0 - 54.0 05/27/2016 [facility] HEMATOLOGY WBC 9.2 K/CMM 3.7 - 10.4 05/27/2016 [facility] HEMATOLOGY Segs-Bands # 4.9 K/CMM 1.5 - 8.1 05/27/2016 [facility] HEMATOLOGY Lymphocytes # 2.9 K/CMM 1.0 - 5.5 05/27/2016 [facility] HEMATOLOGY Monocytes # 0.9 K/CMM 0.0 - 0.8 05/27/2016 [facility] HEMATOLOGY Eosinophils 4.0 % 0.0 - 4.0 05/27/2016 [facility] HEMATOLOGY Basophils 1.2 % 0.0 - 1.0 05/27/2016 [facility] HEMATOLOGY Basophils # 0.1 K/CMM 0.0 - 0.2 05/27/2016 [facility] HEMATOLOGY Eosinophils # 0.4 K/CMM 0.0 - 0.5 05/27/2016 [facility] HEMATOLOGY Segs 53.1 % 45.0 - 75.0 05/27/2016 [facility] HEMATOLOGY Lymphocytes 31.7 % 20.0 - 40.0 05/27/2016 [facility] HEMATOLOGY Monocytes 10.0 % 2.0 - 12.0 05/27/2016 [facility] HEMATOLOGY PT 14.9 s 12.0 - 14.7 05/27/2016 [facility] HEMATOLOGY PTT 37.1 s 22.9 - 35.8 05/27/2016 [facility] HEMATOLOGY INR 1.15 0.85 - 1.17 05/27/2016 [facility] Vital Signs Vital Sign Value Date Comments Source Temperature Oral (F) 98.6 F 05/28/2016 [facility] Systolic (mm Hg) 140 05/28/2016 [facility] Diastolic (mm Hg) 76 05/28/2016 [facility] Systolic (mm Hg) 133 05/28/2016 [facility] Diastolic (mm Hg) 72 05/28/2016 [facility] Temperature Oral (F) 97.9 F 05/28/2016 [facility] Systolic (mm Hg) 137 05/28/2016 [facility] Diastolic (mm Hg) 75 05/28/2016 [facility] Respitory Rate 19 05/28/2016 [facility] Temperature Oral (F) 98.6 F 05/28/2016 [facility] Respitory Rate 18 05/28/2016 [facility] Respitory Rate 15 05/28/2016 [facility] Heart Rate 60 05/27/2016 [facility] BMI Calculated 27.61 05/27/2016 [facility] Height 177.8 cm 05/27/2016 [facility] Weight 87.273 05/27/2016 [facility] Encounters Location Location Details Encounter Type Encounter Number Reason For Visit Attending Provider ADM Date DC Date Status Source [facility] Inpatient [id number] Rubia Almeida 05/27/2016 05/28/2016 [facility] Procedures Procedure Code Date Perfomer Comments Source Cardiac pacemaker procedure [id number] [facility] Carotid endarterectomy [id number] [facility] Repair of knee joint [id number] [facility]
--- OUTSIDE RECORDS SUMMARY | 2018-06-05 16:49 | XMS REPORT ---
Author Author [facility] Address Unknown Phone Unavailable Care Team Providers Care Earth Science Technician Name Role Phone MALCOLM VINES Unavailable Unavailable Bernardo FOREMAN Unavailable Unavailable RONAN CÁRDENAS Unavailable Unavailable ORLY CASILLAS Unavailable Unavailable Problems This patient has no known problems. Allergies, Adverse Reactions, Alerts This patient has no known allergies or adverse reactions. Medications This patient has no known medications. Results Test Description Test Time Test Comments Text Results Atomic Results Result Comments CHEST 2 VIEWS [place] [address] Patient Name: VERONIQUE ALANIZ MR #: [id number] : 1945 Age/Sex: 72/M Req #: [id number] Adm Physician: Ordered by: JASMYN MCMILLAN, MALCOLM Zaman MD Report #: [id number] Location: [facility] Room/Bed: Procedure: [id number] DX/CHEST 2 VIEWS Exam Date: 11/24/17 Exam Time: 1545 REPORT STATUS: Signed PROCEDURE: Frontal and lateral views of the chest. COMPARISON: Chest x-ray of 11/11/2017. INDICATIONS: DYSPNEA FINDINGS: Lines/tubes: Left-sided AICD with 2 leads and single defibrillator component. Median sternotomy wires. Lungs: The lungs are well inflate. Mild chronic interstitial opacities in the bilateral lung base. There is no evidence of pneumonia or pulmonary edema. Pleura: Small left pleural effusion. Heart and mediastinum: Unchanged moderate cardiomegaly. Unchanged enlargement pulmonary arteries. Unchanged atherosclerotic calcifications of the aorta. Bones: No acute bony abnormality. IMPRESSION: 1. Unchanged moderate cardiomegaly. No pulmonary venous congestion or interstitial edema. 2. Small left pleural effusion. Dictated by: Holden langley M.D. on 11/24/2017 at 17:05 Electronically approved by: Holden Sierra M.D. on 11/24/2017 at 17:05 Dictated By: HOLDEN SIERRA MD 04 Transcribed By: CALEB on 11/24/171704 COPY TO: MALCOLM VINES CHEST SINGLE (PORTABLE) [place] [address] Patient Name: VERONIQUE ALANIZ MR #: [id number] : 1945 Age/Sex: 72/M Req #: [id number] Adm Physician: EARNEST FOREMAN MD Ordered by: DANAY PORTILLO MD Report #: [id number] Location: ICU Room/Bed: ICU [facility] Procedure: [id number] DX/CHEST SINGLE (PORTABLE) Exam Date: 11/11/17 Exam Time: 0520 REPORT STATUS: Signed EXAM: CHEST SINGLE (PORTABLE), AP 1 view INDICATION: Congestive heart failure COMPARISON: AP view of the chest November 10, 2017 FINDINGS: LINES/TUBES: Stable position of left internal jugular vein central line and left approach cardiac device. LUNGS: Stable edema. PLEURA: No effusions or pneumothorax. HEART AND MEDIASTINUM: Stable cardiomegaly. BONES AND SOFT TISSUES: No acute findings. IMPRESSION: Stable appearance of the chest. Signed by: Dr. Kristina Lucero M.D. on 11/11/2017 6:46 AM Dictated By: KRISTINA LUCERO MD Transcribed By: DARION on 11/11/17645 COPY TO: DANAY PORTILLO MD, [facility] CHEST SINGLE (PORTABLE) [place] [address] Patient Name: VERONIQUE ALANIZ MR #: [id number] : 1945 Age/Sex: 72/M Req #: [id number] Adm Physician: EARNEST FOREMAN MD Ordered by: DANAY PORTILLO MD Report #: [id number] Location: ICU Room/Bed: ICU [facility] Procedure: [id number] DX/CHEST SINGLE (PORTABLE) Exam Date: 11/10/17 Exam Time: 0515 REPORT STATUS: Signed EXAMINATION: CHEST SINGLE (PORTABLE) INDICATION: CHF COMPARISON: 11/09/2017 FINDINGS: TUBES and LINES: AICD is intact. Endotracheal, NG tube and left IJ central line catheter are stable LUNGS: Lungs are not well inflated. There are bibasilar atelectasis. There is perihilar interstital opacities, consistent with interstitial edema. PLEURA: Trace of left pleural effusion. HEART AND MEDIASTINUM: Cardiac size is mildly enlarged. There are atherosclerotic calcifications within the aorta. BONES AND SOFT TISSUES: No acute osseous lesion. Soft tissues are unremarkable. UPPER ABDOMEN: No free air under the diaphragm. IMPRESSION: 1. Findings are compatible with mild worsening cardiogenic pulmonary edema and a small left p leural effusion. 2. Tubes and lines are in good position. Signed by: Dr. Bryant Becerra M.D. on 11/10/2017 6:59 AM Dictated By: BRYANT KUMAR MD 8 Transcribed By: DARION on 11/10/17658 COPY TO: DANAY PORTILLO MD, [facility] CHEST SINGLE (PORTABLE) [place] [address] Patient Name: VERONIQUE ALANIZ MR #: [id number] : 1945 Age/Sex: 72/M Req #: [id number] Adm Physician: EARNEST FOREMAN MD Ordered by: DANAY PORTILLO MD Report #: [id number] Location: ICU Room/Bed: ICU [facility] Procedure: [id number] DX/CHEST SINGLE (PORTABLE) Exam Date: 11/09/17 Exam Time: 0500 REPORT STATUS: Signed EXAMINATION: CHEST SINGLE (PORTABLE) INDICATION: CHF COMPARISON: 11/07/2017 FINDINGS: TUBES and LINES: AICD is intact. Endotracheal, NG tube and left IJ central line catheter are stable LUNGS: Lungs are not well inflated. There are bibasilar atelectasis. There is mild prominence of the central pulmonary vasculature, consistent with pulmonary venous congestion. PLEURA: Trace of left pleural effusion. HEART AND MEDIASTINUM: Cardiac size is mildly enlarged. There are atherosclerotic calcifications within the aorta. BONES AND SOFT TISSUES: No acute osseous lesion. Soft tissues are unremarkable. UPPER ABDOMEN: No free air under the diaphragm. IMPRESSION: 1. Findings are compatible with stable cardiogenic pulmonary ed darlene and a small left pleural effusion. 2. Tubes and lines are in good position. Signed by: Dr. Bryant Becerra M.D. on 11/09/2017 7:01 AM Dictated By: BRYANT KUMAR MD 07 Transcribed By: DARION on 11/09/17 07 COPY TO: DANAY PORTILLO MD, [facility] CHEST SINGLE (PORTABLE) [place] [address] Patient Name: VERONIQUE ALANIZ MR #: [id number] : 1945 Age/Sex: 72/M Req #: [id number] Adm Physician: EARNEST FOREMAN MD Ordered by: DANAY PORTILLO MD Report #: [id number] Location: ICU Room/Bed: ICU [facility] Procedure: [id number] DX/CHEST SINGLE (PORTABLE) Exam Date: 11/07/17 Exam Time: 0850 REPORT STATUS: Signed PROCEDURE: Limited single AP view of the chest. COMPARISON: [facility], DX, CHEST SINGLE (PORTABLE), 11/06/2017, 11:56. INDICATIONS: OGT PLACEMENT FINDINGS: See impression. IMPRESSION: 1. Limited exam for purpose of location of enteric tube. Interval placement of enteric tube, noted below the left hemidiaphragm, with distal tip projecting in the region of the stomach body. 2. Visualized bowel pattern is nonobstructive. Charlie Vera M.D. Dictated by: Charlie Vera M.D. on 11/07/2017 at 12:02 Electronically approved by: Charlie Vera M.D. on 11/07/2017 at 12:02 Dictated By: CHARLIE VERA MD 1202 Transcribed By: CALEB on 11/07/17 1202 COPY TO: DANAY PORTILLO MD, [facility] CHEST SINGLE (PORTABLE) [place] [address] Patient Name: VERONIQUE ALANIZ MR #: [id number] : 1945 Age/Sex: 72/M Req #: [id number] Adm Physician: EARNEST FOREMAN MD Ordered by: EARNEST FOREMAN MD Report #: [id number] Location: ICU Room/Bed: ICU [facility] Procedure: [id number] DX/CHEST SINGLE (PORTABLE) Exam Date: 11/07/17 Exam Time: 0540 REPORT STATUS: Signed EXAMINATION: CHEST SINGLE (PORTABLE) INDICATION: Shortness of breath. COMPARISON: 11/06/2017 FINDINGS: TUBES and LINES: Interval placement of endotracheal, NG tube and left IJ central line catheter. The NG tube is visualized with its distal tip just below the diaphragm with sidehole within the distal esophageal space. Left-sided ICD in good position with distal lead overlying the right ventricle LUNGS: Lungs are not well inflated. There is perihilar interstitial opacities, consistent with interstitial edema. PLEURA: Trace of left pleural effusion. HEART AND MEDIASTINUM: Cardiac size is mildly enlarged. There are atherosclerotic calcifications within the aorta. BONES AND SOFT TISSUES: No acute osseous lesion. Soft tissues are unremarkable. UPPER ABDOMEN: No free air under the diaphragm. IMPRESSION: 1. Findings are compatible with cardiogenic pulmonary edema and a small left pleural effusion, slightly worsened. 2. Endotracheal tube and left IJ central line catheters are in good position. 3. NG tube should be slightly advanced Signed by: Dr. Bryant Becerra M.D. on 11/07/2017 6:15 AM Dictated By: BRYANT KUMAR MD 4 Transcribed By: DARION on 11/07/17614 COPY TO: EARNEST FOREMAN MD CHEST SINGLE (PORTABLE) [facility] [address] [place] [address] Patient Name: VERONIQUE ALANIZ MR #: [id number] : 1945 Age/Sex: 72/M Req #: [id number] Adm Physician: EARNEST FOREMAN MD Ordered by: ZION AKERS MD Report #: [id number] Location: ICU Room/Bed: ICU [facility] Procedure: [id number] DX/CHEST SINGLE (PORTABLE) Exam Date: Exam Time: REPORT STATUS: Signed PROCEDURE: A single AP view of the chest. COMPARISON: The prior radiograph from 11/06/2017 at 0532. INDICATIONS: S/P INTUBATION, CENTRAL LINE PLACEMENT FINDINGS: Lines/tubes: Endotracheal tube has its tip 5-6 cm above the catrina. Left internal jugular central venous catheter tip is difficult to see due to the overlying cardiac pacemaker leads. The tip appears to be in the low SVC. Left chest wall biventricular pacemaker/AICD with leads in the expected positions. Lungs: Bibasilar atelectasis. Low lung volumes. Pulmonary vascular congestion. No focal consolidation. Pleura: There is no pleural effusion or pneumothorax. Heart and mediastinum: Cardiomegaly, unchanged. Bones: No acute bony abnormality. IMPRESSION: Endotracheal tube has i ts tip 5-6 cm above the catrina. Left internal jugular central venous catheter tip is difficult to see due to the overlying cardiac pacemaker leads. It appears to be in the low SVC. Cardiomegaly with pulmonary vascular congestion. Dictated by: Jazzy Khan M.D. on 11/06/2017 at 12:16 Electronically approved by: Jazzy Khan M.D. on 11/06/2017 at 12:16 Dictated By: JAZZY KHAN MD 1216 Transcribed By: CALEB on 11/06/17 1216 COPY TO: ZION AKERS MD CHEST SINGLE (PORTABLE) [place] [address] Patient Name: VERONIQUE ALANIZ MR #: [id number] : 1945 Age/Sex: 72/M Req #: [id number] Adm Physician: EARNEST FOREMAN MD Ordered by: ORLY CASILLAS MD Report #: [id number] Location: ICU Room/Bed: [place] [address] Procedure: [id number] DX/CHEST SINGLE (PORTABLE) Exam Date: 11/06/17 Exam Time: 0515 REPORT STATUS: Signed EXAMINATION: CHEST SINGLE (PORTABLE) INDICATION: CHF COMPARISON: 11/04/2017 FINDINGS: TUBES and LINES: The pacemaker is intact. LUNGS: Lungs are well inflated. There are bibasilar atelectasis. There is perihilar interstitial opacities, consistent with interstitial edema. PLEURA: No pleural effusion or pneumothorax. HEART AND MEDIASTINUM: Cardiac size is mildly enlarged. There are atherosclerotic calcifications within the aorta. BONES AND SOFT TISSUES: No acute osseous lesion. Soft tissues are unremarkable. UPPER ABDOMEN: No free air under the diaphragm. IMPRESSION: Persistent central vascular congestion and mild interstitial edema, most likely cardiogenic Signed by: Dr. Bryant Becerra M.D. on 11/06/2017 6:15 AM Dictated By: BRYANT KUMAR MD 4 Transcribed By: DARION on 11/06/17614 COPY TO: ORLY CASILLAS MD CT CHEST W [place] [address] Patient Name: VERONIQUE ALANIZ MR #: [id number] : 1945 Age/Sex: 72/M Req #: [id number] Adm Physician: Ordered by: ZION AKERS MD Report #: [id number] Location: ER Room/Bed: Procedure: [id number] CT/CT CHEST W Exam Date: 11/05/17 Exam Time: 1740 REPORT STATUS: Signed PROCEDURE: CT scan of the chest WITH intravenous contrast, using pulmonary angiogram protocol. TECHNIQUE: The chest was scanned utilizing a multidetector helical scanner from the lung apex through the level of the adrenal glands after the IV administration of 91 cc of Isovue 370. Coronal and sagittal multiplanar reformations were obtained. Pulmonary angiogram protocol was performed. Total DLP: 569.11 mGy-cm COMPARISON: None. INDICATIONS: SHORTNESS OF BREATH, TAHCYCARDIA, FINDINGS: Lines/tubes: Left-sided AICD with 2 intact leads. Median sternotomy wires and postoperative changes of CABG. Lungs and Airways: Mild diffuse interlobular septal thickening. Central vasculature is not prominent. Diffuse groundglass nodules throughout bilateral lungs. Good contrast bolu s. Fibrinous filling defects in the left pulmonary artery with extension into the left upper lobe and minimally into the left lower lobe. Pleura: The pleural spaces are clear. Heart and mediastinum: The thyroid gland is normal. Extensive mediastinal and hilar adenopathy. * 1.3 cm prevascular lymph node (series 2 image 42). * 1.3 cm precarinal lymph node (series 2 image 45) * 1.7 cm subcarinal lymph node (series 2 image 48) * Lymph nodes extends up to the left supraclavicular region. Smaller bilateral hilar lymph nodes. Moderate to severely enlarged cardiomegaly. Severe tri- vessel coronary artery ossifications and aorta calcifications. Reflux of contrast into the hepatic veins. Enlarged right atrium. Mild straightening of the interventricular septum. Main pulmonary artery measures 3.3 cm. Ascending aorta measures 4.1 cm. Soft tissues: Normal. Abdomen: Liver is nodular with enlarged left hepatic lobe and caudate lobe. Trace free fluid around the liver and spleen. Mild gallbladder sludge and stones. 0.2 cm and 0.18 cm stone in the interpolar region of the right kidney. Parenchymal defect likely from previous scarring in the posterior superior pole of the left kidney with a 0.3 cm parenchymal calcification. 0.3 cm stone in the superior pole, 0.46 cm stone in the interpolar region. Significant vascular calcifications especially in the smaller vessels. Spleen measures 11.9 cm. Bones: The visualized bony thorax is within normal limits. Subacute/partially healed chronic appearing left posterior first through ninth rib fractures. IMPRESSION: 1. Pulmonary emboli involving the left main pulmonary artery with minimal extension into the left upper and left lower lobes. The fibrin like appearance suggests subacute to chronic pulmonary emboli. 2. Diffuse groundglass opacities, likely atypical infection. This includes mycobacterial (such as miliary TB), and fungal. 3. Moderate to severe cardiomegaly with elevated right heart pressure. 4. Cirrhotic morphology with mild ascites. 5. Small bilateral nonobstructing renal stones. 6. Cholelithiasis without evidence of acute cholecystitis. Results were discussed with Dr. Akers by Dr. Sierra on 11/05/2017 at 6:25 PM. Dictated by: Holden Sierra M.D. on 11/05/2017 at 18:26 Electronically approved by: Holden Sierra M.D. on 11/05/2017 at 18:26 Dictated By: HOLDEN SIERRA MD 25 Transcribed By: CALEB on 11/05/171825 COPY TO: ZION AKERS MD CHEST 2 VIEWS [facility] [address] [address] Patient Name: VERONIQUE ALANIZ MR #: [id number] : 1945 Age/Sex: 72/M Req #: [id number] Adm Physician: Ordered by: JASMYN MCMILLAN, MALCOLM Zaman MD Report #: [id number] Location: [facility] Room/Bed: Procedure: [id number] DX/CHEST 2 VIEWS Exam Date: 11/04/17 Exam Time: 1651 REPORT STATUS: Signed PROCEDURE: Frontal and lateral views of the chest. COMPARISON: [facility], DX, CHEST SINGLE (PORTABLE), 09/22/2017, 6:49. INDICATIONS: DYSPNEA FINDINGS: Lines/tubes: Stable left upper chest dual-lead cardiac device Lungs: Lungs are well-inflated. Diffuse bilateral reticular interstitial opacities. 4-5 mm nodular density projecting between the posterior aspect of the right seventh and eighth ribs on the frontal view. No consolidation. Pleura: There is no pleural effusion or pneumothorax. Heart and mediastinum: Enlarged cardiac silhouette, stable since prior exam. Mild central pulmonary venous congestion. Bones: No acute bony abnormality. Degenerative changes in the thoracic spine. IMPRESSION: 1. Diffuse bilateral reticular interstitial opacities. This may reflect diffuse interstitial edema or atypical infection. Interstitial lung disease is less likely, given the absence of findings on prior chest x-ray 09/22/2017. 2. No consolidation or effusion. 3. Stable enlargement of the cardiac silhouette. 4. Findings discussed with Dr. Vines November 04, 2017 1807 hrs. Charlie Vera M.D. Dictated by: Charlie Vera M.D. on 11/04/2017 at 18:09 Electronically approved by: Charlie Vera M.D. on 11/04/2017 at 18:09 Dictated By: CHARLIE VERA MD 09 Transcribed By: CALEB on 11/04/171809 COPY TO: MALCOLM VINES CHEST SINGLE (PORTABLE) [place] [address] Patient Name: VERONIQUE ALANIZ MR #: [id number] : 1945 Age/Sex: 72/M Req #: [id number] Adm Physician: EARNEST FOREMAN MD Ordered by: DANAY PORTILLO MD Report #: [id number] Location: MED/SURG Room/Bed: [facility] Procedure: [id number] DX/CHEST SINGLE (PORTABLE) Exam Date: 09/22/17 Exam Time: 0540 REPORT STATUS: Signed CHEST SINGLE (PORTABLE), 09/22/2017 5:00 AM Technique: CHEST SINGLE (PORTABLE) Comparison: Previous day Clinical history: CHF Findings: See Impression Impression: 1. Stable cardiomegaly status post sternotomy with left chest wall ICD. 2. Central vascular congestion and/or mild edema. Question tiny effusions. Signed by: Dr Ginna Blakc MD on 09/22/2017 6:26 AM Dictated By: GINNA BLACK MD 5 Transcribed By: DARION on 09/22/17625 COPY TO: DANAY PORTILLO MD CHEST SINGLE (PORTABLE) [place] [address] Patient Name: VERONIQUE ALANIZ MR #: [id number] : 1945 Age/Sex: 72/M Req #: [id number] Adm Physician: EARNEST FOREMAN MD Ordered by: EARNEST FOREMAN MD Report #: [id number] Location: MED/SURG Room/Bed: [facility] Procedure: [id number] DX/CHEST SINGLE (PORTABLE) Exam Date: 09/21/17 Exam Time: 0645 REPORT STATUS: Signed EXAMINATION: CHEST SINGLE (PORTABLE) INDICATION: COMPARISON: 09/20/2017 FINDINGS: AP view TUBES and LINES: Stable dual-lead left chest wall cardiac device. LUNGS: Lungs are well inflated. Unchanged pulmonary vascular congestion on mild interstitial edema. PLEURA: No significant pleural effusion or pneumothorax. HEART AND MEDIASTINUM: Enlarged cardiac silhouette. Aorta is calcified. BONES AND SOFT TISSUES: No acute osseous lesion. Soft tissues are unremarkable. UPPER ABDOMEN: No free air under the diaphragm. IMPRESSION: No significant interval change from prior exam. Pulmonary vascular congestion and mild interstitial edema. Signed by: Dr. Westley Yao MD on 09/21/2017 7:56 AM Dictated By: WESTLEY YAO MD 0756 Transcribed By: DARION on 09/21/17 075 COPY TO: EARNEST FOREMAN MD CHEST SINGLE (PORTABLE) [place] [address] Patient Name: VERONIQUE ALANIZ MR #: [id number] : 1945 Age/Sex: 72/M Req #: [id number] Adm Physician: EARNEST FOREMAN MD Ordered by: EARNEST FOREMAN MD Report #: [id number] Location: MED/SURG Room/Bed: 103-1 Procedure: [id number] DX/CHEST SINGLE (PORTABLE) Exam Date: 09/20/17 Exam Time: 524 REPORT STATUS: Signed CHEST SINGLE (PORTABLE), 09/20/2017 5:53 AM Technique: CHEST SINGLE (PORTABLE) Comparison: 09/18/2017 Clinical history: Congestive heart failure Findings: See Impression Impression: 1. Stable cardiomegaly status post sternotomy with left chest wall ICD. 2. Central vascular congestion without overt edema or consolidation. Trace left pleural effusion or thickening. Signed by: Dr Ginna Black MD on 09/20/2017 6:04 AM Dictated By: GINNA BLACK MD 3 Transcribed By: DARION on 09/20/17603 COPY TO: EARNEST FOREMAN MD SP LUMBAR, COMPLETE MIN 4VW [place] [address] Patient Name: VERONIQUE ALANIZ MR #: [id number] : 1945 Age/Sex: 72/M Req #: [id number] Adm Physician: EARNEST FOREMAN MD Ordered by: WILY GREY DO Report #: [id number] Location: MED/SURG Room/Bed: 103-1 Procedure: DX/SP LUMBAR, COMPLETE MIN 4VW Exam Date: 09/19/17 Exam Time: 1600 REPORT STATUS: Signed PROCEDURE: L-SPINE COMPLETE COMPARISON: None. INDICATIONS: LOWER BACK PAIN FINDINGS: Stool and bowel gas overlie some of the osseous structures. There are five lumbar-type vertebral bodies. Grade 1 anterolisthesis of L5 on S1 with questionable L5 pars defects. There are no acute displaced fractures, compression deformities, lytic or blastic lesions. Mild disc space narrowing at T12-L1 and L5-S1. The sacroiliac joints are unremarkable. Vascular calcifications in the pelvis. CONCLUSION: Grade 1 anterolisthesis of L5 on S1 with questionable L5 pars defects. Dictated by: Sanjeev Christy M.D. on 09/19/2017 at 17:02 Electronically approved by: Sanjeev Christy M.D. on 09/19/2017 at 17:02 Dictated By: SANJEEV CHRISTY MD 01 Transcribed By: CALEB on 09/19/171701 COPY TO: WILY GREY DO CT BRAIN WO [place] [address] Patient Name: VERONIQUE ALANIZ MR #: [id number] : 1945 Age/Sex: 72/M Req #: [id number] [facility] Physician: Ordered by: OLGA VEGA MD Report #: [id number] Location: ER Room/Bed: Procedure: CT/CT BRAIN WO Exam Date: 09/18/17 Exam Time: 1925 REPORT STATUS: Signed EXAMINATION: Head CT without contrast. HISTORY:History of fall, weakness. COMPARISON:CT brain from 08/29/2017. TECHNIQUE: Multidetector axial images were obtained from the foramen magnum to the vertex without contrast. The images were reconstructed using brain and bone algorithms. Thin section brain images were reformatted into coronal and sagittal planes. Intravenous contrast: None IMAGE QUALITY: Acceptable. FINDINGS: Skull/scalp: No lytic or blastic. lesions. No surgical changes. Parenchyma: Unchanged cortical-based hypodensity in the right pre-/post central gyri and paracentral lobule represents chronic encephalomalacia from prior vascular insult. Unchanged nonspecific few, scattered supratentorial white matter hypodensity are likely related to small vessel ischemic changes. No acute hemorrhage, mass or acute major vascular territorial infarct. Arteries: No density suggestive of thrombosis. Dural sinuses: No abnormal density suggestive of thrombosis. Ventricles: Mild compensated dilatation due to volume loss. No hydrocephalus. Extra-axial spaces: No abnormal density. Brain volume: Generalized age-related cerebral volume loss. Craniocervical junction: No mass, Chiari malformation, or basilar invagination. Sella: No mass. Paranasal/mastoid sinuses: Imaged portions unremarkable. IMPRESSION: No acute intracranial abnormality. No change since CT brain from 08/29/2017. Chronic findings: 1. 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 2. Mild supratentorial white matter microvascular ischemic changes. 3. Generalized age-related cerebral volume loss. Signed by: Dr. Debo Regalado M.D. on 09/18/2017 8:12 PM Dictated By: DEBO REGALADO MD 11 Transcribed By: DARION on 09/18/172011 COPY TO: OLGA VEGA MD CHEST SINGLE (NOT PORTABLE) [place] [address] Patient Name: VERONIQUE ALANIZ MR #: [id number] : 1945 Age/Sex: 72/M Req #: [id number] Adm Physician: Ordered by: AARON GARDINER MD Report #: [id number] Location: ER Room/Bed: Procedure: [id number] DX/CHEST SINGLE (NOT PORTABLE) Exam Date: 09/18/17 Exam Time: 1545 REPORT STATUS: Signed PROCEDURE: A single AP view of the chest. COMPARISON: Chest x- ray 02/27/2017. INDICATIONS: WEAKNESS FINDINGS: Lines/tubes: Left-sided AICD with 2 leads. Lungs: Lungs are moderately inflated. Central pulmonary venous congestion. Enlargement pulmonary vessels. Pleura: There is no pleural effusion or pneumothorax. Heart and mediastinum: Moderate cardiomegaly. Bones: No acute bony abnormality. IMPRESSION: Moderate cardiomegaly with central pulmonary venous congestion consistent with early fluid overload. Dictated by: Holden Sierra M.D. on 09/18/2017 at 16:43 Electronically approved by: Holden Sierra M.D. on 09/18/2017 at 16:43 Dictated By: HOLDEN SIERRA MD 42 Transcribed By: CALEB on 09/18/171642 COPY TO: AARON GARDINER MD CT BRAIN [place] [address] Patient Name: VERONIQUE ALANIZ MR #: [id number] : 1945 Age/Sex: 72/M Req #: [id number] Adm Physician: Ordered by: RONAN CÁRDENAS MD Report #: [id number] Location: CARD Room/Bed: Procedure: [id number] CT/CT BRAIN WO Exam Date: 08/29/17 Exam [...] artery territory, as above. Signed by: Dr. Keanu Briggs M.D. on 09/01/2017 1:36 PM Dictated By: KEANU BUCIO MD 1336 Transcribed By: DARION on 09/01/17 1336 COPY TO: RONAN CÁRDENAS MD CT THORACIC SPINE WO [place] [address] Patient Name: VERONIQUE ALANIZ MR #: [id number] : 1945 Age/Sex: 72/M Req #: [id number] Adm Physician: Ordered by: RNOAN CÁRDENAS MD Report #: [id number] Location: [facility] Room/Bed: Procedure: [id number] CT/CT THORACIC SPINE WO Exam Date: 08/29/17 [...] on the basis of this examination. Signed by: Dr. Kit Granados M.D. on 09/02/2017 5:07 PM Dictated By: KIT GRANADOS MD 06 Transcribed By: DARION on 09/02/171706 COPY TO: RONAN CÁRDENAS MD [place] [address] Patient Name: VERONIQUE ALANIZ MR #: [id number] : 1945 Age/Sex: 72/M Req #: [id number] Adm Physician: Ordered by: MALCOLM VINES MD, MD Report #: [id number] Location: RAD Room/Bed: Procedure: [id number] DX/ELBOW LEFT COMPLETE Exam Date: 08/15/17 Exam Time: 1441 REPORT STATUS: Signed ELBOW LEFT COMPLETE - 3 views HISTORY: Pain COMPARISON: None available. FINDINGS: See impression. IMPRESSION: Minimally displaced intra-articular fracture of the base of the olecranon with associated soft tissue swelling. Signed by: Dr. Westley Yao MD on 08/15/2017 3:23 PM Dictated By: WESTLEY YAO MD 1523 Transcribed By: DARION on 08/15/17 1523 COPY TO: MALCOLM VINES W/CXR [place] [address] Patient Name: VERONIQUE ALANIZ MR #: [id number] : 1945 Age/Sex: 72/M Req #: [id number] Adm Physician: Ordered by: MALCOLM VINES MD, MD Report #: [id number] Location: RAD Room/Bed: Procedure: [id number] DX/RIBS UNILAT W/CXR Exam Date: 08/15/17 Exam Time: 1441 REPORT STATUS: Signed EXAMINATION: RIBS UNILAT W/CXR INDICATION: COMPARISON: Chest x-ray dated 10/11/2016 FINDINGS: Very limited study due to generalized demineralization and body habitus. Left chest wall cardiac device is again seen. Median sternotomy wires. Enlarged cardiac silhouette. Calcified and tortuous aorta. Small left pleural effusion. IMPRESSION: No definite evidence of displaced left-sided rib fracture, considering limitations of the study. Signed by: Dr. Westley Yao MD on 08/15/2017 3:32 PM Dictated By: WESTLEY YAO MD 153 Transcribed By: DARION on 08/15/17 153 COPY TO: MALCOLM VINES CHEST 2 VIEWS [place] [address] Patient Name: VERONIQUE ALANIZ MR #: [id number] : 1945 Age/Sex: 71/M Req #: [id number] Adm Physician: Ordered by: ORLY CASILLAS MD Report #: [id number] Location: [facility] Room/Bed: Procedure: [id number] DX/CHEST 2 VIEWS Exam Date: Exam Time: REPORT STATUS: Signed PROCEDURE: Frontal and lateral views of the chest. COMPARISON: Chest x-ray 10/22/2016. INDICATIONS: SHORTNESS OF BREATH FINDINGS: Lines/tubes: Left- sided AICD with 2 leads. Median sternotomy wires are present. Lungs: The lungs are well inflated and clear. There is no evidence of pneumonia or pulmonary edema. Pleura: Tiny left pleural effusion. Heart and mediastinum: Mild cardiomegaly. Atherosclerotic calcifications in the aorta. Bones: No acute bony abnormality. IMPRESSION: Unchanged mild cardiomegaly. Tiny left pleural effusion. Dictated by: Holden Sierra M.D. on 02/27/2017 at 14:41 Electronically approved by: Holden Sierra M.D. on 02/27/2017 at 14:41 Dictated By: HOLDEN SIERRA MD 1441 Transcribed By: CALEB on 02/27/17 1441 COPY TO: ORLY CASILLAS MD
--- OUTSIDE RECORDS SUMMARY | 2018-06-05 16:49 | XMS REPORT | Summary of Care ---
Author Author [facility] Organization [facility] Address Unknown Phone Unavailable Encounter CARYN Chapman(SUSU) [id number] Date(s): 05/27/16 - 05/28/16 [facility] [address] [employer] provided by [employer] [facility] [employer] [place] [address]- Final: Chronic atrial fibrillation Discharge Disposition: Home or Self Care Attending Physician: Rubia Almeida MD Admitting Physician: Rubia Almeida MD Referring Physician: Rubia Almeida MD Vital Signs 1 2 3 Most recent to oldest [Reference Range]: 177.8 cm (05/27/16 11:19 AM) Height 98.6 DegF (05/28/16 12:00 PM) 97.9 DegF (05/28/16 7:46 AM) 98.6 DegF (05/28/16 4:00 AM) Temperature Oral [96.4-99.1 DegF] 140/76 mmHg (05/28/16 11:00 AM) 133/72 mmHg (05/28/16 8:00 AM) 137/75 mmHg (05/28/16 7:00 AM) Blood Pressure [90-140/60-90 mmHg] 19 BRMIN (05/28/16 4:00 AM) 18 BRMIN (05/27/16 6:44 PM) 15 BRMIN (05/27/16 6:00 PM) Respiratory Rate [14-20 BRMIN] 60 bpm (05/27/16 12:00 PM) Peripheral Pulse Rate [60-100 bpm] 87.273 kg (05/27/16 11:19 AM) Weight 27.61 m2 (05/27/16 11:19 AM) Body Mass Index Problem List Condition Effective Dates Status Health Status Informant Atrial Active fibrillation(Confirm ed) Pacemaker(Confirmed) Active Carotid Resolved stenosis(Confirmed) Congestive heart Active failure(Confirmed) Coronary Active atherosclerosis(Conf irmed) Diabetes Active mellitus(Confirmed) Hypercholesteremia(C Active onfirmed) Hypertension(Confirm Active ed) Allergies, Adverse Reactions, Alerts Substance Reaction Severity Status NKDA Active Medications acetaminophen-codeine #3 1 tab, Route: PO, Drug Form: TAB, Dosing Weight 87.273, kg, Q4H, PRN Pain Score 4-6, Start date: 05/27/16 16:40:00 [employer], Duration: 30 day, Stop date: 06/26/16 16 :39:00 [employer]GE [employer] TE[employer]ER Notes: Do not exceed 4gm/day of acetaminophen. (Same as: Tylenol with Codeine # 3) Start Date: 05/27/16 Stop Date: 05/28/16 Status: Discontinued ANES flumazenil 0.2 mg, 2 mL, Route: IVP, Drug form: INJ, PRN, Dosing Weight 87.273, kg, PRN James zodiazepine Reversal, Initial dose, Start date: 05/27/16 16:06:00 [employer]GE [employer]GRAM TE[employer]ER, Duration: 1 day, Stop date: 05/28/16 16:05:00 [employer]CHO[employer]GE [employer]GRAM TEACHER Notes: (Same as: Romazicon) Start Date: 05/27/16 Stop Date: 05/28/16 Status: Discontinued ANES hydrALAZINE 10 mg, 0.5 mL, Route: IVP, Drug form: INJ, Q20Min, Dosing Weight 87.273, kg, PRN Elevated BP, Start date: 05/27/16 16:06:00 [employer]GE [employer]ER, Duration: 2 doses or times, Stop date: Limited # of times Notes: (Same as: Apresoline)Push over 5 minutes Start Date: 05/27/16 Stop Date: 05/28/16 Status: Discontinued ANES metoprolol 1 mg, 1 mL, Route: IVP, Drug form: INJ, Q5Min, Dosing Weight 87.273, kg, PRN Oth er -See Comment, Start date: 05/27/16 16:06:00 [employer]GE [employer]ER, Duration: 5 doses or times, Stop date: Limited # of times Notes: (Same as: Lopressor)Push over 2 minutes Start Date: 05/27/16 Stop Date: 05/28/16 Status: Discontinued ANES naloxone 0.4 mg, 1 mL, Route: IVP, Drug form: INJ, Q2MIN, Dosing Weight 87.273, kg, PRN N arcotic Reversal, Start date: 05/27/16 16:06:00 [employer]GE [employer]ER, Duration: 8 doses or times, Stop date: Limited # of times Notes: Same as Narcan Start Date: 05/27/16 Stop Date: 05/28/16 Status: Discontinued ANES ondansetron 4 mg, 2 mL, Route: IVP, Drug form: INJ, ONCE, Dosing Weight 87.273, kg, PRN Naus ea & Vomiting, Start date: 05/27/16 16:06:00 [employer]CHO[employer]GE [employer] TE[employer]ER Notes: (Same as: Zofran) MEDICATION WASTE Product Size: 4 mgProduct Was [place]: ___ mg Start Date: 05/27/16 Stop Date: 05/28/16 Status: Discontinued ANES oxyCODONE 5 mg, 1 tab, Route: PO, Drug form: TAB, Q4H, Dosing Weight 87.273, kg, PRN Pain Score 4-6, Start date: 05/27/16 16:06:00 [employer]GE [employer]ER, Duration: 30 day, Stop date: 06/26 16:05:00 [employer] TE[employer]ER Notes: (Same as: Roxicodone) Start Date: 05/27/16 Stop Date: 05/28/16 Status: Discontinued ANES oxyCODONE 10 mg, 2 tab, Route: PO, Drug form: TAB, Q4H, Dosing Weight 87.273, kg, PRN Pain Score 7-10, Start date: 05/27/16 16:06:00 [employer]GE [employer] TE[employer]ER, Duration: 1 day, Stop date: 12/06 16:05:00 [employer]GE [employer] TE[employer]ER Notes: (Same as: Roxicodone) Start Date: 05/27/16 Stop Date: 05/28/16 Status: Discontinued ANES promethazine 6.25 mg, 0.25 mL, Route: IVPB, Drug form: INJ, ONCE, Dosing Weight 87.273, kg, P RN Nausea & Vomiting, Start date: 05/27/16 16:06:00 [employer] TE[employer]ER Notes: Do not give IV push. (Same as: Phenergan) Start Date: 05/27/16 Stop Date: 05/28/16 Status: Discontinued aspirin 81 mg tablet, enteric coated 81 mg, 1 tab, Route: PO, Drug form: ECTAB, Daily, Dosing Weight 87.273, kg, Star t date: 05/28/16 9:00:00 [employer]ER, Duration: 30 day, Stop date: 06/26/16 9:00:00 [employer] TE[employer]ER Notes: Do not crush or chew.(Same As: Ecotrin) Start Date: 05/28/16 Stop Date: 05/28/16 Status: Discontinued aspirin 81 mg tablet, enteric coated 81 mg=1 tab, PO, Daily, # 90 tab, 3 Refill(s) Start Date: 05/27/16 Status: Ordered ceFAZolin 1 gm, Route: IVPB, Drug form: INJ, ABXQ8H, Dosing Weight 87.273, kg, Start date: 05/27/16 17:00:00 [employer]GE [employer]ER, Duration: 3 doses or times, Stop date: 05/28/16 9:00:00 [employer] TE[employer]ER Start Date: 05/27/16 Stop Date: 05/27/16 Status: Discontinued ceFAZolin 1 gm, Route: IVPB, Drug form: PDR/INJ, ABXQ8H, Start date: 05/27/16 23:30:00 S[employer]GE [employer] TE[employer]ER , Duration: 3 doses or times, Stop date: 05/28/16 15:30:00 S[employer] TE[employer]ER Notes: (Same As: Thom Merafzol) MEDICATION WASTE Product Size: 1000 mgP roduct Wasted: ___ mg Start Date: 05/27/16 Stop Date: 05/28/16 Status: Discontinued ceFAZolin (ANES) Route: IV, Drug form: INJ, ONCE, Stop date: 05/27/16 15:12:00 [employer] TE[employer]ER Start Date: 05/27/16 Stop Date: 05/27/16 Status: Completed Cepacol Sore Throat 15 mg-3.6 mg mucous membrane lozenge 1 lozenge, Route: MUCOUS MEM, Drug Form: HOSEA, Dosing Weight 87.273, kg, Q2H, PRN Sore Throat, Start date: 05/27/16 21:13:00 [employer] TE[employer]ER, Duration: 30 day, Stop date: 21:12:00 SCHO[employer]GE [employer]GRAM TE[employer]ER Notes: Cepacol lozengesDispense 1 box=16 lozenges (Same As: Cepacol Lozenges) Start Date: 05/27/16 Stop Date: 05/28/16 Status: Discontinued cisatracurium (ANES) Route: IV, Drug form: INJ, ONCE, Stop date: 05/27/16 15:12:00 [employer] TE[employer]ER Start Date: 05/27/16 Stop Date: 05/27/16 Status: Completed CoQ10 300 mg, PO, Daily, 0 Refill(s) Start Date: 05/27/16 Status: Ordered Crestor 20 mg, Route: PO, Drug form: TAB, Bedtime, Dosing Weight 87.273, kg, Start date: 05/27/16 21:00:00 [employer] TE[employer]ER, Duration: 30 day, Stop date: 06/25/16 21:00:00 [employer]GE [employer] TE[employer]ER Start Date: 05/27/16 Stop Date: 05/27/16 Status: Discontinued Crestor 20 mg oral tablet 20 mg=1 tab, PO, Bedtime, # 30 tab, 0 Refill(s) Start Date: 05/27/16 Stop Date: 05/28/16 Status: Discontinued digoxin 125 mcg (0.125 mg) oral tablet 125 microgram=1 tab, PO, Daily, # 30 tab, 0 Refill(s) Start Date: 05/27/16 Status: Ordered digoxin 125 mcg (0.125 mg) oral tablet 125 microgram, 1 tab, Route: PO, Drug form: TAB, Daily, Dosing Weight 87.273, kg , Start date: 05/28/16 9:00:00 [employer]GE [employer] TE[employer]ER, Duration: 30 day, Stop date: 06/26/16 9:00:0 0 [employer] TE[employer]ER Notes: Take on an Empty Stomach (Same as: Lanoxin) Start Date: 05/28/16 Stop Date: 05/28/16 Status: Discontinued EPINEPHrine (ANES) Route: IV, Drug form: INJ, ONCE, Stop date: 05/27/16 15:47:00 SCHO[employer]GE [employer]GRAM TEACHER Start Date: 05/27/16 Stop Date: 05/27/16 Status: Completed EPINEPHrine (ANES) Route: IV, Drug form: INJ, ONCE, Stop date: 05/27/16 16:02:00 SCHO[employer]GE [employer]GRAM TEACHER Start Date: 05/27/16 Stop Date: 05/27/16 Status: Completed fenofibric acid 135 mg, Route: PO, Drug form: CAP, Daily, Dosing Weight 87.273, kg, Start date: 05/28/16 9:00:00 SCHO[employer]GE [employer]GRAM TE[employer]ER, Duration: 30 day, Stop date: 06/26/16 9:00:00 SCHO[employer]GE [employer]GRAM TEACHER Start Date: 05/28/16 Stop Date: 05/27/16 Status: Discontinued fenofibric acid 135 mg oral delayed release capsule 135 mg=1 cap, PO, Daily, # 30 cap, 0 Refill(s) Start Date: 05/27/16 Status: Ordered fentaNYL 25 microgram, 0.5 mL, Route: IV, Drug form: INJ, PRN, Dosing Weight 87.273, kg, PRN Pain Score 1-5, Start date: 05/27/16 16:06:00 SCHO[employer]GE [employer] TE[employer]ER, Duration: 30 day, Stop da te: 06/26/16 16:05:00 SCHO[employer]GE [employer]GRAM TEACHER Notes: (Same as: Sublimaze) Preservative free. Start Date: 05/27/16 Stop Date: 05/28/16 Status: Discontinued fentaNYL (ANES) Route: IV, Drug form: INJ, ONCE, Stop date: 05/27/16 15:12:00 SCHO[employer]GE [employer]GRAM TEACHER Start Date: 05/27/16 Stop Date: 05/27/16 Status: Completed furosemide 40 mg oral tablet 40 mg=1 tab, PO, Daily, # 30 tab, 0 Refill(s) Start Date: 05/27/16 Status: Ordered furosemide 40 mg oral tablet 40 mg, 1 tab, Route: PO, Drug form: TAB, Daily, Dosing Weight 87.273, kg, Start date: 05/28/16 9:00:00 SCHO[employer]GE [employer]GRAM TE[employer]ER, Duration: 30 day, Stop date: 06/26/16 9:00:00 SCHO[employer]GE [employer]GRAM TEACHER Notes: (Same as: Lasix) May cause GI upset. Give with food or milk. Start Date: 05/28/16 Stop Date: 05/28/16 Status: Discontinued glipiZIDE-metformin 5 mg-500 mg oral tablet 1 tab, Route: PO, Drug Form: TAB, Dosing Weight 87.273, kg, BID-Meals, Start naomy e: 05/27/16 17:00:00 SCHO[employer]GE [employer]GRAM TEACHER, Duration: 30 day, Stop date: 06/26/16 8:00:00 SCHOOL [employer]GE PROGRAM TEACHER Start Date: 05/27/16 Stop Date: 05/27/16 Status: Discontinued glipiZIDE-metformin 5 mg-500 mg oral tablet 1 tab, PO, BID-Meals, # 60 tab, 0 Refill(s) Start Date: 05/27/16 Status: Ordered Glucophage 500 mg, 1 tab, Route: PO, Drug form: TAB, BID-Meals, Start date: 05/27/16 19:04: 00 [employer]CHO[employer]GE [employer] TE[employer]ER, Duration: 30 day, Stop date: 06/26/16 17:00:00 SCHO[employer]GE PROGRAM TEACHER Notes: (Same as: Glucophage) Take with meal Start Date: 05/27/16 Stop Date: 05/28/16 Status: Discontinued Glucotrol 5 mg, 1 tab, Route: PO, Drug form: TAB, BID-Meals, Start date: 05/27/16 19:05:00 SCHO[employer]GE [employer]GRAM TE[employer]ER, Duration: 30 day, Stop date: 06/26/16 17:00:00 SCHOOL [employer]GE PROGRAM TEACHER Notes: (Same as: Glucotrol) 30 min before meals. Start Date: 05/27/16 Stop Date: 05/28/16 Status: Discontinued glycopyrrolate (ANES) Route: IV, Drug form: INJ, ONCE, Stop date: 05/27/16 16:53:00 SCHO[employer]GE [employer]GRAM TEACHER Start Date: 05/27/16 Stop Date: 05/27/16 Status: Completed glycopyrrolate (ANES) Route: IV, Drug form: INJ, ONCE, Stop date: 05/27/16 15:47:00 SCHO[employer]GE [employer]GRAM TEACHER Start Date: 05/27/16 Stop Date: 05/27/16 Status: Completed hydrALAZINE 10 mg, 0.5 mL, Route: IV, Drug form: INJ, ONCE, Dosing Weight 87.273, kg, Start date: 05/27/16 21:14:00 SCHO[employer]GE [employer]GRAM TE[employer]ER, Stop date: 05/27/16 21:14:00 SCHO[employer]GE PROGRAM TEACHER Notes: (Same as: Apresoline)Push over 5 minutes Start Date: 05/27/16 Stop Date: 05/27/16 Status: Completed Levemir FlexPen 34 units, SUB-Q, Daily, 0 Refill(s) Start Date: 05/27/16 Status: Ordered Levemir FlexPen 34 unit, 0.34 mL, Route: SUB-Q, Drug form: SOLN, Daily, Dosing Weight 87.273, kg , Start date: 05/28/16 9:00:00 SCHO[employer]GE [employer]GRAM TEACHER, Duration: 30 day, Stop date: 06/26/16 9:00:0 0 [employer]GRAM TEACHER Notes: Same as LevemirDo not hold insulin without contacting prescriberWASTE: F/ P - Black; E - Municipal Trash Bin "single patient use only" Start Date: 05/28/16 Stop Date: 05/28/16 Status: Discontinued linagliptin 5 mg, Route: PO, Daily, Dosing Weight 87.273, kg, Start date: 05/28/16 9:00:[address] Start Date: 05/28/16 Stop Date: 05/28/16 Status: Discontinued linagliptin 5 mg, Route: PO, Daily, Dosing Weight 87.273, kg, Start date: 05/28/16 9:00:[address] Start Date: 05/28/16 Stop Date: 05/27/16 Status: Discontinued Lipitor 40 mg, 1 tab, Route: PO, Drug form: TAB, Bedtime, Start date: 05/27/16 21:00:00 SCHO[employer]GE [employer] TE[employer]ER, Duration: 30 day, Stop date: 06/25/16 21:00:00 SCHO[employer]GE PROGRAM TEACHER Notes: (Same as: Lipitor) Start Date: 05/27/16 Stop Date: 05/28/16 Status: Discontinued lisinopril 20 mg, 1 tab, Route: PO, Drug form: TAB, Daily, Dosing Weight 87.273, kg, Start date: 05/28/16 9:00:00 SCHO[employer]GE [employer]GRAM TE[employer]ER, Duration: 30 day, Stop date: 06/26/16 9:00:00 SCHO[employer]GE PROGRAM TEACHER Notes: (Same as: Prinivil, Zestril) Start Date: 05/28/16 Stop Date: 05/28/16 Status: Discontinued lisinopril 20 mg oral tablet 20 mg=1 tab, PO, Daily, # 30 tab, 0 Refill(s) Start Date: 05/27/16 Status: Ordered metoprolol tartrate 100 mg oral tablet 100 mg=1 tab, PO, BID, # 60 tab, 0 Refill(s) Start Date: 05/27/16 Status: Ordered midazolam (ANES) Route: IV, Drug form: SOLN, ONCE, Stop date: 05/27/16 15:12:00 SCHO[employer]GE [employer] TE[employer]ER Start Date: 05/27/16 Stop Date: 05/27/16 Status: Completed Minocin 100 mg, 1 cap, Route: PO, Drug form: CAP, BID, Start date: 05/28/16 11:30:00 SCHO[employer]GE PROGRAM TEACHER , Duration: 30 day, Stop date: 06/27/16 9:00:00 SCHO[employer]GE PROGRAM TEACHER Notes: (Same as:Minocin) No milk/antacids/iron. Start Date: 05/28/16 Stop Date: 05/28/16 Status: Discontinued minocycline 100 mg oral capsule 100 mg=1 cap, PO, BID, # 14 cap, 0 Refill(s) Start Date: 05/28/16 Stop Date: 06/04/16 Status: Ordered minocycline topical 1 mg, Route: TOP, Dosing Weight 87.273, kg, Daily, Start date: 05/29/16 9:00:00 SCHO[employer]GE [employer]GRAM TE[employer]ER, Duration: 30 day, Stop date: 06/27/16 9:00:00 SCHO[employer]GE PROGRAM TEACHER Start Date: 05/29/16 Stop Date: 05/28/16 Status: Discontinued minocycline topical 1 mg=, TOP, Daily, 0 Refill(s) Start Date: 05/28/16 Stop Date: 05/28/16 Status: Discontinued neostigmine (ANES) Route: IV, Drug form: INJ, ONCE, Stop date: 05/27/16 16:53:00 SCHO[employer]GE [employer]GRAM TEACHER Start Date: 05/27/16 Stop Date: 05/27/16 Status: Completed norepinephrine (ANES) Route: IV, Drug form: INJ, ONCE, Stop date: 05/27/16 15:47:00 SCHOOL [employer]GE PROGRAM TEACHER Start Date: 05/27/16 Stop Date: 05/27/16 Status: Completed norepinephrine (ANES) Route: IV, Drug form: INJ, ONCE, Stop date: 05/27/16 15:57:00 SCHO[employer]GE PROGRAM TEACHER Start Date: 05/27/16 Stop Date: 05/27/16 Status: Completed ondansetron 4 mg, 2 mL, Route: IVP, Drug form: INJ, Q8H, Dosing Weight 87.273, kg, PRN Nause a & Vomiting, Start date: 05/27/16 16:40:00 SCHO[employer]GE PROGRAM TEACHER, Duration: 30 day, Stop date: 06/26/16 16:39:00 SCHO[employer]GE PROGRAM TEACHER Notes: (Same as: James) MEDICATION WASTE Product Size: 4 mgProduct Was [place]: ___ mg Start Date: 05/27/16 Stop Date: 05/28/16 Status: Discontinued ondansetron (ANES) Route: IV, Drug form: INJ, ONCE, Stop date: 05/27/16 16:22:00 SCHO[employer]GE PROGRAM TEACHER Start Date: 05/27/16 Stop Date: 05/27/16 Status: Completed Onglyza 5 mg oral tablet 5 mg=1 tab, PO, Daily, # 30 tab, 3 Refill(s) Start Date: 05/27/16 Stop Date: 06/26/16 Status: Ordered Plasma-Lyte A PH-7.4 1000 ml INJ (ANES) Route: IV, Total Volume: 1,000, Start date: 05/27/16 15:35:00 SCHO[employer]GE [employer]GRAM TE[employer]ER, Stop date: 16:35:00 SCHO[employer]GE PROGRAM TEACHER Start Date: 05/27/16 Stop Date: 05/27/16 Status: Completed potassium chloride 10 mEq oral tablet, extended release =1 cap, PO, Daily, # 30 cap, 1 Refill(s) Start Date: 05/27/16 Status: Ordered potassium chloride 10 mEq oral tablet, extended release 10 mEq, 1 tab, Route: PO, Drug form: ERTAB, Daily, Dosing Weight 87.273, kg, Sta rt date: 05/28/16 9:00:00 SCHO[employer]GE PROGRAM TEACHER, Duration: 30 day, Stop date: 06/26/16 9:00:00 SCHO[employer]GE PROGRAM TEACHER Notes: (Same as: K-Dur 10)"Do Not Crush" With food and full glass of water Start Date: 05/28/16 Stop Date: 05/28/16 Status: Discontinued propofol (ANES) Route: IV, Drug form: INJ, ONCE, Stop date: 05/27/16 15:12:00 SCHO[employer]GE [employer]GRAM TEACHER Start Date: 05/27/16 Stop Date: 05/27/16 Status: Completed sodium chloride 0.9% 1000 ml INJ (ANES) Route: IV, Total Volume: 1,000, Start date: 05/27/16 14:02:00 SCHO[employer]GE PROGRAM TEACHER, Stop date: 15:02:00 SCHO[employer]GE PROGRAM TEACHER Start Date: 05/27/16 Stop Date: 05/27/16 Status: Completed sodium chloride 0.9% 1000 ml INJ 1,000 mL 1,000 mL, Rate: 50 ml/hr, Infuse over: 20 hr, Route: IV, Total Volume: 1,000, St art date: 05/27/16 6:00:00 SCHO[employer]GE PROGRAM TEACHER, Duration: 30 day, Stop date: 06/26/16 5:59:00 CS T Start Date: 05/27/16 Stop Date: 05/28/16 Status: Discontinued Toprol-XL 200 mg oral tablet, extended release 200 mg, 2 tab, Route: PO, Drug form: ERTAB, Daily, Start date: 05/28/16 9:00:00 SCHO[employer]GE PROGRAM TEACHER, Duration: 30 day, Stop date: 06/26/16 9:00:00 SCHO[employer]GE PROGRAM TEACHER Notes: (Same as: Toprol XL) May split tab, but do not crush. Start Date: 05/28/16 Stop Date: 05/28/16 Status: Discontinued tramadol 50 mg oral tablet 50 mg=1 tab, PO, Q6H, PRN Pain, X 5 day, # 20 tab, 0 Refill(s) Start Date: 05/28/16 Stop Date: 06/02/16 Status: Ordered tramadol 50 mg oral tablet 50 mg=1 tab, PO, Q6H, PRN Pain, X 5 day, # 20 tab, 0 Refill(s), given to patient Start Date: 05/28/16 Stop Date: 05/28/16 Status: Discontinued TriCor 145 mg, 1 tab, Route: PO, Drug form: TAB, Daily, Start date: 05/28/16 9:00:00 CS T, Duration: 30 day, Stop date: 06/26/16 9:00:00 SCHO[employer]GE [employer]GRAM TEACHER Notes: (Same as: Tricor) Start Date: 05/28/16 Stop Date: 05/28/16 Status: Discontinued Tylenol 325 mg oral tablet 325 mg=1 tab, PO, Q4H, PRN Pain, X 10 day, # 60 tab, 0 Refill(s), given to patie nt Start Date: 05/28/16 Stop Date: 06/07/16 Status: Ordered ubiquinone 300 mg, 3 cap, Route: PO, Drug form: CAP, Daily, Dosing Weight 87.273, kg, Start date: 05/28/16 9:00:00 SCHO[employer]GE [employer]GRAM TEACHER, Duration: 30 day, Stop date: 06/26/16 9:00:00 SCHO[employer]GE PROGRAM TEACHER Notes: Same as Co-Enzyme Q10 Start Date: 05/28/16 Stop Date: 05/28/16 Status: Discontinued vasopressin (ANES) Route: IV, Drug form: INJ, ONCE, Stop date: 05/27/16 16:02:00 SCHO[employer]GE [employer]GRAM TEACHER Start Date: 05/27/16 Stop Date: 05/27/16 Status: Completed Xarelto 20 mg, 1 tab, Route: PO, Drug form: TAB, QPM, Dosing Weight 87.273, kg, Start da te: 05/27/16 17:00:00 SCHO[employer]GE [employer]GRAM TEACHER, Duration: 30 day, Stop date: 06/25/16 17:00:00 SCHO[employer]GE PROGRAM TEACHER Notes: (Same as: Xarelto)Administer with food Start Date: 05/27/16 Stop Date: 05/28/16 Status: Discontinued Xarelto 20 mg oral tablet 20 mg=1 tab, PO, QPM, # 90 tab, 0 Refill(s), given to patient Start Date: 05/28/16 Stop Date: 05/28/16 Status: Discontinued Xarelto 20 mg oral tablet 20 mg=1 tab, PO, QPM, # 30 tab, 3 Refill(s) Start Date: 05/27/16 Stop Date: 05/28/16 Status: Discontinued Results BLOOD BANK RESULTS 1 2 3 Most recent to oldest [Reference Range]: A POS *Unknown* (05/27/16 11:35 AM) ABO/Rh Negative (05/27/16 11:35 AM) Antibody Scrn ELECTROLYTES 1 2 3 Most recent to oldest [Reference Range]: 137 mEq/L (05/28/16 6:07 AM) 142 mEq/L (05/27/16 5:31 PM) 141 mEq/L (05/27/16 11:35 AM) Sodium Lvl [135-145 mEq/L] 3.8 mEq/L (05/28/16 6:07 AM) 3.9 mEq/L (05/27/16 5:31 PM) 4.4 mEq/L (05/27/16 11:35 AM) Potassium Lvl [3.5-5.1 mEq/L] 105 mEq/L (05/28/16 6:07 AM) 109 mEq/L (05/27/16 5:31 PM) 106 mEq/L (05/27/16 11:35 AM) Chloride Lvl [95-109 mEq/L] 24 mEq/L (05/28/16 6:07 AM) 24 mEq/L (05/27/16 5:31 PM) 24 mEq/L (05/27/16 11:35 AM) CO2 [24-32 mEq/L] 11.8 mEq/L (05/28/16 6:07 AM) 12.9 mEq/L (05/27/16 5:31 PM) 15.4 mEq/L (05/27/16 11:35 AM) AGAP [10.0-20.0 mEq/L] CHEM PANEL 1 2 3 Most recent to oldest [Reference Range]: 1.01 mg/dL (05/28/16 6:07 AM) 0.95 mg/dL (05/27/16 5:31 PM) 1.00 mg/dL (05/27/16 11:35 AM) Creatinine Lvl [0.50-1.40 mg/dL] 75 mL/min/1.73m2 1 *NA* (05/28/16 6:07 AM) 81 mL/min/1.73m2 2 *NA* (05/27/16 5:31 PM) 76 mL/min/1.73m2 3 *NA* (05/27/16 11:35 AM) eGFR 12 mg/dL (05/28/16 6:07 AM) 13 mg/dL (05/27/16 5:31 PM) 13 mg/dL (05/27/16 11:35 AM) BUN [7-22 mg/dL] 13 (05/27/16 11:35 AM) B/C Ratio [6-25] 178 mg/dL *HI* (05/28/16 6:07 AM) 107 mg/dL *HI* (05/27/16 5:31 PM) 130 mg/dL *HI* (05/27/16 11:35 AM) Glucose Lvl [70-99 mg/dL] 8.1 g/dL (05/27/16 11:35 AM) Total Protein [6.4-8.4 g/dL] 3.6 g/dL (05/27/16 11:35 AM) Albumin Lvl [3.5-5.0 g/dL] 4.5 g/dL *HI* (05/27/16 11:35 AM) Globulin [2.7-4.2 g/dL] 0.8 (05/27/16 11:35 AM) A/G Ratio [0.7-1.6] 8.3 mg/dL *LOW* (05/28/16 6:07 AM) 8.1 mg/dL *LOW* (05/27/16 5:31 PM) 9.3 mg/dL (05/27/16 11:35 AM) Calcium Lvl [8.5-10.5 mg/dL] 3.1 mg/dL (05/28/16 6:07 AM) Phosphorus [2.5-4.5 mg/dL] 1.6 mg/dL *LOW* (05/28/16 6:07 AM) 1.5 mg/dL *LOW* (05/27/16 11:35 AM) Magnesium Lvl [1.8-2.4 mg/dL] 38 unit/L (05/27/16 11:35 AM) ALT [0-65 unit/L] 39 unit/L *HI* (05/27/16 11:35 AM) AST [0-37 unit/L] 44 unit/L (05/27/16 11:35 AM) Alk Phos [39-136 unit/L] 0.6 mg/dL (05/27/16 11:35 AM) Bili Total [0.2-1.3 mg/dL] 1Result Comment: The eGFR is calculated using the [...] from the National Kid[employer] Education Program ( NKDEP) which additionally recommends that when the eGFR is used in patients with extremes of body mass index for purposes of drug dosing, the eGFR should be mul tiplied by the estimated BMI. 2Result Comment: The eGFR is calculated using the [...] from the National Kid[employer] Education Program ( NKDEP) which additionally recommends that when the eGFR is used in patients with extremes of body mass index for purposes of drug dosing, the eGFR should be mul tiplied by the estimated BMI. 3Result Comment: The eGFR is calculated using the [...] from the National Kid[employer] Education Program ( NKDEP) which additionally recommends that when the eGFR is used in patients with extremes of body mass index for purposes of drug dosing, the eGFR should be mul tiplied by the estimated BMI. HEMATOLOGY 1 2 3 Most recent to oldest [Reference Range]: 12.4 K/CMM *HI* (05/28/16 6:07 AM) 10.5 K/CMM *HI* (05/27/16 5:31 PM) 9.2 K/CMM (05/27/16 11:35 AM) WBC [3.7-10.4 K/CMM] 4.23 M/CMM *LOW* (05/28/16 6:07 AM) 4.48 M/CMM *LOW* (05/27/16 5:31 PM) 4.93 M/CMM (05/27/16 11:35 AM) RBC [4.70-6.10 M/CMM] 12.5 g/dL *LOW* (05/28/16 6:07 AM) 13.5 g/dL *LOW* (05/27/16 5:31 PM) 15.0 g/dL (05/27/16 11:35 AM) Hgb [14.0-18.0 g/dL] 37.3 % *LOW* (05/28/16 6:07 AM) 40.1 % *LOW* (05/27/16 5:31 PM) 43.7 % (05/27/16 11:35 AM) Hct [42.0-54.0 %] 88.0 fL (05/28/16 6:07 AM) 89.5 fL (05/27/16 5:31 PM) 88.7 fL (05/27/16 11:35 AM) MCV [80.0-94.0 fL] 29.5 pg (05/28/16 6:07 AM) 30.1 pg (05/27/16 5:31 PM) 30.4 pg (05/27/16 11:35 AM) MCH [27.0-31.0 pg] 33.5 g/dL (05/28/16 6:07 AM) 33.7 g/dL (05/27/16 5:31 PM) 34.3 g/dL (05/27/16 11:35 AM) MCHC [32.0-36.0 g/dL] 15.0 % *HI* (05/28/16 6:07 AM) 14.9 % *HI* (05/27/16 5:31 PM) 15.0 % *HI* (05/27/16 11:35 AM) RDW [11.5-14.5 %] 156 K/CMM (05/28/16 6:07 AM) 169 K/CMM (05/27/16 5:31 PM) 193 K/CMM (05/27/16 11:35 AM) Platelet [133-450 K/CMM] 9.4 fL (05/28/16 6:07 AM) 9.1 fL (05/27/16 5:31 PM) 9.5 fL (05/27/16 11:35 AM) MPV [7.4-10.4 fL] 67.2 % (05/28/16 6:07 AM) 63.2 % (05/27/16 5:31 PM) 53.1 % (05/27/16 11:35 AM) Segs [45.0-75.0 %] 22.6 % (05/28/16 6:07 AM) 23.3 % (05/27/16 5:31 PM) 31.7 % (05/27/16 11:35 AM) Lymphocytes [20.0-40.0 %] 9.3 % (05/28/16 6:07 AM) 9.1 % (05/27/16 5:31 PM) 10.0 % (05/27/16 11:35 AM) Monocytes [2.0-12.0 %] 0.5 % (05/28/16 6:07 AM) 3.6 % (05/27/16 5:31 PM) 4.0 % (05/27/16 11:35 AM) Eosinophils [0.0-4.0 %] 0.4 % (05/28/16 6:07 AM) 0.8 % (05/27/16 5:31 PM) 1.2 % *HI* (05/27/16 11:35 AM) Basophils [0.0-1.0 %] 8.3 K/CMM *HI* (05/28/16 6:07 AM) 6.6 K/CMM (05/27/16 5:31 PM) 4.9 K/CMM (05/27/16 11:35 AM) Segs-Bands # [1.5-8.1 K/CMM] 2.8 K/CMM (05/28/16 6:07 AM) 2.4 K/CMM (05/27/16 5:31 PM) 2.9 K/CMM (05/27/16 11:35 AM) Lymphocytes # [1.0-5.5 K/CMM] 1.2 K/CMM *HI* (05/28/16 6:07 AM) 1.0 K/CMM *HI* (05/27/16 5:31 PM) 0.9 K/CMM *HI* (05/27/16 11:35 AM) Monocytes # [0.0-0.8 K/CMM] 0.1 K/CMM (05/28/16 6:07 AM) 0.4 K/CMM (05/27/16 5:31 PM) 0.4 K/CMM (05/27/16 11:35 AM) Eosinophils # [0.0-0.5 K/CMM] 0.1 K/CMM (05/28/16 6:07 AM) 0.1 K/CMM (05/27/16 5:31 PM) 0.1 K/CMM (05/27/16 11:35 AM) Basophils # [0.0-0.2 K/CMM] 25.3 seconds *HI* (05/28/16 6:07 AM) 16.1 seconds *HI* (05/27/16 5:31 PM) 14.9 seconds *HI* (05/27/16 11:35 AM) PT [12.0-14.7 seconds] 2.26 *HI* (05/28/16 6:07 AM) 1.26 *HI* (05/27/16 5:31 PM) 1.15 (05/27/16 11:35 AM) INR [0.85-1.17] 46.5 seconds *HI* (05/28/16 6:07 AM) 33.2 seconds (05/27/16 5:31 PM) 37.1 seconds *HI* (05/27/16 11:35 AM) PTT [22.9-35.8 seconds] Immunizations No data available for this section Procedures Procedure Date Related Diagnosis Body Site Cardiac pacemaker procedure Carotid endarterectomy Repair of knee joint Social History Social History Type Response Employment/School Status: Retired. Alcohol Past Smoking Status Former smoker; Type: Cigarettes; Started at age: 19.0; Stopped at age: 55; Previous treatment: None; Ready to change: Yes; Concerns about tobacco use in household: No; Exposure to Tobacco Smoke None; Cigarette Smoking Last 365 Days No; Reg Smoking Cessation Counseling No Assessment and Plan Extracted from: Title: EP-Cardiology Progress Note Author: Gurinder Shine MD Date: 05/28/16 Impression and Plan 71 y/o M with chronic AF, cardiomyopathy s/p Medtronic ICD ( 1997) with LBBB, EF < 35 % on optimal medical therapy who is a candidated for Bi-V ICD placement. A previous attempt at Bi-V ICD insertion demonstrated occluded axillary veins. He was referred for explant of chronic lead and re-implant of a new Bi-V ICD system which was performed on 05/28/2016. Device was interrogated today and is functioning well. except for some noise. There is a non-expanding hematoma at the pocket site but the skin is not tense and there is no bleeding oozing. Pressure dressing was placed. Plans: 1. Patient instructed to keep wound completely dry for 3 days & not elevate device- side arm > 90 degrees or lift > 10 lbs for one month. 2. Keep the pressure dressing on until seen in the clinic next week. 3. Hold anticoagulation for time being until seen in the clinic (has hematoma) 4. Pain control: Tylenol & Tylenol #3 as needed. 5. Minocycline for a week 6. Follow up in EP clinic early next week 7. D/C to home in stable condition.
[2018-06-05] MEDS ORDERED: SODIUM CHLORIDE 0.9% 1000ML 1,000 ML ONE (17:05)
[2018-06-05] MEDS ORDERED: SODIUM CHLORIDE 0.9% 1000ML 1,000 ML IV STA ×2 (17:11→19:43)
[2018-06-05] MEDS ORDERED: SODIUM CHLORIDE 0.9% 1000ML 1,000 ML IV ONE (17:15)
[2018-06-05 18:25] LABS: BASOPHILS # (AUTO) 0.1 (0.0-0.1); BASOPHILS % 0.7 % (0.0-1.0); EOSINOPHILS # (AUTO) 0.2 (0.0-0.4); HEMATOCRIT 37.6 % (38.2-49.6); HEMOGLOBIN 12.3 g/dL (14.0-18.0); LYMPHOCYTES # (AUTO) 1.7 (1.0-3.2); LYMPHOCYTES % 14.8 % (18.0-39.1); MEAN CORPUSCULAR HEMOGLOBIN 29.9 pg (28-32); MEAN CORPUSCULAR HGB CONC 32.7 g/dL (31-35); MEAN CORPUSCULAR VOLUME 91.3 fL (81-99); MONOCYTES # (AUTO) 1.2 (0.2-0.8); MONOCYTES % 10.3 % (4.4-11.3); NEUTROPHILS # (AUTO) 8.2 (2.1-6.9); NEUTROPHILS % 71.3 % (38.7-80.0); PLATELET COUNT 266 x10e3/uL (140-360); RED BLOOD COUNT 4.12 x10e6/uL (4.3-5.7); RED CELL DISTRIBUTION WIDTH 15.2 % (11.7-14.4)
--- NOTE | 2018-06-05 18:42 | Diagnostic Imaging Report ---
EXAMINATION: CHEST SINGLE (PORTABLE) INDICATION: ^ERMD ORDER ^Y COMPARISON: Chest radiograph 11/11/2017 FINDINGS: AP view TUBES and LINES: Stable position of left internal jugular vein central line and left approach ICD. LUNGS: Lungs are well inflated. Bilateral interstitial edema, increased. No new lobar consolidations. PLEURA: No pleural effusion or pneumothorax. HEART AND MEDIASTINUM: Stable moderate enlargement of the cardiac silhouette. BONES AND SOFT TISSUES: Intact median sternotomy wires. Soft tissues are unremarkable. UPPER ABDOMEN: No free air under the diaphragm. IMPRESSION: Worsening bilateral interstitial edema. Signed by: Dr. Johana Cavazos M.D. on 06/05/2018 6:38 PM
[2018-06-05 18:44] LABS: ALBUMIN 2.9 g/dL (3.5-5.0); ALBUMIN/GLOBULIN RATIO 0.5 (0.8-2.0); ANION GAP 16.2 mmol/L (8-16); CALCIUM 9.5 mg/dL (8.4-10.2); CREATININE, SERUM 1.96 mg/dL (0.72-1.25); MAGNESIUM 2.2 MG/DL (1.3-2.1); POTASSIUM 4.2 mmol/L (3.5-5.1)
--- NOTE | 2018-06-05 18:48 | Diagnostic Imaging Report ---
ADDENDUM #1 I have reviewed the images and agree with the findings in the preliminary report. Signed by: Dr. Debo Regalado M.D. on 06/05/2018 8:45 PM ORIGINAL REPORT Exam: Noncontrast head CT History:Decreased blood pressure, cough, weak, 73-year-old male Comparison studies: Head CT dated 09/18/2017 Technique: Axial images were obtained from the skull base to the vertex. Coronal and sagittal images reconstructed from the axial data. Dose modulation, iterative reconstruction, and/or weight based adjustment of the mA/kV was utilized to reduce the radiation dose to as low as reasonably achievable. Intravenous contrast: None Findings: Scalp/skull: .No abnormalities. Extra-axial spaces: No masses. No fluid collections. Brain sulci: Mildly prominent. Ventricles: Mild compensatory dilatation. No hydrocephalus. Parenchyma: Mild supratentorial hypodensities in the supratentorial white matter are small vessel ischemic changes. Stable small area of encephalomalacia involving the right superior parietal lobule from chronic infarct. No masses, hemorrhage, acute cortical vascular insults. Physiologic calcifications in the basal ganglia Sellar/suprasellar region: No abnormalities. Craniocervical junction: Patent foramen magnum. No Chiari one malformation. Incidental findings: Atherosclerotic calcifications in the carotid siphons . Impression: No acute abnormalities. Chronic findings: 1. Mild generalized volume loss. 2. Mild supratentorial white matter small vessel ischemic changes. 3. Stable chronic vascular insult involving the right parietal lobe. This is a preliminary report was provided by the neuroradiology fellow, Dr. Gume Paulino. Attending over read to follow. Signed by: Gume Paulino MD on 06/05/2018 6:45 PM
[2018-06-05 18:51] LABS: CREATINE KINASE MB 1.9 ng/mL (0-5.0)
[2018-06-05 19:05] LABS: CLARITY,URINE HAZY (CLEAR); COLOR,URINE YELLOW (YELLOW); LEUKOCYTE ESTERASE ,URINE NEGATIVE (NEGATIVE)
[2018-06-05 19:06] LABS: BILIRUBIN,URINE NEGATIVE (NEGATIVE); KETONES,URINE NEGATIVE (NEGATIVE); NITRITE,URINE NEGATIVE (NEGATIVE); PROTEIN,URINE DIPSTICK NEGATIVE (NEGATIVE); URINE UROBILINOGEN 0.2 mg/dL (0.2 - 1)
[2018-06-05 19:07] LABS: BACTERIA,URINE FEW /HPF; EPITHELIAL CELLS,URINE RARE /LPF; RBC,URINE 0-5 /HPF (0-5); WBC,URINE (MAN) 0-5 /HPF (0-5)
[2018-06-05] MEDS: SODIUM CHLORIDE 0.9% 1000ML 1,000 ML IV SCH (19:10)
[2018-06-05] MEDS ORDERED: SODIUM CHLORIDE 0.9% 1000ML 1,000 ML IV SCH (19:15)
[2018-06-05] MEDS ORDERED: ONDANSETRON HCL INJ 2 MG/ML VIAL IV PRN (19:45)
[2018-06-05] MEDS ORDERED: CEFEPIME HCL 2 GM VIAL IV SCH (19:45)
[2018-06-05 19:54] LABS: INR 4.87
[2018-06-05 19:55] LABS: PARTIAL THROMBOPLASTIN TIME 96.5 seconds (23.8-35.5)
[2018-06-05] MEDS ORDERED: VANCOMYCIN 1GM/NS 250 ML 250 ML IV ONE (20:00)
--- NOTE | 2018-06-05 20:00 | NUR ---
ABNORMAL COAGS REPORTED BY LAB, ER MD AND NEUROPSYCHOLOGY MEDICAL CONSULTANT NOTIFIED
[2018-06-05 20:02] LABS: PROTHROMBIN TIME 48.6 seconds (11.9-14.5)
--- OUTSIDE RECORDS SUMMARY | 2018-06-05 20:16 | XMS REPORT | Clinical Summary ---
Author Author [facility] Address Unknown Phone Unavailable Care Team Providers Care Psychological Stress Evaluator Name Role Phone Ronda Sofia MD PCP [...] Manufactur er 02/07/2019 E100 25A 00 / [id number] / [id number] Valve Aortc Stntd Tiss Annls W/ Cardiovasc N/A: N/A ST ASTRID Linx Ac Tech 25mm Epic - ular STRUCTURAL [id number] - [id number] Implants HEART Implanted: Qty: 1 on 09/26/2016 by Venkat Silver MD [id number] / / Lead Pace Jono Mycrdl Unipol Tmpry Cardiovasc MEDTR[employer] Streamline - [id number] ular [place] - Implanted: Qty: 2 on 09/26/2016 by Implants CARDIAC Venkat Silver MD SRGRY S 1100 08LF / / Chamber Sgl Thais Dry Suct 1wy Vlv Surgical N/A: N/A TELEFLEX Adlt Pedi - [id number] Implants; MEDICAL Implanted: 09/26/2016 (Quantity not Expanders; on file) Extenders; Surgical Wires S 1100 08LF / / Chamber Sgl Thais Dry Suct 1wy Vlv Surgical N/A: N/A TELEFLEX Adlt Pedi - [id number] Implants; MEDICAL Implanted: 09/26/2016 (Quantity not Expanders; on file) Extenders; Surgical Wires S 1100 08LF / / Chamber Sgl Thais Dry Suct 1wy Vlv Surgical N/A: N/A TELEFLEX Adlt Pedi - [id number] Implants; MEDICAL Implanted: 09/26/2016 (Quantity not Expanders; on file) Extenders; Surgical Wires 05/20/2021 [id number] / / [id number] Viviana Perph Vasclr Ptfe 1.2x10cm Vascular N/A: N/A BARD 1.65mm - [id number] Graft PERIPHERAL Implanted: Qty: 1 on 09/26/2016 by VASCULAR Venkat Silver MD 05/20/2021 [id number] / / [id number] Viviana Perph Vasclr Ptfe 1.2x10cm Vascular N/A: N/A BARD 1.65mm - [id number] Graft PERIPHERAL Implanted: Qty: 1 on 09/26/2016 by VASCULAR Venkat Silver MD [id number] / / Echola Perph Vasclr Ptfe [id number] Vascular BARD 1.65mm - [id number] Graft PERIPHERAL Implanted: Qty: 1 on 09/26/2016 by VASCULAR Venkat Silver MD Results Not on fileafter 06/04/2017 Insurance Payer Benefit Subscriber ID Type Phone Address Plan / Group MEDICARE MEDICARE xxxxxxxxxx Medicare [place], [place] PART A AND B AARP AARP xxxxxxxxxxx Commercial SUPPLEMENT Advance Directives Patient has advance care planning documents on file. For more information, yessenia canchola contact: Pop Capellan [address] [place] [address]
[2018-06-05] MEDS ORDERED: CEFEPIME HCL 2 GM VIAL ONE (20:32)
[2018-06-05] MEDS ORDERED: SODIUM CHLORIDE 0.9% 100 ML ONE (20:32)
[2018-06-05] MEDS: CEFEPIME 2 GM/NS 0.9% 100 ML 100 ML IV SCH (20:41)
[2018-06-05] MEDS: AZITHROMYCIN 500MG/NS 250 ML 250 ML IV SCH (21:11)
[2018-06-06] MEDS: SODIUM CHLORIDE 0.9% 1000ML 1,000 ML IV SCH ×3 (03:16→18:34)
[2018-06-06] MEDS ORDERED: SERTRALINE HCL50 MG PO (05:37)
[2018-06-06] MEDS ORDERED: METOPROLOL SUCC25 MG PO (05:37)
[2018-06-06] MEDS ORDERED: METFORMIN HCL500 M1 PO (05:37)
[2018-06-06] MEDS ORDERED: FUROSEMIDE40 MG PO (05:37)
[2018-06-06] MEDS ORDERED: FERROUS SULFAT325 MG PO (05:37)
--- NOTE | 2018-06-06 06:18 | Diagnostic Imaging Report ---
EXAMINATION: CHEST SINGLE (PORTABLE) INDICATION: DEHYDRATION COMPARISON: Chest radiograph 06/05/2018 FINDINGS: AP view TUBES and LINES: Stable left approach ICD. LUNGS: Lungs are well inflated. Bilateral mild interstitial edema, stable. No new lobar consolidations. PLEURA: No pleural effusion or pneumothorax. HEART AND MEDIASTINUM: Stable moderate enlargement of the cardiac silhouette. BONES AND SOFT TISSUES: Intact median sternotomy wires. Soft tissues are unremarkable. UPPER ABDOMEN: No free air under the diaphragm. IMPRESSION: No significant change. Signed by: DR. Sanjeev Dobson MD on 06/06/2018 6:14 AM
--- NOTE | 2018-06-06 06:54 | NUR ---
REPORT TO CK AIKEN
--- NOTE | 2018-06-06 06:55 | NUR ---
received report from off going nurse. patient in room in hospital bed resting quietly with eyes closed. no s/s of acute distress. resp even and nonlabored. arroused easily to name. no c/o pain. pending room assignment. will continue to monitor.
[2018-06-06] MEDS: AZITHROMYCIN 500MG/NS 250 ML 250 ML IV SCH (07:30)
[2018-06-06] MEDS: CEFEPIME 2 GM/NS 0.9% 100 ML 100 ML IV SCH (07:38)
[2018-06-06 10:22] LABS: BASOPHILS # (AUTO) 0.1 (0.0-0.1); BASOPHILS % 0.8 % (0.0-1.0); EOSINOPHILS # (AUTO) 0.3 (0.0-0.4); EOSINOPHILS % 3.5 % (0.0-6.0); HEMATOCRIT 36.7 % (38.2-49.6); HEMOGLOBIN 11.9 g/dL (14.0-18.0); LYMPHOCYTES # (AUTO) 1.1 (1.0-3.2); LYMPHOCYTES % 12.6 % (18.0-39.1); MEAN CORPUSCULAR HEMOGLOBIN 29.9 pg (28-32); MEAN CORPUSCULAR HGB CONC 32.4 g/dL (31-35); MEAN CORPUSCULAR VOLUME 92.2 fL (81-99); MONOCYTES % 10.7 % (4.4-11.3); NEUTROPHILS # (AUTO) 6.5 (2.1-6.9); NEUTROPHILS % 71.8 % (38.7-80.0); PLATELET COUNT 209 x10e3/uL (140-360); RED BLOOD COUNT 3.98 x10e6/uL (4.3-5.7); RED CELL DISTRIBUTION WIDTH 15.2 % (11.7-14.4)
[2018-06-06 10:38] LABS: ANION GAP 13.8 mmol/L (8-16); CALCIUM 9.1 mg/dL (8.4-10.2); CREATININE, SERUM 1.22 mg/dL (0.72-1.25); POTASSIUM 3.8 mmol/L (3.5-5.1)
[2018-06-06 10:45] LABS: CREATINE KINASE MB 2.5 ng/mL (0-5.0)
[2018-06-06] MEDS ORDERED: CEFEPIME HCL 1 GM VIAL IV SCH (13:15)
[2018-06-06] MEDS ORDERED: POTASSIUM CHLORIDE 20 MEQ TAB CR PO NR (13:30)
[2018-06-06] MEDS: CEFEPIME 1GM/NS 0.9% 50 ML 50 ML IV SCH (14:31)
--- NOTE | 2018-06-06 14:44 | History and Physical ---
PRIMARY CARE DOCTOR: Dr. Mark Hilario. HOSPITAL PHYSICIAN: Dr. Bijan Greenwood. HISTORY: Mr. Moore is a pleasant 73-year-old gentleman who presents with weakness. He was having difficulty standing. He could not walk. He was having associated shortness of breath. Due to pattern of significant worsening that was not getting better, the patient came to the emergency room. There, blood pressure was seemed to be low normal and patient had assessment of being orthostatic. He was given some IV fluids to help this. BUN is 42 and creatinine is 1.2, which seemed to be intermediate for where the patient usually is in terms of kidney function. Chest x-ray was consistent with bilateral interstitial edema. Patient was elected for hospitalization. Patient well known with multiple re-admissions, but the patient has amazingly gone 8 months without being re-admitted. Patient previously had systolic cardiomyopathy. Patient had in September 2016 echocardiogram with 40% of the EF, severe aortic stenosis noted at that time. PAST MEDICAL HISTORY: Hypertension, coronary artery disease, aortic stenosis status post aortic valve replacement, CHF, atrial fibrillation, hyperlipidemia, TIA, diabetes, ICD placement in 2007 that was eventually replaced, carotid endarterectomy in 2012, aortic valve replacement of tissue type. MEDICATIONS: Medication list reviewed per the chart record. ALLERGIES: NO KNOWN DRUG ALLERGIES. SOCIAL HISTORY: Patient smoked from age 19 to 55, 1.5 packs per day. No alcohol, no drugs. He is for 42 years. 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 FAMILY HISTORY: Noncontributory. REVIEW OF SYSTEMS GENERAL: No weight changes. OPHTHALMOLOGIC: No double vision. ENT: No mouth ulcers. PULMONARY: No hemoptysis. CARDIAC: No heart attacks. GI: No diarrhea. MUSCULOSKELETAL: There is some mild arthritis. DERMATOLOGIC: No rash. PHYSICAL EXAMINATION VITAL SIGNS: Patient is afebrile, vital signs somewhat unstable with low blood pressure in the 80 sometimes. HEENT: Normocephalic, atraumatic. NECK: Supple. Throat midline. LUNGS: Bilateral air entry, decreased breath sounds mildly, few rhonchi. CARDIOVASCULAR: S1 and S2. No murmurs, rubs, or gallops. ABDOMINAL: Soft, nontender. EXTREMITIES: No clubbing, no cyanosis. There is only trace edema. INTEGUMENT: No rash, no purpura. LABS: Urinalysis without white blood cells. Chemistry: BUN 42, creatinine 0.2, potassium 3.8. Troponin is 0.008. Albumin 2.9, total protein is 8.6 with globulin 5.7. Digoxin level is 0.3. Brain CT showed no acute events, but there is chronic vascular insult in the right parietal area. Chest x-ray with mild edema. IMPRESSION AND PLAN 1. Congestive heart failure with exacerbation. 2. Hypertension. 3. Possible pneumonia. 4. Weakness. 5. History of chronic atrial fibrillation. 6. History of cardiomyopathy, reported 15% to 20% left ventricular ejection fraction in the past. 7. Coronary artery disease. 8. Aortic stenosis, status post aortic valve replacement. 9. Hyperlipidemia. 10. Pancreatitis history. 11. History of transient ischemic attack. 12. Diabetes. Decrease IV fluid. Continue empiric antibiotics with follow cultures. Will consider midodrine add-on for blood pressure. Will consult cardiology. If he remains hypertensive, he may need an echocardiogram. Globulins remain high throughout and will get hematology consult as I do not have a clear diagnosis to explain persistence of the high globulins. Thank you, Dr. Hilario for allowing me and Dr. Greenwood the chance to participate in the care of Mr. Moore. Do not hesitate to contact me if we could help in any way. Job#: [id number] TAMIA
[2018-06-06] MEDS: FUROSEMIDE 40 MG TAB PO SCH (17:31)
[2018-06-06 17:51] VITALS: BP 116/61
--- NOTE | 2018-06-06 18:32 | Consultation ---
DATE OF CONSULTATION: June 06, 2018 REQUESTING PHYSICIAN: Dr. Greenwood. HISTORY OF PRESENTING ILLNESS: Mr. Moore is a 73-year-old gentleman with past medical history as listed below. Apparently, he has been weak and tired for the last few days, went to see his PCP, Dr. Hilario, where he was noted to have low blood pressure, appeared to be dehydrated, and sent to the emergency room. Denies any chest pain. Does get a little short-winded with minimal exertion, but today he states that he is feeling a little bit better. No abdominal pain, vomiting or diarrhea. Patient has CHF and atrial fibrillation. REVIEW OF SYMPTOMS CONSTITUTIONAL: Has some fatigue and weakness. HEENT: No headache, blurring of vision, seizures or syncope. CARDIOVASCULAR: No chest pain. Has some dyspnea. No orthopnea or PND. RESPIRATORY: No cough, fever, or expectoration. GI: No abdominal pain, vomiting, or diarrhea. : No dysuria, frequency, or incontinence. ALLERGIES: NO KNOWN DRUG ALLERGIES. MEDICATIONS: See list. PAST MEDICAL HISTORY 1. History of CHF, systolic. 2. History of CAD. 3. History of atrial fibrillation. 4. History of ICD placement. 5. History of renal insufficiency. SOCIAL HISTORY: Does not smoke or drink. FAMILY HISTORY: Noncontributory. PHYSICAL EXAMINATION GENERAL: A moderately built and nourished gentleman, awake, alert, not in any obvious distress. VITAL SIGNS: Heart rate is 68, blood pressure is 89/62 on the monitor. HEENT: Atraumatic. NECK: No JVD, bruit, thyromegaly or lymphadenopathy. CARDIOVASCULAR: First and second heart sounds heard. No murmurs, rubs or gallops appreciated. CHEST: Decreased air entry at the bases. No adventitious sounds appreciated. ICD generator in left upper chest. ABDOMEN: Soft, nontender. EXTREMITIES: No edema. LABORATORY DATA: Sodium is 136, potassium 3.8, chloride is 107, bicarb is 19, BUN is 42, creatinine 1.2, and glucose 114. Hemoglobin 11.9, hematocrit 36.7, and platelets 209. White count is 9.0. INR is 4.8. Total bilirubin is 0.5, AST is 49, ALT is 31, and alk phos is 130. IMPRESSION 1. Generalized weakness. 2. Hypotension. 3. History of congestive heart failure, chronic systolic. 4. Atrial fibrillation. 5. Coagulopathy. 6. Coronary artery disease. PLAN 1. Patient has chronic CHF systolic. His blood pressure generally runs in the 90s. 2. Has mild renal insufficiency. 3. He has been started on IV fluids and antibiotics and can continue the same. 4. Hold warfarin as INR is elevated. 5. Further cardiac workup depending on clinical course. 6. I discussed my impression and plan of management with the patient and he understands. As always, I appreciate and thank you very much for your referrals. Job#: [id number] ALEXANDRA
[2018-06-06] MEDS: GEMFIBROZIL 600 MG TAB PO SCH (18:34)
--- NOTE | 2018-06-06 19:20 | NUR ---
received report from off going nurse. patient is asleep in bed, no s/s of distress observed. bed locked and in lowest position, call light within easy reach. will continue to monitor the patient.
[2018-06-06 20:00] VITALS: BP 103/58
[2018-06-07] VITALS (8 sets, daily range): BP systolic 83–104; BP diastolic 51–63
[2018-06-07] MEDS: CEFEPIME 1GM/NS 0.9% 50 ML 50 ML IV SCH ×2 (01:22→13:40)
[2018-06-07 05:24] LABS: BASOPHILS # (AUTO) 0.1 (0.0-0.1); BASOPHILS % 0.7 % (0.0-1.0); EOSINOPHILS # (AUTO) 0.3 (0.0-0.4); EOSINOPHILS % 3.3 % (0.0-6.0); HEMATOCRIT 33.5 % (38.2-49.6); HEMOGLOBIN 11.1 g/dL (14.0-18.0); LYMPHOCYTES # (AUTO) 1.4 (1.0-3.2); LYMPHOCYTES % 15.9 % (18.0-39.1); MEAN CORPUSCULAR HEMOGLOBIN 30.1 pg (28-32); MEAN CORPUSCULAR HGB CONC 33.1 g/dL (31-35); MEAN CORPUSCULAR VOLUME 90.8 fL (81-99); MONOCYTES # (AUTO) 1.1 (0.2-0.8); MONOCYTES % 12.8 % (4.4-11.3); NEUTROPHILS # (AUTO) 5.8 (2.1-6.9); NEUTROPHILS % 66.7 % (38.7-80.0); PLATELET COUNT 196 x10e3/uL (140-360); RED BLOOD COUNT 3.69 x10e6/uL (4.3-5.7); RED CELL DISTRIBUTION WIDTH 15.2 % (11.7-14.4)
[2018-06-07 05:35] LABS: INR 2.42; PROTHROMBIN TIME 28.1 seconds (11.9-14.5)
[2018-06-07 05:36] LABS: PARTIAL THROMBOPLASTIN TIME 56.2 seconds (23.8-35.5)
[2018-06-07 05:42] LABS: ALANINE AMINOTRANSFERASE 20 IU/L (0-55); ALBUMIN 2.4 g/dL (3.5-5.0); ALBUMIN/GLOBULIN RATIO 0.5 (0.8-2.0); ALKALINE PHOSPHATASE 92 IU/L (40-150); ANION GAP 12.3 mmol/L (8-16); BLOOD UREA NITROGEN 27 mg/dL (7-26); BUN/CREATININE RATIO 31 (6-25); CALCIUM 8.8 mg/dL (8.4-10.2); CARBON DIOXIDE 20 mmol/L (22-29); CHLORIDE 107 mmol/L (98-107); CREATININE, SERUM 0.86 mg/dL (0.72-1.25); EST GLOMERULAR FILTRATION RATE > 60 ML/MIN (60-); GLUCOSE 119 mg/dL (74-118); POTASSIUM 3.3 mmol/L (3.5-5.1); SODIUM 136 mmol/L (136-145)
[2018-06-07 06:09] LABS: ERYTHROCYTE SEDIMENTATION RATE 97 mm/hr (0-13)
--- NOTE | 2018-06-07 06:38 | Diagnostic Imaging Report ---
EXAMINATION: CHEST SINGLE (PORTABLE) INDICATION: chf COMPARISON: Chest radiograph 06/06/2018 FINDINGS: AP view TUBES and LINES: Stable left approach ICD. LUNGS: Lungs are well inflated. Mild interstitial edema, stable. No new lobar consolidations. PLEURA: No pleural effusion or pneumothorax. HEART AND MEDIASTINUM: Stable moderate enlargement of the cardiac silhouette. BONES AND SOFT TISSUES: Intact median sternotomy wires. Soft tissues are unremarkable. UPPER ABDOMEN: No free air under the diaphragm. IMPRESSION: No significant change. Signed by: DR. Sanjeev Dobson MD on 06/07/2018 6:35 AM
--- NOTE | 2018-06-07 09:22 | NUR ---
Patient having pressure in bladder when walking. Urine is exiting the urethra around the khan when he is walking. When patient is in bed, pressure is relieved and CBI continues to flow freely. Long, bright red clot passed in the tubing without irrigation needed. Asked patient to stay in bed until we follow up with Dr. Huynh. patient verbalized understanding.
[2018-06-07] MEDS: GEMFIBROZIL 600 MG TAB PO SCH ×2 (09:46→18:08)
[2018-06-07] MEDS: METOPROLOL SUCCINATE 25 MG TAB XL PO SCH (09:46)
[2018-06-07] MEDS: POTASSIUM CHLORIDE 10MEQ EA PO SCH (09:46)
[2018-06-07] MEDS: FUROSEMIDE 40 MG TAB PO SCH (09:46)
[2018-06-07] MEDS: SERTRALINE HCL 50 MG TAB PO SCH (09:46)
[2018-06-07] MEDS: AZITHROMYCIN 500MG/NS 250 ML 250 ML IV SCH (09:46)
[2018-06-07] MEDS: METFORMIN HCL 500 MG TAB CR PO SCH (09:46)
[2018-06-07] MEDS: ASPIRIN 81 MG CHEW TAB PO SCH (09:46)
[2018-06-07] MEDS ORDERED: POTASSIUM CHLORIDE 20 MEQ TAB CR PO ONE (12:50)
[2018-06-07 13:17] LABS: BASOPHILS # (AUTO) 0.1 (0.0-0.1); BASOPHILS % 0.7 % (0.0-1.0); EOSINOPHILS # (AUTO) 0.3 (0.0-0.4); EOSINOPHILS % 3.1 % (0.0-6.0); HEMATOCRIT 35.2 % (38.2-49.6); HEMOGLOBIN 11.3 g/dL (14.0-18.0); LYMPHOCYTES # (AUTO) 1.4 (1.0-3.2); LYMPHOCYTES % 14.4 % (18.0-39.1); MEAN CORPUSCULAR HEMOGLOBIN 30.1 pg (28-32); MEAN CORPUSCULAR HGB CONC 32.1 g/dL (31-35); MEAN CORPUSCULAR VOLUME 93.9 fL (81-99); MONOCYTES # (AUTO) 1.3 (0.2-0.8); MONOCYTES % 12.6 % (4.4-11.3); NEUTROPHILS # (AUTO) 6.9 (2.1-6.9); NEUTROPHILS % 68.7 % (38.7-80.0); PLATELET COUNT 194 x10e3/uL (140-360); RED BLOOD COUNT 3.75 x10e6/uL (4.3-5.7); RED CELL DISTRIBUTION WIDTH 15.1 % (11.7-14.4)
--- NOTE | 2018-06-07 16:44 | Progress Note ---
DATE: June 07, 2018 INTERNAL MEDICINE PROGRESS NOTE COVERAGE FOR: Dr. Greenwood. SUBJECTIVE: Mr. Moore was seen and examined at bedtime. He is having continued coughing. He is expectorating intermittent pale-green secretions. He does have better shortness of breath. He is on room air FiO2. Normal saline at 50 mL hour still on for these low normal blood pressures. REVIEW OF SYSTEMS: No bleeding, no bowel distention. OBJECTIVE VITAL SIGNS: Reviewed, per electronic chart record. GENERAL: No acute distress, calm, talkative. HEENT: Normocephalic, atraumatic. NECK: Supple. Throat midline. LUNGS: Bilateral air entry, mild rhonchi only. CARDIOVASCULAR: S1, S2. No murmurs, rubs, or gallops. ABDOMEN: Soft, nontender. EXTREMITIES: No clubbing, no cyanosis. There is no edema. INTEGUMENT: No rash, no purpura. LABS: White count 10, hematocrit 35, platelets 194. Potassium 3.3, BUN 27, creatinine 0.9. AST is 40, albumin is 6.4. Chest x-ray, no significant change, mild edema pattern only. IMPRESSION AND PLAN 1. Suspicion for respiratory infection, possible pneumonia versus upper respiratory infection. 2. Additional mild fluid overload, [id number] systolic heart failure. 3. Hypotension, low blood pressure. 4. Weakness. 5. Chronic atrial fibrillation. 6. Coronary artery disease. 7. Aortic stenosis, status post aortic valve replacement. We will get PT to mobilize the patient. Encourage activity. We will stop the IV fluid and see if his blood pressure tolerates. Patient hopefully can be restarted on his home diuretic soon. Continue empiric antibiotics. Followup blood cultures revealed no growth today. Potassium will be supplemented. If he continue to make progress, maybe he can be discharged in 1 or 2 days, noting that he is very fragile because of his heart failure. Job#: [id number] ROSANNA
[2018-06-07] MEDS: WARFARIN SOD 3 MG TAB PO SCH (18:08)
--- NOTE | 2018-06-08 00:04 | Consultation ---
DATE OF CONSULTATION: June 06, [address] Greenwood. 2. Dr. Andrews. SERVICE: Hematology-oncology service. REASON FOR CONSULTATION: Evaluation and management of patient with anemia and hyperproteinemia. HISTORY OF PRESENTING ILLNESS: Mr. Moore is a very pleasant 73-year-old gentleman with multiple medical problems, known history of coronary artery disease, congestive heart failure, atrial fibrillation, renal insufficiency, diabetes mellitus, aortic valve replacement and carotid endarterectomy, admitted through emergency department due to generalized weakness and shortness of breath. Initial workup revealed leukocytosis, anemia, and hypergammaglobulinemia. Subsequently, hematology-oncology has been consulted. Presently, the patient is lying comfortably, not in any acute distress, although still complaining of fatigue, tiredness and shortness of breath. He denies any history of lymphoproliferative disorder or malignancy. PAST MEDICAL HISTORY: 1. Hypertension. 2. Coronary artery disease. 3. Aortic stenosis. 4. History of aortic valve replacement. 5. Congestive heart failure. 6. Atrial fibrillation. 7. Hyperlipidemia. 8. Diabetes mellitus. 9. History of transient ischemic attack. 10. Carotid endarterectomy. PAST SURGICAL HISTORY: 1. Aortic valve replacement, tissue type. 2. Carotid endarterectomy. 3. ICD placement. 4. Coronary stenting. SOCIAL HISTORY: The patient smokes at age 19 to 55, up to 1.5 pack per day. He denies history of alcohol use or illicit drug use. He is and lives in [place]. ALLERGIES: NO KNOWN DRUG ALLERGIES. CURRENT MEDICATIONS: Reviewed, as per electronic medical record. REVIEW OF SYSTEMS: Fourteen-point review of systems negative except as mentioned in history of present illness. PHYSICAL EXAMINATION VITAL SIGNS: Reviewed, as per electronic medical record. HEENT: Extraocular movement intact. Head atraumatic and normocephalic. NECK: Supple. CV: S1, S2 audible. RESPIRATORY: Decreased bilateral air entry. ABDOMEN: Soft. Positive bowel sounds. EXTREMITIES: Trace edema. NEURO: The patient is alert, awake. LABORATORY DATA: Reviewed, as per electronic medical record. ASSESSMENT AND PLAN: Mr. Moore is a very pleasant 73-year-old gentleman with multiple medical problems including known diagnosis of hypertension, coronary artery disease, congestive heart failure, chronic atrial fibrillation, transient ischemic attack, diabetes mellitus, and arterial valve replacement, admitted through emergency department due to generalized weakness and shortness of breath. He was noted to have anemia as well as hypergammaglobulinemia. Subsequently, hematology-oncology has been consulted to assist with the management. I reviewed the record and discussed at length with the patient about his current disease status and importance of further workup. His anemia is very mild, so we will closely monitor without any hematologic intervention. He does have elevated globulin level with low albumin, so I will get baseline workup including serum protein electrophoresis as well as quantitative immunoglobulin levels. The patient also has chronic atrial fibrillation and presently on anticoagulation with Coumadin at 3 mg dose and INR is supratherapeutic. We will repeat INR in the morning. Thank you for the consult. I will continue to be available. Please call with questions. Job#: [id number] ELIZA
[2018-06-08] MEDS: CEFEPIME 1GM/NS 0.9% 50 ML 50 ML IV SCH ×2 (01:13→13:32)
[2018-06-08 01:50] VITALS: BP 110/51
[2018-06-08 05:23] VITALS: BP 102/65
[2018-06-08 06:11] LABS: INR 1.69; PROTHROMBIN TIME 21.2 seconds (11.9-14.5)
[2018-06-08 06:13] LABS: ANION GAP 13.7 mmol/L (8-16); BLOOD UREA NITROGEN 19 mg/dL (7-26); BUN/CREATININE RATIO 24 (6-25); CALCIUM 9.2 mg/dL (8.4-10.2); CARBON DIOXIDE 21 mmol/L (22-29); CHLORIDE 106 mmol/L (98-107); EST GLOMERULAR FILTRATION RATE > 60 ML/MIN (60-); GLUCOSE 94 mg/dL (74-118); POTASSIUM 3.7 mmol/L (3.5-5.1); SODIUM 137 mmol/L (136-145)
[2018-06-08] MEDS: SERTRALINE HCL 50 MG TAB PO SCH (09:00)
[2018-06-08] MEDS: GEMFIBROZIL 600 MG TAB PO SCH ×2 (09:00→16:58)
[2018-06-08] MEDS: METOPROLOL SUCCINATE 25 MG TAB XL PO SCH (09:00)
[2018-06-08] MEDS: POTASSIUM CHLORIDE 10MEQ EA PO SCH (09:00)
[2018-06-08] MEDS: ASPIRIN 81 MG CHEW TAB PO SCH (09:00)
[2018-06-08] MEDS: AZITHROMYCIN 500MG/NS 250 ML 250 ML IV SCH (09:00)
[2018-06-08] MEDS: METFORMIN HCL 500 MG TAB CR PO SCH (09:00)
[2018-06-08 09:12] VITALS: BP 93/56
[2018-06-08 09:13] VITALS: BP 93/56
--- NOTE | 2018-06-08 09:15 | NUR ---
SITTING ON SIDE OF BED, TRAY SET UP, CALL LIGHT WITHIN REACH
--- NOTE | 2018-06-08 10:44 | NUR ---
MD FOREMAN INTO SEE PT, DISCUSSED POC, AT BS
--- NOTE | 2018-06-08 12:15 | NUR ---
REPORT TO POLI LAZARO TAKING OVER CARE OF PT, PT TO TRANSFER TO ROOM 293
--- NOTE | 2018-06-08 13:42 | NUR ---
PT WHEELED VIA BED TO ROOM 293, ALL PERSONAL BELONGINGS SENT WITH PT
--- NOTE | 2018-06-08 13:55 | NUR ---
Recvd patient in bed from med-surg 1 floor, Alert with no distress, denies any pain, call light in reach, keep monitoring
[2018-06-08 16:00] VITALS: BP 112/58
[2018-06-08] MEDS: WARFARIN SOD 3 MG TAB PO SCH (16:58)
--- NOTE | 2018-06-08 19:10 | NUR ---
Patient visited in room during nursing rounds. Patient alert and oriented x3. Patient currently weak especially on bilateral lower extremities. Patient instructed to call especially when needing to get up and ambulates. Bed alarm active. Banerjee in place. Will monitor patient closely.
[2018-06-08 20:00] VITALS: BP 95/54
[2018-06-09] VITALS: BP 113/57
[2018-06-09] MEDS: CEFEPIME 1GM/NS 0.9% 50 ML 50 ML IV SCH ×2 (01:46→13:30)
[2018-06-09 05:43] LABS: INR 1.56
--- NOTE | 2018-06-09 07:30 | NUR ---
PT IN BED SLEEPING ,NO S/S DISCOMFORT
[2018-06-09 08:00] VITALS: BP 107/63
[2018-06-09] MEDS: AZITHROMYCIN 500MG/NS 250 ML 250 ML IV SCH (08:46)
[2018-06-09] MEDS: ASPIRIN 81 MG CHEW TAB PO SCH (08:46)
[2018-06-09] MEDS: GEMFIBROZIL 600 MG TAB PO SCH ×2 (08:47→17:10)
[2018-06-09] MEDS: SERTRALINE HCL 50 MG TAB PO SCH (08:47)
[2018-06-09] MEDS: POTASSIUM CHLORIDE 10MEQ EA PO SCH (08:47)
[2018-06-09] MEDS: METOPROLOL SUCCINATE 25 MG TAB XL PO SCH (08:47)
[2018-06-09 12:00] VITALS: BP 103/58
[2018-06-09 16:00] VITALS: BP 117/56
[2018-06-09] MEDS ORDERED: WARFARIN SOD 3 MG TAB PO SCH (17:00)
[2018-06-09] MEDS: WARFARIN SOD 5 MG TAB PO SCH (17:10)
--- NOTE | 2018-06-09 18:19 | NUR ---
PT SLEEPING ,NO S/S DISCOMFORT
--- NOTE | 2018-06-09 19:10 | NUR ---
Patient visited in room during nursing rounds. Patient alert and oriented x3. Patient sitting at side of bed drinking ensure. Banerjee in place. Patient denies pain but claims still feels weak especially when ambulating. Dr. Muñoz at bedside visiting patient. Will monitor patient closely.
[2018-06-09 20:00] VITALS: BP 109/55
[2018-06-10] VITALS (7 sets, daily range): BP systolic 84–106; BP diastolic 51–59
[2018-06-10] MEDS: CEFEPIME 1GM/NS 0.9% 50 ML 50 ML IV SCH ×2 (01:40→13:58)
[2018-06-10 05:53] LABS: BASOPHILS # (AUTO) 0.1 (0.0-0.1); BASOPHILS % 0.8 % (0.0-1.0); EOSINOPHILS # (AUTO) 0.5 (0.0-0.4); EOSINOPHILS % 5.4 % (0.0-6.0); HEMOGLOBIN 10.5 g/dL (14.0-18.0); LYMPHOCYTES # (AUTO) 1.8 (1.0-3.2); LYMPHOCYTES % 19.8 % (18.0-39.1); MEAN CORPUSCULAR HEMOGLOBIN 29.8 pg (28-32); MEAN CORPUSCULAR HGB CONC 32.8 g/dL (31-35); MEAN CORPUSCULAR VOLUME 90.9 fL (81-99); MONOCYTES % 10.5 % (4.4-11.3); NEUTROPHILS # (AUTO) 5.7 (2.1-6.9); NEUTROPHILS % 62.7 % (38.7-80.0); PLATELET COUNT 230 x10e3/uL (140-360); RED BLOOD COUNT 3.52 x10e6/uL (4.3-5.7); RED CELL DISTRIBUTION WIDTH 15.3 % (11.7-14.4)
[2018-06-10 06:03] LABS: INR 1.71; PROTHROMBIN TIME 21.4 seconds (11.9-14.5)
[2018-06-10 06:09] LABS: ANION GAP 13.2 mmol/L (8-16); BLOOD UREA NITROGEN 19 mg/dL (7-26); BUN/CREATININE RATIO 24 (6-25); CALCIUM 9.3 mg/dL (8.4-10.2); CARBON DIOXIDE 20 mmol/L (22-29); CHLORIDE 107 mmol/L (98-107); EST GLOMERULAR FILTRATION RATE > 60 ML/MIN (60-); GLUCOSE 95 mg/dL (74-118); MAGNESIUM 1.9 MG/DL (1.3-2.1); POTASSIUM 4.2 mmol/L (3.5-5.1); SODIUM 136 mmol/L (136-145)
--- NOTE | 2018-06-10 07:30 | NUR ---
PATIENT SITTING AT BED SIDE WATCHING TV, NO RESPIRATORY DISTRESS OBSERVED. TYLER IN PLACE WITH YELLOW URINE. BED IN LOWER POSITION, CALL LIGHT AT REACH.
[2018-06-10] MEDS: METOPROLOL SUCCINATE 25 MG TAB XL PO SCH (09:00)
[2018-06-10] MEDS: GEMFIBROZIL 600 MG TAB PO SCH ×2 (09:12→17:47)
[2018-06-10] MEDS: POTASSIUM CHLORIDE 10MEQ EA PO SCH (09:12)
[2018-06-10] MEDS: SERTRALINE HCL 50 MG TAB PO SCH (09:12)
[2018-06-10] MEDS: AZITHROMYCIN 500MG/NS 250 ML 250 ML IV SCH (09:12)
[2018-06-10] MEDS: ASPIRIN 81 MG CHEW TAB PO SCH (09:12)
--- NOTE | 2018-06-10 11:36 | NUR ---
PATIENT AMBULATED IN HALLWAY WITH PHYSICAL THERAPY, NO RESPIRATORY DISTRESS OBSERVED. WILL CONTINUE TO MONITOR.
--- NOTE | 2018-06-10 14:14 | NUR ---
TYLER CATHETER DISCONTINUED ORDERED, 500CC REMOVED. PATIENT IS DUE TO VOID, PO FLUID ENCOURAGED, URINAL PROVIDED. CALL LIGHT AT REACH, INSTRUCTED TO CALL FOR ASSISTANCE NEEDED.
--- NOTE | 2018-06-10 16:13 | NUR ---
PATIENT OFF UNIT TO RADIOLOGY.
--- NOTE | 2018-06-10 16:32 | NUR ---
PATIENT BACK TO UNIT FROM RADIOLOGY.
[2018-06-10] MEDS ORDERED: WARFARIN SOD 5 MG TAB PO ONE (17:15)
[2018-06-10] MEDS: WARFARIN SOD 5 MG TAB PO SCH (17:47)
--- NOTE | 2018-06-10 18:50 | NUR ---
DIAPER CHECKED, PATIENT IS DUE TO VOID, PO FLUID ENCOURAGED. CALL LIGHT AT REACH.
--- NOTE | 2018-06-10 19:00 | NUR ---
Received patient from day nurse, patient is stable, patient states unhappy with services from the hospital, he states he stayed in the ER for four days and also food that he is given is not nice, he was reassured and made aware that management will be made aware about his concerns but shouted using bad words i do no want any one to come speak to me, he also states he does not like the remote to his tv, even though he did not specify the problem with the remote, a remote from another room was brought to swap his own, he was happy it was changed, he also complained that he was he is bleeding from his nose, nurse also noted it during assessment that he has no bleed, not flowing but tissue stained, patient stated he has being having this nose bleed for years and that he has seen an ENT for this problem, Dr. Greenwood was made aware and ordered to consult Dr. Self, Dr Self was called and he ordered to administer nasal spray and instruct patient not to stuff he nose with tissue paper, patient was made aware but was furious to hear that he is not to put an tissue inside his nostrils as per the ENT doctor, he said he will think about it whether to follow the instructions or not. Enough is being allocated to the care of this patient due to his needs.
--- NOTE | 2018-06-10 21:40 | NUR ---
Patient has nose bleed, Dr. Greenwood was consulted and ordered to consult DR. SELF, Dr. Self called and waiting for call back.
--- NOTE | 2018-06-10 21:42 | NUR ---
Patient voided 500mls post Banerjee removal.
[2018-06-10] MEDS: SALINE 0.65% NAS SOLN 1 SPRAY BTL SCH (22:28)
[2018-06-11] VITALS (8 sets, daily range): BP systolic 99–119; BP diastolic 57–68
[2018-06-11] MEDS: CEFEPIME 1GM/NS 0.9% 50 ML 50 ML IV SCH ×2 (01:52→14:53)
[2018-06-11] MEDS: SALINE 0.65% NAS SOLN 1 SPRAY BTL SCH ×6 (02:00→21:36)
[2018-06-11 06:26] LABS: INR 1.99; PROTHROMBIN TIME 24.1 seconds (11.9-14.5)
--- NOTE | 2018-06-11 07:12 | NUR ---
patient endorsed to next shift for continuity of care.
--- NOTE | 2018-06-11 07:21 | Diagnostic Imaging Report ---
EXAMINATION: CT scan of the chest without contrast. TECHNIQUE: Spiral CT images of the chest were performed from the lung apices to the level of the adrenal glands. No intravenous contrast was administered per referring physician request. Coronal and sagittal reformatted images were obtained. COMPARISON: Chest radiograph 06/07/2018, CT chest with contrast 11/06/2019 CLINICAL HISTORY:Concern for pneumonia DISCUSSION: ABSENCE OF INTRAVENOUS CONTRAST DECREASES SENSITIVITY FOR DETECTION OF FOCAL LESIONS AND VASCULAR PATHOLOGY. LINES/TUBES: None. LUNGS AND AIRWAYS: Mild juxtapleural reticular opacities in the lingula and lower lobes, left worse than right. No airspace consolidation, bronchiectasis, or mass lesion. Trachea, mainstem bronchi, and central lobar and segmental bronchi are patent. PLEURA: No pneumothorax or pleural effusions. HEART AND MEDIASTINUM: Visualized portions of the thyroid gland are normal. left subclavian approach implantable cardiac device body with leads in the right ventricle and coronary sinus. No pericardial effusion. Atherosclerotic calcification of the aortic arch, great vessel origins, and [place] coronary arteries. Postsurgical mediastinum. A few mildly prominent mediastinal lymph nodes, for example a subcarinal lymph node measures 1.2 cm short axis. A right pericardiophrenic lymph node measures 1.3 cm short axis and a right retrocrural lymph node measures 1.3 cm short axis. LYMPH NODES: As above. ABDOMEN: Nodular hepatic contour with relative hypertrophy of the left lobe partially visualized. Ill-defined questionable hypoattenuating lesion in hepatic segment 6 partially visualized. Partially visualized left renal calculi. Fani hepatis and aortocaval lymphadenopathy is partially visualized. BONES AND SOFT TISSUES: Healing fracture of the lateral right ninth rib. Multiple healed left-sided rib fracture deformities reflective of remote trauma. IMPRESSION: Bibasilar reticular opacities likely reflect age-related fibrotic changes. No consolidative pneumonia per clinical query. Cirrhotic liver morphology with a questionable hypoattenuating lesion in segment 6. Further evaluation with MRI or CT of the abdomen with and without contrast (liver mass protocol) is suggested. Thoracic and upper abdominal lymphadenopathy is of uncertain etiology, though may be reactive in the setting of postsurgical changes of the mediastinum and hepatic cirrhosis. Attention on follow-up studies is suggested. Atherosclerotic vascular disease. Nonobstructing left renal calculi. Signed by: Dr. Zion Murdock M.D. on 06/11/2018 7:18 AM
--- NOTE | 2018-06-11 07:23 | NUR ---
PATIENT IN BED RESTING WITH EYES CLOSED, NO RESPIRATORY DISTRESS OBSERVED. ALL PERSONAL ITEMS CLOSE TO PATIENT. BED IN LOWER POSITION, CALL LIGHT AT REACH.
[2018-06-11] MEDS: AZITHROMYCIN 500MG/NS 250 ML 250 ML IV SCH (09:00)
[2018-06-11] MEDS: METOPROLOL SUCCINATE 25 MG TAB XL PO SCH (09:00)
[2018-06-11] MEDS: ASPIRIN 81 MG CHEW TAB PO SCH (09:07)
[2018-06-11] MEDS: SERTRALINE HCL 50 MG TAB PO SCH (09:07)
[2018-06-11] MEDS: GEMFIBROZIL 600 MG TAB PO SCH ×2 (09:07→17:18)
[2018-06-11] MEDS: POTASSIUM CHLORIDE 10MEQ EA PO SCH (09:07)
--- NOTE | 2018-06-11 11:21 | NUR ---
PATIENT IN BED WITH HEAD OF BED ELEVATED TALKING TO FAMILY MEMBER VISITING. DENIED PAIN AT THIS TIME. BED IN LOWER POSITION, CALL LIGHT AT REACH.
--- NOTE | 2018-06-11 11:50 | NUR ---
ASSESSMENT: No spiritual concerns Pt requested information on how to acquire crucifix. Pt's at bedside. Intervention: Provided information on how to purchase crucifix from bookstore. Outcome: No need to follow at this time. MAYCO MARTINEZ Collection Agent Spiritual Care Department O: [phone] Pager: [phone] ([phone] calling from)
--- NOTE | 2018-06-11 12:16 | Consultation ---
DATE OF CONSULTATION: HISTORY OF PRESENT ILLNESS: I was kindly asked to see this 73-year-old man for evaluation of epistaxis. Patient has a near lifelong history of intermittent right-sided epistaxis occurring anywhere from 2 times per day to 2 times per week and typically lasts approximately 5 minutes. He reports in recent months that the frequency and severity of his epistaxis have been unchanged. His epistaxis history is complicated by use of Coumadin for treatment of his atrial fibrillation. He also has a history of nasal septal deviation and reports having nasal fracture several times as a teenager and young adult. He has intermittent difficulty breathing through his nose. He also has a many-year history of excessive drainage down the back of his throat, and he reports he accumulates mucus in his nose and in the back of his throat which exacerbates the bleeding. The drainage down the back of his throat also causes coughing. There is no seasonal variation in his symptoms. He does not require antibiotic treatment for rhinosinusitis. He also has a history of bilateral ear fullness and decreased hearing, which he reports has been worse since the onset of his current illness. He reports having a pressure equalization tube placed in his right ear approximately 3 to 4 weeks ago. His history of present illness, past medical history and past surgical history were reviewed in detail in the chart. PHYSICAL EXAMINATION: The right tympanic membrane has a grommet pressure equalization tube in the posterior aspect of the tympanic membrane, and there is retraction of the tympanic membrane into Prussak space. The left external auditory canal was normal. The left tympanic membrane does not have a pressure equalization tube. There is moderate retraction of the tympanic membrane into Prussak space, and the tympanic membrane is immobile. He has a nasal septal deviation to the right. There is clear mucus in both nostrils. Pharyngeal examination is normal. Oral cavity examination is noncontributory. He has no palpable cervical adenopathy. On fiberoptic diagnostic rhinoscopy, he has bleeding points identified along the convex surface of the nasal septal deviation on the right side. There is no active paranasal sinus pathology noted. He does have clear secretions within the nasal cavity bilaterally. After application of 2% Pontocaine in the right nasal septum, the bleeding points were cauterized with silver nitrate. ASSESSMENT 1. Epistaxis treated with silver nitrate cautery. 2. Nasal septal deviation. 3. Coagulopathy secondary to Coumadin use. 4. Chronic otitis media. 5. Possible allergic rhinitis. 6. Possible chronic rhinosinusitis. 7. Vasomotor rhinitis. PLAN 1. Continuation of [place] Nasal [place] 2 puffs each side of nose q.4 h. while awake. 2. Bacitracin ointment to both nostrils t.i.d. 3. Ipratropium nasal spray b.i.d. Job#: [id number]
--- NOTE | 2018-06-11 15:22 | NUR ---
WALKING ROUND MADE, PATIENT IN BED RESTING WITH EYES CLOSED, NO RESPIRATORY DISTRESS OBSERVED. BED IN LOWER POSITION, CALL LIGHT AT REACH.
[2018-06-11] MEDS: NEOMYCIN/POLYMYXIN/BACITRACIN 15 GM TUBE TOP SCH ×2 (15:30→21:00)
--- NOTE | 2018-06-11 16:12 | NUR ---
Nutrition Intervention Note RD Recommendation(s) for Physician: -Continue ADA diet as ordered -Consider Glucerna BID for adequate nutrition -Encourage PO and hydration The patient meets criteria for unspecified SEVERE protein-calorie malnutrition. Plan of Care: RD following, monitoring for tolerance and adequacy Nutrition reason for involvement: LOS RD Assessment 06/11- Chart reviewed. 73yo M, who is admitted for weakness and SOB. Visited pt in the room. Pt reports eating less than usual for more than a month. Pt also reports of 40lbs weight loss in a year, which is significant. Upon NFPA, pt showed signs of fat and muscle loss. Pt usually drinks 2 Glucerna at home. Looking back at his previous admissions, pt has had some gradual weight loss throughout the year. No GI complains noted. LBM 06/10, normal per pt. Pt denies any chewing or swallowing difficulty. Notified RN (Mariano) to order Glucerna BID. Will continue to monitor and follow. Principal Problems/Diagnoses: 1. Suspicion for respiratory infection, possible pneumonia versus upper respiratory infection. 2. Additional mild fluid overload, [place] systolic heart failure. 3. Hypotension, low blood pressure. 4. Weakness. PMH: hypertension, coronary artery disease, congestive heart failure, chronic atrial fibrillation, transient ischemic attack, diabetes mellitus, and arterial valve replacement GI: abd soft, non-tender, flatus present, LBM 06/10 Skin: intact Labs: (06/11) reviewed Meds: NaCl, K dur, IV abx Ht: 70in Wt: 140lb BMI: 20.1kg/m2 IBW: 166lb Malnutrition Evaluation (06/11/18) The patient meets criteria for unspecified SEVERE protein-calorie malnutrition. Energy intake: <75% of estimated energy requirements for >1 month Weight loss: >20% in 1 year (Chronic) Fat loss: Severe - hollow orbital region with dark circles, loss of fat over triceps, protrusion of clavicle Muscle loss: Severe protrusion of clavicle and acromion process, depression of temporal region Supporting Evidence: Fluid accumulation: unable to evaluate Functional Status: admitted for weakness, reduced Nutrition Prescription (Diet Order): ADA diet Estimated Nutritional Needs: Calories: 1600 2240kcal (25-35kcal/kg/d) Weight used : Actual BW Protein : 64 96g (1-1.5g/kg/d) Weight used: Actual BW Diet Adequacy: Not meeting calorie needs, Not meeting protein needs Diet Education Needs Assessment: Diet education not indicated. Nutrition Care Level: moderate Nutrition Diagnosis: Malnutrition related to chronic illness as evidenced by significant weight loss, loss of muscle mass and fat upon NFPA, and decreased PO intake. Goal: Patient will meet 75-100% of estimated needs by follow up Progress: Progressing Interventions: Carbohydrate-modified diet, Commercial beverage Monitoring/Evaluation: Total energy intake, Total protein intake, Modified diet, Liquid supplement, Weight change Signed: Pauly Serrato MS, RD, LD
[2018-06-11] MEDS: IPRATROPIUM BROMIDE 0.06% 42 MCG NASPR NS SCH (17:00)
[2018-06-11] MEDS: WARFARIN SOD 5 MG TAB PO SCH (17:18)
--- NOTE | 2018-06-11 19:10 | NUR ---
REPORT RECEIVED FROM OFF GOING NURSE, PT SITTING UP IN BED ALERT AND ORIENTED, TELEMETRY NOTED, PT DENIES NEEDS, HOB ELEVATED, BED LOCKED AND LOW, CALL LIGHT IN REACH, INSTRUCTED TO CALL WITH NEEDS
[2018-06-12] VITALS (7 sets, daily range): BP systolic 101–117; BP diastolic 55–69
[2018-06-12] MEDS: SALINE 0.65% NAS SOLN 1 SPRAY BTL SCH ×6 (02:00→21:23)
--- NOTE | 2018-06-12 05:35 | NUR ---
PT RESTING IN BED WITH HOB ELEVATED, NO DISTRESS NOTED, PT DENIES NEEDS, CALL LIGHT IN REACH, INSTRUCTED TO CALL WITH NEEDS, TELEMETRY NOTED
[2018-06-12 05:44] LABS: BASOPHILS # (AUTO) 0.1 (0.0-0.1); BASOPHILS % 0.8 % (0.0-1.0); EOSINOPHILS # (AUTO) 0.4 (0.0-0.4); EOSINOPHILS % 4.7 % (0.0-6.0); HEMATOCRIT 33.4 % (38.2-49.6); HEMOGLOBIN 10.9 g/dL (14.0-18.0); LYMPHOCYTES # (AUTO) 1.7 (1.0-3.2); LYMPHOCYTES % 19.4 % (18.0-39.1); MEAN CORPUSCULAR HGB CONC 32.6 g/dL (31-35); MONOCYTES % 11.2 % (4.4-11.3); NEUTROPHILS # (AUTO) 5.5 (2.1-6.9); NEUTROPHILS % 63.2 % (38.7-80.0); PLATELET COUNT 267 x10e3/uL (140-360); RED BLOOD COUNT 3.63 x10e6/uL (4.3-5.7); RED CELL DISTRIBUTION WIDTH 15.6 % (11.7-14.4)
[2018-06-12 06:15] LABS: INR 2.97
[2018-06-12] MEDS: IPRATROPIUM BROMIDE 0.06% 42 MCG NASPR NS SCH ×2 (09:00→16:43)
--- NOTE | 2018-06-12 09:00 | NUR ---
Pt received resting in bed. Alert and oriented x4. Oriented to staff and surroundings. Emotional support given. Fall precautions maintained. Call galvan within reach. Saline lock #22 patent in right forearm. All meds given as ordered. Will monitor
[2018-06-12] MEDS: ASPIRIN 81 MG CHEW TAB PO SCH (09:06)
[2018-06-12] MEDS: POTASSIUM CHLORIDE 10MEQ EA PO SCH (09:06)
[2018-06-12] MEDS: SERTRALINE HCL 50 MG TAB PO SCH (09:06)
[2018-06-12] MEDS: NEOMYCIN/POLYMYXIN/BACITRACIN 15 GM TUBE TOP SCH ×3 (09:06→20:56)
[2018-06-12] MEDS: METOPROLOL SUCCINATE 25 MG TAB XL PO SCH (09:06)
[2018-06-12] MEDS: GEMFIBROZIL 600 MG TAB PO SCH ×2 (09:06→16:43)
--- NOTE | 2018-06-12 12:55 | NUR ---
SPOKE WITH PATIENT AND ABOUT SNF CONSULT CHOICE SIGNED AND FILED IN CHART FOR [facility]. CALL THEY HAVE A BED AND WILL REVIEW. PASRR FILED OUT FILED IN CHART WITH COPY PLACED IN FOLDER TO ACCOMPANY PATIENT TO FACILITY, RTF COMPLETED AND PLACED AT DESK WITH NURSE TO CALL REPORT WHEN DISCHARGE ORDER IS WRITTEN AND FACILITY HAS ISSUED A ROOM NUMBER AND PHYSICIAN TO CONTINUE CARE.
--- NOTE | 2018-06-12 19:10 | NUR ---
PT RESTING IN BED WITH EYES CLOSED, NO DISTRESS NOTE, CALL LIGHT IN REACH, TELEMETRY IN PLACE
[2018-06-13] VITALS (8 sets, daily range): BP systolic 94–132; BP diastolic 61–75
[2018-06-13] MEDS: SALINE 0.65% NAS SOLN 1 SPRAY BTL SCH ×6 (02:00→22:00)
--- NOTE | 2018-06-13 02:10 | NUR ---
PT SITTING UP AT BEDSIDE, ALERT AND ORIENTED, NO DISTRESS NOTED, CALL LIGHT IN REACH, MILD NOSE BLEEDS, ICE GIVEN BLEED CONTROLLED, PT BEING MONITORED, DENIES NEEDS, INSTRUCTED TO CALL WITH NEEDS
--- NOTE | 2018-06-13 05:47 | NUR ---
PT RESTING IN BED WITH EYES CLOSED, HOB ELEVATED, NO DISTRESS NOTED, BED LOCKED AND LOW, TELEMETRY NOTED, CALL LIGHT IN REACH
[2018-06-13 07:30] LABS: INR 2.37; PROTHROMBIN TIME 27.7 seconds (11.9-14.5)
--- NOTE | 2018-06-13 08:50 | NUR ---
Pt received resting in bed. All meds given as ordered. Call galvan within reach. Will monitor
[2018-06-13] MEDS: METOPROLOL SUCCINATE 25 MG TAB XL PO SCH (09:00)
[2018-06-13] MEDS: IPRATROPIUM BROMIDE 0.06% 42 MCG NASPR NS SCH ×2 (09:00→15:57)
[2018-06-13] MEDS: POTASSIUM CHLORIDE 10MEQ EA PO SCH (09:10)
[2018-06-13] MEDS: GEMFIBROZIL 600 MG TAB PO SCH ×2 (09:10→17:32)
[2018-06-13] MEDS: ASPIRIN 81 MG CHEW TAB PO SCH (09:10)
[2018-06-13] MEDS: SERTRALINE HCL 50 MG TAB PO SCH (09:11)
[2018-06-13] MEDS: NEOMYCIN/POLYMYXIN/BACITRACIN 15 GM TUBE TOP SCH ×3 (09:11→21:00)
--- NOTE | 2018-06-13 14:49 | Progress Note ---
DATE: SUBJECTIVE: Patient had some recurrent epistaxis on the right naris. He does not complain of any dyspnea or cough. OBJECTIVE VITALS: The patient is afebrile. The blood pressure is 94/61 and the pulse is 90. Saturation is 97%. HEENT: Shows no facial swelling or erythema. The patient does have some blood on the right naris. LYMPHATIC: Shows no submandibular, cervical, or supraclavicular adenopathy. CARDIAC: Reveals regular rate and rhythm with normal S1 and S2. LUNGS: Auscultation of the lungs shows clear breath sounds bilaterally. There is no wheezing. ABDOMEN: Soft and nontender. There is no rebound or guarding. IMPRESSION 1. Recurrent epistaxis. 2. Atrial fibrillation. 3. Hypogammaglobulinemia. 4. Possible cirrhosis. PLAN 1. Patient will continue to hold the warfarin. 2. Monitor blood counts. 3. Physical therapy. 4. Complete hematology evaluation. 5. Possible transfer to [facility]. Job#: [id number] RSOANNA
--- NOTE | 2018-06-13 19:00 | NUR ---
REPORT RECEIVED FROM OFF GOING NURSE, PT RESTING IN BED ALERT AND ORIENTED, HOB ELEVATED, CONTROLS ENGINEER NOTED, CALL LIGHT IN REACH, INSTRUCTED TO CALL WITH NEEDS, PT REFUSING BED ALARM
[2018-06-14] VITALS (11 sets, daily range): BP systolic 90–118; BP diastolic 52–65
[2018-06-14] MEDS: SALINE 0.65% NAS SOLN 1 SPRAY BTL SCH ×6 (02:00→21:00)
[2018-06-14 06:46] LABS: BASOPHILS # (AUTO) 0.1 (0.0-0.1); BASOPHILS % 0.5 % (0.0-1.0); EOSINOPHILS # (AUTO) 0.4 (0.0-0.4); HEMATOCRIT 31.1 % (38.2-49.6); LYMPHOCYTES # (AUTO) 2.1 (1.0-3.2); LYMPHOCYTES % 22.7 % (18.0-39.1); MEAN CORPUSCULAR HEMOGLOBIN 29.7 pg (28-32); MEAN CORPUSCULAR HGB CONC 32.2 g/dL (31-35); MEAN CORPUSCULAR VOLUME 92.3 fL (81-99); MONOCYTES # (AUTO) 1.3 (0.2-0.8); MONOCYTES % 14.4 % (4.4-11.3); NEUTROPHILS # (AUTO) 5.4 (2.1-6.9); NEUTROPHILS % 57.8 % (38.7-80.0); PLATELET COUNT 261 x10e3/uL (140-360); RED BLOOD COUNT 3.37 x10e6/uL (4.3-5.7); RED CELL DISTRIBUTION WIDTH 15.6 % (11.7-14.4)
--- NOTE | 2018-06-14 06:51 | NUR ---
PT SITTING UP AT BEDSIDE, ALERT AND ORIENTED, PT GET AGITATED AT TIMES AND STATES THAT HE WANTS TO GO HOME BUT IS COOPERATIVE, PT ASSISTED WITH DIAPER PER REQUEST, NO DISTRESS NOTED, CALL LIGHT IN REACH, TELEMETRY NOTED, PT REFUSING BED ALARM, INSTRUCTED TO CALL WITH NEEDS, MILD PREVIOUS NOSE BLEED, BLEEDING CONTROLLED, PT BEING MONITORED
[2018-06-14 07:04] LABS: INR 1.92; PROTHROMBIN TIME 23.5 seconds (11.9-14.5)
[2018-06-14 07:11] LABS: ANION GAP 13.5 mmol/L (8-16); BLOOD UREA NITROGEN 14 mg/dL (7-26); BUN/CREATININE RATIO 19 (6-25); CALCIUM 9.4 mg/dL (8.4-10.2); CARBON DIOXIDE 21 mmol/L (22-29); CHLORIDE 104 mmol/L (98-107); CREATININE, SERUM 0.73 mg/dL (0.72-1.25); EST GLOMERULAR FILTRATION RATE > 60 ML/MIN (60-); GLUCOSE 95 mg/dL (74-118); POTASSIUM 4.5 mmol/L (3.5-5.1); SODIUM 134 mmol/L (136-145)
[2018-06-14] MEDS: IPRATROPIUM BROMIDE 0.06% 42 MCG NASPR NS SCH ×2 (09:00→17:00)
[2018-06-14] MEDS: METOPROLOL SUCCINATE 25 MG TAB XL PO SCH (09:00)
[2018-06-14] MEDS: ASPIRIN 81 MG CHEW TAB PO SCH (09:29)
[2018-06-14] MEDS: GEMFIBROZIL 600 MG TAB PO SCH ×2 (09:30→17:05)
[2018-06-14] MEDS: SERTRALINE HCL 50 MG TAB PO SCH (09:30)
[2018-06-14] MEDS: NEOMYCIN/POLYMYXIN/BACITRACIN 15 GM TUBE TOP SCH ×3 (09:30→21:00)
[2018-06-14] MEDS: POTASSIUM CHLORIDE 10MEQ EA PO SCH (09:30)
--- NOTE | 2018-06-14 11:19 | Progress Note ---
DATE: SUBJECTIVE: Patient still notes some epistaxis. He does not complain of any dyspnea or chest pain. PHYSICAL EXAMINATION VITAL SIGNS: The blood pressure is 100/60 and the saturation is 98%. The pulse is 83. Patient is afebrile. HEENT: Shows no facial swelling or erythema. There is some dry blood in the right naris. LYMPHATIC: Shows no submandibular, cervical, or supraclavicular adenopathy. CARDIAC: Reveals a regular rate and rhythm with a normal S1 and S2. There are no murmurs or rubs. LUNGS: Auscultation of the lungs reveals clear breath sounds bilaterally. There is no wheezing. ABDOMEN: Soft, nontender. There is no rebound or guarding. EXTREMITIES: Shows no leg edema or calf tenderness. There is no cyanosis or clubbing. NEUROLOGICAL: Shows no focal abnormalities. IMPRESSION 1. Chronic systolic congestive heart failure. 2. Atrial fibrillation. 3. History of a valve replacement with a bioprosthetic valve. 4. Epistaxis. 5. Hypogammaglobulinemia. 6. Possible cirrhosis. PLAN 1. Continue to hold warfarin for now because of the epistaxis; discussed reinitiation of warfarin with cardiology. 2. Continue nasal sprays. 3. Monitor blood counts. 4. Continue current cardiac regimen. 5. Out of bed as tolerated. Job#: [id number] KEESHA
--- NOTE | 2018-06-14 12:33 | NUR ---
SPOKE WITH MD RODRIGUEZ COVERING FOR MD WING REGARDING PT DROP IN BLOOD PRESSURE READING 90/52 WITH MANUAL CUFF. ORDERS TO GIVE A BAG OF NS 250 ML OVER 2 HOURS GIVEN. PT IS ASYMPTOMATIC. WILL MONITOR CLOSELY
[2018-06-14] MEDS ORDERED: SODIUM CHLORIDE 0.9% 250ML 250 ML IV ONE (12:45)
[2018-06-15] VITALS (8 sets, daily range): BP systolic 94–126; BP diastolic 55–71
[2018-06-15] MEDS: SALINE 0.65% NAS SOLN 1 SPRAY BTL SCH ×6 (01:45→21:33)
[2018-06-15] MEDS: ASPIRIN 81 MG CHEW TAB PO SCH (08:23)
[2018-06-15] MEDS: POTASSIUM CHLORIDE 10MEQ EA PO SCH (08:24)
[2018-06-15] MEDS: METOPROLOL SUCCINATE 25 MG TAB XL PO SCH (08:24)
[2018-06-15] MEDS: GEMFIBROZIL 600 MG TAB PO SCH ×2 (08:24→16:54)
[2018-06-15] MEDS: SERTRALINE HCL 50 MG TAB PO SCH (08:25)
[2018-06-15] MEDS: NEOMYCIN/POLYMYXIN/BACITRACIN 15 GM TUBE TOP SCH ×3 (08:25→20:20)
--- NOTE | 2018-06-15 08:25 | NUR ---
Pt received resting in bed. All meds given as ordered. Emotional support given. Fall precautions maintained. Will monitor
[2018-06-15] MEDS: IPRATROPIUM BROMIDE 0.06% 42 MCG NASPR NS SCH ×2 (09:00→16:13)
[2018-06-15] MEDS ORDERED: WARFARIN SOD 2 MG TAB PO SCH (17:00)
--- NOTE | 2018-06-15 19:38 | NUR ---
Received pt in bed awake and alert. No S/S of resp distress. Call light within reach and instructed to call for assistance. Pt verbalized understanding.
[2018-06-16] VITALS (8 sets, daily range): BP systolic 93–112; BP diastolic 51–62
[2018-06-16] MEDS: SALINE 0.65% NAS SOLN 1 SPRAY BTL SCH ×6 (02:00→21:23)
[2018-06-16 05:57] LABS: BASOPHILS # (AUTO) 0.1 (0.0-0.1); BASOPHILS % 0.6 % (0.0-1.0); EOSINOPHILS # (AUTO) 0.5 (0.0-0.4); EOSINOPHILS % 5.8 % (0.0-6.0); HEMATOCRIT 27.8 % (38.2-49.6); HEMOGLOBIN 8.7 g/dL (14.0-18.0); LYMPHOCYTES # (AUTO) 1.8 (1.0-3.2); MEAN CORPUSCULAR HEMOGLOBIN 29.8 pg (28-32); MEAN CORPUSCULAR HGB CONC 31.3 g/dL (31-35); MEAN CORPUSCULAR VOLUME 95.2 fL (81-99); MONOCYTES # (AUTO) 1.2 (0.2-0.8); MONOCYTES % 15.7 % (4.4-11.3); NEUTROPHILS # (AUTO) 4.3 (2.1-6.9); NEUTROPHILS % 54.3 % (38.7-80.0); PLATELET COUNT 241 x10e3/uL (140-360); RED BLOOD COUNT 2.92 x10e6/uL (4.3-5.7); RED CELL DISTRIBUTION WIDTH 15.7 % (11.7-14.4)
[2018-06-16 06:09] LABS: INR 1.34; PROTHROMBIN TIME 17.7 seconds (11.9-14.5)
[2018-06-16 06:24] LABS: ALANINE AMINOTRANSFERASE 39 IU/L (0-55); ALBUMIN 2.6 g/dL (3.5-5.0); ALBUMIN/GLOBULIN RATIO 0.5 (0.8-2.0); ALKALINE PHOSPHATASE 146 IU/L (40-150); ANION GAP 12.6 mmol/L (8-16); BLOOD UREA NITROGEN 17 mg/dL (7-26); BUN/CREATININE RATIO 23 (6-25); CARBON DIOXIDE 22 mmol/L (22-29); CHLORIDE 104 mmol/L (98-107); CREATININE, SERUM 0.74 mg/dL (0.72-1.25); EST GLOMERULAR FILTRATION RATE > 60 ML/MIN (60-); GLUCOSE 85 mg/dL (74-118); POTASSIUM 4.6 mmol/L (3.5-5.1); SODIUM 134 mmol/L (136-145)
[2018-06-16] MEDS: SERTRALINE HCL 50 MG TAB PO SCH (08:38)
[2018-06-16] MEDS: GEMFIBROZIL 600 MG TAB PO SCH ×2 (08:38→16:00)
[2018-06-16] MEDS: NEOMYCIN/POLYMYXIN/BACITRACIN 15 GM TUBE TOP SCH ×3 (08:38→20:43)
[2018-06-16] MEDS: POTASSIUM CHLORIDE 10MEQ EA PO SCH (08:38)
[2018-06-16] MEDS: ASPIRIN 81 MG CHEW TAB PO SCH (08:38)
[2018-06-16] MEDS: METOPROLOL SUCCINATE 25 MG TAB XL PO SCH (08:39)
[2018-06-16] MEDS: IPRATROPIUM BROMIDE 0.06% 42 MCG NASPR NS SCH ×2 (08:39→16:00)
--- NOTE | 2018-06-16 08:40 | NUR ---
Pt received resting in bed. No c/o pain or discomfort noted or voiced. All meds given as ordered. Call galvan within reach. Will monitor
--- NOTE | 2018-06-16 16:52 | NUR ---
Pt resting in bed. All meds given as ordered. Call galvan within reach. Plan for SNF. Will monitor
[2018-06-16] MEDS ORDERED: WARFARIN SOD 5 MG TAB PO ONE (17:00)
[2018-06-17] MEDS: SALINE 0.65% NAS SOLN 1 SPRAY BTL SCH ×5 (01:30→17:37)
[2018-06-17 04:30] VITALS: BP 106/52
[2018-06-17 05:19] LABS: BASOPHILS # (AUTO) 0.1 (0.0-0.1); BASOPHILS % 0.8 % (0.0-1.0); EOSINOPHILS # (AUTO) 0.5 (0.0-0.4); HEMOGLOBIN 10.1 g/dL (14.0-18.0); LYMPHOCYTES # (AUTO) 1.8 (1.0-3.2); LYMPHOCYTES % 23.2 % (18.0-39.1); MEAN CORPUSCULAR HEMOGLOBIN 30.1 pg (28-32); MEAN CORPUSCULAR HGB CONC 31.6 g/dL (31-35); MEAN CORPUSCULAR VOLUME 95.5 fL (81-99); MONOCYTES # (AUTO) 1.1 (0.2-0.8); MONOCYTES % 13.6 % (4.4-11.3); NEUTROPHILS # (AUTO) 4.4 (2.1-6.9); NEUTROPHILS % 55.8 % (38.7-80.0); PLATELET COUNT 293 x10e3/uL (140-360); RED BLOOD COUNT 3.35 x10e6/uL (4.3-5.7); RED CELL DISTRIBUTION WIDTH 15.9 % (11.7-14.4)
[2018-06-17 05:36] LABS: INR 1.2; PROTHROMBIN TIME 16.3 seconds (11.9-14.5)
[2018-06-17 05:43] LABS: ANION GAP 13.5 mmol/L (8-16); BLOOD UREA NITROGEN 16 mg/dL (7-26); BUN/CREATININE RATIO 21 (6-25); CALCIUM 9.5 mg/dL (8.4-10.2); CARBON DIOXIDE 22 mmol/L (22-29); CHLORIDE 100 mmol/L (98-107); CREATININE, SERUM 0.78 mg/dL (0.72-1.25); EST GLOMERULAR FILTRATION RATE > 60 ML/MIN (60-); GLUCOSE 93 mg/dL (74-118); MAGNESIUM 1.9 MG/DL (1.3-2.1); POTASSIUM 4.5 mmol/L (3.5-5.1); SODIUM 131 mmol/L (136-145)
[2018-06-17 07:37] VITALS: BP 119/69
[2018-06-17 08:15] VITALS: BP 119/69
--- NOTE | 2018-06-17 08:15 | NUR ---
Pt received resting in bed. Alert and oriented x4. All meds given as ordered. Emotional support given. Call galvan within reach. Will monitor
[2018-06-17] MEDS: POTASSIUM CHLORIDE 10MEQ EA PO SCH (08:16)
[2018-06-17] MEDS: ASPIRIN 81 MG CHEW TAB PO SCH (08:16)
[2018-06-17] MEDS: SERTRALINE HCL 50 MG TAB PO SCH (08:16)
[2018-06-17] MEDS: GEMFIBROZIL 600 MG TAB PO SCH ×2 (08:16→17:37)
[2018-06-17] MEDS: IPRATROPIUM BROMIDE 0.06% 42 MCG NASPR NS SCH ×2 (08:17→16:38)
[2018-06-17] MEDS: NEOMYCIN/POLYMYXIN/BACITRACIN 15 GM TUBE TOP SCH ×2 (08:17→16:38)
[2018-06-17] MEDS: METOPROLOL SUCCINATE 25 MG TAB XL PO SCH (08:18)
--- NOTE | 2018-06-17 11:38 | NUR ---
CALLED AND SPOKE WITH MARY WHOM STATES NEVER RECEIVED CLINICALS, WILL REFAX TO [facility] [phone] WITH UPDATES
[2018-06-17 12:45] VITALS: BP 104/60
[2018-06-17 16:18] VITALS: BP 100/53
--- NOTE | 2018-06-17 16:40 | NUR ---
Report given to Nurse Jones at [facility]. Will give PM meds then transfer pt
[2018-06-17] MEDS ORDERED: WARFARIN SOD 3 MG TAB PO SCH (17:00)
--- NOTE | 2018-06-17 17:19 | NUR ---
SPOKE WITH MARY PT ACCEPTED AT [facility] [address], [facility], [place] [address] . RTF PASRR COMPLETED AND FILED IN CHART INFORMATION GIVEN TO NURSE AT STATION TO CALL REPORT AND TRANSFER PT.
--- NOTE | 2018-06-17 18:18 | NUR ---
Pt left via EMS to [facility]
--- NOTE | 2018-06-18 20:49 | Progress Note ---
DATE: June 17, 2018 FOLLOWUP NOTE This is a late entry note. Mr. Moore is a very pleasant 73-year-old gentleman with multiple medical problems including known history of coronary artery disease, congestive heart failure, atrial fibrillation, renal insufficiency, diabetes mellitus, and aortic valve replacement, admitted due to generalized weakness and shortness of breath. Hematology-oncology has been consulted to assist with the management due to liver cirrhosis, elevated alpha-fetoprotein, and hyperproteinemia. Patient underwent extensive evaluation, which remained nondiagnostic, however, alpha-fetoprotein noted to be markedly elevated suggestive of underlying possibility of hepatoma. Patient underwent imaging including CT chest revealing cirrhotic liver morphology with hypoattenuating lesion in the segment 6. He has been recommended to follow up outpatient for further workup and treatment of liver lesion and possible hepatoma. He is going to be discharged to retirement today. Job#: [id number]
== END 2018-06-17 18:19 | DRG 291 ==
LOC: ER 16:43 → ERHOLD 20:13 → MED/SURG 06-06 17:35 → MED/SURG3 06-08 13:42
PROVIDERS: ADMIT Internal Medicine; ATTEND Internal Medicine
PROC: 093K7ZZ Control Bleeding in Nasal Mucosa and Soft Tissue, Via Natural or Artificial Opening (ICD-10-PCS; principal; 2018-06-11)
DX: I13.0 Hypertensive heart and chronic kidney disease with heart failure and stage 1 through stage 4 chronic kidney disease, or unspecified chronic kidney disease (principal); I50.23 Acute on chronic systolic (congestive) heart failure; J18.9 Pneumonia, unspecified organism; D68.9 Coagulation defect, unspecified; N18.9 Chronic kidney disease, unspecified; K74.60 Unspecified cirrhosis of liver; Z95.2 Presence of prosthetic heart valve; Z86.73 Personal history of transient ischemic attack (TIA), and cerebral infarction without residual deficits; Z79.01 Long term (current) use of anticoagulants; Z95.5 Presence of coronary angioplasty implant and graft; Z87.891 Personal history of nicotine dependence; I48.2 Chronic atrial fibrillation; R04.0 Epistaxis; J34.2 Deviated nasal septum; H66.90 Otitis media, unspecified, unspecified ear; J30.9 Allergic rhinitis, unspecified; J30.0 Vasomotor rhinitis; J32.9 Chronic sinusitis, unspecified; Z95.810 Presence of automatic (implantable) cardiac defibrillator; D89.2 Hypergammaglobulinemia, unspecified
CPT/HCPCS: 36415; 51700; 70450; 71045; 71250; 80048; 80053; 81001; 82105; 82550; 82553; 82784; 82785; 82948; 83605; 83735; 83880; 84165; 84484; 85025; 85610; 85651; 85730; 86140; 86592; 86780; 87040; 87400; 93005; 97139; 99285; J0456; J0692; J3370; J7030; J7050

== ENCOUNTER 2018-06-18 15:07 | Inpatient (IN) | payer MEDICARE ==
[~2018-06-18] VITALS: Ht 182.9 cm; Wt 68.0 kg
[~2018-06-18 15:07] MED LIST changes: +FUROSEMIDE40 MG PO; +METFORMIN HCL500 M1 PO; +METOPROLOL SUCC25 MG PO; +SERTRALINE HCL50 MG PO
--- OUTSIDE RECORDS SUMMARY | 2018-06-18 15:11 | XMS REPORT | Clinical Summary ---
Author Author [facility] Organization [facility] Address Unknown Phone Unavailable Care Team Providers Care Pattern Cleaner Name Role Phone Ronda Sofia MD PCP [...] Manufactur er 02/07/2019 E100 25A 00 / [id number] / [id number] Valve Aortc Stntd Tiss Annls W/ Cardiovasc N/A: N/A ST ASTRID Linx Ac Tech 25mm Epic - ular STRUCTURAL [id number] - [id number] Implants HEART Implanted: Qty: 1 on 09/26/2016 by Venkat Silver MD [id number] / / Lead Pace Jono Mycrdl Unipol Tmpry Cardiovasc MEDTRONIC Streamline - [id number] ular [place] - Implanted: Qty: 2 on 09/26/2016 by Implants CARDIAC Venkat Silver MD SRGRY S 1100 [id number] / / Chamber Sgl Thais Dry Suct 1wy Vlv Surgical N/A: N/A TELEFLEX Adlt Pedi - [id number] Implants; MEDICAL Implanted: 09/26/2016 (Quantity not Expanders; on file) Extenders; Surgical Wires S 1100 08LF / / Chamber Sgl Thais Dry Suct 1wy Vlv Surgical N/A: N/A TELEFLEX Adlt Pedi - [id number] Implants; MEDICAL Implanted: 09/26/2016 (Quantity not Expanders; on file) Extenders; Surgical Wires S 1100 08LF / / Chamber Sgl Thais Dry Suct 1wy Vlv Surgical N/A: N/A TELEFLEX Adlt Pedi - [id number] Implants; MEDICAL Implanted: 09/26/2016 (Quantity not Expanders; on file) Extenders; Surgical Wires 05/20/2021 [id number] / / [id number] Viviana Perph Vasclr Ptfe 1.2x10cm Vascular N/A: N/A BARD 1.65mm - [id number] Graft PERIPHERAL Implanted: Qty: 1 on 09/26/2016 by VASCULAR Venkat Silver MD 05/20/2021 [id number] / / [id number] Viviana Perph Vasclr Ptfe 1.2x10cm Vascular N/A: N/A BARD 1.65mm - [id number] Graft PERIPHERAL Implanted: Qty: 1 on 09/26/2016 by VASCULAR Venkat Silver MD [id number] / / Ferguson Perph Vasclr Ptfe [id number] Vascular BARD 1.65mm - [id number] Graft PERIPHERAL Implanted: Qty: 1 on 09/26/2016 by VASCULAR Venkat Silver MD Results Not on fileafter 06/17/2017 Insurance Payer Benefit Subscriber ID Type Phone Address Plan / Group MEDICARE MEDICARE xxxxxxxxxx Medicare [place], [place] PART A AND B AARP AARP xxxxxxxxxxx Commercial SUPPLEMENT Advance Directives Patient has advance care planning documents on file. For more information, yessenia canchola contact: Pop Capellan [address] [place] [address]
--- NOTE | 2018-06-18 15:30 | NUR ---
CALLED, NO ANSWER
[2018-06-18 18:34] LABS: BASOPHILS # (AUTO) 0.1 (0.0-0.1); BASOPHILS % 0.5 % (0.0-1.0); EOSINOPHILS # (AUTO) 0.1 (0.0-0.4); EOSINOPHILS % 0.9 % (0.0-6.0); HEMATOCRIT 31.2 % (38.2-49.6); LYMPHOCYTES # (AUTO) 1.2 (1.0-3.2); LYMPHOCYTES % 11.7 % (18.0-39.1); MEAN CORPUSCULAR HEMOGLOBIN 30.6 pg (28-32); MEAN CORPUSCULAR HGB CONC 32.1 g/dL (31-35); MEAN CORPUSCULAR VOLUME 95.4 fL (81-99); MONOCYTES # (AUTO) 1.1 (0.2-0.8); MONOCYTES % 10.1 % (4.4-11.3); PLATELET COUNT 248 x10e3/uL (140-360); RED BLOOD COUNT 3.27 x10e6/uL (4.3-5.7)
[2018-06-18 18:42] LABS: INR 1.37
[2018-06-18 18:48] LABS: CLARITY,URINE CLEAR (CLEAR); COLOR,URINE YELLOW (YELLOW); KETONES,URINE NEGATIVE (NEGATIVE); LEUKOCYTE ESTERASE ,URINE NEGATIVE (NEGATIVE); NITRITE,URINE NEGATIVE (NEGATIVE); PROTEIN,URINE DIPSTICK NEGATIVE (NEGATIVE)
[2018-06-18 18:49] LABS: BILIRUBIN,URINE NEGATIVE (NEGATIVE); URINE UROBILINOGEN 1 mg/dL (0.2 - 1)
[2018-06-18 18:51] LABS: ALANINE AMINOTRANSFERASE 52 IU/L (0-55); ALBUMIN/GLOBULIN RATIO 0.5 (0.8-2.0); ALKALINE PHOSPHATASE 180 IU/L (40-150); ANION GAP 14.7 mmol/L (8-16); BLOOD UREA NITROGEN 20 mg/dL (7-26); BUN/CREATININE RATIO 24 (6-25); CALCIUM 9.7 mg/dL (8.4-10.2); CARBON DIOXIDE 20 mmol/L (22-29); CHLORIDE 99 mmol/L (98-107); CREATINE KINASE 128 IU/L (30-200); CREATININE, SERUM 0.82 mg/dL (0.72-1.25); EST GLOMERULAR FILTRATION RATE > 60 ML/MIN (60-); GLUCOSE 133 mg/dL (74-118); MAGNESIUM 1.9 MG/DL (1.3-2.1); POTASSIUM 4.7 mmol/L (3.5-5.1); SODIUM 129 mmol/L (136-145)
[2018-06-18 18:59] LABS: BACTERIA,URINE FEW /HPF; EPITHELIAL CELLS,URINE FEW /LPF; MUCUS,URINE MODERATE (RARE); RBC,URINE 0-5 /HPF (0-5); WBC,URINE (MAN) 0-5 /HPF (0-5)
--- NOTE | 2018-06-18 19:30 | NUR ---
RECEIVED REPORT FROM POLI GILES DAY SHIFT NURSE.
--- NOTE | 2018-06-18 19:31 | NUR ---
REPORT GIVEN TO POLI RUTHERFORD BULL FIDDLE PLAYER NURSE.
--- NOTE | 2018-06-18 19:31 | Diagnostic Imaging Report ---
CT BRAIN WO HISTORY: Fall COMPARISON: Head CT 06/05/2018 Technique: Noncontrast axial scans were obtained from skull base to the vertex. Coronal and sagittal reconstructions obtained from the axial data. One or more of the following dose reduction techniques were used: Automated exposure control, adjustment of the mA and/or kV according to patient size, and/or utilization of iterative reconstruction technique. DISCUSSION: Scalp/Skull: Focal swelling in the posterior occipital scalp is present. No calvarial fracture is seen. Brain sulci: Mildly prominent. Ventricles: Compensatory dilatation. Extra-axial spaces: No masses or fluid collections. Carotid siphon and vertebral artery calcifications are present. Parenchyma: Mild bilateral deep white matter hypodensity is likely chronic microvascular ischemic change. Focal encephalomalacia in the right superior parietal lobule is likely from remote infarct. Age-related globi pallidi calcifications are present. Otherwise, no masses, hemorrhage, or large vascular territory acute infarct. Dural sinuses: No abnormal densities. Sellar/Suprasellar region: Intact. Skull base: Intact. Incidental findings: Both ocular lenses are thinned. Trace fluid layers in the left maxillary sinus IMPRESSION: 1. No acute intracranial abnormalities. 2. Mild supratentorial chronic microvascular ischemic change. Mild generalized cerebral volume loss. 3. 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 Joshua Fisher M.D. on 06/18/2018 7:28 PM
--- NOTE | 2018-06-18 19:38 | Diagnostic Imaging Report ---
CT CERVICAL SPINE WO HISTORY: Fall COMPARISON: CTA of the neck 06/13/2015, concurrent head CT; chest CT 06/10/2018 TECHNIQUE: CT of the cervical spine without contrast. Sagittal and coronal reformations were created. One or more of the following dose reduction techniques were used: Automated exposure control, adjustment of the mA and/or kV according to patient size, and/or utilization of iterative reconstruction technique. FINDINGS: Cervical lordosis is straightened. There is no scoliosis or subluxation. No acute fractures, compression deformity, or destructive osseous lesions are seen. There are old, mildly displaced fractures of the left first through third ribs. The craniocervical junction is intact. No gross spinal canal masses are seen. The paravertebral and paraspinal soft tissues are unremarkable. Mild multilevel spondylotic changes are present. Minimal grade 1 anterolisthesis of C7 on T1 is due to facet arthrosis. Mild to moderate atlantoaxial arthrosis is present as well. The right C2-C3 facet joint is fused Severe left carotid bulb calcified plaque is present. Surgical clips are seen adjacent to the right carotid bulb. Trace left mastoid effusion is present. IMPRESSION: 1. No acute osseous abnormalities. 2. Mild multilevel spondylosis. Minimal grade 1 anterolisthesis of C7 on T1 due to facet arthrosis. Signed by: Dr. Joshua Fisher M.D. on 06/18/2018 7:35 PM
--- NOTE | 2018-06-18 19:49 | Diagnostic Imaging Report ---
CT THORACIC SPINE WO, CT LUMBAR SPINE WO HISTORY: Fall, back pain COMPARISON: Chest CT 06/10/2018 TECHNIQUE: Axial CT images of the thoracic and lumbar spine were obtained without intravenous contrast. Coronal/sagittal reformations were created. One or more of the following dose reduction techniques were used: Automated exposure control, adjustment of the mA and/or kV according to patient size, and/or utilization of iterative reconstruction technique. FINDINGS: Mild bone demineralization limits evaluation. Thoracic kyphosis is preserved. Lumbar lordosis is slightly straightened. There is no significant scoliosis. Mild to moderate T12 vertebral compression deformity is new when compared to chest CT dated 06/10/2018. Mild fracture retropulsion causes at least mild canal stenosis. There is no definite fracture extension into the posterior elements. No definite additional acute fracture or compression deformity is seen. Multiple old left rib fractures are present. No gross spinal canal mass is seen. The paravertebral and paraspinal soft tissues are unremarkable. There are mild spondylotic changes throughout the thoracic spine. Mild to moderate multilevel lumbar spondylosis is most prominent at L5-S1. Grade 1 anterolisthesis of L5 on S1 is due to chronic bilateral L5 pars defects. Mild dependent atelectasis is seen in both lungs. Intracardiac leads are partially visualized. The heart is enlarged with aortic and coronary artery calcifications. Focal cortical defect in the left kidney is partially visualized. Aortoiliac calcifications are present IMPRESSION: 1. Acute mild to moderate T12 vertebral compression/burst fracture. Mild fracture retropulsion causes at least mild canal stenosis. 2. No other acute osseous abnormalities. 3. Mild thoracic spondylosis. 4. Mild to moderate multilevel lumbar spondylosis, most prominent at L5-S1. Grade 1 anterolisthesis of L5 on S1 due to chronic bilateral L5 pars defects. Signed by: Dr. Joshua Fisher M.D. on 06/18/2018 7:46 PM
--- NOTE | 2018-06-18 21:01 | Diagnostic Imaging Report ---
SHOULDER RIGHT COMPLETE - 2 views HISTORY: Pain. Back pain COMPARISON: None available. FINDINGS: Bones: No acute displaced fracture. Osseous alignment is within normal limits. Joints: Moderate adjacent changes in the right AC joint. Mild degenerative changes in the right glenohumeral joint with degenerative cystic changes at the greater tuberosity with slightly high riding right glenohumeral joint. Soft tissues: The soft tissues appear unremarkable. IMPRESSION: 1. Moderate degenerative changes in the right shoulder. 2. No fracture. Signed by: Dr. Holden Odonnell M.D. on 06/18/2018 8:57 PM
--- OUTSIDE RECORDS SUMMARY | 2018-06-18 21:02 | XMS REPORT | Clinical Summary ---
Author Author [facility] [facility] Address Unknown Phone Unavailable Care Team Providers Care [facility] Slinger Name Role Phone Ronda Sfoia MD PCP Allergies No Known Allergies Medications [...] Manufactur er 02/07/2019 E100 25A 00 / [id number] / [id number] Valve Aortc Stntd Tiss Annls W/ Cardiovasc N/A: N/A ST ASTRID Linx Ac Tech 25mm Epic - ular STRUCTURAL [id number] - [id number] Implants HEART Implanted: Qty: 1 on 09/26/2016 by Venkat Silver MD [id number] / / Lead Pace Jono Mycrdl Unipol Tmpry Cardiovasc [employer] Streamline - [id number] ular [place] - Implanted: Qty: 2 on 09/26/2016 by Implants CARDIAC Venkat Silver MD SRGRY S 1100 [id number] / / Chamber Sgl Thais Dry Suct 1wy Vlv Surgical N/A: N/A TELEFLEX Adlt Pedi - [id number] Implants; MEDICAL Implanted: 09/26/2016 (Quantity not Expanders; on file) Extenders; Surgical Wires S 1100 08LF / / Chamber Sgl Thais Dry Suct 1wy Vlv Surgical N/A: N/A TELEFLEX Adlt Pedi - [id number] Implants; MEDICAL Implanted: 09/26/2016 (Quantity not Expanders; on file) Extenders; Surgical Wires S 1100 08LF / / Chamber Sgl Thais Dry Suct 1wy Vlv Surgical N/A: N/A TELEFLEX Adlt Pedi - [id number] Implants; MEDICAL Implanted: 09/26/2016 (Quantity not Expanders; on file) Extenders; Surgical Wires 05/20/2021 [id number] / / [id number] Viviana Perph Vasclr Ptfe 1.2x10cm Vascular N/A: N/A BARD 1.65mm - [id number] Graft PERIPHERAL Implanted: Qty: 1 on 09/26/2016 by VASCULAR Venkat Silver MD 05/20/2021 [id number] / / [id number] Viviana Perph Vasclr Ptfe 1.2x10cm Vascular N/A: N/A BARD 1.65mm - [id number] Graft PERIPHERAL Implanted: Qty: 1 on 09/26/2016 by VASCULAR Venkat Silver MD [id number] / / Yolyn Perph Vasclr Ptfe [id number] Vascular BARD 1.65mm - [id number] Graft PERIPHERAL Implanted: Qty: 1 on 09/26/2016 by VASCULAR Venkat Silver MD Results Not on fileafter 06/17/2017 Insurance Payer Benefit Subscriber ID Type Phone Address Plan / Group MEDICARE MEDICARE xxxxxxxxxx Medicare [place], [place] PART A AND B AARP AARP xxxxxxxxxxx Commercial SUPPLEMENT Advance Directives Patient has advance care planning documents on file. For more information, yessenia canchola contact: Pop Capellan [address] [place] [address]
--- NOTE | 2018-06-18 21:05 | NUR ---
2104- PT WENT INTO [facility]. ER STAFF AND DR. HARDIN IN ROOM WITH PT. CRASH CART IN [facility] AND DEFIBRILLATOR PADS PLACED ON PT. 2105- PT SEIZING. SIEZURE LASTED LESS THAN ONE MINUTE. RAPID RESPONSE ACTIVATED AND RT AT BEDSIDE. 2109-PT CARDIOVERTED AT 200 JOULES PER MD ORDERS. 2115-MORPHINE SULFATE 4MG IV ADMINISTERED AND AMIODARONE BOLUS 150MG ADMINISTERED. 2118- 2ND IV ACCESS OBTAINED IN L AC 18G IN PLACE BY REGULATORY SUBMISSIONS ASSOCIATE. 2119- MAGNESIUM SULFATE/DEXTROSE 1 GM/100ML ADMINISTERED IN L IV. AMIODARONE/DEXTROSE 900MG IV DRIP ADMINISTERED AT 33ML/HR IN R IV. 2121-BEDSIDE GLUCOSE OBTAINED. BG 170. 2124- PT IS STABLE AT THIS TIME. WILL CONTINUE TO MONITOR PT.
[2018-06-18] MEDS ORDERED: AMIODARONE HCL 150MG 100 ML ONE (21:13)
[2018-06-18] MEDS ORDERED: AMIODARONE 900MG 500 ML IV ONE (21:14)
[2018-06-18] MEDS ORDERED: MORPHINE SULFATE INJ 4 MG/ML INJ ONE (21:16)
[2018-06-18] MEDS ORDERED: SODIUM CHLORIDE 0.9% 1000ML 1,000 ML ONE (21:39)
[2018-06-18] MEDS ORDERED: SODIUM CHLORIDE 0.9% 1000ML 1,000 ML IV STA (21:57)
[2018-06-18] MEDS ORDERED: AMIODARONE HCL 900 MG in DEXTROSE 5% 500ML 500 ML IV STA (22:26)
[2018-06-18] MEDS ORDERED: MORPHINE SULFATE 2 MG/ML SYR IV STA (22:26)
[2018-06-18 22:29] LABS: BASOPHILS # (AUTO) 0.1 (0.0-0.1); BASOPHILS % 0.4 % (0.0-1.0); EOSINOPHILS # (AUTO) 0.2 (0.0-0.4); EOSINOPHILS % 1.3 % (0.0-6.0); HEMOGLOBIN 9.7 g/dL (14.0-18.0); LYMPHOCYTES # (AUTO) 2.1 (1.0-3.2); LYMPHOCYTES % 16.3 % (18.0-39.1); MEAN CORPUSCULAR HEMOGLOBIN 30.4 pg (28-32); MEAN CORPUSCULAR HGB CONC 32.3 g/dL (31-35); MONOCYTES # (AUTO) 1.2 (0.2-0.8); MONOCYTES % 9.7 % (4.4-11.3); NEUTROPHILS # (AUTO) 9.1 (2.1-6.9); NEUTROPHILS % 71.5 % (38.7-80.0); PLATELET COUNT 271 x10e3/uL (140-360); RED BLOOD COUNT 3.19 x10e6/uL (4.3-5.7); RED CELL DISTRIBUTION WIDTH 15.9 % (11.7-14.4)
[2018-06-18] MEDS ORDERED: AMIODARONE HCL 150 MG/100 ML BAG IV ONE (22:30)
[2018-06-18] MEDS ORDERED: MAGNESIUM SULF 1GRAM/DEXTROSE 100 ML IV ONE (22:30)
[2018-06-18 22:52] LABS: ALANINE AMINOTRANSFERASE 47 IU/L (0-55); ALBUMIN 2.9 g/dL (3.5-5.0); ALBUMIN/GLOBULIN RATIO 0.6 (0.8-2.0); ALKALINE PHOSPHATASE 170 IU/L (40-150); ANION GAP 16.6 mmol/L (8-16); BLOOD UREA NITROGEN 18 mg/dL (7-26); BUN/CREATININE RATIO 23 (6-25); CALCIUM 9.5 mg/dL (8.4-10.2); CARBON DIOXIDE 18 mmol/L (22-29); CHLORIDE 100 mmol/L (98-107); CREATINE KINASE 112 IU/L (30-200); CREATININE, SERUM 0.78 mg/dL (0.72-1.25); EST GLOMERULAR FILTRATION RATE > 60 ML/MIN (60-); GLUCOSE 137 mg/dL (74-118); MAGNESIUM 1.8 MG/DL (1.3-2.1); POTASSIUM 4.6 mmol/L (3.5-5.1); SODIUM 130 mmol/L (136-145)
[2018-06-19] VITALS (22 sets, daily range): BP systolic 77–110; BP diastolic 53–81
[2018-06-19 05:07] LABS: BASOPHILS % 0.3 % (0.0-1.0); EOSINOPHILS # (AUTO) 0.1 (0.0-0.4); EOSINOPHILS % 0.9 % (0.0-6.0); HEMATOCRIT 29.6 % (38.2-49.6); HEMOGLOBIN 9.4 g/dL (14.0-18.0); LYMPHOCYTES # (AUTO) 1.8 (1.0-3.2); LYMPHOCYTES % 15.4 % (18.0-39.1); MEAN CORPUSCULAR HEMOGLOBIN 30.2 pg (28-32); MEAN CORPUSCULAR HGB CONC 31.8 g/dL (31-35); MEAN CORPUSCULAR VOLUME 95.2 fL (81-99); MONOCYTES # (AUTO) 1.3 (0.2-0.8); MONOCYTES % 10.8 % (4.4-11.3); NEUTROPHILS # (AUTO) 8.4 (2.1-6.9); NEUTROPHILS % 72.1 % (38.7-80.0); RED BLOOD COUNT 3.11 x10e6/uL (4.3-5.7); RED CELL DISTRIBUTION WIDTH 16.2 % (11.7-14.4)
[2018-06-19 05:10] LABS: PLATELET COUNT 236 x10e3/uL (140-360)
[2018-06-19 05:23] LABS: INR 1.4; PROTHROMBIN TIME 18.3 seconds (11.9-14.5)
[2018-06-19 05:24] LABS: PARTIAL THROMBOPLASTIN TIME 42.3 seconds (23.8-35.5)
--- NOTE | 2018-06-19 05:30 | Diagnostic Imaging Report ---
EXAM: CHEST SINGLE (PORTABLE), AP 1 view INDICATION: Fall, hyponatremia COMPARISON: AP view of the chest June 07, 2018 FINDINGS: LINES/TUBES: Stable left approach cardiac device. LUNGS: Mild bibasilar atelectasis. Limited evaluation of the left lung base due to overlying artifact. PLEURA: No effusions or pneumothorax. HEART AND MEDIASTINUM: Stable appearance with surgical changes of coronary artery bypass. BONES AND SOFT TISSUES: No acute findings. IMPRESSION: No acute thoracic abnormality. Signed by: Dr. Nataly Lucero M.D. on 06/19/2018 5:27 AM
[2018-06-19 05:33] LABS: ANION GAP 13.3 mmol/L (8-16); BLOOD UREA NITROGEN 19 mg/dL (7-26); BUN/CREATININE RATIO 24 (6-25); CALCIUM 9.1 mg/dL (8.4-10.2); CARBON DIOXIDE 20 mmol/L (22-29); CHLORIDE 103 mmol/L (98-107); CREATININE, SERUM 0.78 mg/dL (0.72-1.25); EST GLOMERULAR FILTRATION RATE > 60 ML/MIN (60-); GLUCOSE 124 mg/dL (74-118); POTASSIUM 5.3 mmol/L (3.5-5.1); SODIUM 131 mmol/L (136-145)
--- NOTE | 2018-06-19 07:00 | NUR ---
bedside report recvd. assessment completed and recorded. vss and recorded. no family at bedside. pt verbalizes understanding and compliance with current poc.
--- NOTE | 2018-06-19 08:02 | NUR ---
pt left ama, no family seen, pt states will wait in lobby. all belongings taken with pt. Addendum: 06/19/18 at 0820 by Shruthi Loya RN charted on wrong pt.
--- NOTE | 2018-06-19 10:15 | NUR ---
consult with dietary completed
--- NOTE | 2018-06-19 10:39 | NUR ---
Nutrition Intervention Note RD Recommendation(s) for Physician: - Continue ADA/ cardiac diet as ordered - Continue Glucerna BID (Butter Pecan) for adequate nutrition - Encourage PO and hydration The patient meets criteria for unspecified SEVERE protein-calorie malnutrition. (based on NFPA and weight loss) Plan of Care: RD following, monitoring for tolerance and adequacy, ONS rec Nutrition reason for involvement: RN consult No reason stated RD Assessment 06/11- Chart reviewed. 73yo M, who is admitted for cardiac arrest and Vtach. Pt is well known to me from his previous admission. He had great appetite and ~100% PO intake during his hospital stay at that time. He was d/c on 06/17 and returned on 06/18. Visited pt in the room. Pt didnt eat much for breakfast today. Glucerna order was continued from his last admission. Pt really likes Glucerna and will drink all of it. No GI complains noted. LBM 06/18, normal per pt. Pt denies any chewing or swallowing difficulty. Will continue to monitor and follow. Principal Problems/Diagnoses: Hyponatremia, T12 burst fx, cardiac arrest PMH: hypertension, coronary artery disease, congestive heart failure, chronic atrial fibrillation, transient ischemic attack, diabetes mellitus, and arterial valve replacement GI: abd soft, non-tender, flatus present, LBM 06/18 Skin: intact Labs: (06/19) Na 131 L, 5.3 H, glucose 124 H Meds: reviewed Ht: 70in Wt: 148.31lb BMI: 21.3kg/m2 IBW: 166lb Malnutrition Evaluation (06/19/18) The patient meets criteria for unspecified SEVERE protein-calorie malnutrition. Energy intake: PO intake has improved Weight loss: >20% in 1 year (Chronic) Fat loss: Severe - hollow orbital region with dark circles, loss of fat over triceps, protrusion of clavicle Muscle loss: Severe protrusion of clavicle and acromion process, depression of temporal region Supporting Evidence: Fluid accumulation: unable to evaluate Functional Status: reduced Nutrition Prescription (Diet Order): cardiac/ ADA diet Estimated Nutritional Needs: Calories: 1600 2240kcal (25-35kcal/kg/d) Weight used : Actual BW Protein : 64 96g (1-1.5g/kg/d) Weight used: Actual BW Diet Adequacy: Not meeting calorie needs, Not meeting protein needs Diet Education Needs Assessment: Diet education not indicated. Nutrition Care Level: low Nutrition Diagnosis: Malnutrition related to chronic illness as evidenced by significant weight loss as well as loss of muscle mass and fat upon NFPA. Goal: Patient will meet 75-100% of estimated needs by follow up Progress: N/A Interventions: Carbohydrate/ Mineral-modified diet, Commercial beverage Monitoring/Evaluation: Total energy intake, Total protein intake, Modified diet, Liquid supplement, Weight change Signed: Pauly Serrato MS, RD, LD
--- NOTE | 2018-06-19 11:30 | NUR ---
pt with pt and wound consult. report given to nahomi.
--- NOTE | 2018-06-19 12:07 | NUR ---
WOUND CARE CONSULTATION- INITIAL EVALUATION Pt is a pleasant 73 year-old male admitted from [facility] to the ER for S/P Fall with T12 Burst Fracture and Hyponatremia. Complains of localized pain to sacral area. Physical therapy at bedside. Patient has no known allergies and is on an ADA Diet with Glucerna BID. Noted imaging but no contributory findings related to wound care were identified. Head to toe assessment performed and identified the following wounds: 1. Sacral- Unstageable, Pressure Ulcer with Eschar - 1x0.8x UTD * No redness or swelling noted. Area appears to be stable. No Drainage. No Induration. 2. BLE, BUE small scabs/ abrasions that appear stable and healing 3. Bilateral Heels - No wounds- Heel protectors in use. HX: DM type 2, Right Carotid Stenosis 2012, pancreatitis. LABS: WBC 11.59 RBC3.11 Hgb9.4 Hct29.6 Vyy824 Alb2.9 L Micro: none RECOMMENDATION: 1. Sacrum - Unstageable Pressure Ulcer - -Wash bottom and clayton area with soap and water then pat dry thoroughly. -Apply Venelex and cover with Allevyn Foam Sacrum Daily. 2. No Diapers while in bed, Okay to continue using dry flow underpads. No Linen Chux. 3. Okay to use diaper when out of bed only. 4. Turn and reposition q2h. 5. Continue use of Bilateral Heel protectors while in bed. 6. Continue use of CHRISTIANO Air Mattress. Thank you Mayco Jimenez for the consultation. Will follow up upon request. Addendum: 06/19/18 at 1240 by Todd Osorio RN Amended: Links added. Addendum: 06/19/18 at 1245 by Todd Osorio RN Bedside education provided for moisture management, turning and repositioning, and wound care treatment plan. Patient and spouse verbalized understanding.
[2018-06-19] MEDS ORDERED: MORPHINE SULFATE 2 MG/ML SYR IV PRN (14:15)
[2018-06-19] MEDS ORDERED: MORPHINE SULFATE INJ 4 MG/ML INJ IV PRN (14:15)
[2018-06-19] MEDS ORDERED: SOD POLYSTYRENE SULFONATE SUSP 15 GM/60 ML BTL PO ONE (14:30)
[2018-06-19] MEDS: BALSAM PERU/CASTOR OIL 60 GM OINT...G. TP SCH ×2 (15:04→21:21)
--- NOTE | 2018-06-19 15:22 | NUR ---
[employer] to bedside to discuss plan of care with patient/family. CM/SW role and care transitions discussed. Anticipated discharge plan discussed along with duration of care. CM discussed patients right to make decisions in care. CM/SW work hours given. Patient lives: Lio Ozuna Address: [address] [place] [id number] Admit/Transfer: ED POA/Emergency contact: HERBIE ALANIZ: [phone] & [phone] SONDaron ALANIZ: [phone] & [phone] Current/Previous Home Health: NONE/ N/A PCP/Follow-up Care: MALCOLM VINES MD Current/Previous DME: N/A Other Services: NONE AT THIS TIME Employment Status: RETIRED Areas of Concerns: N/A Referral Needs: NONE AT THIS TIME Education Needs: NONE AT THIS TIME IMM/ESQUEDA given and signed (if applicable): NO Goal for discharge: GOAL IS TO RETURN TO SNF THEN DISCHARGE HOME INDEPENDENT WITH NO NEEDS CM left business card at the bedside with contact information. Name and number was also written on the patients whiteboard. Patient verbalized understanding of discussion. CM will follow-up with ongoing discharge and transition of care needs.
[2018-06-19] MEDS: MORPHINE SULFATE INJ 4 MG/ML INJ IV PRN (16:14)
[2018-06-19] MEDS: INSULIN LISPRO 100 UNIT/1 ML 3ML VIAL SQ SCH ×2 (16:30→21:00)
[2018-06-19] MEDS: WARFARIN SOD 3 MG TAB PO SCH (17:00)
--- NOTE | 2018-06-19 17:43 | NUR ---
[employer] called for Defibrillator check and I spoke to Charlie. Dr. Bright says it is ok to have them check it tomorrow. They will be coming tomorrow.
[2018-06-19] MEDS ORDERED: NON-FORMULARY MEDICATION (Atorvastatin Calcium 80 MG) PO SCH (21:00)
[2018-06-19] MEDS: ACETAMINOPHEN/CODEINE 300MG - 30MG TAB PO PRN (21:21)
[2018-06-19] MEDS: ATORVASTATIN 40 MG TAB PO SCH (21:26)
[2018-06-20] VITALS (17 sets, daily range): BP systolic 84–115; BP diastolic 51–89
[2018-06-20] MEDS: MORPHINE SULFATE INJ 4 MG/ML INJ IV PRN ×4 (01:15→21:28)
[2018-06-20 05:22] LABS: BASOPHILS # (AUTO) 0.1 (0.0-0.1); BASOPHILS % 0.6 % (0.0-1.0); EOSINOPHILS # (AUTO) 0.4 (0.0-0.4); EOSINOPHILS % 4.1 % (0.0-6.0); HEMATOCRIT 27.1 % (38.2-49.6); HEMOGLOBIN 8.6 g/dL (14.0-18.0); LYMPHOCYTES # (AUTO) 1.5 (1.0-3.2); LYMPHOCYTES % 15.8 % (18.0-39.1); MEAN CORPUSCULAR HEMOGLOBIN 30.2 pg (28-32); MEAN CORPUSCULAR HGB CONC 31.7 g/dL (31-35); MEAN CORPUSCULAR VOLUME 95.1 fL (81-99); MONOCYTES # (AUTO) 1.3 (0.2-0.8); NEUTROPHILS # (AUTO) 6.4 (2.1-6.9); PLATELET COUNT 206 x10e3/uL (140-360); RED BLOOD COUNT 2.85 x10e6/uL (4.3-5.7); RED CELL DISTRIBUTION WIDTH 16.2 % (11.7-14.4)
[2018-06-20 05:38] LABS: INR 1.41; PROTHROMBIN TIME 18.4 seconds (11.9-14.5)
[2018-06-20 05:51] LABS: ANION GAP 13.3 mmol/L (8-16); BLOOD UREA NITROGEN 18 mg/dL (7-26); BUN/CREATININE RATIO 25 (6-25); CALCIUM 8.8 mg/dL (8.4-10.2); CARBON DIOXIDE 19 mmol/L (22-29); CHLORIDE 103 mmol/L (98-107); CHOL/HDL RATIO 4.9 (3.9-4.7); CHOLESTEROL 152 MD/DL (0-199); CREATININE, SERUM 0.72 mg/dL (0.72-1.25); EST GLOMERULAR FILTRATION RATE > 60 ML/MIN (60-); GLUCOSE 101 mg/dL (74-118); HDL CHOLESTEROL 31 MG/DL (40-60); LDL CHOLESTEROL 91 MG/DL (60-130); POTASSIUM 4.3 mmol/L (3.5-5.1); SODIUM 131 mmol/L (136-145); TRIGLYCERIDES 148 MG/DL (0-149)
--- NOTE | 2018-06-20 06:19 | NUR ---
PATIENT HAS NOT RESTED WELL TONIGHT. COMPLAINING OF PAIN TO HIS SACRUM INTERVENTIONS IN PLACE SUCH FOAM DRESSING TO CUSHION AREA, Q2HR TURN. HOWEVER, PATIENT IS NON-COMPLIANT AND KEEPS TURNING ON TO HIS BACK. PATIENT COMPLAINS HE CAN NOT REACH ANYTHING BUT HIS BEDSIDE LIGHT IS LAYING BESIDE HIM AND IN REACH, HIS BEDSIDE TABLE IS WHERE HE IS REACHING DISTANCE TO BE ABLE TO TAKE IN PO FLUIDS BUT HE INSISTS HE CAN NOT GET TO IT EVEN AFTER HE PERFORMS IT IN FRONT OF ME. I HAVE GIVEN HIS PRN PAIN MED WHEN ASKED. I ALSO BATHED HIM AND CHANGED HIS LINEN TO HELP HIM FEEL MORE COMFORTABLE ALONG WITH ICE PACKS TO HELP EASE COMFORT. WILL CONTINUE TO MONITOR AND CHECK ON PATIENT FREQUENTLY
[2018-06-20] MEDS: INSULIN LISPRO 100 UNIT/1 ML 3ML VIAL SQ SCH ×4 (07:30→21:00)
[2018-06-20] MEDS: SERTRALINE HCL 50 MG TAB PO SCH (08:48)
[2018-06-20] MEDS: AMIODARONE HCL 200 MG TAB PO SCH (08:48)
[2018-06-20] MEDS: ACETAMINOPHEN/CODEINE 300MG - 30MG TAB PO PRN (08:55)
--- NOTE | 2018-06-20 11:56 | Consultation ---
DATE OF CONSULTATION: June 19, 2018 CARDIOLOGY CONSULTATION CONSULTING PHYSICIAN: Dr. Joe Greenwood. REASON FOR CONSULTATION: V-tach. HPI: This is a pleasant 73-year-old male that presented status post fall. According to him, he stated that he fell at a halfway and he was brought back for further evaluation. He had x-ray done that showed no fracture. Yesterday, he had a V-tach and cardiology was consulted. He has an extensive cardiac history with aortic valve replacement and ICD placement due to impaired systolic function. He denied any chest pain, any palpitation, any diaphoresis, nausea, or vomiting. He was recently discharged home last week after he was treated for generalized weakness, epistaxis and coagulopathy. He was also found to have elevated potassium. PAST MEDICAL HISTORY: Systolic CHF, chronic CAD, AFib, ICD, renal insufficiency, aortic valve replacement, diabetes, hypertension, hyperlipidemia, TIA, cirrhotic liver, [place], coagulopathy, epistaxis, chronic otitis media, PVD, and PAD. PAST SURGICAL HISTORY: Aortic valve replacement, carotid endarterectomy, ICD, and CABG. FAMILY HISTORY: Noncontributory. SOCIAL HISTORY: He lives at a halfway.. MEDICATIONS: See med list. ALLERGIES: He is not allergic to any medication. REVIEW OF SYSTEMS: Negative except those mentioned above. He is status post fall and V-tach. PHYSICAL EXAMINATION VITAL SIGNS: Temperature 98.3, heart rate 76, blood pressure 104/64, respirations 18, and oxygen saturation 100% on room air. GENERAL: He is awake, alert, and oriented x3 and get intermittently confused. HEENT: Mucous membrane moist. NECK: Supple. LUNGS: Bilateral clear to auscultation. CARDIOVASCULAR: He is being paced. ABDOMEN: Soft. NEUROLOGIC: Intact. EXTREMITIES: With no edema. LABS: Sodium 131, potassium 4.3, chloride 103, CO2 19, BUN 18, creatinine 0.72, and glucose 101. White blood cell 9.71, hemoglobin 8.6, hematocrit 27.1, and platelet 206. PT is 10.4, PTT 42.3, INR 1.41. IMPRESSION 1. Status post fall. 2. Ventricular tachycardia. 3. Coronary artery disease with aortic valve replacement. 4. Anemia. 5. Hypokalemia. 6. History of cirrhotic liver. 7. Memory loss. 8. History of chronic systolic congestive heart failure. PLAN 1. He had a recent echocardiogram done that showed severely impaired systolic function. 2. He was his ICD interrogated. He received 1 therapy with 41 Joules. 3. Potassium is better today 4.3. We will continue his home medications. INR is 1.41. Further cardiac workup pending clinical course. Thank you for this consultation. DICTATED BY: TEODORO CAMERON NP Job#: [id number] TAMIA
[2018-06-20] MEDS ORDERED: ACETAMINOPHEN/CODEINE 300MG - 30MG TAB PO PRN (14:30)
--- NOTE | 2018-06-20 16:51 | NUR ---
nurse asked to hold today due to pain and low bp, will f/u 06-22-18 Addendum: 06/20/18 at 1653 by Clark Pineda PTA Amended: Links added.
[2018-06-20] MEDS: WARFARIN SOD 3 MG TAB PO SCH (17:00)
[2018-06-20] MEDS: ATORVASTATIN 40 MG TAB PO SCH (21:00)
--- NOTE | 2018-06-20 21:00 | NUR ---
REPORT CALLED TO FLOOR NURSE LILIAN RN. ADMITTING DX, PATIENT HX, VS AND WHAT HIS VS HAS BEEN RUNNING, DIET, NO 02 PER NC, CARDIAC DIET, USES BRIEF, ACCU CHECKS ACHS, AND INFORMED HIM OF ALL WOUND CARE NEEDS. INFORMED HIM THAT 2100 MEDS TO BE GIVEN ALONG WITH PATIENTS PAIN MED.
--- NOTE | 2018-06-21 00:14 | NUR ---
At 2303, patient arrived from ICU to unit by a bed and escorted by POLI Collins. Assisted patient to room comfortable. Bed at low position and locked. Call light within reach and reminded patient to utilize when assistance is needed. Oriented patient to surroundings and voiced understanding. AAO x 4. No acute distress noted. Patient reports of no pain at this time. Patient in stable condition and will continue to monitor.
[2018-06-21 04:00] VITALS: BP 88/54
[2018-06-21 06:15] LABS: BASOPHILS # (AUTO) 0.1 (0.0-0.1); BASOPHILS % 0.5 % (0.0-1.0); EOSINOPHILS # (AUTO) 0.4 (0.0-0.4); EOSINOPHILS % 3.2 % (0.0-6.0); HEMATOCRIT 28.8 % (38.2-49.6); HEMOGLOBIN 9.2 g/dL (14.0-18.0); LYMPHOCYTES # (AUTO) 1.7 (1.0-3.2); LYMPHOCYTES % 15.1 % (18.0-39.1); MEAN CORPUSCULAR HEMOGLOBIN 30.3 pg (28-32); MEAN CORPUSCULAR HGB CONC 31.9 g/dL (31-35); MEAN CORPUSCULAR VOLUME 94.7 fL (81-99); MONOCYTES # (AUTO) 1.5 (0.2-0.8); MONOCYTES % 13.3 % (4.4-11.3); NEUTROPHILS # (AUTO) 7.5 (2.1-6.9); NEUTROPHILS % 67.1 % (38.7-80.0); PLATELET COUNT 223 x10e3/uL (140-360); RED BLOOD COUNT 3.04 x10e6/uL (4.3-5.7); RED CELL DISTRIBUTION WIDTH 16.7 % (11.7-14.4)
[2018-06-21 06:31] LABS: INR 1.4; PROTHROMBIN TIME 18.3 seconds (11.9-14.5)
[2018-06-21 06:36] LABS: ANION GAP 11.2 mmol/L (8-16); BLOOD UREA NITROGEN 25 mg/dL (7-26); BUN/CREATININE RATIO 31 (6-25); CALCIUM 8.8 mg/dL (8.4-10.2); CARBON DIOXIDE 21 mmol/L (22-29); CHLORIDE 100 mmol/L (98-107); CREATININE, SERUM 0.81 mg/dL (0.72-1.25); EST GLOMERULAR FILTRATION RATE > 60 ML/MIN (60-); GLUCOSE 113 mg/dL (74-118); POTASSIUM 4.2 mmol/L (3.5-5.1); SODIUM 128 mmol/L (136-145)
[2018-06-21] MEDS: INSULIN LISPRO 100 UNIT/1 ML 3ML VIAL SQ SCH ×4 (07:30→20:51)
[2018-06-21] MEDS: BALSAM PERU/CASTOR OIL 60 GM OINT...G. TP SCH (08:23)
[2018-06-21] MEDS: SERTRALINE HCL 50 MG TAB PO SCH (08:29)
[2018-06-21] MEDS: AMIODARONE HCL 200 MG TAB PO SCH (08:29)
[2018-06-21 08:45] VITALS: BP 115/59
--- NOTE | 2018-06-21 09:55 | NUR ---
PATIENT IS IN STABLE CONDITION WITH NO S/S OF RESPIRATORY DISTRESS. NO PAIN VOICED. REDNESS NOTED TO HEELS AND SACRUM AREA. CREAM APPLIED TO SACRUM AREA; ALLEVYN PAD IS STILL DRY AND REAPPLIED. SCD'S AND PROTECTIVE BOOTS APPLIED BILATERALLY TO LOWER EXTREMITIES/FEET. BED ALARM APPLIED. CALL LIGHT IS WITHIN REACH, INSTRUCTED TO CALL FOR ASSISTANCE NEEDED.
[2018-06-21 10:11] VITALS: BP 115/59
--- NOTE | 2018-06-21 10:50 | Consultation ---
DATE OF CONSULTATION: June 21, 2018 REHAB CONSULTATION REFERRING PHYSICIAN: Dr. Greenwood. I would like to thank Dr. Greenwood for asking me to see Mr. Moore in consultation. REASON FOR CONSULTATION 1. Status post fall. 2. V-tach. 3. Short-term memory access. 4. T12 compression/first fracture with mild retropulsion causing some mild canal stenosis. HISTORY: Mainly from medical records on the chart. Patient gave me some history himself; however, it is very limited. Patient is a 73-year-old male who is status post fall at a senior care. Apparently, he has had extensive cardiac issues and was recently sent to the senior care for recuperation; however, after couple of days he fell. Patient had an ex-V-tach as well and cardiology was consulted and he has extensive cardiac issues. Denied any chest pain, but does have some back pain and right shoulder pain. Also he was found to have some elevated potassium. No compression deformity and mild fracture with retropulsion causing at least mild canal stenosis. His leg strength is still really good. I am being asked to evaluate for rehab needs. PAST MEDICAL HISTORY: Includes CHF, coronary artery disease, AFib, ICD placement, renal insufficiency, aortic valve replacement, TIA, cirrhotic liver, [place], coagulopathy, epistaxis, chronic otitis media, PVD, and PAD. SURGERIES: Included aortic valve replacement, carotid endarterectomy, ICD, and CABG. FAMILY HISTORY: Patient states that heart disease stroke and diabetes all run in his family. HABITS: He denies smoking or drinking at this time. SOCIAL HISTORY: He says he lives at home. According to cardiology, he is now living at the senior care still uncertain whether or not is going to take him home, but it looks like she has had him placed in a skilled unit. REVIEW OF SYSTEMS GENERAL: Denies any fevers or chills. EYES: Denies. EARS: Denies. THROAT: Denies. NECK: Denies. CARDIAC: Denies. GI: Denies. MUSCULOSKELETAL: Has some right shoulder pain due to recent fall. HEMATOLOGIC: Denies. ONCOLOGIC: Denies any weight loss. Rest of the 16-point review of systems is essentially negative. He had x-ray of the right shoulder, which showed moderate degenerative changes of the right shoulder, no fracture. Cervical spine CT showed no acute osseous abnormality, mild multilevel spondylosis minimal grade I anterolisthesis C6-7 on T1. Lumbar spine showed [id number] multilevel lumbar spondylosis more prominent at L5-S1, grade I anterolisthesis of L5 on S4 due to chronic bilateral L5 pars deficit. PHYSICAL EXAMINATION GENERAL: The patient is awake and alert. He knows 2017 and it is still May. He cannot however, tell me his home situation and even as far as how far he can walk. EYES: Gaze is conjugate. ORAL: Tongue is midline. NECK: No JVD. HEART: Regular. LUNGS: Diminished breath sounds. ABDOMEN: Nontender, nondistended. EXTREMITIES: Functional range of motion to the arms as well as legs. He has pain to the right shoulder secondary to his recent fall. Palpation of shoulder did not show any bony deficits, but he does have soreness around the muscle area. Sensory moore denies any changes. Manual muscle testing was exception in his shoulder. 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 He has got elbow flexion and extension. He has 3+/5 strength, shoulder flexion and extension 3+/5 on the right and lower extremities; however, in the knee flexion and extension, ankle dorsiflexion and plantar flexion is pretty much 4+ to 5 bilaterally while in the supine position. strength bilaterally, no increased passive range of motion in arms or legs. IMPRESSION 1. T12 compression fracture with some retropulsion and mild canal stenosis. 2. Ventricular tachycardia. 3. Recent falls. 4. Short-term memory deficits. 5. Congestive heart failure. 6. Atrial fibrillation. 7. Implantable cardioverter-defibrillator. 8. History of transient ischemic attack. 9. Cirrhotic liver. 10. History of previous myocardial infarction. PLAN: Therapy has been initiated; however, patient had low blood pressure and cannot do much, overall should be working on mobility and transfers. Speech therapy to be consulted for cognitive deficit. appeared to be new according to cardiology. OT is not in the house, but PT might be at the work on shoulder stabilization exercises. We will follow along with you. Thank you once again for allowing me to participate in the care of this pleasant, but unfortunate patient. Job#: [id number] TAMIA
--- NOTE | 2018-06-21 11:13 | NUR ---
ST NOTE: SLE order acknowledged, to be completed on 06-22-18.
[2018-06-21 13:06] VITALS: BP 108/77
[2018-06-21] MEDS: ACETAMINOPHEN/CODEINE 300MG - 30MG TAB PO PRN (17:21)
[2018-06-21] MEDS: WARFARIN SOD 3 MG TAB PO SCH (17:22)
--- NOTE | 2018-06-21 18:57 | NUR ---
PATIENT IS IN STABLE CONDITION WITH NO S/S OF RESPIRATORY DISTRESS. NO PAIN VOICED. ALLEVYN PAD STILL REMAIN DRY AND INTACT TO THE SACRUM. HEEL PROTECTORS APPLIED BILATERALLY WELL SCD'S. BED ALARM ON. CALL LIGHT IS WITHIN REACH, INSTRUCTED TO CALL FOR ASSISTANCE NEEDED. REPORT GIVEN TO ONCOMING NURSE.
[2018-06-21 19:08] VITALS: BP 160/85
--- NOTE | 2018-06-21 19:20 | NUR ---
patient recieved awake, alert but forgetful at times. vss. no c/o pain noted. pm assessment complete. bed alarm placed on bed for safety. patient instructed to call for assistance when needed.
[2018-06-21 20:00] VITALS: BP 87/55
[2018-06-21] MEDS: ATORVASTATIN 40 MG TAB PO SCH (20:44)
[2018-06-22] VITALS: BP 102/65
--- NOTE | 2018-06-22 | NUR ---
patient turned and repositioned for comfort q 2 hrs. no c/o pain noted at this time.
[2018-06-22 04:00] VITALS: BP 97/61
[2018-06-22 05:21] LABS: BASOPHILS # (AUTO) 0.1 (0.0-0.1); BASOPHILS % 0.5 % (0.0-1.0); EOSINOPHILS # (AUTO) 0.3 (0.0-0.4); EOSINOPHILS % 2.8 % (0.0-6.0); HEMATOCRIT 26.6 % (38.2-49.6); HEMOGLOBIN 8.7 g/dL (14.0-18.0); LYMPHOCYTES # (AUTO) 1.5 (1.0-3.2); LYMPHOCYTES % 16.3 % (18.0-39.1); MEAN CORPUSCULAR HEMOGLOBIN 30.5 pg (28-32); MEAN CORPUSCULAR HGB CONC 32.7 g/dL (31-35); MEAN CORPUSCULAR VOLUME 93.3 fL (81-99); MONOCYTES # (AUTO) 1.2 (0.2-0.8); MONOCYTES % 12.4 % (4.4-11.3); NEUTROPHILS # (AUTO) 6.2 (2.1-6.9); NEUTROPHILS % 67.2 % (38.7-80.0); PLATELET COUNT 212 x10e3/uL (140-360); RED BLOOD COUNT 2.85 x10e6/uL (4.3-5.7); RED CELL DISTRIBUTION WIDTH 16.7 % (11.7-14.4)
[2018-06-22 05:34] LABS: INR 1.58; PROTHROMBIN TIME 20.2 seconds (11.9-14.5)
[2018-06-22] MEDS: INSULIN LISPRO 100 UNIT/1 ML 3ML VIAL SQ SCH ×4 (07:30→21:00)
[2018-06-22] MEDS: AMIODARONE HCL 200 MG TAB PO SCH ×2 (09:13→22:30)
[2018-06-22] MEDS: SERTRALINE HCL 50 MG TAB PO SCH (09:13)
[2018-06-22] MEDS: BALSAM PERU/CASTOR OIL 60 GM OINT...G. TP SCH (09:13)
[2018-06-22] MEDS: ACETAMINOPHEN/CODEINE 300MG - 30MG TAB PO PRN (11:32)
[2018-06-22 12:13] VITALS: BP 100/62
[2018-06-22 12:45] VITALS: BP 100/62
--- NOTE | 2018-06-22 16:10 | NUR ---
CM SPOKE WITH DR FOREMAN TODAY REGARDING DC PLAN DR FOREMAN STATES THAT PT WAS NOT APPROVED BY DR GREY FOR [facility] ORDERS FOR [facility] DR FOREMAN SPOKE WITH PT'S OVER PHONE AND SHE IS AGREEABLE PT AGREEABLE CHOICE LETTER SIGNED AND ON CHART MOS[facility] FROM [facility] HERE TO SEE PT PT APPROVED MOT REC'D NO DC ORDERS CM PLACED CALL TO DR FOREMAN FOR DC ORDERS
--- NOTE | 2018-06-22 16:17 | NUR ---
ORDERS FROM DR FOREMAN TO [place] PT TO [facility] TODAY AFTER SEEN BY DR WISE ORDERS ENTERED SPOKE WITH RAÚL ZAPATA NURSE ([facility])
[2018-06-22 16:44] VITALS: BP 121/78
[2018-06-22] MEDS: WARFARIN SOD 3 MG TAB PO SCH (17:56)
--- NOTE | 2018-06-22 19:15 | NUR ---
patient recieved awake, alert, sitting up on side of bed. vss. no c/o pain noted. pm assessment complete. patient instructed to call for assistance when needed.
--- NOTE | 2018-06-22 19:33 | NUR ---
PT IN BED, REPOSITIONED AND REDIRECTED NEEDED. SAFETY MAINTAINED, MEDICATED FOR PAIN NEEDED. PT TO BE DISCHARGED BUT BILLIE BROWN ORDERED TO WAIT UNTIL HE COMES AND SEE PT. PASSED ON NEXT SHIFT.
[2018-06-22 20:00] VITALS: BP 91/76
[2018-06-22] MEDS: ATORVASTATIN 40 MG TAB PO SCH (21:00)
--- NOTE | 2018-06-22 21:52 | NUR ---
here to see patient. discharge to [facility] ok'd with at this time. Attempted many times to call [facility] at . Each time phone was busy or no answer.
[2018-06-23] VITALS: BP 101/66
[2018-06-23 04:00] VITALS: BP 110/80
--- NOTE | 2018-06-23 05:00 | NUR ---
patient attemped to get oob by self. patient noted hanging half way off the bed. bed alarm remains on for safety. patient assisted back to bed. patient instructed to please call for assistance when needed.
--- NOTE | 2018-06-23 07:05 | NUR ---
Received patient mid fowlers position, side rails upx2, call light within reach. Resting with eyes closed. Arousable to verbal stimuli. Respirations even and unlabored. Will continue to monitor.
[2018-06-23] MEDS: INSULIN LISPRO 100 UNIT/1 ML 3ML VIAL SQ SCH (07:30)
[2018-06-23 07:44] VITALS: BP 121/75
[2018-06-23 08:05] VITALS: BP 121/75
--- NOTE | 2018-06-23 08:15 | NUR ---
Report called to [facility]. Report given to Alina ASHTON of patient's status
[2018-06-23] MEDS: BALSAM PERU/CASTOR OIL 60 GM OINT...G. TP SCH (08:23)
[2018-06-23] MEDS: AMIODARONE HCL 200 MG TAB PO SCH (08:23)
[2018-06-23] MEDS: SERTRALINE HCL 50 MG TAB PO SCH (08:23)
--- NOTE | 2018-06-23 08:29 | NUR ---
Left forearm IV discontinued. No signs of infiltration noted. 2x2 gauze and tape placed. Taken via stretcher. No signs of acute distress noted. Transfer package given to [facility].
== END 2018-06-23 09:30 | DRG 309 ==
LOC: ER 15:07 → ERHOLD 20:59 → ICU 23:50 → MED/SURG3 06-20 23:06
PROVIDERS: ADMIT Internal Medicine; ATTEND Internal Medicine
PROC: 5A2204Z Restoration of Cardiac Rhythm, Single (ICD-10-PCS; principal; 2018-06-18)
PROC: 5A12012 Performance of Cardiac Output, Single, Manual (ICD-10-PCS; 2018-06-18)
DX: I47.2 Ventricular tachycardia (principal); S22.011A Stable burst fracture of first thoracic vertebra, initial encounter for closed fracture; E87.1 Hypo-osmolality and hyponatremia; I13.0 Hypertensive heart and chronic kidney disease with heart failure and stage 1 through stage 4 chronic kidney disease, or unspecified chronic kidney disease; I50.22 Chronic systolic (congestive) heart failure; I46.2 Cardiac arrest due to underlying cardiac condition; N18.9 Chronic kidney disease, unspecified; E11.22 Type 2 diabetes mellitus with diabetic chronic kidney disease; Z79.84 Long term (current) use of oral hypoglycemic drugs; E11.51 Type 2 diabetes mellitus with diabetic peripheral angiopathy without gangrene; I25.10 Atherosclerotic heart disease of native coronary artery without angina pectoris; I48.91 Unspecified atrial fibrillation; K74.60 Unspecified cirrhosis of liver; H66.90 Otitis media, unspecified, unspecified ear; D64.9 Anemia, unspecified; I95.9 Hypotension, unspecified; E87.5 Hyperkalemia; R41.3 Other amnesia; Z79.01 Long term (current) use of anticoagulants; Z95.2 Presence of prosthetic heart valve; Z95.810 Presence of automatic (implantable) cardiac defibrillator; M25.511 Pain in right shoulder; W19.XXXA Unspecified fall, initial encounter; Y92.129 Unspecified place in nursing home as the place of occurrence of the external cause; Z87.891 Personal history of nicotine dependence; R25.1 Tremor, unspecified; Z79.82 Long term (current) use of aspirin; L89.150 Pressure ulcer of sacral region, unstageable; E78.5 Hyperlipidemia, unspecified
CPT/HCPCS: 36415; 70450; 71045; 72125; 72128; 72131; 80048; 80053; 80061; 81001; 82550; 82553; 82948; 83735; 83880; 84484; 85025; 85610; 85730; 92523; 93005; 97139; 99285; J2270; J7030; J7060